=== PATIENT | female | born 1955 | race Caucasian/White ===

== ENCOUNTER 2018-07-01 11:46 | Emergency (ER) | payer OTHER, MEDICARE ==
[~2018-07-01] VITALS: Ht 157.5 cm; Wt 87.1 kg
[~2018-07-01 11:46] MED LIST: ASA81 MG PO; ASPIRIN BUFFER325 MG PO; ASPIRIN325 MG PO; ATORVASTATIN CA40 MG PO; COREG3.125 MG PO; DICLOFENAC SODI75 MG PO; FISH OIL300 MG PO; FUROSEMIDE20 MG PO; LISINOPRIL10 MG PO; LISINOPRIL2.5 MG PO; LISINOPRIL20 MG PO; OMEPRAZOLE20 MG PO; PAROXETINE HCL20 MG PO
--- OUTSIDE RECORDS SUMMARY | 2018-07-01 11:50 | XMS REPORT | Summary of Care ---
Author Author [facility] Organization [facility] Address Unknown Phone Unavailable Encounter HQ Rubi_erasto(BONILLA) [id number] Date(s): 09/06/15 - 09/09/15 [facility] [address] [place] [address]- [phone] Discharge Disposition: Home Attending Physician: Pilar Harp MD Admitting Physician: Pilar Harp MD Vital Signs 1 2 3 Most recent to oldest [Reference Range]: 165.1 cm (09/09/15 9:00 AM) 154.94 cm (09/08/15 9:00 AM) 165.1 cm (09/06/15 6:00 PM) Height 82.273 kg (09/09/15 9:00 AM) 81.449 kg (09/09/15 6:01 AM) 81.506 kg (09/08/15 9:00 AM) Current Weight 99.4 DegF *HI* (09/09/15 4:17 PM) 99.0 DegF (09/09/15 11:48 AM) 98.6 DegF (09/09/15 7:40 AM) Temperature Oral [96.4-99.1 DegF] 122/62 mmHg (09/09/15 4:17 PM) 113/77 mmHg (09/09/15 11:48 AM) 115/75 mmHg (09/09/15 7:40 AM) Blood Pressure [90-140/60-90 mmHg] 18 BRMIN (09/09/15 4:17 PM) 18 BRMIN (09/09/15 11:48 AM) 16 BRMIN (09/09/15 7:40 AM) Respiratory Rate [14-20 BRMIN] 66 bpm (09/09/15 4:17 PM) 75 bpm (09/09/15 11:48 AM) 70 bpm (09/09/15 7:40 AM) Peripheral Pulse Rate [60-100 bpm] 80.455 kg (09/07/15 8:32 AM) 128.295 kg (09/06/15 6:00 PM) 82.727 kg (09/06/15 12:57 PM) Weight 47.07 m2 (09/06/15 6:00 PM) 34.46 m2 (09/06/15 12:57 PM) Body Mass Index Problem List Condition Effective Dates Status Health Status Informant CHF - Congestive Resolved heart failure(Confirmed) HTN Resolved (hypertension)(Confi rmed) Hyperlipemia(Confirm Resolved ed) Pre-diabetes(Confirm Resolved ed) Allergies, Adverse Reactions, Alerts Substance Reaction Severity Status penicillins Active Medications AMIODarone 200 mg, 1 tab, Route: PO, Drug form: TAB, BID, Dosing Weight 82.727, kg, Start d ate: 09/06/15 17:00:00, Duration: 30 day, Stop date: 10/06/15 9:00:00 Notes: (Same as: Cordarone) Start Date: 09/06/15 Stop Date: 09/09/15 Status: Discontinued AMIODarone 200 mg oral tablet 200 mg=1 tab, PO, BID, # 180 tab, 0 Refill(s) Start Date: 09/06/15 Status: Ordered aspirin 81 mg, PO, Daily, 0 Refill(s) Start Date: 09/06/15 Status: Ordered aspirin 81 mg, 1 tab, Route: PO, Drug form: ECTAB, Daily, Dosing Weight 82.727, kg, Star t date: 09/07/15 9:00:00, Duration: 30 day, Stop date: 10/06/15 9:00:00 Notes: Do not crush or chew.(Same As: Ecotrin) Start Date: 09/07/15 Stop Date: 09/09/15 Status: Discontinued aspirin 324 mg, 4 tab, Route: CHEW, Drug form: CHEWTAB, ONCE, Dosing Weight 82.727, kg, Priority: STAT, Start date: 09/06/15 15:08:00, Stop date: 09/06/15 15:08:00 Notes: Take with food. Start Date: 09/06/15 Stop Date: 09/06/15 Status: Completed carvedilol 3.125 mg, 1 tab, Route: PO, Drug form: TAB, BID, Dosing Weight 82.727, kg, Start date: 09/07/15 17:00:00, Duration: 30 day, Stop date: 10/07/15 9:00:00 Notes: Give with food. (Same As: Coreg) Start Date: 09/07/15 Stop Date: 09/09/15 Status: Discontinued carvedilol 12.5 mg, 1 tab, Route: PO, Drug form: TAB, BID, Dosing Weight 82.727, kg, Start date: 09/06/15 17:00:00, Duration: 30 day, Stop date: 10/06/15 9:00:00 Notes: Give with food. (Same As: Coreg) Start Date: 09/06/15 Stop Date: 09/07/15 Status: Discontinued carvedilol 12.5 mg oral tablet 12.5 mg=1 tab, PO, BID, # 180 tab, 0 Refill(s) Start Date: 09/06/15 Stop Date: 09/09/15 Status: Discontinued carvedilol 12.5 mg oral tablet 12.5 mg=1 tab, PO, BID, # 60 tab, 0 Refill(s) Start Date: 09/09/15 Status: Ordered Dulcolax Laxative 5 mg, 1 tab, Route: PO, Drug form: ECTAB, Q6H, Dosing Weight 82.727, kg, PRN Con stipation, Start date: 09/06/15 16:37:00, Duration: 30 day, Stop date: 10/06/15 16:36:00 Notes: (Same As: Dulcolax, Correctol) (Do Not Crush) "Do Not Crush" Start Date: 09/06/15 Stop Date: 09/09/15 Status: Discontinued Dulcolax Laxative 10 mg, 1 supp, Route: MN, Drug form: SUPP, Daily, Dosing Weight 82.727, kg, PRN Constipation, Start date: 09/06/15 16:37:00, Duration: 30 day, Stop date: 16:36:00 Notes: (Same As: Dulcolax, Bisco-Lax) Start Date: 09/06/15 Stop Date: 09/09/15 Status: Discontinued DuoNeb inhalation solution 3 ml, Route: INHALATION, Drug Form: SOLN, Dosing Weight 82.727, kg, Q4H, PRN Whe ezing, Start date: 09/06/15 16:39:00, Duration: 30 day, Stop date: 10/06/15 16:3 8:00, sob Notes: (Same as: Duoneb) Start Date: 09/06/15 Stop Date: 09/09/15 Status: Discontinued famotidine 40 mg, PO, Daily, 0 Refill(s) Start Date: 09/06/15 Status: Ordered famotidine 40 mg, 1 tab, Route: PO, Drug form: TAB, Daily, Dosing Weight 82.727, kg, Start date: 09/07/15 9:00:00, Duration: 30 day, Stop date: 10/06/15 9:00:00 Notes: (Same as: Pepcid) Start Date: 09/07/15 Stop Date: 09/09/15 Status: Discontinued furosemide 20 mg, Route: IVP, Daily, Dosing Weight 128.295, kg, Start date: 09/07/15 9:00:0 0, Duration: 30 day, Stop date: 10/06/15 9:00:00 Start Date: 09/07/15 Stop Date: 09/06/15 Status: Deleted furosemide 20 mg oral tablet 20 mg=1 tab, PO, Daily, # 30 tab, 1 Refill(s) Start Date: 09/06/15 Status: Ordered Lasix 20 mg, 2 mL, Route: IVP, Drug form: INJ, BID, Dosing Weight 82.727, kg, Priority : Routine, Start date: 09/07/15 17:00:00, Duration: 30 day, Stop date: 10/07/15 9:00:00 Notes: (Same as: Lasix) Start Date: 09/07/15 Stop Date: 09/07/15 Status: Canceled Lasix 20 mg, Route: IVP, Drug form: INJ, BID, Dosing Weight 82.727, kg, Priority: Rout ine, Start date: 09/07/15 17:00:00, Duration: 30 day, Stop date: 10/07/15 9:00:0 0 Start Date: 09/07/15 Stop Date: 09/07/15 Status: Canceled Lasix 40 mg, 4 mL, Route: IVP, Drug form: INJ, ONCE, Dosing Weight 82.727, kg, Priorit y: STAT, Start date: 09/06/15 15:06:00, Stop date: 09/06/15 15:06:00 Notes: (Same as: Lasix) MEDICATION WASTE Product Size: 40 mgProduct Was jagdish: ___ mg Start Date: 09/06/15 Stop Date: 09/06/15 Status: Completed Lasix 40 mg, 4 mL, Route: IVP, Drug form: INJ, BID, Dosing Weight 82.727, kg, Priority : Routine, Start date: 09/06/15 17:00:00, Duration: 30 day, Stop date: 10/06/15 9:00:00 Notes: (Same as: Lasix) MEDICATION WASTE Product Size: 40 mgProduct Was jagdish: ___ mg Start Date: 09/06/15 Stop Date: 09/07/15 Status: Discontinued Lasix 20 mg, 2 mL, Route: IVP, Drug form: INJ, Daily, Dosing Weight 82.727, kg, Priori ty: Routine, Start date: 09/08/15 9:00:00, Duration: 30 day, Stop date: 10/07/15 9:00:00 Notes: (Same as: Lasix) Start Date: 09/08/15 Stop Date: 09/09/15 Status: Discontinued lisinopril 10 mg, 1 tab, Route: PO, Drug form: TAB, Daily, Dosing Weight 82.727, kg, Start date: 09/07/15 9:00:00, Duration: 30 day, Stop date: 10/06/15 9:00:00 Notes: (Same as: Prinivil, Zestril) Start Date: 09/07/15 Stop Date: 09/09/15 Status: Discontinued lisinopril 10 mg oral tablet 10 mg=1 tab, PO, Daily, # 30 tab, 0 Refill(s) Start Date: 09/06/15 Status: Ordered nitroglycerin 0.4 mg/hr transdermal film 1 patch, Route: TOP, Drug Form: ERFILM, Dosing Weight 82.727, kg, Daily, NOW, St art date: 09/06/15 16:36:00, Duration: 30 day, Stop date: 10/06/15 9:00:00 Notes: Apply only once for up to 12 hours in a 24 hour period (12 hours on and 1 2 hours off.)(Same as:Nitro-Dur,Deponit,Transderm Nitro) For topical use only." Remove old patch before application of new patch" Start Date: 09/06/15 Stop Date: 09/09/15 Status: Discontinued ondansetron 4 mg, 2 mL, Route: IVP, Drug form: INJ, Q8H, Dosing Weight 128.295, kg, PRN Naus ea & Vomiting, Start date: 09/06/15 19:20:00, Duration: 30 day, Stop date: 10/06/15 19:19:00 Notes: (Same as: Devin) MEDICATION WASTE Product Size: 4 mgProduct Was jagdish: ___ mg Start Date: 09/06/15 Stop Date: 09/09/15 Status: Discontinued PARoxetine 40 mg, 2 tab, Route: PO, Drug form: TAB, Daily, Dosing Weight 82.727, kg, Start date: 09/07/15 9:00:00, Duration: 30 day, Stop date: 10/06/15 9:00:00 Notes: (Same as: Paxil) Start Date: 09/07/15 Stop Date: 09/09/15 Status: Discontinued PARoxetine 40 mg oral tablet 40 mg=1 tab, PO, Daily, # 30 tab, 0 Refill(s) Start Date: 09/06/15 Status: Ordered potassium chloride 40 mEq, 2 tab, Route: PO, Drug form: ERTAB, ONCE, Dosing Weight 82.727, kg, Prio rity: NOW, Start date: 09/06/15 16:36:00, Stop date: 09/06/15 16:36:00 Notes: (Same as: K-Dur 20)"Do Not Crush" With food and full glass of water Start Date: 09/06/15 Stop Date: 09/06/15 Status: Completed pravastatin 40 mg, 2 tab, Route: PO, Drug form: TAB, Bedtime, Dosing Weight 82.727, kg, Star t date: 09/06/15 21:00:00, Duration: 30 day, Stop date: 10/05/15 21:00:00 Notes: (Same as: Pravachol) Start Date: 09/06/15 Stop Date: 09/09/15 Status: Discontinued pravastatin 40 mg oral tablet 40 mg=1 tab, PO, Bedtime, # 30 tab, 0 Refill(s) Start Date: 09/06/15 Status: Ordered remove patch Route: TOP, Drug form: ERFILM, Daily, Start date: 09/06/15 23:00:00, Duration: 3 0 day, Stop date: 10/05/15 23:00:00 Notes: Remove from 11 pm to 9 am daily for 10 hour nitrate free period. (Verify Patient has not taken Viagra, Cialis or Levitra in last 24 hours; if taken, hold NTG and notify MD.) Start Date: 09/06/15 Stop Date: 09/09/15 Status: Discontinued Saline Flush 0.9% 10 ml, Route: IVP, Drug Form: INJ, Dosing Weight 128.295, kg, PRN, PRN Line Flus h, Start date: 09/06/15 19:20:00, Duration: 30 day, Stop date: 10/06/15 19:19:00 Start Date: 09/06/15 Stop Date: 09/06/15 Status: Deleted Saline Flush 0.9% 10 ml, Route: IVP, Drug Form: INJ, Dosing Weight 128.295, kg, Q12H, Start date: 09/06/15 21:00:00, Duration: 30 day, Stop date: 10/06/15 9:00:00 Notes: Same as: BD Posiflush Sterile Start Date: 09/06/15 Stop Date: 09/09/15 Status: Discontinued Saline Flush 0.9% 10 mL, Route: IVP, Drug Form: INJ, Dosing Weight 82.727, kg, PRN, PRN Line Flush , Start date: 09/06/15 13:04:00, Duration: 30 day, Stop date: 10/06/15 13:03:00 Notes: Same as: BD Posiflush Sterile Start Date: 09/06/15 Stop Date: 09/09/15 Status: Discontinued spironolactone 25 mg, 1 tab, Route: PO, Drug form: TAB, Daily, Dosing Weight 80.455, kg, Priori ty: NOW, Start date: 09/07/15 10:52:00, Duration: 30 day, Stop date: 10/07/15 9: 00:00 Notes: (Same As: Aldactone) Start Date: 09/07/15 Stop Date: 09/09/15 Status: Discontinued spironolactone 25 mg oral tablet 25 mg=1 tab, PO, Daily, # 100 tab, 2 Refill(s) Start Date: 09/09/15 Status: Ordered tramadol 50 mg oral tablet 50 mg=1 tab, PO, Q6H, PRN Pain Score 1-3, # 100 tab, 2 Refill(s) Start Date: 09/09/15 Stop Date: 09/09/15 Status: Completed tramadol 50 mg oral tablet 50 mg, 1 tab, Route: PO, Drug form: TAB, Q6H, Dosing Weight 80.455, kg, PRN Pain Score 1-3, Start date: 09/09/15 12:56:00, Duration: 30 day, Stop date: 10/09/15 12:55:00 Notes: Not to exceed 400mg/day. (Same As: Ultram) Start Date: 09/09/15 Stop Date: 09/09/15 Status: Discontinued Tylenol 650 mg, Route: PO, Drug form: TAB, Q6H, Dosing Weight 82.727, kg, PRN Pain Score 1-3, Start date: 09/06/15 16:36:00, Duration: 30 day, Stop date: 10/06/15 16:35 :00 Start Date: 09/06/15 Stop Date: 09/06/15 Status: Deleted Tylenol 650 mg, 2 tab, Route: PO, Drug form: TAB, Q6H, Dosing Weight 82.727, kg, PRN Zuleika n 1-3/Temp > 100.4 F, Start date: 09/06/15 16:36:00, Duration: 30 day, Stop date: 10/06/15 16:35:00 Notes: Do not exceed 4 gm/day. (Same as: Tylenol) Start Date: 09/06/15 Stop Date: 09/09/15 Status: Discontinued Results ELECTROLYTES 1 2 3 Most recent to oldest [Reference Range]: 142 mEq/L (09/09/15 4:18 AM) 141 mEq/L (09/08/15 3:53 AM) 137 mEq/L (09/07/15 5:01 AM) Sodium Lvl [135-145 mEq/L] 4.9 mEq/L (09/09/15 4:18 AM) 4.2 mEq/L (09/08/15 3:53 AM) 3.7 mEq/L (09/07/15 5:01 AM) Potassium Lvl [3.5-5.1 mEq/L] 103 mEq/L (09/09/15 4:18 AM) 103 mEq/L (09/08/15 3:53 AM) 100 mEq/L (09/07/15 5:01 AM) Chloride Lvl [95-109 mEq/L] 30 mEq/L (09/09/15 4:18 AM) 29 mEq/L (09/08/15 3:53 AM) 29 mEq/L (09/07/15 5:01 AM) CO2 [24-32 mEq/L] 13.9 mEq/L (09/09/15 4:18 AM) 13.2 mEq/L (09/08/15 3:53 AM) 11.7 mEq/L (09/07/15 5:01 AM) AGAP [10.0-20.0 mEq/L] CHEM PANEL 1 2 3 Most recent to oldest [Reference Range]: 0.91 mg/dL (09/09/15 4:18 AM) 1.09 mg/dL (09/08/15 3:53 AM) 1.14 mg/dL (09/07/15 5:01 AM) Creatinine Lvl [0.50-1.40 mg/dL] 68 mL/min/1.73m2 1 *NA* (09/09/15 4:18 AM) 55 mL/min/1.73m2 2 *NA* (09/08/15 3:53 AM) 52 mL/min/1.73m2 3 *NA* (09/07/15 5:01 AM) eGFR 20 mg/dL (09/09/15 4:18 AM) 20 mg/dL (09/08/15 3:53 AM) 13 mg/dL (09/07/15 5:01 AM) BUN [7-22 mg/dL] 14 (09/06/15 2:06 PM) B/C Ratio [6-25] 111 mg/dL *HI* (09/09/15 4:18 AM) 112 mg/dL *HI* (09/08/15 3:53 AM) 100 mg/dL *HI* (09/07/15 5:01 AM) Glucose Lvl [70-99 mg/dL] 7.1 g/dL (09/06/15 2:06 PM) Total Protein [6.4-8.4 g/dL] 3.8 g/dL (09/06/15 2:06 PM) Albumin Lvl [3.5-5.0 g/dL] 3.3 g/dL (09/06/15 2:06 PM) Globulin [2.0-4.0 g/dL] 1.2 (09/06/15 2:06 PM) A/G Ratio [0.7-1.6] 9.2 mg/dL (09/09/15 4:18 AM) 8.9 mg/dL (09/08/15 3:53 AM) 8.3 mg/dL *LOW* (09/07/15 5:01 AM) Calcium Lvl [8.5-10.5 mg/dL] 2.0 mg/dL (09/06/15 5:00 PM) Magnesium Lvl [1.8-2.4 mg/dL] 28 unit/L (09/06/15 2:06 PM) ALT [0-65 unit/L] 14 unit/L (09/06/15 2:06 PM) AST [0-37 unit/L] 71 unit/L (09/06/15 2:06 PM) Alk Phos [39-136 unit/L] 1.0 mg/dL (09/06/15 2:06 PM) Bili Total [0.2-1.3 mg/dL] 1Result Comment: The eGFR is calculated using the CKD-EPI formula. In most young, healthy individuals the eGFR will be >90 mL/min/1.73m2. The eGFR declines with age. An eGFR of 60-89 may be normal in some populations, particularly the elderly, for whom the CKD-EPI formula has not been extensively validated. Use of the eGFR is not recommended in the following populations: Individuals with unstable creatinine concentrations, including patients and those with serious co-morbid conditions. Patients with extremes in muscle mass or diet. The data above are obtained from the National Kidney Disease Education Program ( NKDEP) which additionally recommends that when the eGFR is used in patients with extremes of body mass index for purposes of drug dosing, the eGFR should be mul tiplied by the estimated BMI. 2Result Comment: The eGFR is calculated using the CKD-EPI formula. In most young, healthy individuals the eGFR will be >90 mL/min/1.73m2. The eGFR declines with age. An eGFR of 60-89 may be normal in some populations, particularly the elderly, for whom the CKD-EPI formula has not been extensively validated. Use of the eGFR is not recommended in the following populations: Individuals with unstable creatinine concentrations, including patients and those with serious co-morbid conditions. Patients with extremes in muscle mass or diet. The data above are obtained from the National Kidney Disease Education Program ( NKDEP) which additionally recommends that when the eGFR is used in patients with extremes of body mass index for purposes of drug dosing, the eGFR should be mul tiplied by the estimated BMI. 3Result Comment: The eGFR is calculated using the CKD-EPI formula. In most young, healthy individuals the eGFR will be >90 mL/min/1.73m2. The eGFR declines with age. An eGFR of 60-89 may be normal in some populations, particularly the elderly, for whom the CKD-EPI formula has not been extensively validated. Use of the eGFR is not recommended in the following populations: Individuals with unstable creatinine concentrations, including patients and those with serious co-morbid conditions. Patients with extremes in muscle mass or diet. The data above are obtained from the National Kidney Disease Education Program ( NKDEP) which additionally recommends that when the eGFR is used in patients with extremes of body mass index for purposes of drug dosing, the eGFR should be mul tiplied by the estimated BMI. CARDIAC ENZYMES 1 2 3 Most recent to oldest [Reference Range]: 47 unit/L (09/07/15 5:01 AM) 50 unit/L (09/06/15 10:20 PM) 56 unit/L (09/06/15 7:29 PM) Total CK [12-191 unit/L] 0.8 ng/mL (09/07/15 5:01 AM) 0.7 ng/mL (09/06/15 7:29 PM) 0.8 ng/mL (09/06/15 2:06 PM) CK MB [0.5-3.6 ng/mL] 1.7 (09/06/15 2:06 PM) CK MB Index [0.0-2.5] 0.03 ng/mL (09/07/15 5:01 AM) 0.04 ng/mL (09/06/15 10:20 PM) 0.03 ng/mL (09/06/15 7:29 PM) Troponin-I [0.00-0.40 ng/mL] 121 pg/mL *HI* (09/09/15 4:18 AM) 914 pg/mL *HI* (09/06/15 2:06 PM) BNP [<=100 pg/mL] URINE AND STOOL 1 2 3 Most recent to oldest [Reference Range]: Clear (09/06/15 5:00 PM) UA Turbidity [Clear] Colorless *NA* (09/06/15 5:00 PM) UA Color 6.0 (09/06/15 5:00 PM) UA pH [5.0-8.0] 1.004 (09/06/15 5:00 PM) UA Spec Grav [<=1.030] Negative mg/dL *NA* (09/06/15 5:00 PM) UA Glucose [Negative mg/dL] Negative (09/06/15 5:00 PM) UA Blood [Negative] Negative mg/dL *NA* (09/06/15 5:00 PM) UA Ketones [Negative mg/dL] Negative mg/dL (09/06/15 5:00 PM) UA Protein [Negative mg/dL] <=1.0 mg/dL *NA* (09/06/15 5:00 PM) UA Urobilinogen [0.1-1.0 mg/dL] Negative *NA* (09/06/15 5:00 PM) UA Bili [Negative] Negative (09/06/15 5:00 PM) UA Leuk Est [Negative] Negative (09/06/15 5:00 PM) UA Nitrite [Negative] <1 /HPF (09/06/15 5:00 PM) UA RBC [0-2 /HPF] None Seen *NA* (09/06/15 5:00 PM) UA Sq Epi HEMATOLOGY 1 2 3 Most recent to oldest [Reference Range]: 10.0 K/CMM (09/06/15 2:06 PM) WBC [3.7-10.4 K/CMM] 3.90 M/CMM *LOW* (09/06/15 2:06 PM) RBC [4.20-5.40 M/CMM] 12.7 g/dL (09/06/15 2:06 PM) Hgb [12.0-16.0 g/dL] 39.0 % (09/06/15 2:06 PM) Hct [36.0-48.0 %] 100.0 fL *HI* (09/06/15 2:06 PM) MCV [80.0-98.0 fL] 32.5 pg *HI* (09/06/15 2:06 PM) MCH [27.0-31.0 pg] 32.5 g/dL (09/06/15 2:06 PM) MCHC [32.0-36.0 g/dL] 13.5 % (09/06/15 2:06 PM) RDW [11.5-14.5 %] 218 K/CMM (09/06/15 2:06 PM) Platelet [133-450 K/CMM] 9.3 fL (09/06/15 2:06 PM) MPV [7.4-10.4 fL] 82.0 % *HI* (09/06/15 2:06 PM) Segs [45.0-75.0 %] 9.5 % *LOW* (09/06/15 2:06 PM) Lymphocytes [20.0-40.0 %] 6.6 % (09/06/15 2:06 PM) Monocytes [2.0-12.0 %] 1.5 % (09/06/15 2:06 PM) Eosinophils [0.0-4.0 %] 0.4 % (09/06/15 2:06 PM) Basophils [0.0-1.0 %] 8.2 K/CMM *HI* (09/06/15 2:06 PM) Segs-Bands # [1.5-8.1 K/CMM] 1.0 K/CMM (09/06/15 2:06 PM) Lymphocytes # [1.0-5.5 K/CMM] 0.7 K/CMM (09/06/15 2:06 PM) Monocytes # [0.0-0.8 K/CMM] 0.1 K/CMM (09/06/15 2:06 PM) Eosinophils # [0.0-0.5 K/CMM] 1+ *ABN* (09/06/15 2:06 PM) Macrocyte [None Seen] 13.8 seconds (09/06/15 5:00 PM) PT [12.0-14.7 seconds] 1.03 (09/06/15 5:00 PM) INR [0.85-1.17] 34.6 seconds (09/06/15 5:00 PM) PTT [22.9-35.8 seconds] Immunizations No data available for this section Procedures Procedure Date Related Diagnosis Body Site section Hysterectomy Insertion of permanent pacemaker with transvenous electrodes, atrio-ventricular sequential Social History Social History Type Response Smoking Status Former smoker; Exposure to Tobacco Smoke None; Cigarette Smoking Last 365 Days No; Reg Smoking Cessation Counseling Yes1 1stopped smoking for 18 years ago Assessment and Plan Extracted from: Title: Clinical Document Author: Ramy Fuller MD Date: 09/09/15 She is being discharged today. I will follow her in office as already scheduled. Extracted from: Title: Clinical Document Author: Pilar Harp MD Date: 09/09/15 Pt is a 60y/o F admitted on 09/06/2015 DISCHARGE SUMMARY DIAGNOSIS / HOSPITAL COURSE: chf htn cad Please see the H&P. Patient was discharged home in stable condition after approval by all consultants. Patient to return immediately if has any problem. Condition and plan of care were discussed with patient/family. OBJECTIVE: Vital Signs (last 24 hrs) Last Charted Temp Oral99.0 DegF (SEP 09 11:48) Heart Rate [id number] bpm (SEP 09 11:48) Resp Rate 18 BRMIN (SEP 09 11:48) [id number] mmHg (SEP 09 11:48) DBP77 mmHg (SEP 09 11:48) General: Not in acute distress Neuro: Awake and alert CV: RRR , no rub , no gallop , no murmur Pulm: Clear to ascultation Abd: BS + , soft , not distented , not tender to palpation Ext: No edema Skin: Not mottle Labs (Last four charted values) WBC 10.0(SEP 06) Hgb 12.7(SEP 06) Hct 39.0(SEP 06) Plt 218(SEP 06) Na 142(SEP 09)141(SEP 08)137(SEP 07)139(SEP 06) K 4.9(SEP 09)4.2(SEP 08)3.7(SEP 07)4.1(SEP 06) CO2 30(SEP 09)29(SEP 08)29(SEP 07)26(SEP 06) Cl 103(SEP 09)103(SEP 08)100(SEP 07)105(SEP 06) Cr 0.91(SEP 09)1.09(SEP 08)1.14(SEP 07)0.76(SEP 06) BUN 20(SEP 09)20(SEP 08)13(SEP 07)11(SEP 06) Glucose Random H 111(SEP 09)H 112(SEP 08)H 100(SEP 07)H 117(SEP 06) Mg 2.0(SEP 06) Ca 9.2(SEP 09)8.9(SEP 08)L 8.3(SEP 07)8.8(SEP 06) PT 13.8(SEP 06) INR 1.03(SEP 06) PTT 34.6(SEP 06) Troponin 0.03(SEP 07)0.04(SEP 06)0.03(SEP 06)0.02(SEP 06) CK MB 0.8(SEP 07)0.7(SEP 06)0.8(SEP 06) Total CK 47(SEP 07)50(SEP 06)56(SEP 06)47(SEP 06) Diet: See E order Activity: See E order Follow Up: See E order Medication: See Medication Reconciliation Extracted from: Title: Clinical Document Author: Pilar Harp MD Date: 09/09/15 Internal Medicine Progress Note SUBJECTIVE: Patient has no significant new complaint doing better OBJECTIVE: Diagnostics discussed with patient General: Not in acute distress Neuro: Awake and alert CV: RRR , no rub , no gallop , no murmur Pulm: Clear to ascultation Abd: BS + , soft , not distented , not tender to palpation Ext: No edema Skin: Not mottle Vital Signs (last 24 hrs) Last Charted Temp Oral99.0 DegF (SEP 09 11:48) Heart Rate [id number] bpm (SEP 09 11:48) Resp Rate 18 BRMIN (SEP 09 11:48) [id number] mmHg (SEP 09 11:48) DBP77 mmHg (SEP 09 11:48) Input/Output RecordInOutBal 4hr Tot 252 0 252 2824hr Tot [phone] Labs (Last four charted values) WBC 10.0(SEP 06) Hgb 12.7(SEP 06) Hct 39.0(SEP 06) Plt 218(SEP 06) Na 142(SEP 09)141(SEP 08)137(SEP 07)139(SEP 06) K 4.9(SEP 09)4.2(SEP 08)3.7(SEP 07)4.1(SEP 06) CO2 30(SEP 09)29(SEP 08)29(SEP 07)26(SEP 06) Cl 103(SEP 09)103(SEP 08)100(SEP 07)105(SEP 06) Cr 0.91(SEP 09)1.09(SEP 08)1.14(SEP 07)0.76(SEP 06) BUN 20(SEP 09)20(SEP 08)13(SEP 07)11(SEP 06) Glucose Random H 111(SEP 09)H 112(SEP 08)H 100(SEP 07)H 117(SEP 06) Mg 2.0(SEP 06) Ca 9.2(SEP 09)8.9(SEP 08)L 8.3(SEP 07)8.8(SEP 06) PT 13.8(SEP 06) INR 1.03(SEP 06) PTT 34.6(SEP 06) Troponin 0.03(SEP 07)0.04(SEP 06)0.03(SEP 06)0.02(SEP 06) CK MB 0.8(SEP 07)0.7(SEP 06)0.8(SEP 06) Total CK 47(SEP 07)50(SEP 06)56(SEP 06)47(SEP 06) ASSESSMENT and PLAN See E order Medications (18) Active Scheduled: (12) AMIODarone 200 mg TAB 200 mg 1 tab, PO, BID aspirin 81 mg ECT 81 mg 1 tab, PO, Daily carvedilol 3.125 mg TAB 3.125 mg 1 tab, PO, BID famotidine 40 mg TAB 40 mg 1 tab, PO, Daily furosemide 10mg/ml INJ 2ml VL 20 mg 2 mL, IVP, Daily lisinopril 10 mg TAB 10 mg 1 tab, PO, Daily nitroglycerin 0.4 mg/hr PATCH 1 patch, TOP, Daily nitroglycerin patch removal 1 remove patch, TOP, Daily PARoxetine 20 mg TAB 40 mg 2 tab, PO, Daily pravastatin 20 mg TAB 40 mg 2 tab, PO, Bedtime sodium chloride 0.9% 10ml sterile flush syr BD 10 ml, IVP, Q12H spironolactone 25 mg TAB 25 mg 1 tab, PO, Daily Continuous: (0) PRN: (6) acetaminophen 325 mg TABLET 650 mg 2 tab, PO, Q6H albuterol-ipratropium 2.5 mg-0.5 mg/3 ml CHIO 3 ml, INHALATION, Q4H bisacodyl 10 mg rect SUPP 10 mg 1 supp, MN, Daily bisacodyl 5 mg ECT 5 mg 1 tab, PO, Q6H ondansetron 4mg/2mL INJ SYRINGE 4 mg 2 mL, IVP, Q8H sodium chloride 0.9% 10ml sterile flush syr BD 10 mL, IVP, PRN meds d./c f/u next week. Extracted from: Title: Clinical Document Author: Mikle Harp MD Date: 09/06/15 HISTORY & PHYSICAL HPI: Patient complains of worsening of sob over few days and now with orthopnea and PND. NO cp, fever, chill , cough Past Medical History: HTN CAD C/s Hyst AICD placement 2013 Medication: See list/MAR Allergies (1) ActiveReaction penicillinsNone Documented Social History: Does not smoke , Drink socially , Denies illicit drug usage Social & Psychosocial Habits Tobacco 09/06/2015 Use: Former smoker Exposure to Tobacco Smoke None Cigarette Smoking Last 365 Days No Reg Smoking Cessation Counseling Yes Family History: Noncontributory ROS: 14 points ROS negative except as noted in the HPI Physical Examination: Vital Signs (last 24 hrs) Last Charted Temp Oral98.6 DegF (SEP 06 12:57) Heart Rate Slrhog73 bpm (SEP 06 15:21) Resp Rate H 25BRMIN (SEP 06 15:) SBPH 147mmHg (SEP 06 15:21) DBP89 mmHg (SEP 06 15:) Gzmacz02.727 kg (SEP 06 12:57) Labs (Last four charted values) WBC 10.0(SEP 06) Hgb 12.7(SEP 06) Hct 39.0(SEP 06) Plt 218(SEP 06) Na 139(SEP 06) K 4.1(SEP 06) CO2 26(SEP 06) Cl 105(SEP 06) Cr 0.76(SEP 06) BUN 11(SEP 06) Glucose Random H 117(SEP 06) Ca 8.8(SEP 06) Troponin 0.02(SEP 06) CK MB 0.8(SEP 06) Total CK 47(SEP 06) General: Mild sob HEENT: Sclera not icteric CV: RRR , no rub , gallop , no murmur Lung: few ronchi to asc. Abdomen: BS + , soft , not distended , not tender to palpation Ext: trace edema Skin: Not mottle Neuro: Awake, move all ext. EKG: noted, snr, nonspecific change Assessment and Plan: chf. lasxi. card eval cad . Resume home medications. HTN continue same management See E order Further recommendations pending evaluations Discussed condition and plan of treatment with patient/family
--- OUTSIDE RECORDS SUMMARY | 2018-07-01 11:50 | XMS REPORT ---
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 Name Role Phone Ramy Fuller CP Unavailable Encounters Encounter Location Date Follow-Up Ram[place] February 26, 2016 echo/carotid/arterial dopplers Ramy [place], [place] March 02, 2016 Problems Problem Type Condition ICD-9 Code Onset Dates Condition Status Problem Automatic implantable cardiac defibrillator in situ V45.02 Active Problem Benign hypertensive heart disease with heart failure 402.11 Active Problem Chronic systolic heart failure 428.22 Active Problem Hypertensive heart disease with heart failure I11.0 Active Problem Personal history of sudden cardiac arrest Z86.74 Active Problem CHF, chronic systolic I50.22 Active Problem Abnormal electrocardiogram [ECG] [EKG] R94.31 Active Problem Other obesity due to excess calories E66.09 Active Problem Presence of automatic (implantable) cardiac defibrillator Z95.810 Active Problem Mixed hyperlipidemia E78.2 Active Problem Personal history of sudden cardiac arrest V12.53 Active Problem Obesity, unspecified 278.00 Active Problem Mixed hyperlipidemia 272.2 Active Problem Abnormal ECG 794.31 Active Problem Benign hypertensive heart disease without heart failure 402.10 Active Social History Social History Element Qualifiers Date Reported Tobacco Use: . Are you a: former smoker quit in 1999February 26, 2016 Marital Status: . February 26, 2016 Do you drink alcohol? . Status: No February 26, 2016 Summary Purpose [employer] Submission
--- OUTSIDE RECORDS SUMMARY | 2018-07-01 11:50 | XMS REPORT | Continuity of Care Document ---
Author Author [facility] Interface Address Unknown Phone Unavailable Problems Problem Status Onset Date Classification Date Reported Comments Source ACUTE ON CHRONIC CHF Active 09/06/2015 [facility] CHEAT PAIN, SOB Active 09/06/2015 [facility] Automatic implantable cardiac defibrillator in situ Active Problem 03/03/2016 Ramy Fuller MD, [place] Benign hypertensive heart disease with heart failure Active Problem 03/03/2016 Ramy Fuller MD, PA Chronic systolic heart failure Active Problem 03/03/2016 Ramy Fuller MD, [place] Hypertensive heart disease with heart failure Active Problem 03/03/2016 Ramy Fuller MD, PA Personal history of sudden cardiac arrest Active Problem 03/03/2016 Ramy Fuller MD, PA CHF, chronic systolic Active Problem 03/03/2016 Ramy Fuller MD, PA Abnormal electrocardiogram [ECG] [EKG] Active Problem 03/03/2016 Ramy Fuller MD, PA Other obesity due to excess calories Active Problem 03/03/2016 Ramy Fuller MD, PA Presence of automatic cardiac defibrillator Active Problem 03/03/2016 Ramy Fuller MD, PA Mixed hyperlipidemia Active Problem 03/03/2016 aRmy Fuller MD, PA Personal history of sudden cardiac arrest Active Problem 03/03/2016 Ramy Fuller MD, NINFA Obesity, unspecified Active Problem 03/03/2016 Ramy Fuller MD, PA Mixed hyperlipidemia Active Problem 03/03/2016 Ramy Fuller MD, [place] Abnormal ECG Active Problem 03/03/2016 Ramy Fuller MD, [place] Benign hypertensive heart disease without heart failure Active Problem 03/03/2016 Ramy Fuller MD, PA CHF - Congestive heart failure Resolved Problem 09/12/2015 [facility] HTN (<span [id number]</span>) Resolved Problem 09/12/2015 [facility] Hyperlipemia Resolved Problem 09/12/2015 [facility] Pre-diabetes Resolved Problem 09/12/2015 [facility] HEART FAILURE, UNSPECIFIED Active [facility] Medications Medication Details Route Status Patient Instructions Ordering Provider Order Date Source tramadol hydrochloride 50 MG Oral Tablet 50 mg=1 tab, PO, Q6H, PRN Pain Score 1-3, # 100 tab, 2 Refill(s) Inactive 09/09/2015 [facility] spironolactone 25 mg oral tablet 25 mg=1 tab, PO, Daily, # 100 tab, 2 Refill(s) Active 09/09/2015 [facility] carvedilol 12.5 mg oral tablet 12.5 mg=1 tab, PO, BID, # 60 tab, 0 Refill(s) Active 09/09/2015 [facility] Lasix 20 mg, 2 mL, Route: IVP, Drug form: INJ, Daily, Dosing Weight 82.727, kg, Priority: Routine, Start date: 09/08/15 9:00:00, Duration: 30 day, Stop date: 10/07/15 9:00:00Notes: (Same as: Lasix) No Longer Active 09/08/2015 [facility] Lasix 20 mg, 2 mL, Route: IVP, Drug form: INJ, BID, Dosing Weight 82.727, kg, Priority: Routine, Start date: 09/07/15 17:00:00, Duration: 30 day, Stop date: 10/07/15 9:00:00Notes: (Same as: Lasix) Inactive 09/07/2015 [facility] carvedilol 3.125 mg, 1 tab, Route: PO, Drug form: TAB, BID, Dosing Weight 82.727, kg, Start date: 09/07/15 17:00:00, Duration: 30 day, Stop date: 10/07/15 9:00:00Notes: Give with food. (Same As: Coreg) No Longer Active 09/07/2015 [facility] Spironolactone 25 mg, 1 tab, Route: PO, Drug form: TAB, Daily, Dosing Weight 80.455, kg, Priority: NOW, Start date: 09/07/15 10:52:00, Duration: 30 day, Stop date: 10/07/15 9:00:00Notes: (Same As: Aldactone) No Longer Active 09/07/2015 [facility] Furosemide 20 mg, Route: IVP, Daily, Dosing Weight 128.295, kg, Start date: 09/07/15 9:00:00, Duration: 30 day, Stop date: 10/06/15 9:00:00 No Longer Active 09/07/2015 [facility] Paroxetine 40 mg, 2 tab, Route: PO, Drug form: TAB, Daily, Dosing Weight 82.727, kg, Start date: 09/07/15 9:00:00, Duration: 30 day, Stop date: 10/06/15 9:00:00Notes: (Same as: Paxil) No Longer Active 09/07/2015 [facility] Lisinopril 10 mg, 1 tab, Route: PO, Drug form: TAB, Daily, Dosing Weight 82.727, kg, Start date: 09/07/15 9:00:00, Duration: 30 day, Stop date: 10/06/15 9:00:00Notes: (Same as: Prinivil, Zestril) No Longer Active 09/07/2015 [facility] Famotidine 40 mg, 1 tab, Route: PO, Drug form: TAB, Daily, Dosing Weight 82.727, kg, Start date: 09/07/15 9:00:00, Duration: 30 day, Stop date: 10/06/15 9:00:00Notes: (Same as: Pepcid) No Longer Active 09/07/2015 [facility] Aspirin 81 mg, 1 tab, Route: PO, Drug form: ECTAB, Daily, Dosing Weight 82.727, kg, Start date: 09/07/15 9:00:00, Duration: 30 day, Stop date: 10/06/15 9:00:00Notes: Do not crush or chew. (Same As: Ecotrin) No Longer Active 09/07/2015 [facility] remove patch Route: TOP, Drug form: ERFILM, Daily, Start date: 09/06/15 23:00:00, Duration: 30 day, Stop date: 10/05/15 23:00:00Notes: Remove from 11 pm to 9 am daily for 10 hour nitrate free period. (Verify Patien t has not taken Viagra, Cialis or Levitra in last 24 hours; if taken, hold NTG and notify MDKayla) No Longer Active 09/07/2015 [facility] Saline Flush 0.9% 10 ml, Route: IVP, Drug Form: INJ, Dosing Weight 128.295, kg, Q12H, Start date: 09/06/15 21:00:00, Duration: 30 day, Stop date: 10/06/15 9:00:00Notes: Same as: BD Posiflush Sterile No Longer Active 09/07/2015 [facility] Pravastatin 40 mg, 2 tab, Route: PO, Drug form: TAB, Bedtime, Dosing Weight 82.727, kg, Start date: 09/06/15 21:00:00, Duration: 30 day, Stop date: 10/05/15 21:00:00Notes: (Same as: Pravachol) No Longer Active 09/07/2015 [facility] Saline Flush 0.9% 10 ml, Route: IVP, Drug Form: INJ, Dosing Weight 128.295, kg, PRN, PRN Line Flush, Start date: 09/06/15 19:20:00, Duration: 30 day, Stop date: 10/06/15 19:19:00 Inactive 09/07/2015 [facility] Ondansetron 4 mg, 2 mL, Route: IVP, Drug form: INJ, Q8H, Dosing Weight 128.295, kg, PRN Nausea & Vomiting, Start date: 09/06/15 19:20:00, Duration: 30 day, Stop date: 10/06/15 19:19:00Notes: (Same as: Zofran) MEDICATION WASTE Product Size: 4 mg Product Wasted: ___ mg No Longer Active 09/07/2015 [facility] Lasix 40 mg, 4 mL, Route: IVP, Drug form: INJ, BID, Dosing Weight 82.727, kg, Priority: Routine, Start date: 09/06/15 17:00:00, Duration: 30 day, Stop date: 10/06/15 9:00:00Notes: (Same as: Lasix) MEDICATION WASTE Product Size: 40 mg Product Wasted: ___ mg No Longer Active 09/06/2015 [facility] carvedilol 12.5 mg, 1 tab, Route: PO, Drug form: TAB, BID, Dosing Weight 82.727, kg, Start date: 09/06/15 17:00:00, Duration: 30 day, Stop date: 10/06/15 9:00:00Notes: Give with food. (Same As: Coreg) No Longer Active 09/06/2015 [facility] Amiodarone 200 mg, 1 tab, Route: PO, Drug form: TAB, BID, Dosing Weight 82.727, kg, Start date: 09/06/15 17:00:00, Duration: 30 day, Stop date: 10/06/15 9:00:00Notes: (Same as: Cordarone) No Longer Active 09/06/2015 [facility] Albuterol 0.833 MG/ML / Ipratropium [place] 0.167 MG/ML Inhalant Solution [DuoNeb] 3 ml, Route: INHALATION, Drug Form: SOLN, Dosing Weight 82.727, kg, Q4H, PRN Wheezing, Start date: 09/06/15 16:39:00, Duration: 30 day, Stop date: 10/06/15 16:38:00, sobNotes: (Same as: Duoneb) No Longer Active 09/06/2015 [facility] Dulcolax Laxative 5 mg, 1 tab, Route: PO, Drug form: ECTAB, Q6H, Dosing Weight 82.727, kg, PRN Constipation, Start date: 09/06/15 16:37:00, Duration: 30 day, Stop date: 10/06/15 16:36:00Notes: (Same As: Dulcolax, Ellen ectol) (Do Not Crush) "Do Not Crush" No Longer Active 09/06/2015 [facility] 24 HR Nitroglycerin 0.4 MG/HR Transdermal Patch 1 patch, Route: TOP, Drug Form: ERFILM, Dosing Weight 82.727, kg, Daily, NOW, Start date: 09/06/15 16:36:00, Duration: 30 day, Stop date: 10/06/15 9:00:00Notes: Apply only once for up to 12 hours in a 24 hour period (12 hours on and 12 hours off.) (Same as:Nitro-Dur,Deponit,Transderm Nitro) For topical use only. "Remove old patch before application of new patch" No Longer Active 09/06/2015 [facility] Tylenol 650 mg, Route: PO, Drug form: TAB, Q6H, Dosing Weight 82.727, kg, PRN Pain Score 1-3, Start date: 09/06/15 16:36:00, Duration: 30 day, Stop date: 10/06/15 16:35:00 Inactive 09/06/2015 [facility] potassium chloride 40 mEq, 2 tab, Route: PO, Drug form: ERTAB, ONCE, Dosing Weight 82.727, kg, Priority: NOW, Start date: 09/06/15 16:36:00, Stop date: 09/06/15 16:36:00Notes: (Same as: K-Dur 20) "Do Not Crush" With food and full glass of water Inactive 09/06/2015 [facility] Aspirin 324 mg, 4 tab, Route: CHEW, Drug form: CHEWTAB, ONCE, Dosing Weight 82.727, kg, Priority: STAT, Start date: 09/06/15 15:08:00, Stop date: 09/06/15 15:08:00Notes: Take with food. Inactive 09/06/2015 [facility] Lasix 40 mg, 4 mL, Route: IVP, Drug form: INJ, ONCE, Dosing Weight 82.727, kg, Priority: STAT, Start date: 09/06/15 15:06:00, Stop date: 09/06/15 15:06:00Notes: (Same as: Lasix) MEDICATION WASTE Product Size: 40 mg Product Wasted: ___ mg Inactive 09/06/2015 [facility] PARoxetine 40 mg oral tablet 40 mg=1 tab, PO, Daily, # 30 tab, 0 Refill(s) Active 09/06/2015 [facility] AMIODarone 200 mg oral tablet 200 mg=1 tab, PO, BID, # 180 tab, 0 Refill(s) Active 09/06/2015 [facility] Aspirin 81 mg, PO, Daily, 0 Refill(s) Active 09/06/2015 [facility] Furosemide 20 MG Oral Tablet 20 mg=1 tab, PO, Daily, # 30 tab, 1 Refill(s) Active 09/06/2015 [facility] pravastatin 40 mg oral tablet 40 mg=1 tab, PO, Bedtime, # 30 tab, 0 Refill(s) Active 09/06/2015 [facility] carvedilol 12.5 mg oral tablet 12.5 mg=1 tab, PO, BID, # 180 tab, 0 Refill(s) No Longer Active 09/06/2015 [facility] lisinopril 10 mg oral tablet 10 mg=1 tab, PO, Daily, # 30 tab, 0 Refill(s) Active 09/06/2015 [facility] Famotidine 40 mg, PO, Daily, 0 Refill(s) Active 09/06/2015 [facility] Saline Flush 0.9% 10 mL, Route: IVP, Drug Form: INJ, Dosing Weight 82.727, kg, PRN, PRN Line Flush, Start date: 09/06/15 13:04:00, Duration: 30 day, Stop date: 10/06/15 13:03:00Notes: Same as: BD Posiflush Sterile No Longer Active 09/06/2015 [facility] Amiodarone HCl 1 tablet Orally Active 200 MG Orally twice a day (bid) [facility] 02/13/2015 Ramy Fuller MD, NINFA Levothyroxine Sodium 1 tablet Orally Active 0.5 mg Orally Once a day Alina Fuller MD, NINFA Tramadol HCl 1 tablet as needed Orally Active 50 MG Orally every 6 hrs Alina Fuller MD, PA Famotidine 1 tablet Orally Active 40 MG Orally Once a day Alina Fuller MD, PA Spironolactone 1 tablet Orally Active 25 MG Orally daily Alina Fuller MD, [place] Pravastatin Sodium 1 tablet Orally Active 40 MG Orally Once a day Alina Fuller MD, [place] Carvedilol 1 tablet Orally Active 12.5 MG Orally Twice a day Alina Fuller MD, NINFA Lisinopril 1 tablet Orally Active 10 mg Orally Once a day Alina Fuller MD, PA Aspirin 1 tablet Orally Active 81 MG Orally Once a day Alina Fuller MD, NINFA Furosemide 1 tablet Orally Active 20 MG Orally Once a day Alina Fuller MD, PA Paroxetine HCl 1 tablet in the morning Orally Active 40 MG Orally Once a day Alina Fuller MD, NINFA Allergies, Adverse Reactions, Alerts Substance Category Reaction Severity Reaction type Status Date Reported Comments Source penicillin Adverse Reaction Info Not Available Adverse Reaction Active 02/26/2016 Ramy Fuller MD, [place] penicillins Assertion Drug allergy Active [facility] Immunizations Immunization Date Given Site Status Last Updated Comments Source Results Order Name Results Value Reference Range Date Interpretation Comments Source CARDIAC ENZYMES BNP 121 pg/mL <=100 pg/mL 09/09/2015 [facility] eGFR 68 mL/min/1.73m2 09/09/2015 Result Comment: The eGFR is calculated using the [...] from the National Kidney Disease Education Program (NKDEP) which additionally recommends that when the eGFR is used in patients with extremes of body mass index for purposes of drug dosing, the eGFR should be multiplied by the estimated BMI. [facility] Creatinine Lvl 0.91 mg/dL 0.50 - 1.40 09/09/2015 [facility] CO2 30 meq/L 24 - 32 09/09/2015 [facility] Chloride Lvl 103 meq/L 95 - 109 09/09/2015 [facility] Potassium Lvl 4.9 meq/L 3.5 - 5.1 09/09/2015 [facility] Sodium Lvl 142 meq/L 135 - 145 09/09/2015 [facility] BUN 20 mg/dL 7 - 22 09/09/2015 [facility] Calcium Lvl 9.2 mg/dL 8.5 - 10.5 09/09/2015 [facility] Glucose Lvl 111 mg/dL 70 - 99 09/09/2015 [facility] CHEM PANEL AGAP 13.9 meq/L 10.0 - 20.0 09/09/2015 [facility] CHEM PANEL eGFR 55 mL/min/1.73m2 09/08/2015 Result Comment: The eGFR is calculated using the [...] from the National Kidney Disease Education Program (NKDEP) which additionally recommends that when the eGFR is used in patients with extremes of body mass index for purposes of drug dosing, the eGFR should be multiplied by the estimated BMI. [facility] CHEM PANEL Creatinine Lvl 1.09 mg/dL 0.50 - 1.40 09/08/2015 [facility] CHEM PANEL AGAP 13.2 meq/L 10.0 - 20.0 09/08/2015 [facility] CHEM PANEL BUN 20 mg/dL 7 - 22 09/08/2015 [facility] CHEM PANEL Glucose Lvl 112 mg/dL 70 - 99 09/08/2015 [facility] CHEM PANEL Potassium Lvl 4.2 meq/L 3.5 - 5.1 09/08/2015 [facility] CHEM PANEL Sodium Lvl 141 meq/L 135 - 145 09/08/2015 [facility] CHEM PANEL Calcium Lvl 8.9 mg/dL 8.5 - 10.5 09/08/2015 [facility] CHEM PANEL Chloride Lvl 103 meq/L 95 - 109 09/08/2015 [facility] CHEM PANEL CO2 29 meq/L 24 - 32 09/08/2015 [facility] CARDIAC ENZYMES Total CK 47 unit/L 12 - 191 09/07/2015 [facility] CARDIAC ENZYMES Troponin-I 0.03 ng/mL 0.00 - 0.40 09/07/2015 [facility] CARDIAC ENZYMES CK MB 0.8 ng/mL 0.5 - 3.6 09/07/2015 [facility] PANEL Creatinine Lvl 1.14 mg/dL 0.50 - 1.40 09/07/2015 [facility] CHEM PANEL eGFR 52 mL/min/1.73m2 09/07/2015 Result Comment: The eGFR is calculated using the [...] from the National Kidney Disease Education Program (NKDEP) which additionally recommends that when the eGFR is used in patients with extremes of body mass index for purposes of drug dosing, the eGFR should be multiplied by the estimated BMI. [facility] CHEM PANEL Sodium Lvl 137 meq/L 135 - 145 09/07/2015 [facility] CHEM PANEL Potassium Lvl 3.7 meq/L 3.5 - 5.1 09/07/2015 [facility] CHEM PANEL Chloride Lvl 100 meq/L 95 - 109 09/07/2015 [facility] CHEM PANEL CO2 29 meq/L 24 - 32 09/07/2015 [facility] CHEM PANEL AGAP 11.7 meq/L 10.0 - 20.0 09/07/2015 [facility] CHEM PANEL Calcium Lvl 8.3 mg/dL 8.5 - 10.5 09/07/2015 [facility] CHEM PANEL Glucose Lvl 100 mg/dL 70 - 99 09/07/2015 [facility] CHEM PANEL BUN 13 mg/dL 7 - 22 09/07/2015 [facility] CARDIAC ENZYMES Troponin-I 0.04 ng/mL 0.00 - 0.40 09/07/2015 [facility] CARDIAC ENZYMES Total CK 50 unit/L 12 - 09/07/2015 [facility] CARDIAC ENZYMES Troponin-I 0.03 ng/mL 0.00 - 0.40 09/07/2015 [facility] CARDIAC ENZYMES CK MB 0.7 ng/mL 0.5 - 3.6 09/07/2015 [facility] CARDIAC ENZYMES Total CK 56 unit/L - 09/07/2015 [facility] CHEM PANEL Magnesium Lvl 2.0 mg/dL 1.8 - 2.4 09/06/2015 [facility] HEMATOLOGY PTT 34.6 s 22.9 - 35.8 09/06/2015 [facility] HEMATOLOGY PT 13.8 s 12.0 - 14.7 09/06/2015 [facility] HEMATOLOGY INR 1.03 0.85 - 1.17 09/06/2015 [facility] URINE AND STOOL UA Color Colorless 09/06/2015 [facility] URINE AND STOOL UA Sq Epi None Seen 09/06/2015 [facility] URINE AND STOOL UA Urobilinogen <=1.0 mg/dL 0.1 - 1.0 09/06/2015 [facility] URINE AND STOOL UA RBC null 0 - 2 09/06/2015 [facility] URINE AND STOOL UA Leuk Est Negative (09/06/15 5:00 PM) Negative 09/06/2015 [facility] URINE AND STOOL UA Bili Negative *NA* (09/06/15 5:00 PM) Negative 09/06/2015 [facility] URINE AND STOOL UA Blood Negative (09/06/15 5:00 PM) Negative 09/06/2015 [facility] URINE AND STOOL UA Nitrite Negative (09/06/15 5:00 PM) Negative 09/06/2015 [facility] URINE AND STOOL UA Glucose Negative mg/dL Negative mg/dL 09/06/2015 [facility] URINE AND STOOL UA Ketones Negative mg/dL Negative mg/dL 09/06/2015 [facility] URINE AND STOOL UA Spec Grav 1.004 <=1.030 09/06/2015 [facility] URINE AND STOOL UA pH 6.0 5.0 - 8.0 09/06/2015 [facility] URINE AND STOOL UA Protein Negative mg/dL Negative mg/dL 09/06/2015 [facility] URINE AND STOOL UA Turbidity Clear (09/06/15 5:00 PM) Clear 09/06/2015 [facility] CARDIAC ENZYMES BNP 914 pg/mL <=100 pg/mL 09/06/2015 [facility] CARDIAC ENZYMES CK MB Index 1.7 0.0 - 2.5 09/06/2015 [facility] CARDIAC ENZYMES CK MB 0.8 ng/mL 0.5 - 3.6 09/06/2015 [facility] CHEM PANEL A/G Ratio 1.2 0.7 - 1.6 09/06/2015 [facility] CHEM PANEL Globulin 3.3 g/dL 2.0 - 4.0 09/06/2015 [facility] CHEM PANEL Alk Phos 71 unit/L 39 - 136 09/06/2015 [facility] CHEM PANEL AST 14 unit/L 0 - 37 09/06/2015 [facility] CHEM PANEL Bili Total 1.0 mg/dL 0.2 - 1.3 09/06/2015 [facility] CHEM PANEL B/C Ratio 14 6 - 25 09/06/2015 [facility] CHEM PANEL Total Protein 7.1 g/dL 6.4 - 8.4 09/06/2015 [facility] CHEM PANEL ALT 28 unit/L 0 - 65 09/06/2015 [facility] CHEM PANEL Albumin Lvl 3.8 g/dL 3.5 - 5.0 09/06/2015 [facility] HEMATOLOGY Macrocyte 1+ *ABN* (09/06/15 2:06 PM) None Seen 09/06/2015 [facility] HEMATOLOGY Eosinophils # 0.1 K/CMM 0.0 - 0.5 09/06/2015 [facility] HEMATOLOGY Lymphocytes # 1.0 K/CMM 1.0 - 5.5 09/06/2015 [facility] HEMATOLOGY Segs-Bands # 8.2 K/CMM 1.5 - 8.1 09/06/2015 [facility] Eosinophils 1.5 % 0.0 - 4.0 09/06/2015 [facility] Monocytes # 0.7 K/CMM 0.0 - 0.8 09/06/2015 [facility] HEMATOLOGY Segs 82.0 % 45.0 - 75.0 09/06/2015 [facility] Basophils 0.4 % 0.0 - 1.0 09/06/2015 [facility] Monocytes 6.6 % 2.0 - 12.0 09/06/2015 [facility] Lymphocytes 9.5 % 20.0 - 40.0 09/06/2015 [facility] MPV 9.3 fL 7.4 - 10.4 09/06/2015 [facility] Platelet 218 K/CMM 133 - 450 09/06/2015 [facility] RDW 13.5 % 11.5 - 14.5 09/06/2015 [facility] MCHC 32.5 g/dL 32.0 - 36.0 09/06/2015 [facility] MCH 32.5 pg 27.0 - 31.0 09/06/2015 [facility] MCV 100.0 fL 80.0 - 98.0 09/06/2015 [facility] Hct 39.0 % 36.0 - 48.0 09/06/2015 [facility] WBC 10.0 K/CMM 3.7 - 10.4 09/06/2015 [facility] RBC 3.90 M/CMM 4.20 - 5.40 09/06/2015 [facility] Hgb 12.7 g/dL 12.0 - 16.0 09/06/2015 [facility] Chest 1view DX Chest 1view DX CLINICAL HISTORY: Chest pain. One view chest. No prior. Cardiomegaly. Pulmonary vasculature is congested. No regional infiltrate. No pleural effusion. Implanted AICD device present. IMPRESSION: CHF SL: 12 09/06/2015 - - Read by: New Moreno MD Dictated Date/time: 09/06/15 13:33 Electronically Signed by: New Moreno MD 09/06/15 13:33 FINAL REPORT [facility] Vital Signs Vital Sign Value Date Comments Source Weight 175 02/26/2016 Ramy Fuller MD, [place] Height 61 02/26/2016 Ramy Fuller MD, [place] Heart Rate 70 02/26/2016 Ramy Fuller MD, [place] Diastolic (mm Hg) 78 02/26/2016 Ramy Fuller MD, [place] Systolic (mm Hg) 126 02/26/2016 Ramy Fuller MD, [place] Systolic (mm Hg) 122 09/09/2015 [facility] Diastolic (mm Hg) 62 09/09/2015 [facility] Respitory Rate 18 09/09/2015 [facility] Heart Rate 66 09/09/2015 [facility] Temperature Oral (F) 99.4 F 09/09/2015 [facility] Temperature Oral (F) 99.0 F 09/09/2015 [facility] Systolic (mm Hg) 113 09/09/2015 [facility] Diastolic (mm Hg) 77 09/09/2015 [facility] Heart Rate 75 09/09/2015 [facility] Respitory Rate 18 09/09/2015 [facility] Height 165.1 cm 09/09/2015 [facility] Temperature Oral (F) 98.6 F 09/09/2015 [facility] Heart Rate 70 09/09/2015 [facility] Respitory Rate 16 09/09/2015 [facility] Systolic (mm Hg) 115 09/09/2015 [facility] Diastolic (mm Hg) 75 09/09/2015 [facility] Height 154.94 cm 09/08/2015 [facility] Weight 80.455 09/07/2015 [facility] Weight 128.295 09/07/2015 [facility] BMI Calculated 47.07 09/07/2015 [facility] Height 165.1 cm 09/07/2015 [facility] Weight 82.727 09/06/2015 [facility] BMI Calculated 34.46 09/06/2015 [facility] Encounters Location Location Details Encounter Type Encounter Number Reason For Visit Attending Provider ADM Date DC Date Status Source [facility] Inpatient [id number] Pilar Harp 09/06/2015 09/10/2015 [facility] Ramy Fuller MD, PA Follow-Up [id number] 02/26/2016 02/26/2016 Ramy Fuller MD, PA Ramy Fuller MD, PA Follow-Up [id number] 02/26/2016 02/26/2016 Ramy Fuller MD, PA Ramy Fuller MD, PA echo/carotid/arterial dopplers [id number] 03/02/2016 03/02/2016 Ramy Fuller MD, PA Procedures Procedure Code Date Perfomer Comments Source section [id number] [facility] [id number] [facility] [facility] Insertion of permanent pacemaker with transvenous electrodes, atrio-ventricular sequential [id number] [facility]
--- OUTSIDE RECORDS SUMMARY | 2018-07-01 11:50 | XMS REPORT ---
Author Author Ramy Fuller [facility] eClinicalWorks Address Unknown Phone Unavailable Care Team Providers Care Compliance Review Officer Name Role Phone Ramy Fuller Unavailable Allergies, Adverse Reactions, Alerts Substance Reaction Event Type penicillin Info Not Available Drug Allergy Encounters Encounter Location Date Follow-Up Ramy Fuller [place], [place] February 26, 2016 Problems Problem Type Condition ICD-9 Code Onset Dates Condition Status Problem Automatic implantable cardiac defibrillator in situ V45.02 Active Problem Benign hypertensive heart disease with heart failure 402.11 Active Problem Chronic systolic heart failure 428.22 Active Problem Hypertensive heart disease with heart failure I11.0 Active Assessment Other obesity due to excess calories E66.09 Active Problem Personal history of sudden cardiac arrest Z86.74 Active Problem CHF, chronic systolic I50.22 Active Problem Abnormal electrocardiogram [ECG] [EKG] R94.31 Active Problem Other obesity due to excess calories E66.09 Active Problem Presence of automatic (implantable) cardiac defibrillator Z95.810 Active Problem Mixed hyperlipidemia E78.2 Active Assessment Presence of automatic (implantable) cardiac defibrillator Z95.810 Active Assessment Personal history of sudden cardiac arrest Z86.74 Active Assessment Abnormal electrocardiogram [ECG] [EKG] R94.31 Active Assessment Mixed hyperlipidemia E78.2 Active Problem Personal history of sudden cardiac arrest V12.53 Active Problem Obesity, unspecified 278.00 Active Assessment CHF, chronic systolic I50.22 Active Problem Mixed hyperlipidemia 272.2 Active Problem Abnormal ECG 794.31 Active Problem Benign hypertensive heart disease without heart failure 402.10 Active Medications Medication Code System Code Instructions Start Date End Date Status Dosage Levothyroxine Sodium [facility] [address]-83 0.5 mg Orally Once a day Active 1 tablet Tramadol HCl [facility] [address]-39 50 MG Orally every 6 hrs Active 1 tablet as needed Amiodarone HCl [facility] [address]-50 200 MG Orally twice a day (bid) February 13, 2015 Active 1 tablet Famotidine [facility] [address]-14 40 MG Orally Once a day Active 1 tablet Spironolactone [facility] [address]-93 25 MG Orally daily Active 1 tablet Pravastatin Sodium [facility] [address]-03 40 MG Orally Once a day Active 1 tablet Carvedilol [facility] [address]-06 12.5 MG Orally Twice a day Active 1 tablet Lisinopril [facility] [address]-29 10 mg Orally Once a day Active 1 tablet Aspirin [facility] [address]-35 81 MG Orally Once a day Active 1 tablet Furosemide [facility] [address]-09 20 MG Orally Once a day Active 1 tablet Paroxetine HCl [facility] [address]-86 40 MG Orally Once a day Active 1 tablet in the morning Social History Social History Element Qualifiers Date Reported Tobacco Use: . Are you a: former smoker quit in 1999February 26, 2016 Marital Status: . February 26, 2016 Do you drink alcohol? . Status: No February 26, 2016 Vital Signs Date/Time: February 26, 2016 Weight 175 lbs Height 61 in Cardiac Monitoring Heart Rate 70 /min Blood Pressure Diastolic 78 mm Hg Blood Pressure Systolic 126 mm Hg Summary Purpose eClinicalWorks Submission
[2018-07-01] MEDS ORDERED: BACTRIM DS TAB1 EACH PO (11:59)
== END 2018-07-01 12:28 | disposition home or self-care (01) ==
LOC: ER 11:46
DX: L02.01 Cutaneous abscess of face (principal)
CPT/HCPCS: 99283

== ENCOUNTER 2018-07-18 17:03 | Emergency (ER) | payer OTHER, MEDICARE ==
[~2018-07-18] VITALS: Ht 157.5 cm; Wt 85.3 kg
[~2018-07-18 17:03] MED LIST changes: +BACTRIM DS TAB1 EACH PO
[2018-07-18] MEDS ORDERED: HYDROCODONE/APAP 10MG-325MG TAB PO ONE (17:30)
--- NOTE | 2018-07-18 18:24 | Diagnostic Imaging Report ---
LEFT SHOULDER - 2 VIEWS HISTORY: Pain, fell COMPARISON: None available. FINDINGS: Bones: Diffusely decreased mineralization of the osseous structures limits bone detail. Mildly comminuted predominantly transverse fracture centered at the surgical neck of the humerus. Joints: Mild acromioclavicular degenerative changes. Soft tissues: The soft tissues appear unremarkable. IMPRESSION: Acute left humeral surgical neck fracture. Signed by: Dr. Ky Jackson D.O., M.M.M. on 07/18/2018 6:21 PM
--- NOTE | 2018-07-18 18:26 | Diagnostic Imaging Report ---
LEFT HUMERUS - 3 VIEWS HISTORY: Pain, rule out fracture COMPARISON: Left shoulder radiographs from the same date FINDINGS: Bones: Diffusely decreased mineralization of the osseous structures limits bone detail. Mildly comminuted predominantly transverse fracture centered at the surgical neck of the humerus. Joints: Mild acromioclavicular degenerative changes. Soft tissues: The soft tissues appear unremarkable. IMPRESSION: Acute left humeral surgical neck fracture. Signed by: Dr. Ky Jackson D.O., M.M.M. on 07/18/2018 6:23 PM
[2018-07-18] MEDS ORDERED: KETOROLAC TROMETHAMINE 60 MG/2 ML VIAL IM ONE (18:30)
--- NOTE | 2018-07-18 19:24 | Diagnostic Imaging Report ---
Examination: CT head without contrast Clinical Indication: Fall; head injury; headache. Technique: Transaxial noncontrast images from the skull base through the vertex were obtained. Sagittal and coronal reformatted images were done. Dose modulation, iterative reconstruction, and/or weight based adjustment of the mA/kV was utilized to reduce the radiation dose to as low as reasonably achievable. Comparison: None. Findings: Scalp: No abnormalities. Bones: Intact. No fractures. No blastic or lytic lesions. Brain sulci: Appropriate for patient's age. Ventricles: Normal in size and configuration. No hydrocephalus. . Extra-axial space: No abnormalities. Parenchyma: There are patchy areas of low-attenuation within subcortical and periventricular white matter, nonspecific, but could represent microvascular ischemic disease. No masses, hemorrhage, or acute or chronic cortical based vascular insults. Suprasellar region: No abnormalities. Craniocervical junction: The foramen magnum is patent. No Chiari one malformation. Incidental findings: Atherosclerotic calcification of the cavernous and supraclinoid internal carotid and V4 segments of the bilateral vertebral arteries. Impression: 1. No acute intracranial finding. 2. Mild chronic microvascular ischemic change. Signed by: Dr. Jaycee Adkins M.D. on 07/18/2018 7:20 PM
--- NOTE | 2018-07-18 19:29 | Diagnostic Imaging Report ---
Examination: CT CERVICAL SPINE WITHOUT CONTRAST HISTORY:Neck injury after fall. COMPARISON:None. TECHNIQUE: Multidetector helical axial images were obtained without contrast from the foramen magnum to T1. Coronal and sagittal reformatted images were done. Bone and soft tissue windows were evaluated. Dose modulation, iterative reconstruction, and/or weight based adjustment of the mA/kV was utilized to reduce the radiation dose to as low as reasonably achievable. FINDINGS: Alignment:Normal alignment and lordosis. Vertebrae: Normal height and density. No acute fracture, infection or neoplasm. Spina bifida of the anterior arch of C1. Disc space heights: Mildly narrowed in height at C6-C7. Caliber of spinal canal: Developmentally normal. Posterior fossa and craniocervical junction: Foramen magnum patent. No Chiari 1 malformation. Soft tissues: No abnormality. Degenerative changes: Diffuse disc osteophyte complex from C4-C5 through C6-C7 without canal stenosis. The remaining cervical levels demonstrate no disc bulge/ herniation or canal stenosis. IMPRESSION: No acute abnormalities. Signed by: Dr. Jaycee Adkins M.D. on 07/18/2018 7:26 PM
== END 2018-07-18 20:12 | disposition home or self-care (01) ==
LOC: ER 17:03
DX: S42.225A 2-part nondisplaced fracture of surgical neck of left humerus, initial encounter for closed fracture (principal); W18.39XA Other fall on same level, initial encounter; Y92.008 Other place in unspecified non-institutional (private) residence as the place of occurrence of the external cause
CPT/HCPCS: 70450; 72125; 73030; 73060; 99283; J1885

== ENCOUNTER 2018-08-31 13:27 | Outpatient (RCR) | payer OTHER, MEDICARE ==
[2018-09-02] MEDS ORDERED: ALENDRONATE SOD70 MG PO (11:33)
[2018-09-02] MEDS ORDERED: VENLAFAXINE HCL75 MG PO (11:33)
[2018-09-02] MEDS ORDERED: MULTI-VITAMIN1 EACH PO (11:33)
[2018-09-02] MEDS ORDERED: TYLENOL WITH C1 EACH PO (11:33)
[2018-09-02] MEDS ORDERED: SPIRONOLACTONE25 MG PO (11:33)
[2018-09-02] MEDS ORDERED: LEVOTHYROXINE50 MCG PO (11:33)
[2018-09-02] MEDS ORDERED: CARVEDILOL12.5 MG PO (11:33)
[2018-09-02] MEDS ORDERED: PRIMIDONE50 MG PO (11:33)
[2018-09-02] MEDS ORDERED: DIAZEPAM5 MG PO (11:33)
[2018-09-02] MEDS ORDERED: OSTERA TABLET1 EACH PO (11:33)
[2018-09-02] MEDS ORDERED: ULTRAM50 MG PO (11:33)
[2018-09-02] MEDS ORDERED: AMIODARONE HCL200 MG PO (11:33)
[2018-09-06] MEDS ORDERED: METOPROLOL SUCC25 MG PO (11:01)
[2018-09-06] MEDS ORDERED: ELIQUIS PO (11:02)
[2018-09-06] MEDS ORDERED: LISINOPRIL2.5 MG PO (11:04)
[2018-09-06] MEDS ORDERED: LASIX40 MG PO (11:05)
== END 2018-09-11 ==
LOC: OT 13:27
PROVIDERS: ATTEND Specialist
DX: S42.232D 3-part fracture of surgical neck of left humerus, subsequent encounter for fracture with routine healing (principal)
CPT/HCPCS: 97010 ×5; 97110 ×6; 97165; G8987; G8988

== ENCOUNTER 2018-09-01 14:34 | Inpatient (IN) | payer OTHER, MEDICARE ==
[~2018-09-01] VITALS: Ht 157.5 cm; Wt 89.4 kg
--- OUTSIDE RECORDS SUMMARY | 2018-09-01 14:38 | XMS REPORT ---
Author Author [facility] Address Unknown Phone Unavailable Care Team Providers Care Carbon Sequestration Plant Engineer Name Role Phone Mulu KELLY Unavailable Unavailable Problems This patient has no known problems. Allergies, Adverse Reactions, Alerts This patient has no known allergies or adverse reactions. Medications This patient has no known medications. Results Test Description Test Time Test Comments Text Results Atomic Results Result Comments CT CERVICAL SPINE WO 2018-07-18 19:21:00 [place] [address] Patient Name: PARAMJIT TENA I MR #: [id number] : 1955 Age/Sex: 63/F Req #: [id number] Adm Physician: Ordered by: BRET AVILA GROUNDMAN/LINEMAN Report #: [id number] Location: ER Room/Bed: Procedure: [id number] CT/CT CERVICAL SPINE WO Exam Date: 07/18/18 Exam Time: 1800 REPORT STATUS: Signed Examination: CT CERVICAL SPINE WITHOUT CONTRAST HISTORY:Neck injury after fall. COMPARISON:None. TECHNIQUE: Multidetector helical axial images were obtained without contrast from the foramen magnum to T1. Coronal and sagittal reformatted images were done. Bone and soft tissue windows were evaluated. Dose modulation, iterative reconstruction, and/or weight based adjustment of the mA/kV was utilized to reduce the radiation dose to as low as reasonably achievable. FINDINGS: Alignment:Normal alignment and lordosis. Vertebrae: Normal height and density. No acute fracture, infection or neoplasm. Spina bifida of the anterior arch of C1. Disc space heights: Mildly narrowed in height at C6-C7. Caliber of spinal canal: Developmentally normal. Posterior fossa and craniocervical junction: Foramen magnum patent. No Chiari 1 malformation. Soft tissues: No abnormality. Degenerative changes: Diffuse disc osteophyte complex from C4-C5 through C6-C7 without canal stenosis. The remaining cervical levels demonstrate no disc bulge/ herniation or canal stenosis. IMPRESSION: No acute abnormalities. Signed by: Dr. Jaycee Adkins M.D. on 07/18/2018 7:26 PM Dictated By: JAYCEE BRICENO MD 25 Transcribed By: BILL on 07/18/181925 COPY TO: BRET AVILA GROUNDMAN/LINEMAN CT BRAIN WO 2018-07-18 19:18:00 [place] [address] Patient Name: PARAMJIT TENA I MR #: [id number] : 1955 Age/Sex: 63/F Req #: [id number] Adm Physician: Ordered by: BRET AVILA GROUNDMAN/LINEMAN Report #: [id number] Location: ER Room/Bed: Procedure: [id number] CT/CT BRAIN WO Exam Date: 07/18/18 Exam Time: 1800 REPORT STATUS: Signed Examination: CT head without contrast Clinical Indication: Fall; head injury; headache. Technique: Transaxial noncontrast images from the skull base through the vertex were obtained. Sagittal and coronal reformatted images were done. Dose modulation, iterative reconstruction, and/or weight based adjustment of the mA/kV was utilized to reduce the radiation dose to as low as reasonably achievable. Comparison: None. Findings: Scalp: No abnormalities. Bones: Intact. No fractures. No blastic or lytic lesions. Brain sulci: Appropriate for patient's age. Ventricles: Normal in size and configuration. No hydrocephalus. . Extra-axial space: No abnormalities. Parenchyma: There are patchy areas of low-attenuation within subcortical and periventricular white matter, nonspecific, but could represent microvascular ischemic disease. No masses, hemorrhage, or acute or chronic cortical based vascular insults. Suprasellar region: No abnormalities. Craniocervical junction: The foramen magnum is patent. No Ch iari one malformation. Incidental findings: Atherosclerotic calcification of the cavernous and supraclinoid internal carotid and V4 segments of the bilateral vertebral arteries. Impression: 1. No acute intracranial finding. 2. Mild chronic microvascular ischemic change. Signed by: Dr. Jaycee Adkins M.D. on 07/18/2018 7:20 PM Dictated By: JAYCEE BRICENO MD 19 Transcribed By: BILL on 07/18/181919 COPY TO: BRET AVILA GROUNDMAN/LINEMAN HUMERUS LEFT 2+VIEWS 2018-07-18 18:22:00 [place] [address] Patient Name: PARAMJIT TENA I MR #: [id number] : 1955 Age/Sex: 63/F Req #: [id number] Adm Physician: Ordered by: BRET AVILA GROUNDMAN/LINEMAN Report #: [id number] Location: Room/Bed: Procedure: [id number] DX/HUMERUS LEFT 2+VIEWS Exam Date: 07/18/18 Exam Time: 1744 REPORT STATUS: Signed LEFT HUMERUS - 3 VIEWS HISTORY: Pain, rule out fracture COMPARISON: Left shoulder radiographs from the same date FINDINGS: Bones: Diffusely decreased mineralization of the osseous structures limits bone detail. Mildly comminuted predominantly transverse fracture centered at the surgical neck of the humerus. Joints: Mild acromioclavicular degenerative changes. Soft tissues: The soft tissues appear unremarkable. IMPRESSION: Acute left humeral surgical neck fracture. Signed by: Dr. Betsy Jackson D.O., M.M.M. on 07/18/2018 6:23 PM Dictated By: BETSY JACKSON DO 22 Transcribed By: BILL on 07/18/181822 COPY TO: BRET AVILA NP SHOULDER LEFT COMPLETE 2018-07-18 18:19:00 [place] [address] Patient Name: PARAMJIT TENA I MR #: [id number] : 1955 Age/Sex: 63/F Req #: [id number] Adm Physician: Ordered by: BRET AVILA GROUNDMAN/LINEMAN Report #: [id number] Location: ER Room/Bed: Procedure: [id number] DX/SHOULDER LEFT COMPLETE Exam Date: 07/18/18 Exam Time: 1744 REPORT STATUS: Signed LEFT SHOULDER - 2 VIEWS HISTORY: Pain, fell COMPARISON: None available. FINDINGS: Bones: Diffusely decreased mineralization of the osseous structures limits bone detail. Mildly comminuted predominantly transverse fracture centered at the surgical neck of the humerus. Joints: Mild acromioclavicular degenerative changes. Soft tissues: The soft tissues appear unremarkable. IMPRESSION: Acute left humeral surgical neck fracture. Signed by: Dr. Betsy Jackson D.O., M.M.M. on 07/18/2018 6:21 PM Dictated By: BETSY JACKSON DO 20 Transcribed By: BILL on 07/18/181820 COPY TO: BRET AVILA NP
[2018-09-01] MEDS ORDERED: SODIUM CHLORIDE 0.9% 1000ML 1,000 ML ONE (14:52)
[2018-09-01] MEDS ORDERED: NITROGLYCERIN/D5W 200 MCG/ML 250 ML ONE (14:52)
[2018-09-01] MEDS ORDERED: NITROGLYCERIN/D5W 200 MCG/ML 250 ML IV STA (14:58)
[2018-09-01 15:16] LABS: ABG HCO3 28 mmol/L (23-28); ABG PCO2 44 mmHg (41-51); ABG PH 7.42 (7.31-7.41); ABG PO2 383 mmHg (80-105)
--- NOTE | 2018-09-01 15:22 | NUR ---
Liliana noted to have a run of ventricular tachycardia. aware. Defibrillator pads applied. Addendum: 09/01/18 at 1917 by BRETT Patient noted to have demand pacemaker.
[2018-09-01 15:43] LABS: BASOPHILS % 0.3 % (0.0-1.0); EOSINOPHILS # (AUTO) 0.1 (0.0-0.4); HEMATOCRIT 40.8 % (34.2-44.1); HEMOGLOBIN 13.4 g/dL (12.0-16.0); LYMPHOCYTES # (AUTO) 1.2 (1.0-3.2); LYMPHOCYTES % 12.8 % (18.0-39.1); MEAN CORPUSCULAR HEMOGLOBIN 32.5 pg (28-32); MEAN CORPUSCULAR HGB CONC 32.8 g/dL (31-35); MONOCYTES # (AUTO) 0.5 (0.2-0.8); MONOCYTES % 5.1 % (4.4-11.3); NEUTROPHILS # (AUTO) 7.5 (2.1-6.9); NEUTROPHILS % 80.5 % (38.7-80.0); PLATELET COUNT 377 x10e3/uL (140-360); RED BLOOD COUNT 4.12 x10e6/uL (3.6-5.1); RED CELL DISTRIBUTION WIDTH 14.4 % (11.7-14.4)
[2018-09-01 16:03] LABS: INR 0.88; PROTHROMBIN TIME 12.8 seconds (11.9-14.5)
[2018-09-01 16:04] LABS: PARTIAL THROMBOPLASTIN TIME 25.9 seconds (23.8-35.5)
[2018-09-01 16:06] LABS: BILIRUBIN,URINE NEGATIVE (NEGATIVE); KETONES,URINE NEGATIVE (NEGATIVE); LEUKOCYTE ESTERASE ,URINE NEGATIVE (NEGATIVE); NITRITE,URINE NEGATIVE (NEGATIVE); PROTEIN,URINE DIPSTICK NEGATIVE (NEGATIVE); URINE UROBILINOGEN 0.2 mg/dL (0.2 - 1)
[2018-09-01 16:14] LABS: ALANINE AMINOTRANSFERASE 33 IU/L (0-55); ALBUMIN 4.1 g/dL (3.5-5.0); ALBUMIN/GLOBULIN RATIO 1.2 (0.8-2.0); ALKALINE PHOSPHATASE 99 IU/L (40-150); ANION GAP 19.7 mmol/L (8-16); BLOOD UREA NITROGEN 11 mg/dL (7-26); BUN/CREATININE RATIO 14 (6-25); CALCIUM 9.5 mg/dL (8.4-10.2); CARBON DIOXIDE 22 mmol/L (22-29); CHLORIDE 98 mmol/L (98-107); CREATINE KINASE 52 IU/L (29-168); EST GLOMERULAR FILTRATION RATE > 60 ML/MIN (60-); GLUCOSE 132 mg/dL (74-118); MAGNESIUM 2.1 MG/DL (1.3-2.1); POTASSIUM 3.7 mmol/L (3.5-5.1); SODIUM 136 mmol/L (136-145)
--- NOTE | 2018-09-01 16:16 | Diagnostic Imaging Report ---
EXAMINATION: CHEST SINGLE (PORTABLE) INDICATION: ^SOB ^[id number] ^1548 COMPARISON: 10/18/2015 FINDINGS: AP view TUBES and LINES: Stable lead left chest wall cardiac device in place. LUNGS: Limited by low lung volumes and body habitus. Pulmonary vascular congestion and mild to moderate interstitial edema. PLEURA: No pneumothorax. Small bilateral pleural effusions. HEART AND MEDIASTINUM: The cardiac silhouette is enlarged. BONES AND SOFT TISSUES: No acute osseous lesion. Soft tissues are unremarkable. UPPER ABDOMEN: No free air under the diaphragm. IMPRESSION: Enlarged cardiac silhouette, pulmonary vascular congestion, moderate interstitial edema, and small bilateral pleural effusions. Signed by: Dr. Cristhian Hdz MD on 09/01/2018 4:13 PM
[2018-09-01 16:21] LABS: B-TYPE NATRIURETIC PEPTIDE2 1482.8 pg/mL (0-100)
[2018-09-01 16:33] LABS: CLARITY,URINE CLEAR (CLEAR); COLOR,URINE COLORLESS (YELLOW)
[2018-09-01 16:34] LABS: RBC,URINE 0-5 /HPF (0-5)
[2018-09-01] MEDS ORDERED: ENALAPRILAT IV INJ 1.25 MG/ML VIAL IV STA (17:06)
[2018-09-01] MEDS ORDERED: NITROGLYCERIN 2% OINT 1 GM PKT TOP ONE (17:15)
--- NOTE | 2018-09-01 17:20 | NUR ---
IV nitro stopped at this time as ordered by Dr. Andrade. Patient also taken off of Bipap and placed on 3L NC.
[2018-09-01] MEDS ORDERED: MORPHINE SULFATE 2 MG/ML SYR IV PRN (17:45)
[2018-09-01] MEDS: FUROSEMIDE INJ 10 MG/ML 4 ML VIAL IV SCH (18:18)
--- NOTE | 2018-09-01 19:17 | NUR ---
Walking rounds with EVERETT Nova. Patient in no distress at this time.
[2018-09-01] MEDS: ONDANSETRON HCL INJ 2 MG/ML VIAL IV PRN (20:15)
[2018-09-01] MEDS: FAMOTIDINE 20 MG/2 ML VIAL IV SCH (20:15)
--- NOTE | 2018-09-01 20:32 | Consultation ---
DATE OF CONSULTATION: CARDIOLOGY CONSULTATION REASON FOR CONSULTATION: Heart failure. HISTORY OF PRESENT ILLNESS: This is a 63-year-old woman with a history of nonischemic cardiomyopathy, chronic systolic congestive heart failure status post implantable cardioverter defibrillator, questionable prior cardiac arrest who presented to the emergency department with progressive worsening shortness of breath. The patient states that she has been in her usual state of health; however, did report a cough that had been progressive over the last 2 days. Denies any chest pain. She reports compliance with her medications and diet consisting of low sodium and reduce the oral intake. Symptoms were moderate in intensity, progressive worsening, which prompt her to seek medical attention. Upon arrival here to the emergency department, patient was mildly hypertensive with pulmonary edema, was served on nitroglycerin infusion and BiPAP. REVIEW OF SYSTEMS: A 12-point review of systems was conducted and is negative other than as stated above in the HPI. PAST MEDICAL HISTORY: Congestive heart failure, nonischemic cardiomyopathy, hypertension, depression, hyperlipidemia. PAST SURGICAL HISTORY: Implantable cardioverter defibrillator, hysterectomy, section. PAST FAMILY HISTORY: No premature coronary artery disease or sudden cardiac . SOCIAL HISTORY: No illicit drug use, alcohol use, or tobacco use. ALLERGIES: PENICILLIN AND STATINS. MEDICATIONS: See medication reconciliation form. PHYSICAL EXAMINATION VITALS: Temperature is 97.8, heart rate is 80, respirations are 18, blood pressure is 132/87, oxygen saturation 97% on BiPAP. GENERAL: She is well-appearing, obese, woman, in mild respiratory distress. HEENT: Head is normocephalic and atraumatic. Eyes; the extraocular movements are intact. Conjunctivae clear. NECK: Jugular venous distention is present. No bruits. CARDIOVASCULAR: She has regular rate and rhythm with ectopy. LUNGS: Mild rales and diminished breath sounds at bases. ABDOMEN: Soft, nontender. EXTREMITIES: There is 1+ edema. VASCULAR: Diminished pulses. SKIN: Warm, dry, intact. NEUROLOGIC: No focal deficits noted. Cranial nerves are grossly intact. PSYCHIATRIC: Normal mood and affect. LABORATORY DATA: Reviewed. Creatinine is 0.8. Troponin less than 0.088. BMP is 1482. Telemetry monitoring revealed atrial paced rhythm with occasional ventricular paced episodes. IMPRESSION 1. Jflbw-pn-tefsoyb systolic congestive heart failure. 2. Presence of implantable cardioverter defibrillator. 3. Hypertension. 4. Nonischemic cardiomyopathy. 5. Hyperlipidemia. 6. Obesity. RECOMMENDATIONS: Patient presented with symptoms consistent with acute heart failure. We will start intravenous Lasix for adequate diuresis. We will resume home antihypertensive regimens and optimal medical therapy for heart failure. We have her device interrogated. Thank you for consultation. Will follow along with you. Job#: [id number] ABBY
--- NOTE | 2018-09-01 22:28 | NUR ---
REPORT GIVEN TO MADDI DANGELO THIS TIME. TELE BOX [id number] PLACED ON PT. BIPAP WAS DISCONTINUED AT ABOUT [address] MACKEY'S ORDER.
--- NOTE | 2018-09-01 23:55 | NUR ---
RECEIVED PT TO UNIT ROOM 108 VIA STRETCHER.PT AAO X 3.PT ON 3LPM VIA NC.NO S/S OF DISTRESS NOTED.RESPIRATIONS EVEN/NON LABORED.ARAIZA CATH INTACT AND PATENT DRAINING CLEAR YELLOW URINE OUTPUT.ORIENTED PT TO ROOM ENVIRONMENT.INSTRUCTED PT TO CALL FOR ASSISTANCE NEEDED BY USING CALL LIGHT.PT VERBALIZED UNDERSTANDING.BED IN LOWEST/LOCKED POSITION.BED ALARM ACTIVATED.CALL LIGHT WITHIN EASY REACH.
[2018-09-02] VITALS (8 sets, daily range): BP systolic 94–169; BP diastolic 51–74
[2018-09-02] LABS: CREATINE KINASE MB 1.6 ng/mL (0-5.0)
[2018-09-02] MEDS: NITROGLYCERIN 2% OINT 1 GM PKT TOP SCH ×2 (00:12→06:58)
--- NOTE | 2018-09-02 00:59 | NUR ---
PT RESTING IN BED WITH NO S/S OF DISTRESS.ADMISSION HX,FAMILY HX AND ASSESSMENTS DONE.PT DOES NOT HAVE A LIST OF HOME MEDICATIONS WITH HER AT THIS TIME,ASKED PT IF SOMEONE COULD BRING THE HOME MED LIST TO THE HOSPITAL,PT STATED THAT SHE WILL CALL HER AND ASK HIM TO BRING THE LIST IN THE MORNING.
[2018-09-02 06:34] LABS: BASOPHILS % 0.4 % (0.0-1.0); EOSINOPHILS # (AUTO) 0.1 (0.0-0.4); HEMOGLOBIN 12.7 g/dL (12.0-16.0); LYMPHOCYTES # (AUTO) 1.7 (1.0-3.2); LYMPHOCYTES % 17.1 % (18.0-39.1); MEAN CORPUSCULAR HEMOGLOBIN 32.2 pg (28-32); MEAN CORPUSCULAR HGB CONC 32.6 g/dL (31-35); MEAN CORPUSCULAR VOLUME 98.7 fL (81-99); MONOCYTES # (AUTO) 0.9 (0.2-0.8); MONOCYTES % 8.5 % (4.4-11.3); NEUTROPHILS # (AUTO) 7.3 (2.1-6.9); NEUTROPHILS % 72.7 % (38.7-80.0); PLATELET COUNT 381 x10e3/uL (140-360); RED BLOOD COUNT 3.95 x10e6/uL (3.6-5.1); RED CELL DISTRIBUTION WIDTH 14.6 % (11.7-14.4)
[2018-09-02] MEDS: FUROSEMIDE INJ 10 MG/ML 4 ML VIAL IV SCH ×3 (07:00→22:15)
[2018-09-02 07:03] LABS: ALANINE AMINOTRANSFERASE 28 IU/L (0-55); ALBUMIN 3.6 g/dL (3.5-5.0); ALBUMIN/GLOBULIN RATIO 1.2 (0.8-2.0); ALKALINE PHOSPHATASE 83 IU/L (40-150); ANION GAP 16.4 mmol/L (8-16); BLOOD UREA NITROGEN 12 mg/dL (7-26); BUN/CREATININE RATIO 14 (6-25); CARBON DIOXIDE 27 mmol/L (22-29); CHLORIDE 99 mmol/L (98-107); CHOL/HDL RATIO 7.3 (3.0-3.6); CHOLESTEROL 196 MD/DL (0-199); CREATININE, SERUM 0.84 mg/dL (0.57-1.11); EST GLOMERULAR FILTRATION RATE > 60 ML/MIN (60-); GLUCOSE 113 mg/dL (74-118); HDL CHOLESTEROL 27 MG/DL (40-60); LDL CHOLESTEROL 146 MG/DL (60-130); POTASSIUM 3.4 mmol/L (3.5-5.1); SODIUM 139 mmol/L (136-145); TRIGLYCERIDES 116 MG/DL (0-149)
--- NOTE | 2018-09-02 07:27 | NUR ---
REPORT GIVEN TO ONCOMING NURSE.WALKING ROUNDS MADE.PT RESTING IN BED WITH NO S/S OF DISTRESS.
[2018-09-02] MEDS: FAMOTIDINE 20 MG/2 ML VIAL IV SCH ×2 (08:38→20:30)
[2018-09-02] MEDS ORDERED: OSTERA TABLET1 EACH PO (11:33)
[2018-09-02] MEDS ORDERED: AMIODARONE HCL200 MG PO (11:33)
[2018-09-02] MEDS ORDERED: ULTRAM50 MG PO (11:33)
[2018-09-02] MEDS ORDERED: MULTI-VITAMIN1 EACH PO (11:33)
[2018-09-02] MEDS ORDERED: SPIRONOLACTONE25 MG PO (11:33)
[2018-09-02] MEDS ORDERED: LEVOTHYROXINE50 MCG PO (11:33)
[2018-09-02] MEDS ORDERED: TYLENOL WITH C1 EACH PO (11:33)
[2018-09-02] MEDS ORDERED: PRIMIDONE50 MG PO (11:33)
[2018-09-02] MEDS ORDERED: DIAZEPAM5 MG PO (11:33)
[2018-09-02] MEDS ORDERED: VENLAFAXINE HCL75 MG PO (11:33)
[2018-09-02] MEDS ORDERED: ALENDRONATE SOD70 MG PO (11:33)
[2018-09-02] MEDS ORDERED: CARVEDILOL12.5 MG PO (11:33)
--- NOTE | 2018-09-02 12:10 | NUR ---
Nutrition Screen Note RD Recommendation for Physician: Continue diet as ordered Plan of Care: RD following, monitoring for adequacy and tolerance Nutrition reason for involvement: Nutrition Risk Trigger MST score Primary Diagnose(s): heart failure, hypertensive emergency Ht:62 in Wt:187.38lbs BMI:34.3 kg/m2 IBW:110lbs RD Assessment:(09/02/2018) Initial encounter with patient. Pt denies any difficulty chewing or swallowing. Pt denies nausea, vomiting or diarrhea. Pt denies any wt changes. Current Diet: Cardiac Malnutrition Evaluation (09/02/2018) The patient does not meet criteria for a specified degree of malnutrition at this time. Will re-evaluate at follow-up as appropriate. Diet Education Needs Assessment: Diet education not indicated. Diet Adequacy: Meeting calorie needs, Meeting protein needs, Meeting fluid needs Tolerance: Tolerating PO Nutrition Care Level:Luis Kiser RD, LD, [facility]
[2018-09-02] MEDS ORDERED: DIAZEPAM 5 MG TAB PO PRN (12:15)
--- NOTE | 2018-09-02 12:42 | NUR ---
Patient alert and responsive, rounds by Dr. Estrada for Dr. Russo and orders to d/c Blanco cath, KCL supplement given and will give one time dose of Lisinopril for elevated BP per cardio, Call light within reach, will monitor
[2018-09-02] MEDS ORDERED: POTASSIUM CHLORIDE 10MEQ EA PO ONE (13:00)
--- NOTE | 2018-09-02 13:09 | NUR ---
Bella pisano d/c'd at this time and Output 550cc, OOB assisted to bathroom and had a BM, some SOB and no resp distress, will monitor
--- NOTE | 2018-09-02 13:22 | Progress Note ---
DATE: September 02, 2018 CARDIOLOGY PROGRESS NOTE SUBJECTIVE: Patient denies chest pain. She reports her shortness of breath has improved. OBJECTIVE VITAL SIGNS: Temperature 98.2 degrees, pulse 85, respiratory rate 22, blood pressure 169/74, oxygen saturation 99% on 3 liters nasal cannula. GENERAL: Obese woman, in no acute distress. Awake and alert. LUNGS: Clear to auscultation bilaterally. No wheezes or crackles. CARDIOVASCULAR: Normal rate, regular rhythm. No murmur. Normal S1 and S2. ABDOMEN: Soft, nontender. EXTREMITIES: 1+ pitting edema. CARDIAC MEDICATIONS 1. Furosemide 40 mg IV q.8 hours. 2. Spironolactone 25 mg p.o. daily. 3. Levothyroxine 50 mcg p.o. daily. 4. Carvedilol 25 mg p.o. b.i.d. 5. Amiodarone 200 mg p.o. b.i.d. 6. Lisinopril 5 mg p.o. daily. LABS: WBC 10.08, hemoglobin 12.7, hematocrit 39, platelets 381. Sodium 139, potassium 3.4, chloride 99, CO2 of 27, BUN 12, creatinine 0.84. Troponin 0.088. Cholesterol 196, LDL 146, HDL 27. TELEMETRY: A-paced. IMPRESSION 1. Hqugs-qt-iushkbd systolic heart failure. 2. Status post automatic implantable cardioverter defibrillator. 3. Nonischemic cardiomyopathy. 4. Hypertension. 5. Hyperlipidemia. 6. Obesity. RECOMMENDATIONS: Continue current cardiac medications. Patient has had adequate response with current diuretic regimen, we will continue. Blood pressure is for the most part controlled, although there are some episodes of hypertension, monitor closely. If persistently elevated, we will increase lisinopril. Device interrogation is pending. Thank you for this consult. We will continue to follow. Job#: [id number] ALMAS GEE
[2018-09-02] MEDS ORDERED: LISINOPRIL 2.5 MG TAB PO ONE (13:30)
--- NOTE | 2018-09-02 14:30 | NUR ---
CASE MANAGEMENT INITIAL ASSESSMENT Fulfillment Coordinator to bedside to discuss plan of care with patient/family. CM/SW role and care transitions discussed. Anticipated discharge plan discussed along with duration of care. CM/SW discussed patients right to make decisions in care. CM/SW work hours given. Patient lives: IN OWN HOUSE WITH Admit/Transfer: VIA ED FROM HOME POA/Emergency contact: CALVIN [phone] Current/Previous Home Health: NONE PCP/Follow-up Care: [facility]RA Current/Previous DME: NONE Other Services: NONE Employment Status: RETIRED Areas of Concerns: NONE Referral Needs: NONE Education Needs: NONE IMM/GARCIA given and signed (if applicable):NA Goal for discharge: RETURN HOME INDEPENDENTLY CM/SW left business card at the bedside with contact information. Name and number was also written on the patients whiteboard. Patient verbalized understanding of discussion. CM will follow-up with ongoing discharge and transition of care needs.
--- NOTE | 2018-09-02 14:46 | History and Physical ---
CHIEF COMPLAINT: Shortness of breath. HISTORY OF PRESENT ILLNESS: This is a 63-year-old white woman who presents to [facility] recently with 1 day history of worsening shortness of breath and dyspnea on exertion. Patient also noted orthopnea for at least 24 hours prior to admission. Patient has known history of heart failure. In the emergency room, patient underwent an echocardiogram and preliminary reading revealed left ventricular ejection fraction of 20% to 25%. The patient also had chest x-ray done in the emergency room, which revealed enlarged cardiac silhouette, pulmonary vascular congestion, moderate interstitial edema, and small bilateral pleural effusions. Patient was found to have white blood cell count of 9200 with 80% segmenters. Patient's BUN and creatinine were 11 and 0.8 respectively. Patient's B-type natriuretic peptide was elevated at 1482. Patient's LDL cholesterol was elevated at 146 mg/dL, but she has history of severe statin intolerance. The patient also was found to have elevated blood pressure in the emergency room on arrival. Patient's blood pressure did get as high as 175/110. Patient is currently chest pain-free. Patient denies any flu-like symptoms lately. She also denies any purulent sputum production. Moreover, she denies any fever or chills. Patient will be admitted for further evaluation and treatment. REVIEW OF SYSTEMS GENERAL: Patient has gained 10 pounds over the last months. No fever or chills. HEENT: No headaches. No visual changes. CARDIOVASCULAR/RESPIRATORY: Worsening shortness of breath, particularly dyspnea on exertion and orthopnea over the last day or 2 prior to admission. She has slight cough, but is not productive. GI: No nausea, vomiting, diarrhea, or constipation. : No UTI symptoms. NEUROMUSCULAR: No limb weakness or numbness. ALLERGIES 1. PENICILLIN. 2. STATINS FAMILY HISTORY: Strong family history of coronary artery disease. Patient has a brother with Alzheimer's disease. SOCIAL HISTORY: This woman is , lives with her . Patient quit tobacco smoking in 1989. No history of alcohol use. Patient is retried. SURGICAL HISTORY 1. Pacemaker/AICD placement. 2. Partial hysterectomy. 3. Total hysterectomy. 4. Left heart cauterization. 5. section twice. 6. Abdominal hernia repair. 7. Right total hip arthroplasty. PAST MEDICAL HISTORY 1. Chronic systolic with diastolic congestive heart failure. 2. Osteoporosis. 3. Hypertensive heart disease. 4. Major depressive disorder. 5. Hyperlipidemia. 6. Severe statin intolerance. 7. Hypothyroidism. HOME MEDICATIONS 1. Tylenol with Codeine No. 3 one twice daily as needed for pain. 2. Alendronate 70 mg once a week. 3. Amiodarone 200 mg b.i.d. 4. Carvedilol 25 mg daily. 5. Diazepam 5 mg as needed for anxiety. 6. Levothyroxine 50 mcg daily. 7. Multivitamin once daily. 8. Primidone 25 mg at bedtime. 9. Spironolactone 25 mg daily. 10. Tramadol 100 mg q.6 hours p.r.n. pain. 11. Venlafaxine 75 mg b.i.d. 12. Ostera vitamins once daily. PHYSICAL EXAMINATION GENERAL: She is awake, alert, fully oriented to her at bedside. VITALS: Blood pressure 159/74, pulse 86, respiratory rate is 22, oxygen saturation 99% on 3 liters of oxygen via nasal cannula, temperature 98.2. Height 5 feet 2 inches, weight 187 pounds, BMI 34. INTEGUMENT: Skin is warm and dry. No pallor or diaphoresis. HEENT: Anicteric sclerae. Moist mucous membranes. NECK: Supple. No evidence of jugular venous distention. CARDIOVASCULAR: Distant heart sounds. Regular rate and rhythm. LUNGS: Diminished breath sounds at the bases. ABDOMEN: Obese. EXTREMITIES: Trace edema in lower extremities. NEUROLOGIC: Intact. DIAGNOSES 1. Tjzty-rn-mkwsifj systolic and diastolic congestive heart failure. 2. Hypertensive heart disease. 3. Nonischemic cardiomyopathy. 4. Mild obesity, body mass index 34. 5. Hyperlipidemia. 6. Statin intolerance. PLAN 1. Blood pressure control. 2. Rule out myocardial infarction. 3. Consult cardiology. 4. Intravenous furosemide. 5. Continue congestive heart failure medical management. I spent an hour in the care of the patient. Job#: [id number] ABBY GEE
[2018-09-02] MEDS: TRAMADOL HCL 50 MG TAB PO PRN (16:34)
[2018-09-02] MEDS: AMIODARONE HCL 200 MG TAB PO SCH (16:34)
[2018-09-02] MEDS: VENLAFAXINE HCL 75 MG TAB PO SCH (17:28)
[2018-09-02] MEDS ORDERED: ACETAMINOPHEN/CODEINE 300MG - 30MG TAB PO PRN (18:00)
--- NOTE | 2018-09-02 18:23 | NUR ---
Patient's VSS, medicated for pain and has been OOB to bathroom and voided x3, had a BM as well, continues on diuresis with lasix, all home meds were entered in the system and renewed by attending, patient appears comfortable at this moment time, in bed and call light within reach.
[2018-09-02] MEDS: PRIMIDONE 50 MG TAB PO SCH (20:30)
[2018-09-02] MEDS: ONDANSETRON HCL INJ 2 MG/ML VIAL IV PRN (20:30)
--- NOTE | 2018-09-02 21:15 | NUR ---
Pt resting comfortably in bed, semi-bradshaw's, watching tv. Medicated pt earlier for nausea. Pt verbalizes effectiveness of medication. Pt eating some crackers now. Slight +1 edema to bilateral lower extremities. States "it has gone down whole lot". Reminded pt to call for assistance when getting in and out of bed. Pt verbalizes understanding. Will continue to monitor.
[2018-09-03] VITALS (7 sets, daily range): BP systolic 80–182; BP diastolic 45–74
[2018-09-03] MEDS: FUROSEMIDE INJ 10 MG/ML 4 ML VIAL IV SCH ×3 (05:58→22:00)
[2018-09-03] MEDS: LEVOTHYROXINE SODIUM 50 MCG TAB PO SCH (05:58)
--- NOTE | 2018-09-03 06:16 | Diagnostic Imaging Report ---
CHEST SINGLE (PORTABLE), 09/03/2018 5:00 AM Technique: CHEST SINGLE (PORTABLE) Comparison: 09/01/2018 Clinical history: Congestive heart failure Findings: See Impression Impression: 1. Lines/Tubes: Stable left chest wall ICD 2. Stable enlarged cardiac silhouette. 3. Persistent though mildly improved edema with small effusions Signed by: Dr Thais Oliver MD on 09/03/2018 6:13 AM
[2018-09-03 06:19] LABS: BASOPHILS % 0.5 % (0.0-1.0); EOSINOPHILS # (AUTO) 0.3 (0.0-0.4); EOSINOPHILS % 3.6 % (0.0-6.0); HEMATOCRIT 42.5 % (34.2-44.1); HEMOGLOBIN 13.3 g/dL (12.0-16.0); LYMPHOCYTES # (AUTO) 2.2 (1.0-3.2); LYMPHOCYTES % 27.1 % (18.0-39.1); MEAN CORPUSCULAR HEMOGLOBIN 32.4 pg (28-32); MEAN CORPUSCULAR HGB CONC 31.3 g/dL (31-35); MONOCYTES # (AUTO) 0.9 (0.2-0.8); NEUTROPHILS # (AUTO) 4.7 (2.1-6.9); NEUTROPHILS % 57.4 % (38.7-80.0); PLATELET COUNT 294 x10e3/uL (140-360); RED BLOOD COUNT 4.11 x10e6/uL (3.6-5.1); RED CELL DISTRIBUTION WIDTH 14.6 % (11.7-14.4)
[2018-09-03 06:21] LABS: MEAN CORPUSCULAR VOLUME 103.4 fL (81-99)
[2018-09-03 06:45] LABS: ALBUMIN 3.4 g/dL (3.5-5.0); ALBUMIN/GLOBULIN RATIO 1.1 (0.8-2.0); ANION GAP 15.7 mmol/L (8-16); CALCIUM 8.6 mg/dL (8.4-10.2); CREATININE, SERUM 1.04 mg/dL (0.57-1.11); POTASSIUM 3.7 mmol/L (3.5-5.1)
[2018-09-03] MEDS: CARVEDILOL 12.5 MG TAB PO SCH (09:00)
[2018-09-03] MEDS: LISINOPRIL 2.5 MG TAB PO SCH (09:00)
[2018-09-03] MEDS: TRAMADOL HCL 50 MG TAB PO PRN (09:46)
[2018-09-03] MEDS: FAMOTIDINE 20 MG/2 ML VIAL IV SCH ×2 (09:50→20:40)
[2018-09-03] MEDS: MULTIVITAMINS/MINERALS TAB PO SCH (09:50)
[2018-09-03] MEDS: SPIRONOLACTONE 25 MG TAB PO SCH (09:50)
[2018-09-03] MEDS: VENLAFAXINE HCL 75 MG TAB PO SCH ×2 (09:50→17:19)
[2018-09-03] MEDS: AMIODARONE HCL 200 MG TAB PO SCH ×2 (09:51→17:20)
--- NOTE | 2018-09-03 09:52 | NUR ---
Patient alert and responsive, c/o some dizziness due to low BP rechecked and at 90/60, held BP meds this morning, no resp distress, cardiology notified of status, patient educated to call for assistance when getting OOB and verbalized understanding, will continue to monitor
[2018-09-03] MEDS: MORPHINE SULFATE INJ 4 MG/ML INJ IV PRN (13:46)
--- NOTE | 2018-09-03 13:52 | NUR ---
Rounds by attending and orders in place for CT chest due to complaints to right torso/chest area.
--- NOTE | 2018-09-03 15:47 | Diagnostic Imaging Report ---
EXAM: CT Chest WITH contrast (PE Protocol) INDICATION: ^assess for right sided pulmonary emboli ^[id number] ^1400 ^Y COMPARISON: Same day chest x-ray. TECHNIQUE: Chest was scanned utilizing a multidetector helical scanner from the lung apex through the level of the diaphragm after administration of IV contrast. Thin section reconstructions were obtained with special concentration on the pulmonary arteries. Coronal and sagittal reformations were obtained. Dose modulation, iterative reconstruction, and/or weight based adjustment of the mA/kV was utilized to reduce the radiation dose to as low as reasonably achievable. Pulmonary embolism protocol was performed. IV CONTRAST: 100 mL of Isovue-370 COMPLICATIONS: None RADIATION DOSE: Total DLP: 459.26 mGy*cm Estimated effective dose: (DLP x 0.014 x size factor) mSv CTDIvol has been reviewed. It is below the limits set by the Radiation Protocol Committee (RPC). FINDINGS: LINES/ TUBES: Dual-lead left chest wall cardiac device in place with distal leads terminating in right atrium and right ventricle. LUNGS AND AIRWAYS: Filling defects within subsegmental right upper lobe pulmonary arteries as well as segmental right lower lobe arteries, extending to the subsegmental arteries.. There is bibasilar atelectasis.. Airways are normal. PLEURA: The pleural spaces are clear. HEART AND MEDIASTINUM: The thyroid gland is normal. No mediastinal, hilar or axillary lymphadenopathy. Cardiomegaly. There is no pericardial effusion. . Main pulmonary artery measures 3.3 cm, suggestive of pulmonary hypertension. UPPER ABDOMEN: Unremarkable BONES: No acute osseous abnormality. SOFT TISSUES: Unremarkable. IMPRESSION: Right-sided pulmonary emboli as described above. Cardiomegaly, pulmonary vascular congestion, and mild interstitial edema. Findings discussed with patient's nurse Zaid at 3:40 PM, on 09/03/2018. Signed by: Dr. Cristhian Hdz MD on 09/03/2018 3:44 PM
--- NOTE | 2018-09-03 15:51 | NUR ---
CT results with positive PE, reported to Dr. Hightower and he spoke with crime specialist and will place patient on Eliquis 10mg BID at this point, no respiratory distress, will monitor
[2018-09-03] MEDS: APIXABAN 5 MG TABLET PO SCH (17:19)
--- NOTE | 2018-09-03 17:50 | Progress Note ---
DATE: September 03, 2018 CARDIOLOGY PROGRESS NOTE SUBJECTIVE: Patient denies chest pain. She indicates her shortness of breath is better; however, she does note new right-sided pain. OBJECTIVE VITAL SIGNS: Temperature 97 degrees, pulse 83, respiratory rate 20, blood pressure 80/45, oxygen saturation 96% on 1 liters nasal cannula. GENERAL: Obese woman, in no acute distress. Awake and alert. LUNGS: Clear to auscultation bilaterally. No wheezes or crackles. CARDIOVASCULAR: Normal rate, regular rhythm. No murmur. Normal S1 and S2. ABDOMEN: Soft, nontender. EXTREMITIES: 1+ pitting edema. CARDIAC MEDICATIONS 1. Furosemide 40 mg IV q.8 hours. 2. Amiodarone 200 mg p.o. b.i.d. 3. Spironolactone 25 mg p.o. daily. 4. Levothyroxine 50 mcg p.o. daily. 5. Carvedilol 25 mg p.o. b.i.d. 6. Lisinopril 10 mg p.o. b.i.d. LABS: WBC 8. 89, hemoglobin 13.3, hematocrit 42.5, and platelets 294. Sodium 138, potassium 3.7, chloride 100, CO2 of 26, BUN 20, creatinine 1.04. CT chest; right-sided pulmonary emboli as described above, cardiomegaly, pulmonary vascular congestion, and mild interstitial edema. TELEMETRY: V-paced. IMPRESSION 1. Iklhi-dd-oslbwno systolic heart failure. 2. Acute right-sided pulmonary embolism. 3. Status post automatic implantable cardioverter-defibrillator. 4. Nonischemic cardiomyopathy. 5. Hypertension. 6. Hyperlipidemia. 7. Obesity. RECOMMENDATIONS: Start patient on Eliquis. Continue diuretics. Follow creatinine closely. Continue current cardiac medications. Patient's blood pressure is well. We may need to temporarily hold Lasix and give IV fluids given her acute PE. Watch vital signs closely. Thank you for this consult. We will continue to follow. Job#: [id number] ABBY
[2018-09-03] MEDS ORDERED: SODIUM CHLORIDE 0.9% 50ML 50 ML ONE (18:11)
[2018-09-03] MEDS ORDERED: IOPAMIDOL 370 MG/ML 200 ML INFUS..BTL INJ ONE (18:12)
--- NOTE | 2018-09-03 19:16 | NUR ---
Report given to on coming nurse and notified to hold lasix for tonight and call pattern assembler if patient still hypotensive tonight. Appears stable at this time, no resp distress, X1Retp-52% on 3L NC.
[2018-09-03] MEDS: PRIMIDONE 50 MG TAB PO SCH (20:40)
[2018-09-04] VITALS (7 sets, daily range): BP systolic 92–120; BP diastolic 51–68
[2018-09-04 05:52] LABS: BASOPHILS # (AUTO) 0.1 (0.0-0.1); BASOPHILS % 0.6 % (0.0-1.0); EOSINOPHILS # (AUTO) 0.5 (0.0-0.4); EOSINOPHILS % 5.9 % (0.0-6.0); HEMATOCRIT 40.3 % (34.2-44.1); LYMPHOCYTES # (AUTO) 1.9 (1.0-3.2); LYMPHOCYTES % 23.3 % (18.0-39.1); MEAN CORPUSCULAR HEMOGLOBIN 32.8 pg (28-32); MEAN CORPUSCULAR HGB CONC 32.3 g/dL (31-35); MEAN CORPUSCULAR VOLUME 101.8 fL (81-99); MONOCYTES # (AUTO) 0.7 (0.2-0.8); MONOCYTES % 9.2 % (4.4-11.3); NEUTROPHILS # (AUTO) 4.9 (2.1-6.9); NEUTROPHILS % 60.6 % (38.7-80.0); PLATELET COUNT 302 x10e3/uL (140-360); RED BLOOD COUNT 3.96 x10e6/uL (3.6-5.1); RED CELL DISTRIBUTION WIDTH 14.6 % (11.7-14.4)
[2018-09-04] MEDS: FUROSEMIDE INJ 10 MG/ML 4 ML VIAL IV SCH ×3 (06:00→22:00)
[2018-09-04] MEDS ORDERED: ALENDRONATE SODIUM 70 MG TAB PO SCH (06:00)
[2018-09-04 06:19] LABS: ALBUMIN 3.4 g/dL (3.5-5.0); ALBUMIN/GLOBULIN RATIO 1.1 (0.8-2.0); ANION GAP 14.8 mmol/L (8-16); CALCIUM 8.5 mg/dL (8.4-10.2); CREATININE, SERUM 0.95 mg/dL (0.57-1.11); POTASSIUM 3.8 mmol/L (3.5-5.1)
[2018-09-04] MEDS: LEVOTHYROXINE SODIUM 50 MCG TAB PO SCH (06:43)
[2018-09-04] MEDS: TRAMADOL HCL 50 MG TAB PO PRN (07:05)
[2018-09-04] MEDS: AMIODARONE HCL 200 MG TAB PO SCH ×2 (08:56→16:56)
[2018-09-04] MEDS: SPIRONOLACTONE 25 MG TAB PO SCH (08:56)
[2018-09-04] MEDS: FAMOTIDINE 20 MG/2 ML VIAL IV SCH ×2 (08:56→21:00)
[2018-09-04] MEDS: APIXABAN 5 MG TABLET PO SCH ×2 (08:57→16:57)
[2018-09-04] MEDS: VENLAFAXINE HCL 75 MG TAB PO SCH ×2 (08:57→16:56)
[2018-09-04] MEDS: MULTIVITAMINS/MINERALS TAB PO SCH (08:57)
[2018-09-04] MEDS: LISINOPRIL 2.5 MG TAB PO SCH (08:57)
[2018-09-04] MEDS: CARVEDILOL 12.5 MG TAB PO SCH (08:58)
--- NOTE | 2018-09-04 10:32 | NUR ---
PRESTONND CARE CONSULT: THIS 63 YO FEMALE PATIENT WAS ADMITTED FOR CHF & HTN EMERGENCY. PATIENT STATES HER DOG SCRATCHED HER LEG AT HOME, SMALL AREA TO LEFT RIVERO 0.4X0.3X0.1 WITH RODRICK ERRYTHEMA NOTED. SACRAL AREA POSSIBLE AREA OF CONCERN 8X7.8 , SKIN IS INTACT AND BLANCHABLE REDNESS AT THIS TIME. LEFT ABDOMINAL FOLD WITH MOISTURE AREA SLIGHTLY OPENED 0.3X1X0.1. LABS; WBC 8.08 ALB 3.4 URNINE/BLOOD CULTURES PENDING RECOMMENDATIONS: -CONTINUE ALTERNATING PRESSURE RELIEF MATTRESS -CONTINUE HEEL PROTECTORS WITH PILLOW SUSPENSION -ENCOURAGE PATIENT TO TURN EVERY TWO HOURS WHILE IN BED -LEFT RIVERO - BACTROBAN, GAUZE & TAPE TO SECURE DAILY -LEFT ABD FOLD- VENELEX OINTMENT DAILY -SACRUM VENELEX & ALLEVYN FOAM DAILY THANK YOU FOR THIS CONSULT. Addendum: 09/04/18 at 1039 by Desire Goins RN Amended: Links added.
--- NOTE | 2018-09-04 15:34 | Progress Note ---
DATE: September 04, 2018 CARDIOLOGY PROGRESS NOTE SUBJECTIVE: Patient denies chest pain or shortness of breath. OBJECTIVE VITAL SIGNS: Temperature 97.6 degrees, pulse 80, respiratory rate 20, blood pressure 120/68, oxygen saturation 98% on 2 liters nasal cannula. GENERAL: Obese woman in no acute distress. Awake and alert. LUNGS: Clear to auscultation bilaterally. No wheezes or crackles. CARDIOVASCULAR: Normal rate, regular rhythm. No murmur. Normal S1 and S2. ABDOMEN: Soft, nontender. EXTREMITIES: Trace edema. CARDIAC MEDICATIONS 1. Apixaban 10 mg p.o. b.i.d. 2. Spironolactone 25 mg p.o. daily. 3. Amiodarone 200 mg p.o. b.i.d. 4. Levothyroxine 50 mcg p.o. daily. 5. Furosemide 40 mg IV q.8 h. 6. Carvedilol 25 mg p.o. b.i.d. 7. Lisinopril 5 mg p.o. daily. LABS: WBC 8.08, hemoglobin 13, hematocrit 43, and platelets 302. Sodium 136, potassium 3.8, chloride 98, CO2 of 27, BUN 25, creatinine 0.95. BNP 127. TELEMETRY: A-paced. IMPRESSION 1. Xbfig-pk-zzsldin systolic heart failure. 2. Acute right-sided pulmonary embolism. 3. Status post automatic implantable cardioverter-defibrillator. 4. Nonischemic cardiomyopathy. 5. Hypertension. 6. Hyperlipidemia. 7. Obesity. RECOMMENDATIONS: The patient's volume status is improved. Continue diuretics. Monitor creatinine closely. Continue current cardiac medications. She is on optimal therapy for her systolic heart failure. The patient is on Eliquis for her acute pulmonary embolism. We will obtain bilateral lower extremity venous Doppler to evaluate for DVT. Continue current cardiac medications otherwise. The patient's blood pressure has improved. Likely resume diuretics in the next day. Thank you for this consult. We will continue to follow. Job#: [id number]
--- NOTE | 2018-09-04 15:49 | NUR ---
Patient alert and responsive, Venous doppler completed to lower extremities and negative at this time. Remains stable, no resp distress.
[2018-09-04] MEDS ORDERED: DIPHENHYDRAMINE HCL 25 MG CAP PO ONE (16:45)
[2018-09-04] MEDS ORDERED: POLYETHYLENE GLYCOL 3350 17 GM PACK PO ONE (17:15)
--- NOTE | 2018-09-04 20:10 | NUR ---
ASSESSMENT DONE.AMBULATES.NO RESP.DISTRESS.BED LOCKED AND IN LOWEST POSITION.NO BOWEL MOVEMENT.NO PAIN VOICED.PHONE AND CALL LIGHT WITHIN REACH.INSTRUCTED TO CALL FOR ASSISTANCE NEEDED.
[2018-09-04] MEDS: PRIMIDONE 50 MG TAB PO SCH (21:10)
[2018-09-05] VITALS (9 sets, daily range): BP systolic 78–134; BP diastolic 46–68
[2018-09-05] MEDS: LEVOTHYROXINE SODIUM 50 MCG TAB PO SCH (05:25)
[2018-09-05] MEDS: FUROSEMIDE INJ 10 MG/ML 4 ML VIAL IV SCH ×2 (05:44→13:50)
--- NOTE | 2018-09-05 05:44 | NUR ---
SLEPT WELL DURING NIGHT.BP NOTED 90/53.INJ.LASIX DID NOT ADMINISTERED.KEEP MONITORING THE PT.
[2018-09-05 05:55] LABS: BASOPHILS # (AUTO) 0.1 (0.0-0.1); BASOPHILS % 0.7 % (0.0-1.0); EOSINOPHILS # (AUTO) 0.4 (0.0-0.4); HEMATOCRIT 42.5 % (34.2-44.1); HEMOGLOBIN 13.6 g/dL (12.0-16.0); LYMPHOCYTES % 27.8 % (18.0-39.1); MEAN CORPUSCULAR HEMOGLOBIN 32.8 pg (28-32); MEAN CORPUSCULAR VOLUME 102.4 fL (81-99); MONOCYTES # (AUTO) 0.6 (0.2-0.8); MONOCYTES % 8.2 % (4.4-11.3); NEUTROPHILS # (AUTO) 4.2 (2.1-6.9); NEUTROPHILS % 56.9 % (38.7-80.0); PLATELET COUNT 298 x10e3/uL (140-360); RED BLOOD COUNT 4.15 x10e6/uL (3.6-5.1); RED CELL DISTRIBUTION WIDTH 14.4 % (11.7-14.4)
--- NOTE | 2018-09-05 06:00 | NUR ---
PT OFF THE UNIT FOR CHEST X RAY IN A WHEEL CHAIR.
[2018-09-05 06:24] LABS: ANION GAP 14.4 mmol/L (8-16); CALCIUM 9.1 mg/dL (8.4-10.2); POTASSIUM 4.4 mmol/L (3.5-5.1)
[2018-09-05] MEDS ORDERED: ALENDRONATE SODIUM 70 MG TAB PO SCH (06:30)
--- NOTE | 2018-09-05 06:59 | Diagnostic Imaging Report ---
EXAM: CHEST 2 VIEWS, PA and lateral INDICATION: Shortness of breath, hypertension COMPARISON: AP view of the chest September 03, 2018 FINDINGS: LINES/TUBES: Stable position left approach dual lead cardiac device. LUNGS: No consolidations or edema. PLEURA: No effusions or pneumothorax. Eventration of the right hemidiaphragm. HEART AND MEDIASTINUM: Normal size and contour. BONES AND SOFT TISSUES: No acute findings. IMPRESSION: No evidence of pneumonia. Signed by: Dr. Jeri Pritchett M.D. on 09/05/2018 6:55 AM
--- NOTE | 2018-09-05 07:00 | NUR ---
REPORT GIVEN TO THE ON COMING RN.WALKING ROUNDS DONE.STABLE CONDITION.
--- NOTE | 2018-09-05 07:03 | NUR ---
Received patient sitting upright in bed, side rails upx2, call light within reach. AAOX3 to time, person, place. Respirations even and unlabored. O2 3L NC. Instructed patient to use call light for assistance. Voiced understanding.
[2018-09-05] MEDS: SPIRONOLACTONE 25 MG TAB PO SCH (10:00)
[2018-09-05] MEDS: AMIODARONE HCL 200 MG TAB PO SCH ×2 (10:00→16:31)
[2018-09-05] MEDS: FAMOTIDINE 20 MG/2 ML VIAL IV SCH ×2 (10:00→21:30)
[2018-09-05] MEDS: MULTIVITAMINS/MINERALS TAB PO SCH (10:01)
[2018-09-05] MEDS: VENLAFAXINE HCL 75 MG TAB PO SCH ×2 (10:01→16:31)
[2018-09-05] MEDS: LISINOPRIL 2.5 MG TAB PO SCH (10:01)
[2018-09-05] MEDS: MUPIROCIN 2% OINT 22 GM TUBE TOP SCH (10:01)
[2018-09-05] MEDS: CARVEDILOL 12.5 MG TAB PO SCH (10:01)
[2018-09-05] MEDS: APIXABAN 5 MG TABLET PO SCH ×2 (10:01→16:31)
--- NOTE | 2018-09-05 10:05 | NUR ---
SPO2 96 on Room air. SPO2 92% after walking from room to nurses station and from nurses station to room
[2018-09-05] MEDS: MORPHINE SULFATE INJ 4 MG/ML INJ IV PRN (13:51)
[2018-09-05] MEDS: TRAMADOL HCL 50 MG TAB PO PRN (13:51)
--- NOTE | 2018-09-05 15:13 | NUR ---
BP 78/46 manually. . 0 lasix to be held per . Addendum: 09/05/18 at 1515 by ALISA LERMA RN Patient asymptomatic. denies feeling dizzy. AAOX4 to time, person,place, situation
--- NOTE | 2018-09-05 16:31 | NUR ---
BP 88/46 manually. AAOX4 to time, person, place, situation.Denies feeling dizzy
[2018-09-05] MEDS: FUROSEMIDE 40 MG TAB PO SCH (17:54)
--- NOTE | 2018-09-05 17:54 | NUR ---
blaise held as ordered
--- NOTE | 2018-09-05 18:31 | Progress Note ---
DATE: September 05, 2018 CARDIOLOGY PROGRESS NOTE SUBJECTIVE: Patient denies chest pain or shortness of breath. OBJECTIVE VITAL SIGNS: Temperature 97.5 degrees, pulse 80, respiratory rate 18, blood pressure 105/58, oxygen saturation 97% on 2 liters nasal cannula. GENERAL: Obese woman, in no acute distress. Awake and alert. LUNGS: Clear to auscultation bilaterally. No wheezes or crackles. CARDIOVASCULAR: Normal rate, regular rhythm. No murmur. Normal S1 and S2. ABDOMEN: Soft, nontender. EXTREMITIES: Trace edema. CARDIAC MEDICATIONS 1. Apixaban 10 mg p.o. b.i.d. 2. Furosemide 40 mg IV q.8 hours. 3. Carvedilol 25 mg p.o. daily. 4. Lisinopril 5 mg p.o. daily. 5. Spironolactone 25 mg p.o. daily. 6. Levothyroxine 50 mcg p.o. daily. LABS: WBC 7.3, hemoglobin 13.6, hematocrit 44.5, and platelets 298. Sodium 137, potassium 404, chloride 97, CO2 of 30, BUN 22, and creatinine 1. TELEMETRY: A-paced. IMPRESSION 1. Jpkew-an-resruxr systolic heart failure. 2. Acute right-sided pulmonary embolism. 3. Status post automatic implantable cardioverter-defibrillator. 4. Nonischemic cardiomyopathy. 5. Hypertension. 6. Hyperlipidemia. 7. Obesity. RECOMMENDATIONS: The patient's volume status has improved. She is developing episodes of hypotension. We will transition her to p.o. Lasix. Continue current cardiac medications otherwise and decrease carvedilol given patient's hypotension. She is on optimal medical therapy for her systolic heart failure. Continue Eliquis for her acute pulmonary embolism. Lower extremity venous Doppler was without evidence of DVT. Watch blood pressure closely. Thank you for this consult. We will continue to follow. Job#: [id number] ABBY GEE
--- NOTE | 2018-09-05 18:31 | NUR ---
Resting in bed, side rails upx3, call light within reach. No s/s of acute distress noted. Report to be given to oncoming nurse.
--- NOTE | 2018-09-05 19:45 | NUR ---
ASSESSMENT DONE.NO RESP.DISTRESS.NO PAIN VOICED.AAOX4.AMBULATES.BED LOCKED AND IN LOWEST POSITION.INSTRUCTED TO CALL FOR ASSISTANCE NEEDED.
[2018-09-05] MEDS: PRIMIDONE 50 MG TAB PO SCH (21:30)
[2018-09-06] VITALS: BP 99/46
[2018-09-06 04:00] VITALS: BP 103/56
[2018-09-06] MEDS: LEVOTHYROXINE SODIUM 50 MCG TAB PO SCH (05:34)
[2018-09-06] MEDS: FUROSEMIDE 40 MG TAB PO SCH (06:00)
[2018-09-06 06:05] LABS: BASOPHILS # (AUTO) 0.1 (0.0-0.1); BASOPHILS % 0.8 % (0.0-1.0); EOSINOPHILS # (AUTO) 0.4 (0.0-0.4); EOSINOPHILS % 5.1 % (0.0-6.0); HEMATOCRIT 42.4 % (34.2-44.1); HEMOGLOBIN 13.5 g/dL (12.0-16.0); LYMPHOCYTES # (AUTO) 2.2 (1.0-3.2); LYMPHOCYTES % 28.6 % (18.0-39.1); MEAN CORPUSCULAR HEMOGLOBIN 32.8 pg (28-32); MEAN CORPUSCULAR HGB CONC 31.8 g/dL (31-35); MEAN CORPUSCULAR VOLUME 103.2 fL (81-99); MONOCYTES # (AUTO) 0.7 (0.2-0.8); MONOCYTES % 9.1 % (4.4-11.3); NEUTROPHILS # (AUTO) 4.3 (2.1-6.9); PLATELET COUNT 310 x10e3/uL (140-360); RED BLOOD COUNT 4.11 x10e6/uL (3.6-5.1); RED CELL DISTRIBUTION WIDTH 14.4 % (11.7-14.4)
[2018-09-06 06:35] LABS: ANION GAP 14.5 mmol/L (8-16); BLOOD UREA NITROGEN 25 mg/dL (7-26); BUN/CREATININE RATIO 29 (6-25); CALCIUM 9.7 mg/dL (8.4-10.2); CARBON DIOXIDE 30 mmol/L (22-29); CHLORIDE 98 mmol/L (98-107); CREATININE, SERUM 0.86 mg/dL (0.57-1.11); EST GLOMERULAR FILTRATION RATE > 60 ML/MIN (60-); GLUCOSE 89 mg/dL (74-118); POTASSIUM 4.5 mmol/L (3.5-5.1); SODIUM 138 mmol/L (136-145)
--- NOTE | 2018-09-06 06:50 | NUR ---
REPORT GIVEN TO THE ONCOMING RN.WALKING ROUNDS DONE.STABLE CONDITION.
--- NOTE | 2018-09-06 07:00 | NUR ---
Received patient semi fowlers position, side rails upx2, call light within reach.Resting with eyes closed. Arousable to verbal stimuli. Respirations even and unlabored. Will continue to monitor.
[2018-09-06 08:00] VITALS: BP 120/61
[2018-09-06 08:10] VITALS: BP 120/61
[2018-09-06] MEDS ORDERED: CARVEDILOL 12.5 MG TAB PO SCH (09:00)
[2018-09-06] MEDS: MUPIROCIN 2% OINT 22 GM TUBE TOP SCH (10:00)
[2018-09-06] MEDS: FAMOTIDINE 20 MG/2 ML VIAL IV SCH (10:00)
[2018-09-06] MEDS: SPIRONOLACTONE 25 MG TAB PO SCH (10:00)
[2018-09-06] MEDS: MULTIVITAMINS/MINERALS TAB PO SCH (10:00)
[2018-09-06] MEDS: VENLAFAXINE HCL 75 MG TAB PO SCH (10:00)
[2018-09-06] MEDS: AMIODARONE HCL 200 MG TAB PO SCH (10:00)
[2018-09-06] MEDS: LISINOPRIL 2.5 MG TAB PO SCH (10:00)
[2018-09-06] MEDS: APIXABAN 5 MG TABLET PO SCH (10:00)
--- NOTE | 2018-09-06 10:30 | Discharge Summary ---
ADMIT DIAGNOSES 1. Epdzu-xd-yrldnrq systolic/diastolic congestive heart failure. 2. Hypertensive heart disease. 3. Nonischemic cardiomyopathy. 4. Mild obesity. Body mass index 34. 5. Hyperlipidemia. 6. Statin intolerance. DISCHARGE DIAGNOSES 1. Vwefo-nh-eucjzyv systolic/diastolic congestive heart failure, resolving. 2. Acute right-sided pulmonary embolism. 3. Nonischemic cardiomyopathy. 4. Hypertensive heart disease. 5. Hyperlipidemia. 6. Severe statin intolerance. 7. Mild obesity. Body mass index 34. HOSPITAL COURSE: This is a 63-year-old white woman who was initially admitted to [facility] with the diagnosis of qmpuk-px-nvrehgk systolic congestive heart failure. During this hospitalization, the patient underwent a 2-D echocardiogram that revealed a left ventricular ejection fraction of less than 20%, as well as a restricted LV filling pattern consistent with elevated LA pressure. The patient was also found to have left atrial enlargement. Thus, the patient was also diagnosed with diastolic heart failure. During this hospitalization, the patient had intense right-sided pleuritic chest pain. Thus, she underwent a CT of the chest with intravenous contrast that revealed filling defects within the subsegmental right upper lobe, pulmonary arteries, as well as segmental right lower lobe arteries consistent with right-sided pulmonary emboli. The patient never developed respiratory failure secondary to her acute pulmonary emboli. The patient was started on oral apixaban 10 mg twice a day, which she tolerated quite well. During this hospitalization, the patient was seen by her cone treater, namely Dr. Nisreen Hood. Also, during this hospitalization the patient was started on intravenous furosemide for acute congestive heart failure. Her hospitalization was unremarkable. Condition on discharge was stable. During the hospitalization, the patient was found to have a TSH of 2.647. Also, the patient's LDL cholesterol was 146 mg/dL with an HDL cholesterol of 27 mg/dL. The patient's triglycerides were 116 mg/dL. DISCHARGE MEDICATIONS 1. Eliquis 10 mg twice a day for 3 more days and then 5 mg twice a day thereafter. 2. Metoprolol succinate 25 mg a day. 3. Lisinopril 5 mg daily. 4. Lasix 40 mg b.i.d. 5. Amiodarone 200 mg daily. 6. Alendronate 70 mg once a week. 7. Levothyroxine 50 mcg daily. 8. Primidone 50 mg at bedtime. 9. Spironolactone 25 mg a day. 10. Tramadol 50 mg b.i.d. p.r.n. pain. 11. Venlafaxine 75 mg b.i.d. FOLLOWUP INSTRUCTIONS: The patient was instructed to follow up with her primary care doctor, namely myself, Dr. Jimi Smyth within 1 week. She was also instructed to follow up with her cone treater, namely Dr. Nisreen Hood, within 2 weeks. JIMI SMYTH MD Job#: [id number] RI cc: NISREEN HOOD MD
[2018-09-06] MEDS ORDERED: METOPROLOL SUCC25 MG PO (11:01)
[2018-09-06] MEDS ORDERED: ELIQUIS PO (11:02)
[2018-09-06] MEDS ORDERED: LISINOPRIL2.5 MG PO (11:04)
[2018-09-06] MEDS ORDERED: LASIX40 MG PO (11:05)
--- NOTE | 2018-09-06 12:10 | NUR ---
Left wrist and right FA IV discontinued. No signs of infiltration noted. 2x2 gauze and tape placed. Taken via wheelchair to personal car. Accompanied by . AAOX4 to time, person, place, situation. Respirations even and unlabored. RX, discharge instructions and all personal belongings taken with patient.
== END 2018-09-06 12:10 | disposition home or self-care (01) | DRG 291 ==
LOC: ER 14:34 → ERHOLD 17:41 → MED/SURG 23:53
PROVIDERS: ADMIT Internal Medicine; ATTEND Internal Medicine
DX: I11.0 Hypertensive heart disease with heart failure (principal); I26.99 Other pulmonary embolism without acute cor pulmonale; I50.43 Acute on chronic combined systolic (congestive) and diastolic (congestive) heart failure; I42.8 Other cardiomyopathies; E66.9 Obesity, unspecified; Z68.34 Body mass index [BMI] 34.0-34.9, adult; E78.5 Hyperlipidemia, unspecified; Z95.810 Presence of automatic (implantable) cardiac defibrillator; R60.0 Localized edema
CPT/HCPCS: 36415; 36600; 51700; 71045; 71046; 71260; 80048; 80053; 80061; 81001; 82550; 82553; 82805; 83605; 83735; 83880; 84443; 84484; 85025; 85610; 85730; 87040; 87086; 93005; 93306; 93970; 94660; 99284; J1940; J2270; J2405; J7030; Q9967

== ENCOUNTER 2019-04-11 14:43 | Inpatient (IN) | payer MEDICARE, OTHER ==
[~2019-04-11] VITALS: Ht 157.5 cm; Wt 87.3 kg
[~2019-04-11 14:43] MED LIST changes: +ALENDRONATE SOD70 MG PO; +AMIODARONE HCL200 MG PO; +CARVEDILOL12.5 MG PO; +DIAZEPAM5 MG PO; +ELIQUIS PO; +LASIX40 MG PO; +LEVOTHYROXINE50 MCG PO; +METOPROLOL SUCC25 MG PO; +MULTI-VITAMIN1 EACH PO; +OSTERA TABLET1 EACH PO; +PRIMIDONE50 MG PO; +SPIRONOLACTONE25 MG PO; +TYLENOL WITH C1 EACH PO; +ULTRAM50 MG PO; +VENLAFAXINE HCL75 MG PO
--- OUTSIDE RECORDS SUMMARY | 2019-04-11 14:47 | XMS REPORT | Continuity of Care Document ---
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 Name Role Phone Ubidyne Unavailable Unavailable Problems Problem Status Onset Date Classification Date Reported Comments Source Fracture of femoral neck, right Active 10/15/2015 Problem 09/12/2018 [facility] Acute dyspnea Active 06/29/2014 Problem 09/12/2018 [facility] CHF Active 06/29/2014 Problem 09/12/2018 [facility] Dyspnea due to congestive heart failure Active 06/29/2014 Problem 09/12/2018 [facility] Hypoxia Active 06/29/2014 Problem 09/12/2018 [facility] Automatic implantable cardiac defibrillator in situ Active [...] Active Problem 03/03/2016 Ramy Fuller MD, NINFA CHF, chronic systolic Active Problem 03/03/2016 Ramy [...] Active Problem 03/03/2016 Ramy Fuller MD, PA Obesity, unspecified Active Problem 03/03/2016 Ramy Fuller MD, PA Mixed hyperlipidemia Active Problem 03/03/2016 Ramy Fuller MD, PA Abnormal ECG Active Problem 03/03/2016 Ramy Fuller MD, PA Benign hypertensive heart disease without heart failure Active Problem 03/03/2016 Ramy Fuller MD, PA Hypertensive emergency Active Problem 09/12/2018 [facility] Medications Medication Details Route Status Patient Instructions Ordering Provider Order Date Source Acetaminophen With Codeine (Tylenol With Codeine #3 Tablet) 1 Each Tablet, 300 Mg Oral As Needed Active 09/06/2018 [facility] Carvedilol 12.5 Mg Tablet, 25 Mg Oral Daily Active 09/06/2018 [facility] Diazepam 5 Mg Tablet, 5 Mg Oral As Needed as needed for Anxiety Active 09/06/2018 [facility] Multivitamin (Multi-Vitamin Daily) 1 Each Tablet, 1 Tab Oral Daily Active 09/06/2018 [facility] Vit D3 & K/Berberine Hcl/Hops (Ostera Tablet) 1 Each Tablet, 50 Mcg Oral Daily Active 09/06/2018 [facility] Atorvastatin Calcium 40 Mg Tablet, 40 Mg Oral Daily Active 09/02/2018 [facility] Furosemide 20 Mg Tablet, 20 Mg Oral Daily Active 09/02/2018 [facility] Portis-3 Fatty Acids (Fish Oil) 300 Mg Capsule, 1200 Mg Oral Daily Active 09/02/2018 [facility] Omeprazole 20 Mg Capsule.dr, 20 Mg Oral Daily Active 09/02/2018 [facility] Paroxetine Hcl 20 Mg Tablet, 20 Mg Oral Daily Active 09/02/2018 [facility] Sulfamethoxazole/Trimethoprim (Bactrim Ds Tablet) 1 Each Tablet, 1 Tab Oral Twice A Day Active [place] 07/01/2018 [facility] Aspirin 325 Mg Tablet, 325 Mg Oral Daily Active 10/20/2015 [facility] Aspirin/Calcium Carbonate/Mag (Aspirin Buffered 325 Mg Tab) 325 Mg Tablet, 325 Mg Oral Twice A Day Active [place] 10/20/2015 [facility] Carvedilol (Coreg) 3.125 Mg Tab, 3.25 Mg Oral Twice A Day Active [facility] 10/20/2015 [facility] Diclofenac Sodium 75 Mg Tablet.dr, 75 Mg Oral Twice A Day Active 10/20/2015 [facility] Lisinopril 2.5 Mg Tablet, 5 Mg Oral Daily Active [facility] 10/20/2015 [facility] Lisinopril (Prinavil / Zestril) 20 Mg Tablet, 20 Mg Oral Daily Active 10/20/2015 [facility] Amiodarone HCl 1 tablet Orally Active 200 MG Orally twice a day (bid) [facility] 02/13/2015 Ramy Fuller MD, PA Aspirin (Asa) 81 Mg Tab, 81 Mg Oral Daily Active 06/29/2014 [facility] Lisinopril 10 Mg Tablet, 10 Mg Oral Daily Active 06/29/2014 [facility] Levothyroxine Sodium 1 tablet Orally Active 0.5 mg Orally Once a day Alina Fuller MD, PA Tramadol HCl 1 tablet as needed Orally [...] Orally Twice a day Alina Fuller MD, PA Lisinopril 1 tablet Orally Active 10 mg Orally Once a day Alina Fuller MD, PA Aspirin 1 tablet Orally Active 81 MG Orally Once a day Alina Fuller MD, PA Furosemide 1 tablet Orally Active 20 MG Orally Once a day Alina Fuller MD, PA Paroxetine HCl 1 tablet in the morning Orally Active 40 MG Orally Once a day Alina Fuller MD, PA Alendronate Sodium 70 Mg Tablet Daily At 1700 for Takes Every Tuesday Morning Active [facility] Amiodarone Hcl 200 Mg Tablet Twice A Day Active [facility] Eliquis Twice A Day Active [facility] Furosemide (Lasix) 40 Mg Tablet Daily Active [facility] Levothyroxine Sodium 50 Mcg Tablet Daily Active [facility] Lisinopril 2.5 Mg Tablet Daily Active [facility] Metoprolol Succinate 25 Mg Tab.er.24h Daily Active [facility] Primidone 50 Mg Tablet Bedtime Active [facility] Spironolactone 25 Mg Tablet Daily Active [facility] Tramadol Hcl (Ultram) 50 Mg Tablet Every 6 Hours as needed for Pain Active [facility] Venlafaxine Hcl 75 Mg Tab Twice A Day Active [facility] Allergies, Adverse Reactions, Alerts Substance Category Reaction Severity Reaction type Status Date Reported Comments Source penicillin Adverse Reaction Info Not Available Adverse Reaction Active 02/26/2016 Ramy Fuller MD, PA Penicillin Unknown Allergy to Substance Active 09/01/2018 [facility] Mzvhcur-Aer-Bzl Reductase Inhibitor Unknown Allergy to Substance Active 09/01/2018 [facility] Immunizations No Data Provided for This Section Results Order Name Results Value Reference Range Date Interpretation Comments Source Blood leukocytes automated count (number/volume) 7.69 4.8 - 10.8 09/06/2018 [facility] Blood erythrocytes automated count (number/volume) 4.11 3.6 - 5.1 09/06/2018 [facility] Blood hemoglobin measurement (moles/volume) 13.5 12.0 - 16.0 09/06/2018 [facility] Automated blood hematocrit (volume fraction) 42.4 34.2 - 44.1 09/06/2018 [facility] Automated erythrocyte mean corpuscular volume 103.2 81 - 99 09/06/2018 [facility] Automated erythrocyte mean corpuscular hemoglobin (mass per erythrocyte) 32.8 28 - 32 09/06/2018 [facility] Automated erythrocyte mean corpuscular hemoglobin concentration measurement (mass/volume) 31.8 31 - 35 09/06/2018 [facility] RDW BldCo-Rto 14.4 11.7 - 14.4 09/06/2018 [facility] Automated blood platelet count (count/volume) 310 140 - 360 09/06/2018 [facility] Automated blood segmented neutrophil count as percentage of total leukocytes 56.0 38.7 - 80.0 09/06/2018 [facility] Automated blood lymphocyte count as percentage ot total leukocytes 28.6 18.0 - 39.1 09/06/2018 [facility] Automated blood monocyte count as percentage of total leukocytes 9.1 4.4 - 11.3 09/06/2018 [facility] Automated blood eosinophil count as percentage of total leukocytes 5.1 0.0 - 6.0 09/06/2018 [facility] Automated blood basophil count as percentage of total leukocytes 0.8 0.0 - 1.0 09/06/2018 [facility] IM GRANULOCYTES % 0.4 0.0 - 1.0 09/06/2018 [facility] Automated blood neutrophil count 4.3 2.1 - 6.9 09/06/2018 [facility] Blood lymphocytes count (number/volume) 2.2 1.0 - 3.2 09/06/2018 [facility] Blood monocytes automated count (number/volume) 0.7 0.2 - 0.8 09/06/2018 [facility] Automated blood eosinophil count 0.4 0.0 - 0.4 09/06/2018 [facility] Automated blood basophil count (count/volume) 0.1 0.0 - 0.1 09/06/2018 [facility] Absolute Immature Granulocyte (auto 0.03 0 - 0.1 09/06/2018 [facility] Serum or plasma sodium measurement (moles/volume) 138 136 - 145 09/06/2018 [facility] Serum or plasma potassium measurement (moles/volume) 4.5 3.5 - 5.1 09/06/2018 [facility] Serum or plasma chloride measurement (moles/volume) 98 98 - 107 09/06/2018 [facility] Serum or plasma carbon dioxide, total measurement (moles/volume) 30 22 - 29 09/06/2018 [facility] Serum or plasma anion gap 14.5 8 - 16 09/06/2018 [facility] Serum or plasma urea nitrogen measurement (mass/volume) 25 7 - 26 09/06/2018 [facility] Serum or plasma creatinine measurement (mass/volume) 0.86 0.57 - 1.11 09/06/2018 [facility] Serum or plasma urea nitrogen/creatinine mass ratio 29 6 - 25 09/06/2018 [facility] Estimated glomerular filtration rate (GFR) determination > 60 60 09/06/2018 [facility] Glucose measurement 89 74 - 118 09/06/2018 [facility] Serum or plasma calcium measurement (mass/volume) 9.7 8.4 - 10.2 09/06/2018 [facility] Serum or plasma total bilirubin measurement (mass/volume) 1.4 0.2 - 1.2 09/04/2018 [facility] Aspartate Amino Transf (AST/SGOT) 16 5 - 34 09/04/2018 [facility] Serum or plasma alanine aminotransferase measurement (enzymatic activity/volume) 23 0 - 55 09/04/2018 [facility] Serum or plasma protein measurement (mass/volume) 6.6 6.5 - 8.1 09/04/2018 [facility] Serum or plasma albumin measurement (mass/volume) 3.4 3.5 - 5.0 09/04/2018 [facility] Plasma globulin measurement (mass/volume) 3.2 2.3 - 3.5 09/04/2018 [facility] Serum or plasma albumin/globulin mass ratio 1.1 0.8 - 2.0 09/04/2018 [facility] Serum or plasma alkaline phosphatase measurement (enzymatic activity/volume) 81 40 - 150 09/04/2018 [facility] BNP Bld-mCnc 127.3 0 - 100 09/04/2018 [facility] Serum or plasma magnesium measurement (mass/volume) 2.0 1.3 - 2.1 09/02/2018 [facility] Serum or plasma triglyceride measurement (mass/volume) 116 0 - 149 09/02/2018 [facility] Serum or plasma cholesterol measurement (mass/volume) 196 0 - 199 09/02/2018 [facility] Serum or plasma cholesterol in LDL measurement (mass/volume) 146 60 - 130 09/02/2018 [facility] Serum or plasma cholesterol in HDL measurement (mass/volume) 27 40 - 60 09/02/2018 [facility] Serum or plasma total cholesterol/cholesterol in HDL mass ratio 7.3 3.0 - 3.6 09/02/2018 [facility] Serum or plasma creatine kinase measurement (enzymatic activity/volume) 59 29 - 168 09/02/2018 [facility] Serum or plasma creatine kinase MB measurement (mass/volume) 2.00 0 - 5.0 09/02/2018 [facility] Troponin I measurement by highly sensitive enzyme immunoassay 0.088 0 - 0.300 09/02/2018 [facility] Serum or plasma thyrotropin measurement by detection limit <=0.005 miu/l (units/volume) 2.647 0.350 - 4.940 09/02/2018 [facility] Blood culture NO GROWTH AFTER 5 DAYS, FINAL REPORT 09/01/2018 [facility] Urine color determination COLORLESS YELLOW 09/01/2018 [facility] Urine clarity CLEAR CLEAR 09/01/2018 [facility] Specific gravity of Urine by Test strip 1.010 1.010 - 1.025 09/01/2018 [facility] Urine pH measurement by automated test strip 7 5 - 7 09/01/2018 [facility] Urine leukocyte esterase detection by dipstick NEGATIVE NEGATIVE 09/01/2018 [facility] Urine nitrite detection NEGATIVE NEGATIVE 09/01/2018 [facility] Urine protein measurement by test strip (mass/volume) NEGATIVE NEGATIVE 09/01/2018 [facility] Urine glucose detection NEGATIVE NEGATIVE 09/01/2018 [facility] Urine ketones detection by automated test strip NEGATIVE NEGATIVE 09/01/2018 [facility] Urine urobilinogen measurement by test strip (mass/volume) 0.2 0.2 - 1 09/01/2018 [facility] Urine total bilirubin measurement (mass/volume) NEGATIVE NEGATIVE 09/01/2018 [facility] Urine erythrocytes detection TRACE NEGATIVE 09/01/2018 [facility] Automated urine sediment leukocyte count by microscopy (number/high power field) NONE 0 - 5 09/01/2018 [facility] Erythrocytes detection in urine sediment by light microscopy 0-5 0 - 5 09/01/2018 [facility] Bacteria detection in urine sediment by light microscopy NONE NONE 09/01/2018 [facility] Epithelial cells detection in urine sediment by light microscopy NONE NONE 09/01/2018 [facility] Arterial blood pH measurement 7.42 7.31 - 7.41 09/01/2018 [facility] pCO2 BldA 44 41 - 51 09/01/2018 [facility] pCO2 BldA 383 80 - 105 09/01/2018 [facility] Arterial blood bicarbonate measurement (moles/volume) 28 23 - 28 09/01/2018 [facility] Arterial blood base excess by calculation 4.0 -2 - 3 - 2 09/01/2018 [facility] Arterial blood oxygen saturation measurement 100.0 95 - 98 09/01/2018 [facility] FiO2 100 09/01/2018 [facility] Prothrombin time (PT) in platelet poor plasma by coagulation assay 12.8 11.9 - 14.5 09/01/2018 [facility] INR in Platelet poor plasma by Coagulation assay 0.88 09/01/2018 [facility] Activated partial thromboplastin time (aPTT) in platelet poor plasma bycoagulation assay 25.9 23.8 - 35.5 09/01/2018 [facility] Lactic Acid Level 15.5 4.5 - 19.8 09/01/2018 [facility] Pathology Reports No Data Provided for This Section Diagnostic Reports No Data Provided for This Section Consultation Notes No Data Provided for This Section Discharge Summaries No Data Provided for This Section History and Physicals No Data Provided for This Section Vital Signs Vital Sign Value Date Comments Source Weight 175 02/26/2016 Ramy Fuller MD, PA Height 61 02/26/2016 Ramy Fuller MD, PA Heart Rate 70 02/26/2016 Ramy Fuller MD, PA Diastolic (mm Hg) 78 02/26/2016 Ramy Fuller MD, PA Systolic (mm Hg) 126 02/26/2016 Ramy Fuller MD, PA Encounters Location Location Details Encounter Type Encounter Number Reason For Visit Attending Provider ADM Date DC Date Status Source Ramy Fuller MD, PA Follow-Up [id number] 02/26/2016 02/26/2016 Ramy Fuller MD, PA Ramy Fuller MD, PA Follow-Up [id number] 02/26/2016 02/26/2016 Ramy Fuller MD, PA Ramy Fuller MD, PA echo/carotid/arterial dopplers [id number] 03/02/2016 03/02/2016 Ramy Fuller MD, PA Departed Emergency Room [id number] ALHAJI MERCEDES MD 07/01/2018 07/01/2018 [facility] Departed Emergency Room [id number] CHRISTINA KELLY MD 07/18/2018 07/18/2018 [facility] Discharged Recurring [id number] EBONIE LUNA MD 08/31/2018 09/11/2018 [facility] Discharged Inpatient [id number] FABIANA SMYTH MD 09/01/2018 09/06/2018 [facility] Procedures Procedure Code Date Perfomer Comments Source X-ray of chest, two views [id number] 09/05/2018 [facility] Computed tomography of chest with contrast [id number] 09/03/2018 [facility] Computed tomography of brain without radiopaque contrast [id number] 07/18/2018 [facility] Computed tomography of cervical spine without contrast [id number] 07/18/2018 [facility] Assessment and Plan No Data Provided for This Section Plan of Care Plan of Care Date Source Discharge Date 09/06/18 12:10pm Disposition HOME, SELF-CARE Instructions/Education Provided Congestive Heart Failure Heart Healthy Diet Hypertension Prescriptions See Medication Section Referrals FABIANA SMYTH MD (Internal Medicine) Order Date: 1 Week Entered Date: 09/06/2018 10:52am Address: [facility] [place] [address] NISREEN PEREZ MD (Cardiology) Order Date: 1-2 Weeks Entered Date: 09/06/2018 10:53am Address: [address] [place] [address] Additional Instructions/Education CARDIAC DIET ACTIVITY TOLERATED TAKE MEDICATIONS PRESCRIBED FOLLOW UP WITH PCP 1 WEEK FOLLOW UP WITH 1-2 WEEKS TAKE ELIQUIS 10MG TWICE A DAY ON 09/07, 09/08,09/09 THEN TAKE ELIQUIS 5MG TWICE A DAY 09/12/2018 [facility] Social History Social History Date Source Social History Problem Response Recorded Date/Time Onset Date Status Hx Psychiatric Problems No 10/16/2015 7:22pm Not Applicable Not Applicable Hx Eating Disorder No 10/16/2015 7:22pm Not Applicable Not Applicable Hx Substance Use Disorder No 06/29/2014 5:46pm Not Applicable Not Applicable Hx Depression No 10/16/2015 7:22pm Not Applicable Not Applicable Hx Alcohol Use No 06/29/2014 5:46pm Not Applicable Not Applicable Hx Substance Use Treatment No 10/16/2015 7:22pm Not Applicable Not Applicable Hx Physical Abuse No 10/16/2015 7:22pm Not Applicable Not Applicable Smoking Status Start Date Stop Date Former smoker 09/12/2018 [facility] Social History ElementQualifiersDate Reported Tobacco Use: . Are you a: former smoker quit in 1999February 26, 2016 Marital Status: . February 26, 2016 Do you drink alcohol? . Status: No February 26, 2016 02/26/2016 Raym Fuller MD, PA Family History No Data Provided for This Section Advance Directives Order Name Results Value Date Source Advance Directives Advance Directives Directive Response Recorded Date/Time Does the patient have an advance directive? No 09/02/18 12:25am If yes, is advance directive on file with [facility]? No 09/02/18 12:25am If not on file with [facility] will patient provide a copy? No 09/02/18 12:25am Do you have a Directive to Physician? No 09/01/18 3:50pm Do you have a Medical Power of Repairer? No 09/01/18 3:50pm Do you have an out of hospital Do Not Resuscitate Order? No 09/01/18 3:50pm Do you have any special needs we should be aware of? Yes 09/01/18 3:51pm Do you have a support person here with you today? Yes 09/01/18 3:50pm Did patient receive Notice of Privacy Practices? Yes 09/01/18 3:50pm Did patient receive patient rights and responsibilities? Yes 09/01/18 3:50pm 09/12/2018 [facility] Functional Status No Data Provided for This Section
--- NOTE | 2019-04-11 16:06 | Diagnostic Imaging Report ---
EXAMINATION: CHEST SINGLE (PORTABLE) INDICATION: Shortness of breath COMPARISON: Chest radiograph of 09/05/2018 FINDINGS: LINES/TUBES:EKG leads overlie the chest. Left chest AICD unchanged. LUNGS:The lung volumes are very low. Mild interstitial edema. Patchy opacity at the left lung base. PLEURA:No pleural effusion or pneumothorax. MEDIASTINUM:Cardiomediastinal silhouette is stably enlarged. BONES/SOFT TISSUES:No acute osseous injury. ABDOMEN:No free air under the diaphragm. IMPRESSION: Low lung volumes with mild pulmonary interstitial edema. Left lung base patchy opacities likely represent subsegmental atelectasis. Signed by: Angeli Mittal MD on 04/11/2019 4:03 PM
[2019-04-11 16:22] LABS: BASOPHILS % 0.6 % (0.0-1.0); EOSINOPHILS # (AUTO) 0.3 (0.0-0.4); HEMATOCRIT 38.9 % (34.2-44.1); HEMOGLOBIN 12.4 g/dL (12.0-16.0); LYMPHOCYTES # (AUTO) 1.5 (1.0-3.2); LYMPHOCYTES % 22.7 % (18.0-39.1); MEAN CORPUSCULAR HEMOGLOBIN 32.8 pg (28-32); MEAN CORPUSCULAR HGB CONC 31.9 g/dL (31-35); MEAN CORPUSCULAR VOLUME 102.9 fL (81-99); MONOCYTES # (AUTO) 0.5 (0.2-0.8); MONOCYTES % 7.8 % (4.4-11.3); NEUTROPHILS # (AUTO) 4.2 (2.1-6.9); NEUTROPHILS % 64.6 % (38.7-80.0); PLATELET COUNT 257 x10e3/uL (140-360); RED BLOOD COUNT 3.78 x10e6/uL (3.6-5.1); RED CELL DISTRIBUTION WIDTH 14.5 % (11.7-14.4)
--- NOTE | 2019-04-11 16:24 | NUR ---
REPORT TO TO [facility]
[2019-04-11 16:27] LABS: BILIRUBIN,URINE NEGATIVE (NEGATIVE); CLARITY,URINE SL CLOUDY (CLEAR); COLOR,URINE YELLOW (YELLOW); KETONES,URINE NEGATIVE (NEGATIVE); LEUKOCYTE ESTERASE ,URINE NEGATIVE (NEGATIVE); NITRITE,URINE NEGATIVE (NEGATIVE); PROTEIN,URINE DIPSTICK NEGATIVE (NEGATIVE); URINE UROBILINOGEN 0.2 mg/dL (0.2 - 1)
[2019-04-11] MEDS ORDERED: SODIUM CHLORIDE 0.9% 1000ML 1,000 ML IV SCH (16:36)
[2019-04-11 16:38] LABS: INR 0.95; PARTIAL THROMBOPLASTIN TIME 29.1 seconds (23.8-35.5); PROTHROMBIN TIME 13.2 seconds (11.9-14.5)
[2019-04-11 16:40] LABS: WBC,URINE (MAN) 0-5 /HPF (0-5)
[2019-04-11 16:41] LABS: BACTERIA,URINE MANY /HPF; EPITHELIAL CELLS,URINE MODERATE /LPF
[2019-04-11 16:44] LABS: ALANINE AMINOTRANSFERASE 67 IU/L (0-55); ALBUMIN 3.7 g/dL (3.5-5.0); ALBUMIN/GLOBULIN RATIO 1.3 (0.8-2.0); ALKALINE PHOSPHATASE 89 IU/L (40-150); ANION GAP 16.8 mmol/L (8-16); BLOOD UREA NITROGEN 16 mg/dL (7-26); BUN/CREATININE RATIO 20 (6-25); CALCIUM 9.1 mg/dL (8.4-10.2); CARBON DIOXIDE 24 mmol/L (22-29); CHLORIDE 105 mmol/L (98-107); CREATINE KINASE 52 IU/L (29-168); CREATININE, SERUM 0.82 mg/dL (0.57-1.11); EST GLOMERULAR FILTRATION RATE > 60 ML/MIN (60-); GLUCOSE 110 mg/dL (74-118); POTASSIUM 4.8 mmol/L (3.5-5.1); SODIUM 141 mmol/L (136-145)
--- OUTSIDE RECORDS SUMMARY | 2019-04-11 16:48 | XMS REPORT | Continuity of Care Document ---
Author Author [employer] Address Unknown Phone Unavailable Care Team Providers Care Top Steep Tender Name Role Phone [employer] Unavailable Unavailable Problems Problem Status Onset Date Classification Date Reported Comments Source Fracture of femoral neck, right Active 10/15/2015 Problem 09/12/2018 [facility] Acute dyspnea Active 06/29/2014 Problem 09/12/2018 [facility] CHF Active 06/29/2014 Problem 09/12/2018 [facility] Dyspnea due to congestive heart failure Active 06/29/2014 Problem 09/12/2018 [facility] Hypoxia Active 06/29/2014 Problem 09/12/2018 [facility] Automatic implantable cardiac defibrillator in situ [...] MD, PA Hypertensive emergency Active Problem 09/12/2018 [facility] Medications Medication Details Route Status Patient Instructions Ordering Provider Order Date Source Acetaminophen With Codeine (Tylenol With Codeine #3 Tablet) 1 Each Tablet, 300 Mg Oral As Needed Active 09/06/2018 [facility] Carvedilol 12.5 Mg Tablet, 25 Mg Oral Daily Active 09/06/2018 [facility] Diazepam 5 Mg Tablet, 5 Mg Oral As Needed as needed for Anxiety Active 09/06/2018 [facility] Multivitamin (Multi-Vitamin Daily) 1 Each Tablet, 1 Tab Oral Daily Active 09/06/2018 [facility] Vit D3 & K/Berberine Hcl/Hops (Ostera Tablet) 1 Each Tablet, 50 Mcg Oral Daily Active 09/06/2018 [facility] Atorvastatin Calcium 40 Mg Tablet, 40 Mg Oral Daily Active 09/02/2018 [facility] Furosemide 20 Mg Tablet, 20 Mg Oral Daily Active 09/02/2018 [facility] [place]-3 Fatty Acids (Fish Oil) 300 Mg Capsule, 1200 Mg Oral Daily Active 09/02/2018 [facility] Omeprazole 20 Mg Capsule.dr, 20 Mg Oral Daily Active 09/02/2018 [facility] Paroxetine Hcl 20 Mg Tablet, 20 Mg Oral Daily Active 09/02/2018 [facility] Sulfamethoxazole/Trimethoprim (Bactrim Ds Tablet) 1 Each Tablet, 1 Tab Oral Twice A Day Active Liban 07/01/2018 [facility] Aspirin 325 Mg Tablet, 325 Mg Oral Daily Active 10/20/2015 [facility] Aspirin/Calcium Carbonate/Mag (Aspirin Buffered 325 Mg Tab) 325 Mg Tablet, 325 Mg Oral Twice A Day Active [place] 10/20/2015 [facility] Carvedilol (Coreg) 3.125 Mg Tab, 3.25 Mg Oral Twice A Day Active [facility] 10/20/2015 [facility] Diclofenac Sodium 75 Mg Tablet.dr, 75 Mg Oral Twice A Day Active 10/20/2015 [facility] Lisinopril 2.5 Mg Tablet, 5 Mg Oral Daily Active [facility] 10/20/2015 [facility] Lisinopril (Prinavil / Zestril) 20 Mg Tablet, 20 Mg Oral Daily Active 10/20/2015 [facility] Amiodarone HCl 1 tablet Orally Active 200 MG Orally twice a day (bid) [facility] 02/13/2015 Ramy Fuller MD, PA Aspirin (Asa) 81 Mg Tab, 81 Mg Oral Daily Active 06/29/2014 [facility] Lisinopril 10 Mg Tablet, 10 Mg Oral Daily Active 06/29/2014 [facility] Levothyroxine Sodium 1 tablet Orally Active 0.5 [...] 1700 for Takes Every Tuesday Morning Active [facility] Amiodarone Hcl 200 Mg Tablet Twice A Day Active [facility] Eliquis Twice A Day Active [facility] Furosemide (Lasix) 40 Mg Tablet Daily Active [facility] Levothyroxine Sodium 50 Mcg Tablet Daily Active [facility] Lisinopril 2.5 Mg Tablet Daily Active [facility] Metoprolol Succinate 25 Mg Tab.er.24h Daily Active [facility] Primidone 50 Mg Tablet Bedtime Active [facility] Spironolactone 25 Mg Tablet Daily Active [facility] Tramadol Hcl (Ultram) 50 Mg Tablet Every 6 Hours as needed for Pain Active [facility] Venlafaxine Hcl 75 Mg Tab Twice A Day Active [facility] Allergies, Adverse Reactions, Alerts Substance Category Reaction Severity Reaction type Status Date Reported Comments Source penicillin Adverse Reaction Info Not Available Adverse Reaction Active 02/26/2016 Ramy Fuller MD, PA Penicillin Unknown Allergy to Substance Active 09/01/2018 [facility] Grjyjzf-Pwj-Ajk Reductase Inhibitor Unknown Allergy to Substance Active 09/01/2018 [facility] Immunizations No Data Provided for This Section Results Order Name Results Value Reference Range Date Interpretation Comments Source Blood leukocytes automated count (number/volume) 7.69 4.8 - 10.8 09/06/2018 [facility] Blood erythrocytes automated count (number/volume) 4.11 3.6 - 5.1 09/06/2018 [facility] Blood hemoglobin measurement (moles/volume) 13.5 12.0 - 16.0 09/06/2018 [facility] Automated blood hematocrit (volume fraction) 42.4 34.2 - 44.1 09/06/2018 [facility] Automated erythrocyte mean corpuscular volume 103.2 81 - 99 09/06/2018 [facility] Automated erythrocyte mean corpuscular hemoglobin (mass per erythrocyte) 32.8 28 - 32 09/06/2018 [facility] Automated erythrocyte mean corpuscular hemoglobin concentration measurement (mass/volume) 31.8 31 - 35 09/06/2018 [facility] RDW BldCo-Rto 14.4 11.7 - 14.4 09/06/2018 [facility] Automated blood platelet count (count/volume) 310 140 - 360 09/06/2018 [facility] Automated blood segmented neutrophil count as percentage of total leukocytes 56.0 38.7 - 80.0 09/06/2018 [facility] Automated blood lymphocyte count as percentage ot total leukocytes 28.6 18.0 - 39.1 09/06/2018 [facility] Automated blood monocyte count as percentage of total leukocytes 9.1 4.4 - 11.3 09/06/2018 [facility] Automated blood eosinophil count as percentage of total leukocytes 5.1 0.0 - 6.0 09/06/2018 [facility] Automated blood basophil count as percentage of total leukocytes 0.8 0.0 - 1.0 09/06/2018 [facility] IM GRANULOCYTES % 0.4 0.0 - 1.0 09/06/2018 [facility] Automated blood neutrophil count 4.3 2.1 - 6.9 09/06/2018 [facility] Blood lymphocytes count (number/volume) 2.2 1.0 - 3.2 09/06/2018 [facility] Blood monocytes automated count (number/volume) 0.7 0.2 - 0.8 09/06/2018 [facility] Automated blood eosinophil count 0.4 0.0 - 0.4 09/06/2018 [facility] Automated blood basophil count (count/volume) 0.1 0.0 - 0.1 09/06/2018 [facility] Absolute Immature Granulocyte (auto 0.03 0 - 0.1 09/06/2018 [facility] Serum or plasma sodium measurement (moles/volume) 138 136 - 145 09/06/2018 [facility] Serum or plasma potassium measurement (moles/volume) 4.5 3.5 - 5.1 09/06/2018 [facility] Serum or plasma chloride measurement (moles/volume) 98 98 - 107 09/06/2018 [facility] Serum or plasma carbon dioxide, total measurement (moles/volume) 30 22 - 29 09/06/2018 [facility] Serum or plasma anion gap 14.5 8 - 16 09/06/2018 [facility] Serum or plasma urea nitrogen measurement (mass/volume) 25 7 - 26 09/06/2018 [facility] Serum or plasma creatinine measurement (mass/volume) 0.86 0.57 - 1.11 09/06/2018 [facility] Serum or plasma urea nitrogen/creatinine mass ratio 29 6 - 25 09/06/2018 [facility] Estimated glomerular filtration rate (GFR) determination > 60 60 09/06/2018 [facility] Glucose measurement 89 74 - 118 09/06/2018 [facility] Serum or plasma calcium measurement (mass/volume) 9.7 8.4 - 10.2 09/06/2018 [facility] Serum or plasma total bilirubin measurement (mass/volume) 1.4 0.2 - 1.2 09/04/2018 [facility] Aspartate Amino Transf (AST/SGOT) 16 5 - 34 09/04/2018 [facility] Serum or plasma alanine aminotransferase measurement (enzymatic activity/volume) 23 0 - 55 09/04/2018 [facility] Serum or plasma protein measurement (mass/volume) 6.6 6.5 - 8.1 09/04/2018 [facility] Serum or plasma albumin measurement (mass/volume) 3.4 3.5 - 5.0 09/04/2018 [facility] Plasma globulin measurement (mass/volume) 3.2 2.3 - 3.5 09/04/2018 [facility] Serum or plasma albumin/globulin mass ratio 1.1 0.8 - 2.0 09/04/2018 [facility] Serum or plasma alkaline phosphatase measurement (enzymatic activity/volume) 81 40 - 150 09/04/2018 [facility] BNP Bld-mCnc 127.3 0 - 100 09/04/2018 [facility] Serum or plasma magnesium measurement (mass/volume) 2.0 1.3 - 2.1 09/02/2018 [facility] Serum or plasma triglyceride measurement (mass/volume) 116 0 - 149 09/02/2018 [facility] Serum or plasma cholesterol measurement (mass/volume) 196 0 - 199 09/02/2018 [facility] Serum or plasma cholesterol in LDL measurement (mass/volume) 146 60 - 130 09/02/2018 [facility] Serum or plasma cholesterol in HDL measurement (mass/volume) 27 40 - 60 09/02/2018 [facility] Serum or plasma total cholesterol/cholesterol in HDL mass ratio 7.3 3.0 - 3.6 09/02/2018 [facility] Serum or plasma creatine kinase measurement (enzymatic activity/volume) 59 29 - 168 09/02/2018 [facility] Serum or plasma creatine kinase MB measurement (mass/volume) 2.00 0 - 5.0 09/02/2018 [facility] Troponin I measurement by highly sensitive enzyme immunoassay 0.088 0 - 0.300 09/02/2018 [facility] Serum or plasma thyrotropin measurement by detection limit <=0.005 miu/l (units/volume) 2.647 0.350 - 4.940 09/02/2018 [facility] Blood culture NO GROWTH AFTER 5 DAYS, FINAL REPORT 09/01/2018 [facility] Urine color determination COLORLESS YELLOW 09/01/2018 [facility] Urine clarity CLEAR CLEAR 09/01/2018 [facility] Specific gravity of Urine by Test strip 1.010 1.010 - 1.025 09/01/2018 [facility] Urine pH measurement by automated test strip 7 5 - 7 09/01/2018 [facility] Urine leukocyte esterase detection by dipstick NEGATIVE NEGATIVE 09/01/2018 [facility] Urine nitrite detection NEGATIVE NEGATIVE 09/01/2018 [facility] Urine protein measurement by test strip (mass/volume) NEGATIVE NEGATIVE 09/01/2018 [facility] Urine glucose detection NEGATIVE NEGATIVE 09/01/2018 [facility] Urine ketones detection by automated test strip NEGATIVE NEGATIVE 09/01/2018 [facility] Urine urobilinogen measurement by test strip (mass/volume) 0.2 0.2 - 1 09/01/2018 [facility] Urine total bilirubin measurement (mass/volume) NEGATIVE NEGATIVE 09/01/2018 [facility] Urine erythrocytes detection TRACE NEGATIVE 09/01/2018 [facility] Automated urine sediment leukocyte count by microscopy (number/high power field) NONE 0 - 5 09/01/2018 [facility] Erythrocytes detection in urine sediment by light microscopy 0-5 0 - 5 09/01/2018 [facility] Bacteria detection in urine sediment by light microscopy NONE NONE 09/01/2018 [facility] Epithelial cells detection in urine sediment by light microscopy NONE NONE 09/01/2018 [facility] Arterial blood pH measurement 7.42 7.31 - 7.41 09/01/2018 [facility] pCO2 BldA 44 41 - 51 09/01/2018 [facility] pCO2 BldA 383 80 - 105 09/01/2018 [facility] Arterial blood bicarbonate measurement (moles/volume) 28 23 - 28 09/01/2018 [facility] Arterial blood base excess by calculation 4.0 -2 - 3 - 2 09/01/2018 [facility] Arterial blood oxygen saturation measurement 100.0 95 - 98 09/01/2018 [facility] FiO2 100 09/01/2018 [facility] Prothrombin time (PT) in platelet poor plasma by coagulation assay 12.8 11.9 - 14.5 09/01/2018 [facility] INR in Platelet poor plasma by Coagulation assay 0.88 09/01/2018 [facility] Activated partial thromboplastin time (aPTT) in platelet poor plasma bycoagulation assay 25.9 23.8 - 35.5 09/01/2018 [facility] Lactic Acid Level 15.5 4.5 - 19.8 09/01/2018 [facility] Pathology Reports No Data Provided for This [...] Status Source Ramy Fuller MD, PA Follow-Up [id number] 02/26/2016 02/26/2016 Ramy Fuller MD, PA Ramy Fuller MD, PA Follow-Up [id number] 02/26/2016 02/26/2016 Ramy Fuller MD, PA Ramy Fuller MD, PA echo/carotid/arterial dopplers [id number] 03/02/2016 03/02/2016 Ramy Fuller MD, PA Departed Emergency Room [id number] ALHAJI MERCEDES MD 07/01/2018 07/01/2018 [facility] Departed Emergency Room [id number] CHRISTINA KELLY MD 07/18/2018 07/18/2018 [facility] Discharged Recurring [id number] EBONIE LUNA MD 08/31/2018 09/11/2018 [facility] Discharged Inpatient [id number] FABIANA SMYTH MD 09/01/2018 09/06/2018 [facility] Procedures Procedure Code Date Perfomer Comments Source X-ray of chest, two views [id number] 09/05/2018 [facility] Computed tomography of chest with contrast [id number] 09/03/2018 [facility] Computed tomography of brain without radiopaque contrast [id number] 07/18/2018 [facility] Computed tomography of cervical spine without contrast [id number] 07/18/2018 [facility] Assessment and Plan No Data Provided for This Section Plan of Care Plan of Care Date Source Discharge Date 09/06/18 12:10pm Disposition HOME, SELF-CARE Instructions/Education Provided Congestive Heart Failure Heart Healthy Diet Hypertension Prescriptions See Medication Section Referrals FABIANA SMYTH MD (Internal Medicine) Order Date: 1 Week Entered Date: 09/06/2018 10:52am Address: [facility] [place] [address] NISREEN PEREZ MD (Cardiology) Order Date: 1-2 Weeks Entered Date: 09/06/2018 10:53am Address: [address] [place] [address] Additional Instructions/Education CARDIAC DIET ACTIVITY TOLERATED TAKE MEDICATIONS PRESCRIBED FOLLOW UP WITH PCP 1 WEEK FOLLOW UP WITH 1-2 WEEKS TAKE ELIQUIS 10MG TWICE A DAY ON 09/07, 09/08,09/09 THEN TAKE ELIQUIS 5MG TWICE A DAY 09/12/2018 [facility] Social History Social History Date Source Social [...] Start Date Stop Date Former smoker 09/12/2018 [facility] Social History ElementQualifiersDate Reported Tobacco Use: . Are you a: former smoker quit in 1999February 26, 2016 Marital Status: . February 26, 2016 Do you drink alcohol? . Status: No February 26, 2016 02/26/2016 Ramy Fuller MD, PA Family History No Data Provided for This Section Advance Directives Order Name Results Value Date Source Advance Directives Advance Directives Directive Response Recorded Date/Time Does the patient have an advance directive? No 09/02/18 12:25am If yes, is advance directive on file with [facility]? No 09/02/18 12:25am If not on file with [facility] will patient provide a copy? No 09/02/18 12:25am Do you have a Directive to Physician? No 09/01/18 3:50pm Do you have a Medical Power of Bag Cutter? No 09/01/18 3:50pm Do you have an [...] rights and responsibilities? Yes 09/01/18 3:50pm 09/12/2018 [facility] Functional Status No Data Provided for This Section
[2019-04-11] MEDS ORDERED: FUROSEMIDE INJ 10 MG/ML 4 ML VIAL IV ONE (17:00)
--- NOTE | 2019-04-11 19:06 | NUR ---
report to taj
[2019-04-11 19:10] VITALS: BP 121/56
[2019-04-11 21:05] VITALS: BP 121/56
[2019-04-11] MEDS ORDERED: FUROSEMIDE INJ 10 MG/ML 4 ML VIAL IV SCH (22:00)
[2019-04-11] MEDS ORDERED: FUROSEMIDE INJ 10 MG/ML 2 ML VIAL IV SCH (22:00)
[2019-04-12] VITALS (8 sets, daily range): BP systolic 99–124; BP diastolic 46–62
[2019-04-12] MEDS: FUROSEMIDE INJ 10 MG/ML 4 ML VIAL IV SCH ×4 (04:19→21:02)
--- NOTE | 2019-04-12 06:45 | NUR ---
ROUNDED WITH PLANNING SUPERVISOR NURSE, PATIENT ALERT AND ORIENTED AND IN NO DISTRESS, CALL JOHNSON WITHIN REACH AND BED IN LOWEST POSITION.
--- NOTE | 2019-04-12 06:45 | NUR ---
rounded with nightclub manager nurse, patient aware of change and in no distress with family at bedside. call carter within reach and bed in lowest position.
[2019-04-12 07:13] LABS: BASOPHILS # (AUTO) 0.1 (0.0-0.1); BASOPHILS % 0.6 % (0.0-1.0); EOSINOPHILS # (AUTO) 0.4 (0.0-0.4); EOSINOPHILS % 4.7 % (0.0-6.0); HEMATOCRIT 42.2 % (34.2-44.1); HEMOGLOBIN 13.8 g/dL (12.0-16.0); LYMPHOCYTES % 24.3 % (18.0-39.1); MEAN CORPUSCULAR HEMOGLOBIN 33.1 pg (28-32); MEAN CORPUSCULAR HGB CONC 32.7 g/dL (31-35); MEAN CORPUSCULAR VOLUME 101.2 fL (81-99); MONOCYTES # (AUTO) 0.7 (0.2-0.8); MONOCYTES % 8.2 % (4.4-11.3); NEUTROPHILS # (AUTO) 5.1 (2.1-6.9); NEUTROPHILS % 61.8 % (38.7-80.0); PLATELET COUNT 285 x10e3/uL (140-360); RED BLOOD COUNT 4.17 x10e6/uL (3.6-5.1); RED CELL DISTRIBUTION WIDTH 14.3 % (11.7-14.4)
[2019-04-12] MEDS ORDERED: FUROSEMIDE INJ 10 MG/ML 2 ML VIAL IV SCH (09:00)
[2019-04-12] MEDS ORDERED: TRAMADOL HCL 50 MG TAB PO PRN (09:45)
--- NOTE | 2019-04-12 10:17 | History and Physical ---
CHIEF COMPLAINT: "Hard time breathing" HISTORY OF PRESENT ILLNESS: This is a 64-year-old white woman, who presents to [facility] with a 1-week history of worsening shortness of breath, cough, chest congestion. The patient states she has had a dry cough with no purulent sputum production or hemoptysis. The patient states over the last week or two. She has become more short of breath with exertion and she has become more orthopneic. The patient denies any chest pain or tightness. She also denies any palpitations. The patient was diagnosed with pulmonary embolism in August 2018 and completed 6- month course of oral apixaban. She is currently not taking any anticoagulation, not even aspirin. In the emergency room, the patient had a chest film done, which revealed cardiomegaly as well as bibasilar patchy opacities consistent with pulmonary interstitial edema. The patient was found to have a white blood cell count of 6500 with 64% segmented neutrophils. The patient's hemoglobin is 12.4 g. On admission, the patient's BUN and creatinine 16 and 0.82 respectively. The patient's potassium is 4.8. The patient's B-type natriuretic peptide level was elevated on admission with a value of 1370. A 12-lead EKG done in the emergency room did not reveal any acute ischemic changes. The patient underwent a 2D echocardiogram in August of 2018, which revealed left ventricular ejection fraction of less than 20% as well as left atrial enlargement and findings consistent with diastolic dysfunction. Moreover, on this admission, the patient's initial cardiac enzymes namely troponin I was negative at 0.037. The patient was admitted for further evaluation. REVIEW OF SYSTEMS: GENERAL: The patient has gained 15 pounds over the last couple of months. No fever or chills. HEENT: No headaches. No vision changes. CARDIOVASCULAR/RESPIRATORY: Worsening shortness of breath with cough and chest congestion (nonproductive) over the last couple of weeks. She has also become orthopneic over the last week. GI: No nausea, vomiting, or constipation. : No dysuria, hematuria. No incontinence. NEUROMUSCULAR: No limb weakness or numbness, but she notes no more swelling of the legs over the last couple of weeks. ALLERGIES: 1. PENICILLIN. 2. STATINS. FAMILY HISTORY: Strong family history of coronary artery disease. The patient also has brother with alzheimer disease. SOCIAL HISTORY: This woman is , lives with . The patient quit tobacco smoking in 1989. No history of alcohol use. The patient is currently retired. PAST SURGICAL HISTORY: 1. Pacemaker/AICD placement. 2. Partial hysterectomy. 3. Total hysterectomy. 4. Left heart catheterization. 5. section twice. 6. Abdominal hernia repair. 7. Right total hip arthroplasty. PAST MEDICAL HISTORY: 1. Pulmonary embolism in August 2018 (the patient completed a full 6-month course of oral apixaban). 2. Chronic systolic/diastolic congestive heart failure. 3. Osteoporosis. 4. Hypertensive heart disease. 5. Major depressive disorder. 6. Hyperlipidemia. 7. Severe statin intolerance. 8. Hypothyroidism. ALLERGIES: LISINOPRIL. MEDICATIONS: 1. Metoprolol succinate 25 mg daily. 2. Furosemide 20 mg daily. 3. Primidone 25 mg at night. 4. Levothyroxine 50 mcg daily. 5. Vitamin D3 2000 units daily. 6. Venlafaxine 25 mg daily. 7. Tramadol 50 mg q.6 hours p.r.n. pain. PHYSICAL EXAMINATION: GENERAL: She is awake, alert, fluent, in no distress, very pleasant. VITAL SIGNS: Height 5 feet 2 inches, weight is 200 pounds, BMI 36. Blood pressure is 120/60, pulse 68, respiratory rate is18, oxygen saturation is 96% on room air, temperature 96.7. INTEGUMENT: Skin is warm and dry. Slight pallor. No jaundice or diaphoresis. HEENT: Anicteric sclerae. Moist mucous membranes. NECK: Supple. No evidence of jugular venous distention. CARDIOVASCULAR: Distant heart sounds. Regular rate and rhythm with an S3, gallop. LUNGS: No rales, no rhonchi, or wheezes, but she has diminished breath sounds at bases bilaterally. ABDOMEN: Obese, benign. EXTREMITIES: She has 1+ edema bilateral lower legs. NEUROLOGIC: Intact. No gross focal deficits appreciated. DIAGNOSES: 1. Acute on chronic systolic/diastolic congestive heart failure. 2. Nonischemic cardiomyopathy (left ventricular ejection fraction of less than 20%). 3. Obesity, BMI 36. 4. History of pulmonary embolism in August 2018 (patient completed a full 6- month course of oral apixaban). PLAN: 1. Intravenous furosemide. 2. Restart beta-susan. 3. Restart angiotensin receptor susan. 4. Congestive heart failure. 5. Consult Cardiology. 6. Consider repeating echocardiogram. 7. Rule out myocardial infarction. I spent an hour in the care of this patient. MD MARY Deleon/JACOB /[id number]
[2019-04-12] MEDS: METOPROLOL SUCCINATE 25 MG TAB XL PO SCH (10:20)
[2019-04-12] MEDS ORDERED: ONDANSETRON HCL 4 MG ORAL DISINTEGRATING TAB PO PRN (12:30)
--- NOTE | 2019-04-12 15:37 | NUR ---
Nutrition Screen Note RD Recommendation for Physician: -Continue diet as ordered Plan of Care: RD following, monitoring for tolerance and adequacy Nutrition reason for involvement: Diagnosis Primary Diagnose(s): Acute on chronic systolic/diastolic congestive heart failure. PMH: 1. Pulmonary embolism in August 2018 (the patient completed a full 6-month course of oral apixaban). 2. Chronic systolic/diastolic congestive heart failure. 3. Osteoporosis. 4. Hypertensive heart disease. 5. Major depressive disorder. 6. Hyperlipidemia. 7. Severe statin intolerance. 8. Hypothyroidism. Ht: 62in Wt: 199.13lb BMI: 36.4kg/m2 IBW: 110lb +/- 10% RD Assessment: (04/12) Chart reviewed. Labs and meds reviewed. 64-year-old F, who was admitted for a 1-week history of worsening shortness of breath, cough, and chest congestion. Visited pt in the room. Pt reported good appetite. No GI complains reported. LBM 04/12. Pt denied any chewing or swallowing difficulty. Pt reported gaining ~15lbs of fluids over the last few months. Pt has received prior education on low sodium diet. No other question at this time. Current Diet: cardiac diet Malnutrition Evaluation (04/12/2019) The patient does not meet criteria for a specified degree of malnutrition at this time. Will re-evaluate at follow-up as appropriate. Diet Education Needs Assessment: Diet education indicated, pt is not interested. Pt stated that she has received prior diet education. Nutrition Care Level: low Signed: Capri Deleon, MS, RD, LD
[2019-04-12] MEDS: VENLAFAXINE HCL 75 MG TAB PO SCH (17:00)
--- NOTE | 2019-04-12 18:46 | Consultation ---
DATE OF CONSULTATION: 04/12/2019 Cardiology Consultation REQUESTING PHYSICIAN: Jimi Hightower MD. REASON FOR CONSULTATION: Congestive heart failure. HISTORY OF PRESENT ILLNESS: This is a 64-year-old woman with history of chronic systolic heart failure status post ICD, pulmonary emboli, hypertension, hyperlipidemia, history of myocardial infarction, who presents with complaints of shortness of breath. The patient reports she began having shortness of breath one week prior. This was just edema and symptoms suggestive of orthopnea and paroxysmal nocturnal dyspnea. She denies any chest pain, palpitations, or lightheadedness, but notes she has gained 15 pounds in the last week. REVIEW OF SYSTEMS: Negative as per HPI. PAST MEDICAL HISTORY: 1. Chronic systolic heart failure, status post ICD. 2. Hypertension. 3. Hyperlipidemia. 4. History of myocardial infarction. 5. History of pulmonary emboli. ALLERGIES: PLEASE SEE EMR. MEDICATIONS: Please see medication list. SOCIAL HISTORY: Remote tobacco use. No alcohol or illicit drugs. FAMILY HISTORY: Pertinent for heart disease in the family. PAST SURGICAL HISTORY: 1. Hysterectomy. 2. section x2. 3. Hip replacement. PHYSICAL EXAMINATION: VITAL SIGNS: Temperature 96.7 degrees, pulse 68, respiratory rate 20, blood pressure 121/58, oxygen saturation 96% on room air. GENERAL: Awake, alert, well-developed and well-nourished woman. HEENT: Normocephalic, atraumatic. Pupils equal. No scleral icterus. NECK: Supple. No thyromegaly or cervical lymphadenopathy. No carotid bruits. LUNGS: Clear to auscultation bilaterally. No wheezes or crackles. CARDIOVASCULAR: Normal rate. Regular rhythm. No murmur. Normal S1, S2. ABDOMEN: Soft, nontender. EXTREMITIES: 1+ pitting edema. NEUROLOGIC: Nonfocal exam. LABORATORY DATA: WBC 8.3, hemoglobin 13.8, hematocrit 42.2, platelets 285. Sodium 141, potassium 4.8, chloride 105, CO2 24, BUN 16, and creatinine 0.82. Troponin 0.036. BNP 1429. Chest x-ray, low lung volumes with mild pulmonary distal edema, left lung base patchy opacities likely represent subsegmental atelectasis. EKG normal sinus rhythm, possible left atrial enlargement, left axis deviation, nonspecific T-wave abnormalities. IMPRESSION: 1. Gvemr-ln-tljnebi systolic heart failure. 2. Nonischemic cardiomyopathy. 3. Status post implantable cardioverter-defibrillator. 4. Hypertension. 5. Hyperlipidemia. 6. History of pulmonary embolism. 7. History of myocardial infarction. RECOMMENDATIONS: Agree with IV Lasix. Continue home cardiac medications. Monitor patient closely on telemetry. Will have ICD checked while here, last check was January of 2019. Last echo was performed during the office visit as well. We will have records sent from the office. Thank you for this consult. We will continue to follow. Jody Hood MD ABS/MODL /[id number] MTDD
[2019-04-13 00:05] VITALS: BP 110/57
[2019-04-13 04:50] VITALS: BP 103/51
[2019-04-13] MEDS: FUROSEMIDE INJ 10 MG/ML 4 ML VIAL IV SCH (05:05)
[2019-04-13] MEDS ORDERED: LEVOTHYROXINE SODIUM 50 MCG TAB PO SCH (06:00)
--- NOTE | 2019-04-13 06:45 | NUR ---
rounded with restaurant shift leader nurse, patient aware of change and in no distress. Patient sitting on side of bed, call carter within reach and bed in lowest position.
[2019-04-13 06:52] LABS: BASOPHILS % 0.5 % (0.0-1.0); EOSINOPHILS # (AUTO) 0.4 (0.0-0.4); EOSINOPHILS % 4.9 % (0.0-6.0); HEMATOCRIT 44.5 % (34.2-44.1); HEMOGLOBIN 14.6 g/dL (12.0-16.0); LYMPHOCYTES # (AUTO) 1.8 (1.0-3.2); LYMPHOCYTES % 21.8 % (18.0-39.1); MEAN CORPUSCULAR HEMOGLOBIN 32.8 pg (28-32); MEAN CORPUSCULAR HGB CONC 32.8 g/dL (31-35); MONOCYTES % 11.7 % (4.4-11.3); NEUTROPHILS # (AUTO) 4.9 (2.1-6.9); NEUTROPHILS % 60.7 % (38.7-80.0); PLATELET COUNT 298 x10e3/uL (140-360); RED BLOOD COUNT 4.45 x10e6/uL (3.6-5.1)
[2019-04-13 07:11] LABS: ALBUMIN 3.7 g/dL (3.5-5.0); ALBUMIN/GLOBULIN RATIO 1.2 (0.8-2.0); ANION GAP 17.8 mmol/L (8-16); CALCIUM 9.6 mg/dL (8.4-10.2); CREATININE, SERUM 0.99 mg/dL (0.57-1.11); POTASSIUM 3.8 mmol/L (3.5-5.1)
[2019-04-13 07:48] VITALS: BP 113/56
[2019-04-13] MEDS: VENLAFAXINE HCL 75 MG TAB PO SCH (08:52)
[2019-04-13] MEDS: METOPROLOL SUCCINATE 25 MG TAB XL PO SCH (08:52)
[2019-04-13 08:53] VITALS: BP 113/56
[2019-04-13] MEDS ORDERED: OLMESARTAN 20 MG TAB PO SCH (09:00)
[2019-04-13] MEDS ORDERED: METOPROLOL SUCCINATE 25 MG TAB XL PO SCH (09:00)
--- NOTE | 2019-04-13 09:57 | NUR ---
Dictated DC summary: [id number]
--- NOTE | 2019-04-13 10:50 | Discharge Summary ---
ADMIT DIAGNOSES: 1. Wrhig-xk-adommof systolic/diastolic congestive heart failure. 2. Nonischemic cardiomyopathy (left ventricular ejection fraction of less than 20%). 3. Obesity, BMI 36. 4. History of pulmonary embolism in August 2018 (the patient completed a full 6-month oral apixaban). DISCHARGE DIAGNOSES: 1. Vugup-by-eknnvdb systolic/diastolic congestive heart failure, resolving. 2. Nonischemic cardiomyopathy (left ventricular ejection fraction of less than 20%). 3. Obesity, BMI 36. 4. History of pulmonary embolism in August 2018 (the patient completed a full 6-month course of oral apixaban). HOSPITAL COURSE: This is a 64-year-old white woman, who is admitted to [facility], diagnosed with lutta-eq-rivdilp systolic/diastolic congestive heart failure. The patient improved dramatically with intravenous furosemide and with oral beta-blockers in the form of Toprol succinate and oral angiotensin receptor blockers, namely olmesartan. The patient was seen by Cardiology during this hospitalization, namely Dr. Jody Hood. The patient underwent echocardiogram during this hospitalization, which confirmed the left ventricular ejection fraction around 20%. Echocardiogram also revealed left atrial enlargement as well as other findings consistent with diastolic dysfunction. The patient on admission weighed 200 pounds, on discharge was 192 pounds, thus she lost approximately 8 pounds during this hospitalization with diuresis. On admission, her BUN and creatinine was 16 and 0.82, respectively. On the day of discharge, the patient's BUN and creatinine was 21 and 0.99, respectively. During this hospitalization, the patient underwent serial cardiac enzymes as well as electrocardiograms, which did not reveal any evidence of acute myocardial ischemia or infarction. Also, during this hospitalization, the patient was found to have TSH level of 2.8. CONDITION ON DISCHARGE: Stable. DISCHARGE MEDICATIONS: 1. Furosemide 80 mg p.o. b.i.d. (at 08:00 a.m. and 02:00 p.m.). 2. Metoprolol succinate 25 mg daily. 3. Olmesartan 20 mg daily. 4. Synthroid 50 mcg daily. 5. Tramadol 50 mg one pill every 6 hours p.r.n. pain. 6. Venlafaxine 75 mg b.i.d. 7. Vitamin D3 2000 units daily. FOLLOWUP INSTRUCTIONS: The patient was instructed to follow up with her primary care physician, name myself, Dr. Jimi Hightower within 7 days. MD MARY Deleon/JACOB /[id number]
[2019-04-13 11:48] VITALS: BP 96/52
--- NOTE | 2019-04-13 12:09 | Diagnostic Imaging Report ---
EXAMINATION: CHEST 2 VIEWS INDICATION: Shortness of breath COMPARISON: Multiple prior chest radiographs most recently of 04/11/2019 FINDINGS: LINES/TUBES:Left chest AICD with leads in unchanged position. EKG leads overlie the chest. LUNGS:The lungs are well-inflated. No focal consolidation or pulmonary edema. Mild biapical pleural parenchymal thickening/scarring. PLEURA:No pleural effusion or pneumothorax. MEDIASTINUM:Cardiomediastinal silhouette is stably enlarged. Atherosclerotic calcifications of the thoracic aorta. BONES/SOFT TISSUES:No acute osseous injury. Old fracture deformity at the left proximal humerus. ABDOMEN:No free air under the diaphragm. IMPRESSION: No focal pneumonia or pulmonary edema. Signed by: Angeli Mittal MD on 04/13/2019 12:05 PM
--- NOTE | 2019-04-13 13:01 | Progress Note ---
DATE: 04/13/2019 Cardiology Progress Note SUBJECTIVE: The patient denies chest pain or shortness of breath. OBJECTIVE: VITAL SIGNS: Temperature 98.5 degrees, pulse 67, respiratory rate 18, blood pressure 96/52, oxygen saturation 97% on room air. GENERAL: Awake, alert, in no acute distress. LUNGS: Clear to auscultation bilaterally. No wheezes or crackles. CARDIOVASCULAR: Normal rate, regular rhythm. No murmur. Normal S1, S2. ABDOMEN: Soft, nontender. EXTREMITIES: No edema. CARDIAC MEDICATIONS: Metoprolol succinate 25 mg p.o. daily, levothyroxine 50 mcg p.o. daily, furosemide 40 mg IV q.8 hours. LABORATORY DATA: WBC 8.09, hemoglobin 14.6, hematocrit 44.5, platelets 298. Sodium 140, potassium 3.8, chloride 96, CO2 of 30, BUN 21, and creatinine 0.99. BNP 883. TELEMETRY: Normal sinus rhythm. IMPRESSION: 1. Jgvrv-oh-dxssgnf systolic heart failure. 2. Nonischemic cardiomyopathy. 3. History of ventricular arrhythmia. 4. Status post implantable cardioverter-defibrillator. 5. Hypertension. 6. Hyperlipidemia. 7. History of pulmonary embolism. 8. History of myocardial infarction. RECOMMENDATIONS: 1. The patient's volume status is clinically improved with IV diuresis. Recommend discharge on Lasix 40 p.o. b.i.d. 2. Repeat echo done during this admission demonstrates left ventricular ejection fraction, remains severely reduced. Continue current cardiac medications. The patient was instructed to follow up with Dr. Beard in two weeks. Thank you for this consult. We will continue to follow. Jody Hood MD ABS/MODL /[id number]
[2019-04-13] MEDS ORDERED: BENICAR20 MG PO (13:39)
--- NOTE | 2019-04-13 14:40 | NUR ---
patient alert and oriented, discharge instructions given at this time and patient verbalized understanding. IV discontinued, catheter in tact and small dressing applied. patient to be wheeled out to personal auto for to drive home.
== END 2019-04-13 14:49 | disposition home or self-care (01) | DRG 293 ==
LOC: ER 14:43 → ERHOLD 16:36 → MED/SURG3 19:47
PROVIDERS: ADMIT Internal Medicine; ATTEND Internal Medicine
DX: I11.0 Hypertensive heart disease with heart failure (principal); I50.43 Acute on chronic combined systolic (congestive) and diastolic (congestive) heart failure; I42.8 Other cardiomyopathies; E66.9 Obesity, unspecified; Z68.36 Body mass index [BMI] 36.0-36.9, adult; F32.9 Major depressive disorder, single episode, unspecified; G40.909 Epilepsy, unspecified, not intractable, without status epilepticus; F41.9 Anxiety disorder, unspecified; M81.0 Age-related osteoporosis without current pathological fracture; E78.5 Hyperlipidemia, unspecified; E03.9 Hypothyroidism, unspecified; I25.2 Old myocardial infarction; Z95.810 Presence of automatic (implantable) cardiac defibrillator; Z86.711 Personal history of pulmonary embolism; Z88.0 Allergy status to penicillin; Z88.8 Allergy status to other drugs, medicaments and biological substances
CPT/HCPCS: 36415; 71045; 71046; 80053; 81001; 82550; 82553; 82948; 83880; 84443; 84484; 85025; 85610; 85730; 87086; 93005; 93306; 93971; 99284; J1940; Q0162

== ENCOUNTER → 2019-05-25 | Outpatient (CLI) | payer MEDICARE, OTHER ==
[~2019-05-25] MED LIST changes: +BENICAR20 MG PO
--- NOTE | 2019-05-25 17:22 | Diagnostic Imaging Report ---
Exam: Lumbar spine series Clinical history: Right leg and hip pain Findings: There is no evidence of acute fracture. Severe degenerative disc disease is noted at L4-5 level with 9 mm anterolisthesis of L4 on L5 and bilateral L4 spondylolysis. There is also loss in disc height and endplate sclerosis. Atherosclerotic calcification of the aorta is noted. The patient is status post right total hip arthroplasty. Impression: 1. Degenerative disc disease and anterolisthesis at L4-5 level as described. Signed by: Dr. Keyshawn Vail MD on 05/25/2019 5:19 PM
--- NOTE | 2019-05-25 17:34 | Diagnostic Imaging Report ---
Exam: Sacrum 2 views Clinical history: Right hip pain Findings: 9 mm anterolisthesis of L4 on L5 with L4 spondylolysis and severe loss in disc height at L4-5 level are noted. There is no evidence of acute fracture of the sacrum. The patient is status post right total hip arthroplasty. Impression: 1. L4-L5 anterolisthesis and degenerative disc disease as described. Signed by: Dr. Keyshawn Vail MD on 05/25/2019 5:30 PM
== END ==
LOC: RAD 14:08
PROVIDERS: ATTEND Internal Medicine Interventional Cardiology
DX: M25.551 Pain in right hip (principal); M79.661 Pain in right lower leg
CPT/HCPCS: 72110; 72220

== ENCOUNTER 2020-05-27 06:28 | Inpatient (IN) | payer MEDICARE, OTHER ==
[~2020-05-27] VITALS: Ht 157.5 cm; Wt 87.1 kg
[2020-05-27] MEDS ORDERED: ONDANSETRON HCL INJ 2MG/ML 2ML 2 MG/ML VIAL IV STA (06:54)
[2020-05-27] MEDS ORDERED: MORPHINE SULFATE 2 MG/ML SYR 1ML IV STA (06:54)
[2020-05-27 07:08] LABS: BASOPHILS # (AUTO) 0.1 (0.0-0.1); BASOPHILS % 0.6 % (0.0-1.0); EOSINOPHILS # (AUTO) 0.2 (0.0-0.4); HEMOGLOBIN 12.1 g/dL (12.0-16.0); LYMPHOCYTES # (AUTO) 1.6 (1.0-3.2); LYMPHOCYTES % 17.6 % (18.0-39.1); MEAN CORPUSCULAR HEMOGLOBIN 33.2 pg (28-32); MEAN CORPUSCULAR HGB CONC 32.7 g/dL (31-35); MEAN CORPUSCULAR VOLUME 101.4 fL (81-99); MONOCYTES # (AUTO) 0.6 (0.2-0.8); MONOCYTES % 6.8 % (4.4-11.3); NEUTROPHILS # (AUTO) 6.4 (2.1-6.9); NEUTROPHILS % 72.7 % (38.7-80.0); PLATELET COUNT 260 x10e3/uL (140-360); RED BLOOD COUNT 3.65 x10e6/uL (3.6-5.1); RED CELL DISTRIBUTION WIDTH 14.6 % (11.7-14.4)
--- OUTSIDE RECORDS SUMMARY | 2020-05-27 07:27 | XMS REPORT | Continuity of Care Document ---
Author Author [facility] Organization [facility] Address [address] [place] [address] [address] [place] [address] Phone Unavailable Care Team Providers Care Medical Logistics Specialist Name Role Phone FABIANA HIGHTOWER MD PCP AFSHIN IGNACIO Attphys Unavailable FABIANA HIGHTOWER Attphys Unavailable Mulu KELLY Attphys Unavailable FABIANA HIGHTOWER Admphys Unavailable Payers Payer Name Policy Type Policy Number Effective Date Expiration Date Yenifer mccormick [facility] Medicare Complete [id number] [facility] Medicare A & B [id number] 2016 00:00:00 [facility] [id number] 2015 00:00:00 [facility] Problems Condition Name Condition Details Condition Category Status Onset Date Resolution Date Last Treatment Date Treating Clinician Comments Source Fracture of neck of right femur Fracture of femoral neck, right Pro blem Active 2015-10-15 00:00:00 [facility] Dyspnea due to congestive heart failure Dyspnea due to conge stive heart failure Problem Active 2014-06-29 00:00:00 [facility] Congestive heart failure CHF (congestive heart failure) Problem Active 2014-06-29 00:00:00 [facility] Hypoxia Hypoxia Problem Active 2014-06-29 00:00:00 [facility] Hypertensive emergency Hypertensive emergency Problem Active [facility] Pre-syncope Near syncope Problem Active [facility] Automatic implantable cardiac defibrillator in situ Automatic implantable cardiac defibrillator in situ Active Problem 03/03/2016 Ramy Fuller MD, PA Problem Active 2016-03-03 04:12:33 [facility] Benign hypertensive heart disease with heart failure Benign hypertensive heart disease with heart failure Active Problem 03/03/2016 Ramy Fuller MD, PA Problem Active 2016-03-03 04:12:33 [facility] Chronic systolic heart failure Chronic systolic heart failure Active Problem 03/03/2016 Ramy Fuller MD, PA Problem Active 2016-03-03 04:12:33 [facility] Hypertensive heart disease with heart failure Hypertensive heart disease with heart failure Active Problem 03/03/2016 Ramy Fuller MD, PA Problem Active 2016-03-03 04:12:33 [facility] 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 Active Problem 03/03/2016 Ramy Fuller MD, PA Problem Active 2016-03-03 04:12:33 [facility] CHF, chronic systolic CHF, chronic systolic Active Problem 03/03/2016 Ramy Fuller MD, PA Problem Active 2016-03-03 04 :12:33 [facility] Abnormal electrocardiogram [ECG] [EKG] Abnormal electrocardiogram [ECG] [EKG] Active Problem 03/03/2016 Ramy Fuller MD, PA Problem Active 2016-03-03 04:12:33 [facility] Other obesity due to excess calories Other obesity due to excess calories Active Problem 03/03/2016 Ramy Fuller MD, PA Problem Active 2016-03-03 04:12:33 [facility] Presence of automatic (implantable) cardiac defibrilla tor Presence of automatic (implantable) cardiac defibrillator Active Problem 03/03/2016 Ramy Fuller MD, PA Problem Active 2016-03-03 04:12:33 [facility] Mixed hyperlipidemia Mixe d hyperlipidemia Active Problem 03/03/2016 Ramy Fuller MD, PA Problem Active 2016-03-03 04 :12:33 [facility] 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 Active Problem 03/03/2016 Ramy Fuller MD, PA Problem Active 2016-03-03 04:12:33 [facility] Obesity, unspecified Obes ity, unspecified Active Problem 03/03/2016 Ramy Fuller MD, PA Problem Active 2016-03-03 04 :12:33 [facility] Mixed hyperlipidemia Mixe d hyperlipidemia Active Problem 03/03/2016 Ramy Fuller MD, PA Problem Active 2016-03-03 04 :12:33 [facility] Abnormal ECG Abno rmal ECG Active Problem 03/03/2016 Ramy Fuller MD, PA Problem Active 2016-03-03 04:12:33 [facility] Benign hypertensive heart disease without heart failur e Benign hypertensive heart disease without heart failure Active Problem 03/03/2016 Ramy Fuller MD, PA Problem Active 2016-03-03 04:12:33 [facility] Allergies, Adverse Reactions, Alerts Allergy Name Allergy Type Status Severity Reaction(s) Onset Date Inacti ve Date Treating Clinician Comments Source Penicillin Allergy to Substance Active 2019-04-11 00:00:00 [facility] Zekzvnf-Soq-Ymf Reductase Inhibitor Allergy to Substance Active 2019-04-11 00:00:00 [facility] penicillin penicillin Active Info Not Available 2016-02-26 00:00:0 0 [facility] Social History Social Habit Start Date Stop Date Quantity Comments Source TobaccoUse: 2016-02-26 00:00:00 2016-02-26 00:00:00 [facility] Medications Ordered Medication Name Filled Medication Name Start Date Stop Da te Current Medication? Ordering Clinician Indication Dosage Frequency Signature (SIG) Comments Components Source Sulfamethoxazole/Trimethoprim (Bactrim Ds Tablet) 1 Ea ch Tablet, 1 Tab Oral Sulfamethoxazole/Trimethoprim (Bactrim Ds Tablet) 1 Each Tablet, 1 Tab Oral 2018-07-01 00:00:00 2018-09-02 00:00:00 No David Louie Md 1 Twice A Day [facility] Levothyroxine Sodium 2016-02-27 04:14:19 Yes Ramy Fuller 1 tablet [facility] Tramadol HCl 2016-02-27 04:14:19 Yes Ramy Fuller 1 tablet as needed [facility] Famotidine 2016-02-27 04:14:19 Yes Ramy Fuller 1 tablet [facility] Spironolactone 2016-02-27 04:14:19 Yes Ramy Fuller 1 tablet [facility] Pravastatin Sodium 2016-02-27 04:14:19 Yes Ramy Fuller 1 tablet [facility] Carvedilol 2016-02-27 04:14:19 Yes Ramy Fuller 1 tablet [facility] Lisinopril 2016-02-27 04:14:19 Yes Ramy Sabaana 1 tablet [facility] Aspirin 2016-02-27 04:14:19 Yes Ramy Rosemary Sabaana 1 tablet [facility] Furosemide 2016-02-27 04:14:19 Yes Ramy Sabaana 1 tablet [facility] Paroxetine HCl 2016-02-27 04:14:19 Yes Ramy Culver an 1 tablet in the morning [facility] Aspirin/Calcium Carbonate/Mag (Aspirin B uffered 325 Mg Tab) 325 Mg Tablet, 325 Mg Oral Aspirin/Calcium Carbonate/Mag (Aspirin B uffered 325 Mg Tab) 325 Mg Tablet, 325 Mg Oral 2015-10-20 00:00:00 2018-09-02 00:00:00 No Fabiana thomas Md 325 Twice A Day [facility] Carvedilol (Coreg) 3.125 Mg Tab, 3.25 Mg Oral Carvedil ol (Coreg) 3.125 Mg Tab, 3.25 Mg Oral 2015-10-20 00:00:00 2018-09-02 00:00:00 Luna Hightower Md 3.25 Twice A Day [facility] Lisinopril 2.5 Mg Tablet, 5 Mg Oral Lisinopril 2.5 Mg Tablet , 5 Mg Oral 2015-10-20 00:00:00 2018-09-02 00:00:00 Luna Hightower Md 5 Daily [facility] Amiodarone HCl 2015-02-13 00:00:00 Yes Ramy Fuller 1 tablet [facility] Alendronate Sodium 70 Mg Tablet Alendronate Sodium 70 Mg Tablet Yes 1 Daily At 1700 for Takes Every Tuesday Morning [facility] Amiodarone Hcl 200 Mg Tablet Amiodarone Hcl 200 Mg Tablet Y es [address] [facility] Eliquis Eliquis Yes 5 Twice A Day I [facility] Furosemide (Lasix) 40 Mg Tablet Furosemide (Lasix) 40 Mg Tablet Yes 40 Daily [facility] Levothyroxine Sodium 50 Mcg Tablet Levothyroxine Sodium 50 Mcg Tablet Yes 50 Daily [facility] Lisinopril 2.5 Mg Tablet Lisinopril 2.5 Mg Tablet Yes 5 Daily [facility] Metoprolol Succinate 25 Mg Tab.er.24h Metoprolol Succinate 25 Mg Ta b.er.24h Yes 25 Daily [facility] Olmesartan Medoxomil (Benicar) 20 Mg Tablet Olmesartan Medoxomil (Benicar) 20 Mg Tablet Yes 20 Daily [facility] Primidone 50 Mg Tablet Primidone 50 Mg Tablet Yes 25 Bedtime [facility] Spironolactone 25 Mg Tablet Spironolactone 25 Mg Tablet Yes 25 Daily [facility] Tramadol Hcl (Ultram) 50 Mg Tablet Tramadol Hcl (Ultram) 50 Mg Tablet Yes 50 Every 6 Hours as needed for Pain [facility] Venlafaxine Hcl 75 Mg Tab Venlafaxine Hcl 75 Mg Tab Yes [address] [facility] Acetaminophen With Codeine (Tylenol With Codeine #3 Tablet) 1 Each Tablet, 300 Mg Oral Acetaminophen With Codeine (Tylenol With Codeine #3 Tablet) 1 Each Tablet, 300 Mg Oral 2018-09-06 00:00:00 No 300 As N eeded [facility] Carvedilol 12.5 Mg Tablet, 25 Mg Oral Carvedilol 12.5 Mg Tablet, 25 Mg Oral 2018-09-06 00:00:00 No 25 Daily [facility] Diazepam 5 Mg Tablet, 5 Mg Oral Diazepam 5 Mg Tablet, 5 Mg Oral 2018-09-06 00:00:00 No 5 As Needed as needed for Anxiety [facility] Multivitamin (Multi-Vitamin Daily) 1 Each Tablet, 1 Ta b Oral Multivitamin (Multi-Vitamin Daily) 1 Each Tablet, 1 Tab Oral 2018-09-06 00:00:00 No 1 Daily [facility] Vit D3 & K/Berberine Hcl/Hops (Ostera Tablet) 1 Each T ablet, 50 Mcg Oral Vit D3 & K/Berberine Hcl/Hops (Ostera Tablet) 1 Each Tablet, 50 Mcg Oral 2018-09-06 00:00:00 No 50 Daily [facility] Atorvastatin Calcium 40 Mg Tablet, 40 Mg Oral Atorvast atin Calcium 40 Mg Tablet, 40 Mg Oral 2018-09-02 00:00:00 No 40 Daily [facility] Furosemide 20 Mg Tablet, 20 Mg Oral Furosemide 20 Mg Tablet, 20 Mg Oral 2018-09-02 00:00:00 No 20 Daily [facility] [place]-3 Fatty Acids (Fish Oil) 300 Mg Capsule, 1200 Mg Oral [place]-3 Fatty Acids (Fish Oil) 300 Mg Capsule, 1200 Mg Oral 2018-09-02 00:00:[address] [facility] Omeprazole 20 Mg Capsule., 20 Mg Oral Omeprazole 20 Mg Cap deanna., 20 Mg Oral 2018-09-02 00:00:00 No 20 Daily [facility] Paroxetine Hcl 20 Mg Tablet, 20 Mg Oral Paroxetine Hcl 20 Mg Tablet, 20 Mg Oral 2018-09-02 00:00:00 No 20 Daily [facility] Aspirin 325 Mg Tablet, 325 Mg Oral Aspirin 325 Mg Tablet, 325 Mg Oral 2015-10-20 00:00:00 No 325 Daily [facility] Diclofenac Sodium 75 Mg Tablet., 75 Mg Oral Diclofen ac Sodium 75 Mg Tablet., 75 Mg Oral 2015-10-20 00:00:00 No 75 Twice A Day [facility] Lisinopril (Prinavil / Zestril) 20 Mg Tablet, 20 Mg Or al Lisinopril (Prinavil / Zestril) 20 Mg Tablet, 20 Mg Oral 2015-10-20 00:00:00 No 20 Daily [facility] Aspirin (Asa) 81 Mg Tab, 81 Mg Oral Aspirin (Asa) 81 Mg Tab, 81 Mg Oral 2014-06-29 00:00:00 No 81 Daily [facility] Lisinopril 10 Mg Tablet, 10 Mg Oral Lisinopril 10 Mg Tablet, 10 Mg Oral 2014-06-29 00:00:00 No 10 Daily [facility] Vital Signs Vital Name Observation Time Observation Value Comments Source Weight 2016-02-26 18:30:00 [facility] Height 2016-02-26 18:30:00 [facility] Heart Rate 2016-02-26 18:30:00 [facility] Diastolic (mm Hg) 2016-02-26 18:30:00 [facility] Systolic (mm Hg) 2016-02-26 18:30:00 Pineda mehnaz [facility] Procedures Procedure Date / Time Performed Performing Clinician [facility] e X-ray of chest, two views 2019-04-13 00:00:00 [facility] X-ray of chest, two views 2018-09-05 00:00:00 [facility] Computed tomography of chest with contrast 2018-09-03 00:00:00 Reina THOMAS [facility] Computed tomography of brain without radiopaque contrast 201 04-22-06 00:00:00 BRET AVILA [facility] Computed tomography of cervical spine without contrast 07-18 00:00:00 BRET AVILA [facility] Encounters Start Date/Time End Date/Time Encounter Type Admission Type [facility] Care Department Encounter ID Source 2019-04-11 16:36:00 2019-04-13 14:49:00 [id number] 2018-08-17 11:31:00 2018-09-11 23:59:00 Discharged Recurring [facility] [id number] [facility] 2018-09-01 17:41:00 2018-09-06 12:10:00 Discharged Inpatient 1 [facility] [id number] [facility] 2018-07-18 17:03:00 2018-07-18 20:12:00 Departed Emergency Room 1 CHRISTINA KELLY [facility] [id number] [facility] 2018-07-01 11:46:00 2018-07-01 12:28:00 Departed Emergency Room [facility] [id number] [facility] 2016-03-02 13:00:00 2016-03-02 13:00:00 Outpatient Ramy Fuller [place], [place] [address] [employer] 2016-02-26 13:30:00 2016-02-26 13:30:00 Outpatient Ramy Fuller [place], [place] [address] [employer] Results Test Description Test Time Test Comments Results Result Comments Source SACRUM X-RAY 2019-05-25 17:27:00 [place] [address] Patient Name: PARAMJIT TENA I MR #: [id number] : 1955 Age/Sex: 64/F Req #: [id number] Adm Physician: Ordered by: AFSHIN IGNACIO MD Report #: [id number] Location: [facility] Room/Bed: Procedure: [id number] DX/SACRUM X-RAY Exam Date: 05/25/19 Exam Time: 1505 REPORT STATUS: Signed Exam: Sacrum 2 views Clinical history: Right hip pain Findings: 9 mm anterolisthesis of L4 on L5 with L4 spondylolysis and severe loss in disc height at L4-5 level are noted. There is no evidence of acute fracture of the sacrum. The patient is status post right total hip arthroplasty. Impression: 1. L4-L5 anterolisthesis and degenerative disc disease as described. Signed by: Dr. Keyshawn Vail MD on 05/25/2019 5:30 PM Dictated By: DEANGELO VAIL MD 29 Transcribed By: BILL on 05/25/191729 COPY TO: AFSHIN IGNACIO MD SP LUMBAR, COMPLETE MIN 4VW 2019-05-25 17:17:00 [place] [id number] [place] [address] Patient Name: PARAMJIT TENA I MR #: [id number] : 1955 Age/Sex: 64/F Req #: [id number] Adm Physician: Ordered by: AFSHIN IGNACIO MD Report #: [id number] Location: [facility] Room/Bed: Procedure: [id number] DX/ZANE LUMBAR, COMPLETE MIN 4VW Exam Date: 05/25/19 Exam Time: 1505 REPORT STATUS: Signed Exam: Lumbar spine series Clinical history: Right leg and hip pain Findings: There is no evidence of acute fracture. Severe degenerative disc disease is noted at L4-5 level with 9 mm anterolisthesis of L4 on L5 and bilateral L4 spondylolysis. There is also loss in disc height and endplate sclerosis. Atherosclerotic calcification of the aorta is noted. The patient is status post right total hip arthroplasty. Impression: 1. Degenerative disc disease and anterolisthesis at L4-5 level as described. Signed by: Dr. Keyshawn Vail MD on 05/25/2019 5:19 PM Dictated By: DEANGELO VAIL MD 18 Transcribed By: BILL on 05/25/191718 COPY TO: AFSHIN IGNACIO MD CHEST 2 VIEWS 2019-04-13 12:03:00 [place] [address] Patient Name: PARAMJIT TENA I MR #: [id number] : 1955 Age/Sex: 64/F Req #: [id number] Adm Physician: FABIANA HIGHTOWER MD Ordered by: FABIANA HIGHTOWER MD Report #: [id number] Location: MED/SURG3 Room/Bed: [facility] Procedure: [id number] DX/CHEST 2 VIEWS Exam Date: 04/13/19 Exam Time: 1125 REPORT STATUS: Signed EXAMINATION: CHEST 2 VIEWS INDICATION: Shortness of breath COMPARISON: Multiple prior chest radiographs most recently of 04/11/2019 FINDINGS: LINES/TUBES:Left chest AICD with leads in unchanged position. EKG leads overlie the chest. LUNGS:The lungs are well-inflated. No focal consolidation or pulmonary edema. Mild biapical pleural parenchymal thickening/scarring. PLEURA:No pleural effusion or pneumothorax. MEDIASTINUM:Cardiomediastinal silhouette is stably enlarged. Atherosclerotic calcifications of the thoracic aorta. BONES/SOFT TISSUES:No acute osseous injury. Old fracture deformity at the left proximal humerus. ABDOMEN:No free air under the diaphragm. IMPRESSION: No focal pneumonia or pulmonary edema. Signed by: Paloma Dodge MD on 04/13/2019 12:05 PM Dictated By: PALOMA DODGE MD 1205 Transcribed By: BILL on 04/13/19 1205 COPY TO: FABIANA HIGHTOWER MD Troponin I 2019-04-13 07:20:00 Test Item Troponin I (test code = CXV1936) 0.057 0-0.300 [facility] Natriuretic Pusrlhv8325-84-62 07:17:00* Test Item Value Reference Range Interpretation Comments B-Type Natriuretic Peptide (test code = 68139-4) 883.4 0-100 [facility] Bnrgs2990-86-01 07:11:00* Test Item Value Reference Range Interpretation Comments Sodium Level (test code = 2951-2) 140 136-145 [facility]Potassium Rcyvm1921-40-75 07:11:00* Test Item Value Reference Range Interpretation Comments Potassium Level (test code = 2823-3) 3.8 3.5-5.1 [facility] CampusChloride Ubpar5151-69-26 07:11:00* Test Item Value Reference Range Interpretation Comments Chloride Level (test code = 2075-0) 96 98-107 L [facility] CampusCarbon Dioxide Xheui0267-47-19 07:11:00* Test Item Value Reference Range Interpretation Comments Carbon Dioxide Level (test code = 2028-9) 30 22-29 H [facility] CampusAnion [id number] 07:11:00* Test Item Value Reference Range Interpretation Comments Anion Gap (test code = 42969-9) 17.8 8-16 H [facility] CampusBlood Urea Gliftnxw2420-72-38 07:11:00* Test Item Value Reference Range Interpretation Comments Blood Urea Nitrogen (test code = 3094-0) 21 7-26 [facility] CampusCreatinine2019-08-02 07:11:00* Test Item Value Reference Range Interpretation Comments Creatinine (test code = 2160-0) 0.99 0.57-1.11 [facility] CampusBUN/Creatinine Ywdhj8121-24-55 07:11:00* Test Item Value Reference Range Interpretation Comments BUN/Creatinine Ratio (test code = 3097-3) 21 6-25 [facility] CampusEstimat Glomerular Filtration Rate 2019-04-13 07:11:00* Test Item Value Reference Range Interpretation Comments Estimat Glomerular Filtration Rate (test code = 604141909) 56 >60 L Ranges were taken from the National Kidney Disease Education Program and the [facility] Kid[facility] Foundation literature.Reference ranges:60 or greater: Wkzarv90-01 ( for 3 consecutive months): Chronic kidney disease 15 or less: Kidney failureCHI [facility] HospitalGlucose Lvcmb3740-25-83 07:11:00* Test Item Value Reference Range Interpretation Comments Glucose Level (test code = WNN1337) 115 74-118 [facility] CampusCalcium Uqtjj4480-22-01 07:11:00* Test Item Value Reference Range Interpretation Comments Calcium Level (test code = 15670-1) 9.6 8.4-10.2 [facility] CampusTotal Pljhduidz5905-25-18 07:11:00* Test Item Value Reference Range Interpretation Comments Total Bilirubin (test code = 1975-2) 1.5 0.2-1.2 H [facility] CampusAspartate Amino Transf (AST/SGOT) 2019-04-13 07:11:00* Test Item Value Reference Range Interpretation Comments Aspartate Amino Transf (AST/SGOT) (test code = Aspartate Amino Transf (AST/SGOT)) 23 5-34 [facility] CampusAlanine Aminotransferase (ALT/SGPT) 2019-04-13 07:11:00* Test Item Value Reference Range Interpretation Comments Alanine Aminotransferase (ALT/SGPT) (test code = 1742-6) 50 0-55 [facility] CampusTotal Fgcview2852-69-70 07:11:00* Test Item Value Reference Range Interpretation Comments Total Protein (test code = 2885-2) 6.8 6.5-8.1 [facility] CampusAlbumin2019-08-02 07:11:00* Test Item Value Reference Range Interpretation Comments Albumin (test code = 1751-7) 3.7 3.5-5.0 [facility] CampusGlobulin2019-08-02 07:11:00* Test Item Value Reference Range Interpretation Comments Globulin (test code = 49322-7) 3.1 2.3-3.5 [facility] CampusAlbumin/Globulin Ibeac3557-07-45 07:11:00 * Test Item Value Reference Range Interpretation Comments Albumin/Globulin Ratio (test code = 1759-0) 1.2 0.8-2.0 [facility] CampusAlkaline Japlhpfswdv1413-91-87 07:11:00* Test Item Value Reference Range Interpretation Comments Alkaline Phosphatase (test code = 6768-6) 91 40-150 [facility] CampusWhite Blood Vwqgb6597-71-81 06:56:00* Test Item Value Reference Range Interpretation Comments White Blood Count (test code = 6690-2) 8.09 4.8-10.8 [facility] CampusRed Blood Uaiyb2015-67-55 06:56:00* Test Item Value Reference Range Interpretation Comments Red Blood Count (test code = 789-8) 4.45 3.6-5.1 [facility] CampusHemoglobin2019-08-02 06:56:00* Test Item Value Reference Range Interpretation Comments Hemoglobin (test code = 96113-1) 14.6 12.0-16.0 [facility] CampusHematocrit2019-08-02 06:56:00* Test Item Value Reference Range Interpretation Comments Hematocrit (test code = 4544-3) 44.5 34.2-44.1 H [facility] CampusMean Corpuscular Ttvsku6379-23-04 06:56:00* Test Item Value Reference Range Interpretation Comments Mean Corpuscular Volume (test code = 787-2) 100.0 81-99 H [facility] CampusMean Corpuscular Vonobxlpwe5205-22-00 06:56:00* Test Item Value Reference Range Interpretation Comments Mean Corpuscular Hemoglobin (test code = 785-6) 32.8 28-32 H [facility] CampusMean Corpuscular Hemoglobin Concent 2019-04-13 06:56:00* Test Item Value Reference Range Interpretation Comments Mean Corpuscular Hemoglobin Concent (test code = 786-4) 32.8 31-35 [facility] CampusRed Cell Distribution Yhciq2324-66-90 06:56:00* Test Item Value Reference Range Interpretation Comments Red Cell Distribution Width (test code = 50050-6) 14.0 11.7 -14.4 [facility] CampusPlatelet Jjxfn7041-54-42 06:56:00* Test Item Value Reference Range Interpretation Comments Platelet Count (test code = 777-3) 298 140-360 [facility] CampusNeutrophils (%) (Auto)2019-04-13 06:56:00 * Test Item Value Reference Range Interpretation Comments Neutrophils (%) (Auto) (test code = 86907-0) 60.7 38.7-80.0 [facility] CampusLymphocytes (%) (Auto)2019-04-13 06:56:00 * Test Item Value Reference Range Interpretation Comments Lymphocytes (%) (Auto) (test code = 736-9) 21.8 18.0-39.1 [facility] CampusMonocytes (%) (Auto)2019-04-13 06:56:00* Test Item Value Reference Range Interpretation Comments Monocytes (%) (Auto) (test code = 5905-5) 11.7 4.4-11.3 H [facility] CampusEosinophils (%) (Auto)2019-04-13 06:56:00 * Test Item Value Reference Range Interpretation Comments Eosinophils (%) (Auto) (test code = 713-8) 4.9 0.0-6.0 [facility]Basophils (%) (Auto)2019-04-13 06:56:00* Test Item Value Reference Range Interpretation Comments Basophils (%) (Auto) (test code = 706-2) 0.5 0.0-1.0 [facility] CampusIM GRANULOCYTES %2019-04-13 06:56:00* Test Item Value Reference Range Interpretation Comments IM GRANULOCYTES % (test code = IM GRANULOCYTES %) 0.4 0.0- 1.0 [facility] CampusNeutrophils # (Auto)2019-04-13 06:56:00* Test Item Value Reference Range Interpretation Comments Neutrophils # (Auto) (test code = 751-8) 4.9 2.1-6.9 [facility] CampusLymphocytes # (Auto)2019-04-13 06:56:00* Test Item Value Reference Range Interpretation Comments Lymphocytes # (Auto) (test code = 84810-3) 1.8 1.0-3.2 [facility] CampusMonocytes # (Auto)2019-04-13 06:56:00* Test Item Value Reference Range Interpretation Comments Monocytes # (Auto) (test code = 742-7) 1.0 0.2-0.8 H [facility] CampusEosinophils # (Auto)2019-04-13 06:56:00* Test Item Value Reference Range Interpretation Comments Eosinophils # (Auto) (test code = 711-2) 0.4 0.0-0.4 [facility]Basophils # (Auto)2019-04-13 06:56:00* Test Item Value Reference Range Interpretation Comments Basophils # (Auto) (test code = 704-7) 0.0 0.0-0.1 [facility] CampusAbsolute Immature Granulocyte (auto 2019-04-13 06:56:00* Test Item Value Reference Range Interpretation Comments Absolute Immature Granulocyte (auto (rosie t code = Absolute Immature Granulocyte (auto) 0.03 0-0.1 [facility] CampusBedside Vxxhfzt4442-92-97 20:28:00* Test Item Value Reference Range Interpretation Comments Bedside Glucose (test code = 10434-3) 128 70-120 H Meter ID: [id number] [facility] HospitalThyroid Stimulating Hormone (TSH)2019-04-12 10:36:00* Test Item Value Reference Range Interpretation Comments Thyroid Stimulating Hormone (TSH) (test code = 62435-9) 2.802 0.350-4.940 [facility] CampusCreatine Kinase JP9743-78-45 16:58:00* Test Item Value Reference Range Interpretation Comments Creatine Kinase MB (test code = 79170-7) 1.80 0-5.0 [facility] CampusCreatine Bffqvl8802-60-18 16:44:00* Test Item Value Reference Range Interpretation Comments Creatine Kinase (test code = 2157-6) 52 29-168 [facility] CampusUrine UTL5584-82-33 16:41:00* Test Item Value Reference Range Interpretation Comments Urine WBC (test code = 5821-4) 0-5 0-5 [facility] CampusUrine YYG6666-06-02 16:41:00* Test Item Value Reference Range Interpretation Comments Urine RBC (test code = 86174-5) NONE 0-5 [facility] CampusUrine Lkfvcbhc8077-86-96 16:41:00* Test Item Value Reference Range Interpretation Comments Urine Bacteria (test code = 52138-7) MANY NONE H [facility] CampusUrine Epithelial Qwgfe0365-37-23 16:41:00 * Test Item Value Reference Range Interpretation Comments Urine Epithelial Cells (test code = 42745-8) MODERATE NONE [facility] CampusProthrombin Tvcc5197-23-17 16:39:00* Test Item Value Reference Range Interpretation Comments Prothrombin Time (test code = 5902-2) 13.2 11.9-14.5 [facility] CampusProthromb Time International Ratio 2019-04-11 16:39:00* Test Item Value Reference Range Interpretation Comments Prothromb Time International Ratio (test code = 6301-6) 0.95 Oral Anticoagulant Therapy INR Values:1. Low Intensity Therapy 1.5 - 2.02 . Moderate Intensity Therapy 2.0 - 3.03. High Intensity Therapy(1) 2.5 - 3. 54. High Intensity Therapy(2) 3.0 - 4.05. Panic Value INR > 5.0 [facility] CampusActivated Partial Thromboplast Time 2019-04-11 16:39:00* Test Item Value Reference Range Interpretation Comments Activated Partial Thromboplast Time (test code = 41598-6) 29.1 23.8-35.5 [facility] CampusUrine Tvsjb8430-71-19 16:27:00* Test Item Value Reference Range Interpretation Comments Urine Color (test code = 5778-6) YELLOW YELLOW [facility] CampusUrine Ohnimit5598-34-50 16:27:00* Test Item Value Reference Range Interpretation Comments Urine Clarity (test code = 00825-8) SL CLOUDY CLEAR [facility] CampusUrine Specific Xeteqro5151-14-69 16:27:00 * Test Item Value Reference Range Interpretation Comments Urine Specific Emery (test code = 5811-5) 1.025 1.010-1.02 5 [facility] CampusUrine eK1815-23-18 16:27:00* Test Item Value Reference Range Interpretation Comments Urine pH (test code = 23703-1) 6 5-7 [facility] CampusUrine Leukocyte Gwolxzxl2850-88-04 16:27:00* Test Item Value Reference Range Interpretation Comments Urine Leukocyte Esterase (test code = 31275-1) NEGATIVE NEGATIV E [facility] CampusUrine Ibfokcb5385-81-53 16:27:00* Test Item Value Reference Range Interpretation Comments Urine Nitrite (test code = 28970-5) NEGATIVE NEGATIVE [facility] CampusUrine Ugbxbld7463-98-58 16:27:00* Test Item Value Reference Range Interpretation Comments Urine Protein (test code = 10130-7) NEGATIVE NEGATIVE [facility] CampusUrine Glucose (UA)2019-04-11 16:27:00* Test Item Value Reference Range Interpretation Comments Urine Glucose (UA) (test code = 63224-3) NEGATIVE NEGATIVE [facility] CampusUrine Uwwrajm7487-86-47 16:27:00* Test Item Value Reference Range Interpretation Comments Urine Ketones (test code = 79609-8) NEGATIVE NEGATIVE [facility] CampusUrine Bfvjdeqshscb7095-52-04 16:27:00* Test Item Value Reference Range Interpretation Comments Urine Urobilinogen (test code = 82917-5) 0.2 0.2-1 [facility] CampusUrine Khucegcqg5948-11-46 16:27:00* Test Item Value Reference Range Interpretation Comments Urine Bilirubin (test code = 1977-8) NEGATIVE NEGATIVE [facility] Buahr9353-64-27 16:27:00* Test Item Value Reference Range Interpretation Comments Urine Blood (test code = 41485-3) NEGATIVE NEGATIVE [facility] CampusCHEST SINGLE (PORTABLE)2019-04-11 16:01:00 [place] [address] Patient Name: PARAMJIT TENA I MR #: [id number] : 1955 Age/Sex: 64/F Req #: [id number] Adm Physician: Ordered by: BRET AVILA SOLE BLACKER Report #: [id number] Location: ER Room/Bed: Procedure: [id number] DX/CHEST SINGLE (PORTABLE) Exam Date: 04/11/19 Exam Time: 1456 REPORT STATUS: Signed EXAMINATION: CHEST SINGLE (PORTABLE) INDICATION: Shortness of breath COMPARISON: Chest radiograph of 09/05/2018 FINDINGS: LINES/T UBES:EKG leads overlie the chest. Left chest AICD unchanged. LUNGS:The lung volumes are very low. Mild interstitial edema. Patchy opacity at the left pinky g base. PLEURA:No pleural effusion or pneumothorax. MEDIASTINUM:Cardio mediastinal silhouette is stably enlarged. BONES/SOFT TISSUES:No acute osse ous injury. ABDOMEN:No free air under the diaphragm. IMPRESSION: Low lung volumes with mild pulmonary interstitial edema. Left lung base pa tchy opacities likely represent subsegmental atelectasis. Signed by: Darrell Dodge MD on 04/11/2019 4:03 PM Dictated By: PALOMA DODGE MD 1603 Transcribed By: BILL on 04/11/19 1 603 COPY TO: BRET AVILA SOLE BLACKER Blood Ccclufs8717-15-38 15:56:00 * Test Item Value Reference Range Interpretation Comments Blood Culture (test code = 88166838) NO GROWTH AFTER 5 DAYS, FINAL REPORT [facility] CampusBlood Vqynrqg8785-72-77 15:56:00* Test Item Value Reference Range Interpretation Comments Blood Culture (test code = 69246521) NO GROWTH AFTER 5 DAYS, FINAL REPORT [facility] Bstbi0386-75-28 06:38:00* Test Item Value Reference Range Interpretation Comments Sodium Level (test code = 2951-2) 138 136-145 [facility] CampusPotassium Pltgi1811-59-95 06:38:00* Test Item Value Reference Range Interpretation Comments Potassium Level (test code = 2823-3) 4.5 3.5-5.1 [facility] CampusChloride Mxsvl7098-78-00 06:38:00* Test Item Value Reference Range Interpretation Comments Chloride Level (test code = 2075-0) 98 98-107 [facility] CampusCarbon Dioxide Dogpq2430-60-37 06:38:00* Test Item Value Reference Range Interpretation Comments Carbon Dioxide Level (test code = 2028-9) 30 22-29 H [facility] CampusAnion Alc8908-33-50 06:38:00* Test Item Value Reference Range Interpretation Comments Anion Gap (test code = 08181-2) 14.5 8-16 [facility] CampusBlood Urea Isexgewh3780-77-31 06:38:00* Test Item Value Reference Range Interpretation Comments Blood Urea Nitrogen (test code = 3094-0) 25 7-26 [facility] CampusCreatinine2018-12-26 06:38:00* Test Item Value Reference Range Interpretation Comments Creatinine (test code = 2160-0) 0.86 0.57-1.11 [facility] CampusBUN/Creatinine Tzpty0115-53-72 06:38:00* Test Item Value Reference Range Interpretation Comments BUN/Creatinine Ratio (test code = 3097-3) 29 6-25 H [facility] CampusEstimat Glomerular Filtration Rate 2018-09-06 06:38:00* Test Item Value Reference Range Interpretation Comments Estimat Glomerular Filtration Rate (test code = 583698900) > 60 >60 Ranges were taken from the National Kidney Disease Education Program and the [facility] Kid[facility] Foundation literature.Reference ranges:60 or greater: Orvote38-33 ( for 3 consecutive months): Chronic kidney disease 15 or less: Kidney failureThe Hospitals of [facility] CampusGlucose Tetik5755-77-56 06:38:00* Test Item Value Reference Range Interpretation Comments Glucose Level (test code = JCE4631) 89 74-118 [facility] CampusCalcium Iyucw9501-25-91 06:38:00* Test Item Value Reference Range Interpretation Comments Calcium Level (test code = 35695-0) 9.7 8.4-10.2 [facility] Flqwn0342-08-72 06:38:00* Test Item Value Reference Range Interpretation Comments Sodium Level (test code = 2951-2) 138 136-145 [facility] CampusPotassium Mhhnp8358-28-29 06:38:00* Test Item Value Reference Range Interpretation Comments Potassium Level (test code = 2823-3) 4.5 3.5-5.1 [facility] CampusChloride Emszo4323-54-68 06:38:00* Test Item Value Reference Range Interpretation Comments Chloride Level (test code = 2075-0) 98 98-107 [facility] CampusCarbon Dioxide Lbpgs6868-78-98 06:38:00* Test Item Value Reference Range Interpretation Comments Carbon Dioxide Level (test code = 2028-9) 30 22-29 H [facility] CampusAnion Jvl6817-74-66 06:38:00* Test Item Value Reference Range Interpretation Comments Anion Gap (test code = 29362-6) 14.5 8-16 [facility] CampusBlood Urea Ocrhtzgw5073-68-61 06:38:00* Test Item Value Reference Range Interpretation Comments Blood Urea Nitrogen (test code = 3094-0) 25 7-26 [facility] CampusCreatinine2018-12-26 06:38:00* Test Item Value Reference Range Interpretation Comments Creatinine (test code = 2160-0) 0.86 0.57-1.11 [facility] CampusBUN/Creatinine Ifpan8516-42-67 06:38:00* Test Item Value Reference Range Interpretation Comments BUN/Creatinine Ratio (test code = 3097-3) 29 6-25 H [facility] CampusEstimat Glomerular Filtration Rate 2018-09-06 06:38:00* Test Item Value Reference Range Interpretation Comments Estimat Glomerular Filtration Rate (test code = 711231735) > 60 >60 Ranges were taken from the National Kidney Disease Education Program and the [facility] Kid[facility] Foundation literature.Reference ranges:60 or greater: Xciesy42-11 ( for 3 consecutive months): Chronic kidney disease 15 or less: Kidney failureThe Hospitals of Providence [facility] CampusGlucose Knqiy5440-08-34 06:38:00* Test Item Value Reference Range Interpretation Comments Glucose Level (test code = JKM2397) 89 74-118 [facility] CampusCalcium Nflhr7730-69-05 06:38:00* Test Item Value Reference Range Interpretation Comments Calcium Level (test code = 59285-2) 9.7 8.4-10.2 [facility] CampusWhite Blood Bwmea7663-86-74 06:21:00* Test Item Value Reference Range Interpretation Comments White Blood Count (test code = 6690-2) 7.69 4.8-10.8 [facility] CampusRed Blood Jsilt6362-62-74 06:21:00* Test Item Value Reference Range Interpretation Comments Red Blood Count (test code = 789-8) 4.11 3.6-5.1 [facility] CampusHemoglobin2018-12-26 06:21:00* Test Item Value Reference Range Interpretation Comments Hemoglobin (test code = 05010-4) 13.5 12.0-16.0 [facility] CampusHematocrit2018-12-26 06:21:00* Test Item Value Reference Range Interpretation Comments Hematocrit (test code = 4544-3) 42.4 34.2-44.1 [facility] CampusMean Corpuscular Pjjnjh8015-36-89 06:21:00* Test Item Value Reference Range Interpretation Comments Mean Corpuscular Volume (test code = 787-2) 103.2 81-99 H [facility] CampusMean Corpuscular Cvxzvqlukl5113-88-47 06:21:00* Test Item Value Reference Range Interpretation Comments Mean Corpuscular Hemoglobin (test code = 785-6) 32.8 28-32 H [facility] CampusMean Corpuscular Hemoglobin Concent 2018-09-06 06:21:00* Test Item Value Reference Range Interpretation Comments Mean Corpuscular Hemoglobin Concent (test code = 786-4) 31.8 31-35 [facility] CampusRed Cell Distribution Bxeoj2385-99-24 06:21:00* Test Item Value Reference Range Interpretation Comments Red Cell Distribution Width (test code = 91278-9) 14.4 11.7 -14.4 [facility] CampusPlatelet Xasnz2363-67-34 06:21:00* Test Item Value Reference Range Interpretation Comments Platelet Count (test code = 777-3) 310 140-360 [facility] CampusNeutrophils (%) (Auto)2018-09-06 06:21:00 * Test Item Value Reference Range Interpretation Comments Neutrophils (%) (Auto) (test code = 10726-9) 56.0 38.7-80.0 [facility] CampusLymphocytes (%) (Auto)2018-09-06 06:21:00 * Test Item Value Reference Range Interpretation Comments Lymphocytes (%) (Auto) (test code = 736-9) 28.6 18.0-39.1 [facility] CampusMonocytes (%) (Auto)2018-09-06 06:21:00* Test Item Value Reference Range Interpretation Comments Monocytes (%) (Auto) (test code = 5905-5) 9.1 4.4-11.3 [facility] CampusEosinophils (%) (Auto)2018-09-06 06:21:00 * Test Item Value Reference Range Interpretation Comments Eosinophils (%) (Auto) (test code = 713-8) 5.1 0.0-6.0 [facility] CampusBasophils (%) (Auto)2018-09-06 06:21:00* Test Item Value Reference Range Interpretation Comments Basophils (%) (Auto) (test code = 706-2) 0.8 0.0-1.0 [facility] CampusIM GRANULOCYTES %2018-09-06 06:21:00* Test Item Value Reference Range Interpretation Comments IM GRANULOCYTES % (test code = IM GRANULOCYTES %) 0.4 0.0- 1.0 [facility] CampusNeutrophils # (Auto)2018-09-06 06:21:00* Test Item Value Reference Range Interpretation Comments Neutrophils # (Auto) (test code = 751-8) 4.3 2.1-6.9 [facility] CampusLymphocytes # (Auto)2018-09-06 06:21:00* Test Item Value Reference Range Interpretation Comments Lymphocytes # (Auto) (test code = 40465-0) 2.2 1.0-3.2 [facility] CampusMonocytes # (Auto)2018-09-06 06:21:00* Test Item Value Reference Range Interpretation Comments Monocytes # (Auto) (test code = 742-7) 0.7 0.2-0.8 [facility] CampusEosinophils # (Auto)2018-09-06 06:21:00* Test Item Value Reference Range Interpretation Comments Eosinophils # (Auto) (test code = 711-2) 0.4 0.0-0.4 [facility] CampusBasophils # (Auto)2018-09-06 06:21:00* Test Item Value Reference Range Interpretation Comments Basophils # (Auto) (test code = 704-7) 0.1 0.0-0.1 [facility] CampusAbsolute Immature Granulocyte (auto 2018-09-06 06:21:00* Test Item Value Reference Range Interpretation Comments Absolute Immature Granulocyte (auto (rosie t code = Absolute Immature Granulocyte (auto) 0.03 0-0.1 [facility] CampusWhite Blood Uctom2717-57-37 06:21:00* Test Item Value Reference Range Interpretation Comments White Blood Count (test code = 6690-2) 7.69 4.8-10.8 [facility] CampusRed Blood Zvnqm6418-99-63 06:21:00* Test Item Value Reference Range Interpretation Comments Red Blood Count (test code = 789-8) 4.11 3.6-5.1 [facility] CampusHemoglobin2018-12-26 06:21:00* Test Item Value Reference Range Interpretation Comments Hemoglobin (test code = 41218-4) 13.5 12.0-16.0 [facility] CampusHematocrit2018-12-26 06:21:00* Test Item Value Reference Range Interpretation Comments Hematocrit (test code = 4544-3) 42.4 34.2-44.1 [facility] CampusMean Corpuscular Jnmjuo6111-13-47 06:21:00* Test Item Value Reference Range Interpretation Comments Mean Corpuscular Volume (test code = 787-2) 103.2 81-99 H [facility] CampusMean Corpuscular Hfdwbstzpp2117-19-77 06:21:00* Test Item Value Reference Range Interpretation Comments Mean Corpuscular Hemoglobin (test code = 785-6) 32.8 28-32 H [facility] CampusMean Corpuscular Hemoglobin Concent 2018-09-06 06:21:00* Test Item Value Reference Range Interpretation Comments Mean Corpuscular Hemoglobin Concent (test code = 786-4) 31.8 31-35 [facility] CampusRed Cell Distribution Kraxw2130-74-85 06:21:00* Test Item Value Reference Range Interpretation Comments Red Cell Distribution Width (test code = 33645-0) 14.4 11.7 -14.4 [facility] CampusPlatelet Fsihm7941-99-88 06:21:00* Test Item Value Reference Range Interpretation Comments Platelet Count (test code = 777-3) 310 140-360 [facility] CampusNeutrophils (%) (Auto)2018-09-06 06:21:00 * Test Item Value Reference Range Interpretation Comments Neutrophils (%) (Auto) (test code = 14524-6) 56.0 38.7-80.0 [facility] CampusLymphocytes (%) (Auto)2018-09-06 06:21:00 * Test Item Value Reference Range Interpretation Comments Lymphocytes (%) (Auto) (test code = 736-9) 28.6 18.0-39.1 [facility] CampusMonocytes (%) (Auto)2018-09-06 06:21:00* Test Item Value Reference Range Interpretation Comments Monocytes (%) (Auto) (test code = 5905-5) 9.1 4.4-11.3 [facility] CampusEosinophils (%) (Auto)2018-09-06 06:21:00 * Test Item Value Reference Range Interpretation Comments Eosinophils (%) (Auto) (test code = 713-8) 5.1 0.0-6.0 [facility] CampusBasophils (%) (Auto)2018-09-06 06:21:00* Test Item Value Reference Range Interpretation Comments Basophils (%) (Auto) (test code = 706-2) 0.8 0.0-1.0 [facility] CampusIM GRANULOCYTES %2018-09-06 06:21:00* Test Item Value Reference Range Interpretation Comments IM GRANULOCYTES % (test code = IM GRANULOCYTES %) 0.4 0.0- 1.0 [facility] CampusNeutrophils # (Auto)2018-09-06 06:21:00* Test Item Value Reference Range Interpretation Comments Neutrophils # (Auto) (test code = 751-8) 4.3 2.1-6.9 [facility] CampusLymphocytes # (Auto)2018-09-06 06:21:00* Test Item Value Reference Range Interpretation Comments Lymphocytes # (Auto) (test code = 10642-7) 2.2 1.0-3.2 [facility] CampusMonocytes # (Auto)2018-09-06 06:21:00* Test Item Value Reference Range Interpretation Comments Monocytes # (Auto) (test code = 742-7) 0.7 0.2-0.8 [facility] CampusEosinophils # (Auto)2018-09-06 06:21:00* Test Item Value Reference Range Interpretation Comments Eosinophils # (Auto) (test code = 711-2) 0.4 0.0-0.4 [facility] CampusBasophils # (Auto)2018-09-06 06:21:00* Test Item Value Reference Range Interpretation Comments Basophils # (Auto) (test code = 704-7) 0.1 0.0-0.1 [facility] CampusAbsolute Immature Granulocyte (auto 2018-09-06 06:21:00* Test Item Value Reference Range Interpretation Comments Absolute Immature Granulocyte (auto (orsie t code = Absolute Immature Granulocyte (auto) 0.03 0-0.1 [facility] CampusCHEST 2 OTHUC0594-83-77 06:54:00 [place] [address] Patient Name: PARAMJIT TENA I MR #: [id number] : 1955 Age/Sex: 63/F Req #: [id number] Adm Physician: FABIANA HIGHTOWER MD Ordered by: FABIANA HIGHTOWER MD Report #: [id number] Location: MED/SURG Room/Bed: [facility] Procedure: [id number] D X/CHEST 2 VIEWS Exam Date: Exam Time: REPORT STATUS: Signed EXAM: CHEST 2 VIEWS, P A and lateral INDICATION: Shortness of breath, hypertension COMPARISON: AP v iew of the chest September 03, 2018 FINDINGS: LINES/TUBES: Stable position left approach dual lead cardiac device. LUNGS: No consolidations or edema. PLEURA: No effusions or pneumothorax. Eventration of the right hemidiaphr agm. HEART AND MEDIASTINUM: Normal size and contour. BONES AND SOFT TI SSUES: No acute findings. IMPRESSION: No evidence of pneumonia. Signed by: Dr. Jammie Pritchett M.D. on 09/05/2018 6:55 AM Dictated By: JAMMIE PRITCHETT MD 5 Transcribed By: BILL on 09/05/18654 COPY TO: FABAINA HIGHTOWER MD Blood Gewppxr6609-18-22 15:56:00* Test Item Value Reference Range Interpretation Comments Blood Culture (test code = 76754241) NO GROWTH AFTER 72 HOURS [facility] Natriuretic Ppgnmab9056-63-19 06:28:00* Test Item Value Reference Range Interpretation Comments B-Type Natriuretic Peptide (test code = 27699-8) 127.3 0-100 H [facility] CampusB-Type Natriuretic Nowgkth2791-12-79 06:28:00* Test Item Value Reference Range Interpretation Comments B-Type Natriuretic Peptide (test code = 53576-5) 127.3 0-100 H [facility] CampusTotal Yvvjblxjn3810-75-95 06:20:00* Test Item Value Reference Range Interpretation Comments Total Bilirubin (test code = 1975-2) 1.4 0.2-1.2 H [facility] CampusAspartate Amino Transf (AST/SGOT) 2018-09-04 06:20:00* Test Item Value Reference Range Interpretation Comments Aspartate Amino Transf (AST/SGOT) (test code = Aspartate Amino Transf (AST/SGOT)) 16 5-34 [facility] CampusAlanine Aminotransferase (ALT/SGPT) 2018-09-04 06:20:00* Test Item Value Reference Range Interpretation Comments Alanine Aminotransferase (ALT/SGPT) (test code = 1742-6) 23 0-55 [facility] CampusTotal Unjicsf2751-08-77 06:20:00* Test Item Value Reference Range Interpretation Comments Total Protein (test code = 2885-2) 6.6 6.5-8.1 [facility] CampusAlbumin2018-12-24 06:20:00* Test Item Value Reference Range Interpretation Comments Albumin (test code = 1751-7) 3.4 3.5-5.0 L [facility] CampusGlobulin2018-12-24 06:20:00* Test Item Value Reference Range Interpretation Comments Globulin (test code = 59233-6) 3.2 2.3-3.5 [facility] CampusAlbumin/Globulin Afwlb4105-04-12 06:20:00 * Test Item Value Reference Range Interpretation Comments Albumin/Globulin Ratio (test code = 1759-0) 1.1 0.8-2.0 [facility] CampusAlkaline Jjdzcvlhcqs6048-78-37 06:20:00* Test Item Value Reference Range Interpretation Comments Alkaline Phosphatase (test code = 6768-6) 81 40-150 [facility] [facility] Zaqvotayj9505-62-15 06:20:00* Test Item Value Reference Range Interpretation Comments Total Bilirubin (test code = 1975-2) 1.4 0.2-1.2 H [facility] CampusAspartate Amino Transf (AST/SGOT) 2018-09-04 06:20:00* Test Item Value Reference Range Interpretation Comments Aspartate Amino Transf (AST/SGOT) (test code = Aspartate Amino Transf (AST/SGOT)) 16 5-34 [facility] CampusAlanine Aminotransferase (ALT/SGPT) 2018-09-04 06:20:00* Test Item Value Reference Range Interpretation Comments Alanine Aminotransferase (ALT/SGPT) (test code = 1742-6) 23 0-55 [facility] CampusTotal Bxvxnsl6362-43-34 06:20:00* Test Item Value Reference Range Interpretation Comments Total Protein (test code = 2885-2) 6.6 6.5-8.1 [facility] CampusAlbumin2018-12-24 06:20:00* Test Item Value Reference Range Interpretation Comments Albumin (test code = 1751-7) 3.4 3.5-5.0 L [facility] CampusGlobulin2018-12-24 06:20:00* Test Item Value Reference Range Interpretation Comments Globulin (test code = 75544-3) 3.2 2.3-3.5 [facility] CampusAlbumin/Globulin Tuxld0356-51-16 06:20:00 * Test Item Value Reference Range Interpretation Comments Albumin/Globulin Ratio (test code = 1759-0) 1.1 0.8-2.0 [facility] CampusAlkaline Gjvfcnhhyif7065-45-74 06:20:00* Test Item Value Reference Range Interpretation Comments Alkaline Phosphatase (test code = 6768-6) 81 40-150 [facility] CampusCT CHEST O4100-31-09 15:09:00 [facility] [address] [place] [address] Patient Name: PARAMJIT TENA I MR #: [id number] : 1955 Age/[facility] 63[id number] Req #: [id number] Adm Physician: FABIANA HIGHTOWER MD Ordered by: FABIANA HIGHTOWER MD Report #: [id number] Location: MED/SURG Room/Bed: [facility] Procedure: [id number] C T/CT CHEST W Exam Date: 09/03/18 Exam Time: 1400 REPORT STATUS: Signed EXAM: CT Ches t WITH contrast (PE Protocol) INDICATION: assess for right sided pulm onary emboli [id number] COMPARISON: Same day chest x-ray. TECHNIQUE: Chest was scanned utilizing a multidetector helical scanner from t he lung apex through the level of the diaphragm after administration of IV con trast. Thin section reconstructions were obtained with special concentration o n the pulmonary arteries. Coronal and sagittal reformations were obtained. Dos e modulation, iterative reconstruction, and/or weight based adjustment of the mA/kV was utilized to reduce the radiation dose to as low as reasonably achi evable. Pulmonary embolism protocol was performed. IV CONTRAST: 100 mL of Isovue-370 COMPLICATIONS: None RADIATION DOSE: Total DLP: 459 .26 mGy*cm Estimated effective dose: (DLP x 0.014 x size factor) mSv CTDIvol has been reviewed. It is below the limits set by the Radiation Prot ocol Committee (RPC). FINDINGS: LINES/ TUBES: Dual-lead left chest wal l cardiac device in place with distal leads terminating in right atrium and ri ght ventricle. LUNGS AND AIRWAYS: Filling defects within subsegmental right upper lobe pulmonary arteries as well as segmental right lower lobe arteries, extending to the subsegmental arteries.. There is bibasilar atelectasis.. A irways are normal. PLEURA: The pleural spaces are clear. HEART AND M EDIASTINUM: The thyroid gland is normal. No mediastinal, hilar or axillary ly mphadenopathy. Cardiomegaly. There is no pericardial effusion. . Main pu lmonary artery measures 3.3 cm, suggestive of pulmonary hypertension. UP PER ABDOMEN: Unremarkable BONES: No acute osseous abnormality. SOFT TI SSUES: Unremarkable. IMPRESSION: Right-sided pulmonary emboli as describ ed above. Cardiomegaly, pulmonary vascular congestion, and mild interstitial e aidan. Findings discussed with patient's nurse Zaid at 3:40 PM, on 018. Signed by: Dr. Cristhian Gordon MD on 09/03/2018 3:44 PM Dictated By: CRISTHIAN GORDON MD 15 44 Transcribed By: BILL on 09/03/18 7445 COPY TO: FABIANA HIGHTOWER MD CHEST SINGLE (PORTABLE)2018-09-03 06:10:00 [place] [address] Patient Name: PARAMJIT TENA I MR #: [id number] : 1955 Age/Sex: 63/F Req #: [id number] Adm Physician: FABIANA HIGHTOWER MD Ordered by: FABIANA HIGHTOWER MD Report #: [id number] Location: MED/SURG Room/Bed: [facility] Procedure: [id number] D X/CHEST SINGLE (PORTABLE) Exam Date: 09/03/18 Exam T preston: 0535 REPORT STATUS: Signed CHEST SINGLE (PORTABLE), 09/03/2018 5:00 AM Technique: CHEST SINGLE (PORTAB LE) Comparison: 09/01/2018 Clinical history: Congestive heart failure F indings: See Impression Impression: 1. Lines/Tubes: Stable left chest w all ICD 2. Stable enlarged cardiac silhouette. 3. Persistent though mildly i mproved edema with small effusions Signed by: Dr Laura Elliott MD on 09/03 6:13 AM Dictated By: LAURA ELLIOTT MD 2 Transcribed By: BILL on 09/03/18612 COPY TO: FABIANA HIGHTOWER MD Thyroid Stimulating Hormone (TSH) 2018-09-02 12:50:00* Test Item Value Reference Range Interpretation Comments Thyroid Stimulating Hormone (TSH) (test code = 48584-2) 2.647 0.350-4.940 [facility] CampusThyroid Stimulating Hormone (TSH) 2018-09-02 12:50:00* Test Item Value Reference Range Interpretation Comments Thyroid Stimulating Hormone (TSH) (test code = 58562-0) 2.647 0.350-4.940 [facility] CampusCreatine Kinase ZN7228-00-73 07:09:00* Test Item Value Reference Range Interpretation Comments Creatine Kinase MB (test code = 03675-7) 2.00 0-5.0 [facility] CampusTroponin X7816-91-70 07:09:00* Test Item Value Reference Range Interpretation Comments Troponin I (test code = QIS3432) 0.088 0-0.300 [facility] CampusCreatine Kinase CC9798-66-38 07:09:00* Test Item Value Reference Range Interpretation Comments Creatine Kinase MB (test code = 65504-4) 2.00 0-5.0 [facility] CampusTroponin O0505-72-34 07:09:00* Test Item Value Reference Range Interpretation Comments Troponin I (test code = BLS4283) 0.088 0-0.300 [facility] CampusMagnesium Jlhvr9453-45-49 07:03:00* Test Item Value Reference Range Interpretation Comments Magnesium Level (test code = 66515-3) 2.0 1.3-2.1 [facility] CampusTriglycerides Wjckd4944-12-34 07:03:00* Test Item Value Reference Range Interpretation Comments Triglycerides Level (test code = 2571-8) 116 0-149 [facility] CampusCholesterol Lxtrq2837-42-19 07:03:00* Test Item Value Reference Range Interpretation Comments Cholesterol Level (test code = 2093-3) 196 0-199 Less than 200 mg/dL Low Fxdq639 - 239 mg/dL Borderline Ogkd695 m g/dl and greater High Risk [facility] CampusLDL Jwtuwhgxqhs4773-49-75 07:03:00* Test Item Value Reference Range Interpretation Comments LDL Cholesterol (test code = 2089-1) 146 60-130 H [facility] CampusHDL Yabsesiqpoe2701-14-65 07:03:00* Test Item Value Reference Range Interpretation Comments HDL Cholesterol (test code = 2085-9) 27 40-60 L [facility] CampusCholesterol/HDL Isljg6129-13-80 07:03:00 * Test Item Value Reference Range Interpretation Comments Cholesterol/HDL Ratio (test code = 9830-1) 7.3 3.0-3.6 H [facility] CampusCreatine Hchmhl9699-87-89 07:03:00* Test Item Value Reference Range Interpretation Comments Creatine Kinase (test code = 2157-6) 59 29-168 [facility] CampusMagnesium Nrdnz1619-59-31 07:03:00* Test Item Value Reference Range Interpretation Comments Magnesium Level (test code = 11806-4) 2.0 1.3-2.1 [facility] CampusTriglycerides Tiiut3357-77-54 07:03:00* Test Item Value Reference Range Interpretation Comments Triglycerides Level (test code = 2571-8) 116 0-149 [facility] CampusCholesterol Ahjbs8131-89-90 07:03:00* Test Item Value Reference Range Interpretation Comments Cholesterol Level (test code = 2093-3) 196 0-199 Less than 200 mg/dL Low Xnpv111 - 239 mg/dL Borderline Xomv984 m g/dl and greater High Risk [facility] CampusLDL Mooqtbwbkqz5139-83-71 07:03:00* Test Item Value Reference Range Interpretation Comments LDL Cholesterol (test code = 2089-1) 146 60-130 H [facility] CampusHDL Dtsvcisjhia5573-32-34 07:03:00* Test Item Value Reference Range Interpretation Comments HDL Cholesterol (test code = 2085-9) 27 40-60 L [facility] CampusCholesterol/HDL Nfdzf4210-73-75 07:03:00 * Test Item Value Reference Range Interpretation Comments Cholesterol/HDL Ratio (test code = 9830-1) 7.3 3.0-3.6 H [facility] CampusCreatine Ghnvjx2780-25-77 07:03:00* Test Item Value Reference Range Interpretation Comments Creatine Kinase (test code = 2157-6) 59 29-168 [facility] CampusMagnesium Leobf1021-94-39 07:03:00* Test Item Value Reference Range Interpretation Comments Magnesium Level (test code = 12288-9) 2.0 1.3-2.1 [facility] CampusTriglycerides Zisat2676-62-77 07:03:00* Test Item Value Reference Range Interpretation Comments Triglycerides Level (test code = 2571-8) 116 0-149 [facility] CampusCholesterol Nhodb3288-32-79 07:03:00* Test Item Value Reference Range Interpretation Comments Cholesterol Level (test code = 2093-3) 196 0-199 Less than 200 mg/dL Low Rtvv395 - 239 mg/dL Borderline Mgjq317 m g/dl and greater High Risk [facility] CampusLDL Lcjgnhmoulc9872-08-05 07:03:00* Test Item Value Reference Range Interpretation Comments LDL Cholesterol (test code = 2089-1) 146 60-130 H [facility] CampusHDL Moihevvrzcj9616-69-48 07:03:00* Test Item Value Reference Range Interpretation Comments HDL Cholesterol (test code = 2085-9) 27 40-60 L [facility] CampusCholesterol/HDL Ilyuf1050-66-29 07:03:00 * Test Item Value Reference Range Interpretation Comments Cholesterol/HDL Ratio (test code = 9830-1) 7.3 3.0-3.6 H [facility] CampusUrine Qpxus9155-24-62 16:34:00* Test Item Value Reference Range Interpretation Comments Urine Color (test code = 5778-6) COLORLESS YELLOW [facility] CampusUrine Lrfggcs6887-30-34 16:34:00* Test Item Value Reference Range Interpretation Comments Urine Clarity (test code = 38035-1) CLEAR CLEAR [facility] CampusUrine LLX5273-45-26 16:34:00* Test Item Value Reference Range Interpretation Comments Urine WBC (test code = 5821-4) NONE 0-5 [facility] CampusUrine ATJ4667-48-79 16:34:00* Test Item Value Reference Range Interpretation Comments Urine RBC (test code = 65354-1) 0-5 0-5 [facility] Lqihdsgt4478-79-27 16:34:00* Test Item Value Reference Range Interpretation Comments Urine Bacteria (test code = 90751-0) NONE NONE [facility] CampusUrine Epithelial Nbnyn0956-50-36 16:34:00 * Test Item Value Reference Range Interpretation Comments Urine Epithelial Cells (test code = 79229-1) NONE NONE [facility] CampusUrine Sakwl4863-36-53 16:34:00* Test Item Value Reference Range Interpretation Comments Urine Color (test code = 5778-6) COLORLESS YELLOW [facility] CampusUrine Pdxpjxj0033-27-09 16:34:00* Test Item Value Reference Range Interpretation Comments Urine Clarity (test code = 93257-5) CLEAR CLEAR [facility] CampusUrine BTC7529-29-93 16:34:00* Test Item Value Reference Range Interpretation Comments Urine WBC (test code = 5821-4) NONE 0-5 [facility] CampusUrine MXZ0403-09-42 16:34:00* Test Item Value Reference Range Interpretation Comments Urine RBC (test code = 35565-3) 0-5 0-5 [facility] CampusUrine Klhqpasz6164-11-98 16:34:00* Test Item Value Reference Range Interpretation Comments Urine Bacteria (test code = 72645-4) NONE NONE [facility] CampusUrine Epithelial Hadni8438-57-76 16:34:00 * Test Item Value Reference Range Interpretation Comments Urine Epithelial Cells (test code = 37260-0) NONE NONE [facility] CampusLactic Acid Xzyit3525-68-24 16:12:00* Test Item Value Reference Range Interpretation Comments Lactic Acid Level (test code = Lactic Acid Level) 15.5 4.5- 19.8 [facility] CampusLactic Acid Vcsbs9250-91-10 16:12:00* Test Item Value Reference Range Interpretation Comments Lactic Acid Level (test code = Lactic Acid Level) 15.5 4.5- 19.8 [facility] CampusLactic Acid Pzgmv1391-38-39 16:12:00* Test Item Value Reference Range Interpretation Comments Lactic Acid Level (test code = Lactic Acid Level) 15.5 4.5- 19.8 [facility] CampusUrine Specific Cposqga0689-02-03 16:07:00 * Test Item Value Reference Range Interpretation Comments Urine Specific Emery (test code = 5811-5) 1.010 1.010-1.02 5 [facility] CampusUrine fU4202-22-41 16:07:00* Test Item Value Reference Range Interpretation Comments Urine pH (test code = 17725-9) 7 5-7 [facility] CampusUrine Leukocyte Pbqjvigd1847-59-49 16:07:00* Test Item Value Reference Range Interpretation Comments Urine Leukocyte Esterase (test code = 5799-2) NEGATIVE NEGATIVE [facility] CampusUrine Ajwdojk7426-85-14 16:07:00* Test Item Value Reference Range Interpretation Comments Urine Nitrite (test code = 27657-8) NEGATIVE NEGATIVE [facility] CampusUrine Nddjxkq7462-96-76 16:07:00* Test Item Value Reference Range Interpretation Comments Urine Protein (test code = 5804-0) NEGATIVE NEGATIVE [facility] CampusUrine Glucose (UA)2018-09-01 16:07:00* Test Item Value Reference Range Interpretation Comments Urine Glucose (UA) (test code = 2349-9) NEGATIVE NEGATIVE [facility] CampusUrine Paumqhb5781-57-09 16:07:00* Test Item Value Reference Range Interpretation Comments Urine Ketones (test code = 59597-9) NEGATIVE NEGATIVE [facility] Twspgxbqpvqj4123-74-41 16:07:00* Test Item Value Reference Range Interpretation Comments Urine Urobilinogen (test code = 68002-9) 0.2 0.2-1 [facility] CampusUrine Imzrqmkyv4754-30-10 16:07:00* Test Item Value Reference Range Interpretation Comments Urine Bilirubin (test code = 1978-6) NEGATIVE NEGATIVE [facility] CampusUrine Qvldw2108-66-56 16:07:00* Test Item Value Reference Range Interpretation Comments Urine Blood (test code = 88615-2) TRACE NEGATIVE H [facility] CampusUrine Specific Uuvpodd5564-59-90 16:07:00 * Test Item Value Reference Range Interpretation Comments Urine Specific Emery (test code = 5811-5) 1.010 1.010-1.02 5 [facility] CampusUrine eM3793-89-08 16:07:00* Test Item Value Reference Range Interpretation Comments Urine pH (test code = 73135-6) 7 5-7 [facility] CampusUrine Leukocyte Iawtdywn0923-15-25 16:07:00* Test Item Value Reference Range Interpretation Comments Urine Leukocyte Esterase (test code = 5799-2) NEGATIVE NEGATIVE [facility] CampusUrine Eefcfmw3928-14-19 16:07:00* Test Item Value Reference Range Interpretation Comments Urine Nitrite (test code = 61010-1) NEGATIVE NEGATIVE [facility] CampusUrine Olnylfa1905-36-07 16:07:00* Test Item Value Reference Range Interpretation Comments Urine Protein (test code = 5804-0) NEGATIVE NEGATIVE [facility] CampusUrine Glucose (UA)2018-09-01 16:07:00* Test Item Value Reference Range Interpretation Comments Urine Glucose (UA) (test code = 2349-9) NEGATIVE NEGATIVE [facility] CampusUrine Jbrpmtt2134-69-66 16:07:00* Test Item Value Reference Range Interpretation Comments Urine Ketones (test code = 39893-1) NEGATIVE NEGATIVE [facility] Twmnydzdnkvl1720-17-04 16:07:00* Test Item Value Reference Range Interpretation Comments Urine Urobilinogen (test code = 91143-2) 0.2 0.2-1 [facility] CampusUrine Bnuvlqwvf3516-36-10 16:07:00* Test Item Value Reference Range Interpretation Comments Urine Bilirubin (test code = 1978-6) NEGATIVE NEGATIVE [facility] CampusUrine Cvvfm3659-04-68 16:07:00* Test Item Value Reference Range Interpretation Comments Urine Blood (test code = 06765-8) TRACE NEGATIVE H [facility] CampusProthrombin Xooq1746-56-02 16:05:00* Test Item Value Reference Range Interpretation Comments Prothrombin Time (test code = 5902-2) 12.8 11.9-14.5 [facility] CampusProthromb Time International Ratio 2018-09-01 16:05:00* Test Item Value Reference Range Interpretation Comments Prothromb Time International Ratio (test code = 6301-6) 0.88 Oral Anticoagulant Therapy INR Values:1. Low Intensity Therapy 1.5 - 2.02 . Moderate Intensity Therapy 2.0 - 3.03. High Intensity Therapy(1) 2.5 - 3. 54. High Intensity Therapy(2) 3.0 - 4.05. Panic Value INR > 5.0 [facility] CampusActivated Partial Thromboplast Time 2018-09-01 16:05:00* Test Item Value Reference Range Interpretation Comments Activated Partial Thromboplast Time (test code = 33584-7) 25.9 23.8-35.5 [facility] CampusProthrombin Yvug5712-55-34 16:05:00* Test Item Value Reference Range Interpretation Comments Prothrombin Time (test code = 5902-2) 12.8 11.9-14.5 [facility] CampusProthromb Time International Ratio 2018-09-01 16:05:00* Test Item Value Reference Range Interpretation Comments Prothromb Time International Ratio (test code = 6301-6) 0.88 Oral Anticoagulant Therapy INR Values:1. Low Intensity Therapy 1.5 - 2.02 . Moderate Intensity Therapy 2.0 - 3.03. High Intensity Therapy(1) 2.5 - 3. 54. High Intensity Therapy(2) 3.0 - 4.05. Panic Value INR > 5.0 [facility] CampusActivated Partial Thromboplast Time 2018-09-01 16:05:00* Test Item Value Reference Range Interpretation Comments Activated Partial Thromboplast Time (test code = 99606-2) 25.9 23.8-35.5 [facility] CampusCHEST SINGLE (PORTABLE)2018-09-01 16:03:00 [facility] [address] [place] [address] Patient Name: PARAMJIT TENA I MR #: [id number] : 1955 Age/Sex: 63/F Req #: [id number] Adm Physician: Ordered by: LANE MACKEY MD Report #: [id number] Location: ER Room/Bed: Procedure: [id number] DX /CHEST SINGLE (PORTABLE) Exam Date: 09/01/18 Exam Ti me: 1548 REPORT STATUS: Signed E XAMINATION: CHEST SINGLE (PORTABLE) INDICATION: SOB [id number] COMPARISON: 10/18/2015 FINDINGS: AP view TUBES and LINES: Stable lead left chest wall cardiac device in place. LUNGS: L imited by low lung volumes and body habitus. Pulmonary vascular congestion an d mild to moderate interstitial edema. PLEURA: No pneumothorax. Smal l bilateral pleural effusions. HEART AND MEDIASTINUM: The cardiac silhouet te is enlarged. BONES AND SOFT TISSUES: No acute osseous lesion. Soft tissues are unremarkable. UPPER ABDOMEN: No free air under the diaphragm . IMPRESSION: Enlarged cardiac silhouette, pulmonary vascular conges tion, moderate interstitial edema, and small bilateral pleural effusions. Signed by: Dr. Cristhian Gordon MD on 09/01/2018 4:13 PM Dictated By: Alana GORDON MD 1613 Tr anscribed By: BILL on 09/01/18 1613 COPY TO: LANE MACKEY MD Arterial Blood cH3632-84-97 15:17:00* Test Item Value Reference Range Interpretation Comments Arterial Blood pH (test code = 2744-1) 7.42 7.31-7.41 H [facility] CampusArterial Blood Partial Pressure CO2 2018-09-01 15:17:00* Test Item Value Reference Range Interpretation Comments Arterial Blood Partial Pressure CO2 (test code = 2018-) 44 41-51 [facility] CampusArterial Blood Partial Pressure O2 2018-09-01 15:17:00* Test Item Value Reference Range Interpretation Comments Arterial Blood Partial Pressure O2 (test code = 2018-) 383 80-105 H [facility] CampusArterial Blood QFV25407-60-28 15:17:00* Test Item Value Reference Range Interpretation Comments Arterial Blood HCO3 (test code = 1960-4) 28 23-28 [facility] CampusArterial Blood Base Bszkih7687-62-92 15:17:00* Test Item Value Reference Range Interpretation Comments Arterial Blood Base Excess (test code = 1925-7) 4.0 -2-3 H [facility] CampusArterial Blood Oxygen Saturation 2018-09-01 15:17:00* Test Item Value Reference Range Interpretation Comments Arterial Blood Oxygen Saturation (test code = 2708-6) 100.0 95-98 H [facility] CampusFiO22018-12-21 15:17:00* Test Item Value Reference Range Interpretation Comments FiO2 (test code = FiO2) 100 BIPAP 12/6 RR 12 RONALD FROM RIGHT RADIALThe Hospitals of [facility] Campus Arterial Blood pZ2029-34-93 15:17:00* Test Item Value Reference Range Interpretation Comments Arterial Blood pH (test code = 2744-1) 7.42 7.31-7.41 H [facility] CampusArterial Blood Partial Pressure CO2 2018-09-01 15:17:00* Test Item Value Reference Range Interpretation Comments Arterial Blood Partial Pressure CO2 (test code = 2018-8) 44 41-51 [facility] CampusArterial Blood Partial Pressure O2 2018-09-01 15:17:00* Test Item Value Reference Range Interpretation Comments Arterial Blood Partial Pressure O2 (test code = 2019-8) 383 80-105 H [facility] CampusArterial Blood HMC26625-75-15 15:17:00* Test Item Value Reference Range Interpretation Comments Arterial Blood HCO3 (test code = 1960-4) [facility] CampusArterial Blood Base Oemsfw5927-76-20 15:17:00* Test Item Value Reference Range Interpretation Comments Arterial Blood Base Excess (test code = 1925-7) 4.0 -2-3 H [facility] CampusArterial Blood Oxygen Saturation 2018-09-01 15:17:00* Test Item Value Reference Range Interpretation Comments Arterial Blood Oxygen Saturation (test code = 2708-6) 100.0 95-98 H [facility] CampusFiO22018-12-21 15:17:00* Test Item Value Reference Range Interpretation Comments FiO2 (test code = FiO2) 100 BIPAP 12/6 RR 12 RONALD FROM RIGHT RADIALThe Hospitals of [facility] Arterial Blood yF9865-80-40 15:17:00* Test Item Value Reference Range Interpretation Comments Arterial Blood pH (test code = 2744-1) 7.42 7.31-7.41 H [facility] CampusArterial Blood Partial Pressure CO2 2018-09-01 15:17:00* Test Item Value Reference Range Interpretation Comments Arterial Blood Partial Pressure CO2 (test code = 2019-8) 44 41-51 [facility] CampusArterial Blood Partial Pressure O2 2018-09-01 15:17:00* Test Item Value Reference Range Interpretation Comments Arterial Blood Partial Pressure O2 (test code = 2019-8) 383 80-105 H [facility] CampusArterial Blood HYC30849-66-03 15:17:00* Test Item Value Reference Range Interpretation Comments Arterial Blood HCO3 (test code = 1960-4) [facility] CampusArterial Blood Base Hmapin7549-71-83 15:17:00* Test Item Value Reference Range Interpretation Comments Arterial Blood Base Excess (test code = 1925-7) 4.0 -2-3 H [facility] CampusArterial Blood Oxygen Saturation 2018-09-01 15:17:00* Test Item Value Reference Range Interpretation Comments Arterial Blood Oxygen Saturation (test code = 2708-6) 100.0 95-98 H [facility] CampusFiO22018-12-21 15:17:00* Test Item Value Reference Range Interpretation Comments FiO2 (test code = FiO2) 100 BIPAP 12/6 RR 12 RONALD FROM RIGHT RADIALCHI [facility] [id number] 19:21:00 [facility] [address] [address] Patient Name: PARAMJIT TENA I MR #: [id number] : 1955 Age/Sex: 63/F Req #: [id number] Adm Physician: Ordered by: BRET AVILA SOLE BLACKER Report #: [id number] Location: ER Room/Bed: Procedure: [id number] CT/CT CERVICAL SPINE WO Exam Date: 07/18/18 Exam Star e: 1800 REPORT STATUS: Signed Ex amination: CT CERVICAL SPINE WITHOUT CONTRAST HISTORY:Neck injury after fal l. COMPARISON:None. TECHNIQUE: Multidetector helical axial images were obtai miranda without contrast from the foramen magnum to T1. Coronal and sagittal refo rmatted images were done. Bone and soft tissue windows were evaluated. Dose modulation, iterative reconstruction, and/or weight based adjustment of the m A/kV was utilized to reduce the radiation dose to as low as reasonably achieva ble. FINDINGS: Alignment:Normal alignment and lordosis. Vertebrae: Normal height and density. No acute fracture, infection or neoplasm. Spina bif jona of the anterior arch of C1. Disc space heights: Mildly narrowed in height at C6-C7. Caliber of spinal canal: Developmentally normal. Posterior pamela a and craniocervical junction: Foramen magnum patent. No Chiari 1 malformation . Soft tissues: No abnormality. Degenerative changes: Diffuse disc o steophyte complex from C4-C5 through C6-C7 without canal stenosis. The toña ining cervical levels demonstrate no disc bulge/ herniation or canal stenosis. IMPRESSION: No acute abnormalities. Signed by: Dr. Wan Adkins M.D. on 07/18/2018 7:26 PM Dictated By: WAN BRICENO MD Pamela ctronically Signed By: WAN BRICENO MD on 07/18/181925 Transcribed By: BILL on 07/18/181925 COPY TO: BRET AVILA NP CT BRAIN [id number] 19:18:[address] [address] Patient Name: PARAMJIT TENA I MR #: [id number] : 1955 Age/Sex: 63/F Req #: [id number] Adm Physician: Ordered by: BRET AVILA SOLE BLACKER Report #: [id number] Location: ER Room/Bed: Procedure: [id number] CT/CT BRAIN WO Exam Date: 07/18/18 Exam Time: 1800 REPORT STATUS: Signed Examination : CT head without contrast Clinical Indication: Fall; head injury; headache. Technique: Transaxial noncontrast images from the skull base through the vertex were obtained. Sagittal and coronal reformatted images were done. Dose modu lation, iterative reconstruction, and/or weight based adjustment of the mA/kV was utilized to reduce the radiation dose to as low as reasonably achievable. Comparison: None. Findings: Scalp: No abnormalities. Bones: Intac t. No fractures. No blastic or lytic lesions. Brain sulci: Appropriate fo r patient's age. Ventricles: Normal in size and configuration. No hydrocepha ann. . Extra-axial space: No abnormalities. Parenchyma: There ar e patchy areas of low-attenuation within subcortical and periventricular white matter, nonspecific, but could represent microvascular ischemic disease. No masses, hemorrhage, or acute or chronic cortical based vascular insults. S uprasellar region: No abnormalities. Craniocervical junction: The foramen magn um is patent. No Chiari one malformation. Incidental findings: Athero sclerotic calcification of the cavernous and supraclinoid internal carotid an d V4 segments of the bilateral vertebral arteries. Impression: 1. No acute intracranial finding. 2. Mild chronic microvascular ischemic change. Signed by: Dr. Wan Adkins M.D. on 07/18/2018 7:20 PM Dictated By: WAN BRICENO MD 19 Transcribed By: BILL on 07/18/181919 COPY TO : BRET AVILA NP HUMERUS LEFT 2+[id number] 18:22:00 [address] [address] Patient Name: PARAMJIT TENA I MR #: [id number] : 1955 Age/Sex: 63/F Req #: [id number] Adm Physician: Ordered by: BRET AVILA SOLE BLACKER Report #: [id number] Location: ER Room/Bed: Procedure: [id number] DX/HUMERUS LEFT 2+VIEWS Exam Date: 07/18/18 Exam Star e: 1668 REPORT STATUS: Signed LE FT HUMERUS - 3 VIEWS HISTORY: Pain, rule out fracture COMPARISON : Left shoulder radiographs from the same date FINDINGS: Bones: Di ffusely decreased mineralization of the osseous structures limits bone detail. Mildly comminuted predominantly transverse fracture centered at the surgical neck of the humerus. Joints: Mild acromioclavicular degenerative macdonald es. Soft tissues: The soft tissues appear unremarkable. IMPRESSIO N: Acute left humeral surgical neck fracture. Signed by: Dr. Ky Cruz D.O., M.M.M. on 07/18/2018 6:23 PM Dictated By: KY CRUZ DO Electron ically Signed By: KY CRUZ DO on 07/18/181822 Transcribed By: BILL on 1822 COPY TO: BRET AVILA NP SHOULDER LEFT COMPLETE 2018-07-18 18:19:00 [address] [address] Patient Name: PARAMJIT TENA I MR #: [id number] : 1955 Age/Sex: 63/F Req #: [id number] Adm Physician: Ordered by: BRET AVILA NP Report #: [id number] Location: ER Room/Bed: Procedure: [id number] DX/SHOULDER LEFT COMPLETE Exam Date: 07/18/18 Exam T preston: 1745 REPORT STATUS: Signed LEFT SHOULDER - 2 VIEWS HISTORY: Pain, fell COMPARISON: None pauline ilable. FINDINGS: Bones: Diffusely decreased mineralization of the osseous structures limits bone detail. Mildly comminuted predominantly tra nsverse fracture centered at the surgical neck of the humerus. Joints: Mild acromioclavicular degenerative changes. Soft tissues: The soft tissu es appear unremarkable. IMPRESSION: Acute left humeral surgical neck fracture. Signed by: Dr. Ky Cruz D.O., M.M.M. on 07/18/2018 6:21 PM Dictated By: KY CRUZ DO 20 COPY TO: NICOLE AVILA NP
--- OUTSIDE RECORDS SUMMARY | 2020-05-27 07:27 | XMS REPORT | Continuity of Care Document ---
Author Author [employer] PARAMJIT I Organization [employer] Address Unknown Phone Unavailable Care Team Providers Care Site Promotion Agent Name Role Phone [employer] Unavailable Un available Problems Problem Status Onset Date Classification Date Reported Comments Source Automatic implantable cardiac defibrillator in situ Active Problem 03/03/2016 Ramy Fuller MD, NINFA Benign hypertensive heart disease with heart failure Active Problem 03/03/2016 Ramy Fuller MD, PA Chronic systolic heart failure Active Problem Ramy Fuller MD, PA Hypertensive heart disease with heart failure Active Problem 03/03/2016 Ramy Fuller MD, P A Personal history of sudden cardiac arrest Active Problem 03/03/2016 Ramy Fuller MD P A CHF, chronic systolic Active Problem 03/03/2016 Ramy Fuller MD, PA Abnormal electrocardiogram [ECG] [EKG] Active Problem 03/03/2016 Ramy Fuller MD P A Other obesity due to excess calories Active Problem Ramy Fuller MD, NINFA Presence of automatic (implantable) card iac defibrillator Active Prob greg 03/03/2016 Ramy Fuller MD, PA Mixed hyperlipidemia Active Problem 03/03/2016 Ramy Fuller MD, PA Personal history of sudden cardiac arrest Active Problem 03/03/2016 Ramy Fuller MD P A Obesity, unspecified Active Problem 03/03/2016 Ramy Fuller MD, PA Mixed hyperlipidemia Active Problem 03/03/2016 Ramy Fuller MD, PA Abnormal ECG Active Problem 03/03/2016 Ramy Fuller MD, PA Benign hypertensive heart disease without heart failur e Active Problem 03/03/2016 Ramy Fuller MD, PA Medications Medication Details Route Status Patient Instructions Ordering Provider Order Date Source Amiodarone HCl 1 tablet Orally Active 200 MG Orally twice a d ay (bid) Alina 02/13/2015 Ramy Fuller MD, PA Levothyroxine Sodium 1 tablet Orally Active 0.5 [...] Once a day Alina Fuller MD, PA Allergies, Adverse Reactions, Alerts Substance Category Reaction Severity Reaction type Status Date Reported Comments Source penicillin Adverse Reaction Info Not Available Adverse Reactio n Active 02/26/2016 Ramy Fuller MD, PA Immunizations No Data Provided for This Section Results No Data Provided for This Section Pathology Reports No Data Provided for This Section Diagnostic Reports No Data Provided for This Section Consultation Notes No Data Provided for This Section Discharge Summaries No Data Provided for This Section History and Physicals No Data Provided for This Section Vital Signs Vital Sign Value Date Comments Source Weight 175 02/26/2016 Ramy Fuller MD, PA Height 61 0 02/26/2016 Ramy Fuller MD, PA Heart Rate 70 02/26/2016 Ramy Fuller MD, PA Diastolic (mm Hg) 78 02/26/2016 Ramy Fuller MD, PA Systolic (mm Hg) 126 02/26/2016 Ramy Fuller MD, PA Encounters Location Location Details Encounter Type Encounter Number Reason For Visit Attending Provider ADM Date DC Date Status Source Ramy Fuller MD, PA Follow-Up [id number] 02/26/20 16 02/26/2016 Ramy Fuller MD, PA Nawar Tayyan, MD, PA Follow-Up [id number] 02/26/20 16 02/26/2016 Ramy Fuller MD, PA Ramy Fuller MD, PA echo/carotid/arterial dopplers [id number] 03/02/2016 03/02/2016 Ramy Fuller MD, PA Procedures No Data Provided for This Section Assessment and Plan No Data Provided for This Section Plan of Care No Data Provided for This Section Social History Social History Date Source Social History ElementQualifiersDate Rep orted Tobacco Use: . Are you a: former smoker quit in 1999February 26, 2016 Marital Status: . February 26, 2016 Do you drink alcohol? . Status: No February 26, 2016 02/26/2016 Rmay Fuller MD, P A Family History No Data Provided for This Section Advance Directives No Data Provided for This Section Functional Status No Data Provided for This Section
[2020-05-27 07:32] LABS: CLARITY,URINE CLEAR (CLEAR); COLOR,URINE YELLOW (YELLOW)
[2020-05-27 07:33] LABS: BILIRUBIN,URINE SMALL (NEGATIVE); KETONES,URINE NEGATIVE (NEGATIVE); LEUKOCYTE ESTERASE ,URINE NEGATIVE (NEGATIVE); NITRITE,URINE NEGATIVE (NEGATIVE); PROTEIN,URINE DIPSTICK 1+ (NEGATIVE); URINE UROBILINOGEN 0.2 mg/dL (0.2 - 1)
[2020-05-27 07:34] LABS: INR 0.93; PARTIAL THROMBOPLASTIN TIME 30.8 seconds (23.8-35.5); PROTHROMBIN TIME 12.9 seconds (11.9-14.5)
[2020-05-27 07:35] LABS: ALBUMIN 4.2 g/dL (3.5-5.0); ALBUMIN/GLOBULIN RATIO 1.7 (0.8-2.0); ANION GAP 14.6 mmol/L (8-16); CALCIUM 8.9 mg/dL (8.4-10.2); CREATININE, SERUM 0.93 mg/dL (0.57-1.11); POTASSIUM 4.6 mmol/L (3.5-5.1)
[2020-05-27 07:39] LABS: BACTERIA,URINE MODERATE /HPF; EPITHELIAL CELLS,URINE MANY /LPF; RBC,URINE 0-5 /HPF (0-5); WBC,URINE (MAN) 0-5 /HPF (0-5)
[2020-05-27 07:40] LABS: MUCUS,URINE MODERATE (RARE)
[2020-05-27 07:42] LABS: CREATINE KINASE MB 1.8 ng/mL (0-5.0)
--- NOTE | 2020-05-27 08:03 | Emergency Department Note ---
History of Present Illnes History of Present Illness Chief Complaint: Abdominal Complaints History of Present Illness This is a 65 year old female 65 Y/O F PRESENTS TO ED C/O ABDOMINAL PAIN & SOB, AND MID BACK PAIN AND WHILE IN WAITING ROOM HAD SHARP CHEST PAIN. 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 Any updates have been documented here. Past Medical History Recent Fever: No Clinical Suspicion of Infectio: No New/Unexplained Change in Ment: No Past Medical History: Hypertension, CHF, TIA, Hypothyroidism, Seizure Disorder, Anxiety, Depression, Hyperlipedemia Other Medical History: CARDIAC ARREST LEFT SHOULDER FX Past Surgical History: Appendectomy, Hysterectomy, Pacer/AICD Other Surgery: X 2 RIGHT HIP REPLACEMENT Social History Smoking Cessation: Never Smoker Counseling Performed: No Alcohol Use: None Any Illegal Drug Use: No TB Exposure/Symptoms: No Physically hurt or threatened: No Family History Family history of heart diseas: No Other Last Tetanus: UTD Review of Systems Review of Systems Constitutional: Reports no symptoms EENTM: Reports no symptoms Cardiovascular: Reports no symptoms Respiratory: Reports as per HPI Gastrointestinal: Reports as per HPI Genitourinary: Reports no symptoms Musculoskeletal: Reports no symptoms Integumentary: Reports no symptoms Neurological: Reports no symptoms Psychological: Reports no symptoms Endocrine: Reports no symptoms Hematological/Lymphatic: Reports no symptoms Physical Exam Related Data Allergies: Coded Allergies: Penicillins (Verified Allergy, Unknown, 04/11/19) Xdlgqwt-Nmr-Lnl Reductase Inhibitor (Verified Allergy, Unknown, 04/11/19) Triage Vital Signs Vital Signs Date Time Temp Pulse Resp B/P (MAP) Pulse Ox O2 Delivery O2 Flow Rate FiO2 05/27/20 06:53 99.1 79 24 130/90 97 Room Air Physical Exam CONSTITUTIONAL HENT EYES NECK PULMONARY CARDIOVASCULAR GASTROINTESTINAL GENITOURINARY SKIN MUSCULOSKELETAL NEUROLOGICAL PSYCHOLOGICAL Results Laboratory Result Diagram: 05/27/20 0650 05/27/20 0650 Laboratory Laboratory Tests Test 05/27/20 06:55 05/27/20 06:50 Urine Color Yellow (YELLOW) Urine Clarity Clear (CLEAR) Urine pH 5 (5 - 7) Urine Specific [place] >=1.030 (1.010-1.025) Urine Protein 1+ (NEGATIVE) Urine Glucose (UA) Negative (NEGATIVE) Urine Ketones Negative (NEGATIVE) Urine Blood Negative (NEGATIVE) Urine Nitrite Negative (NEGATIVE) Urine Bilirubin Small (NEGATIVE) Urine Urobilinogen 0.2 mg/dL (0.2 - 1) Urine Leukocyte Esterase Negative (NEGATIVE) Urine RBC 0-5 /HPF (0-5) Urine WBC 0-5 /HPF (0-5) Urine Epithelial Cells Many /LPF (NONE) Urine Bacteria Moderate /HPF (NONE) Urine Mucus Moderate (RARE) White Blood Count 8.83 x10e3/uL (4.8-10.8) Red Blood Count 3.65 x10e6/uL (3.6-5.1) Hemoglobin 12.1 g/dL (12.0-16.0) Hematocrit 37.0 % (34.2-44.1) Mean Corpuscular Volume 101.4 fL (81-99) Mean Corpuscular Hemoglobin 33.2 pg (28-32) Mean Corpuscular Hemoglobin Concent 32.7 g/dL (31-35) Red Cell Distribution Width 14.6 % (11.7-14.4) Platelet Count 260 x10e3/uL (140-360) Neutrophils (%) (Auto) 72.7 % (38.7-80.0) Lymphocytes (%) (Auto) 17.6 % (18.0-39.1) Monocytes (%) (Auto) 6.8 % (4.4-11.3) Eosinophils (%) (Auto) 2.0 % (0.0-6.0) Basophils (%) (Auto) 0.6 % (0.0-1.0) Neutrophils # (Auto) 6.4 (2.1-6.9) Lymphocytes # (Auto) 1.6 (1.0-3.2) Monocytes # (Auto) 0.6 (0.2-0.8) Eosinophils # (Auto) 0.2 (0.0-0.4) Basophils # (Auto) 0.1 (0.0-0.1) Absolute Immature Granulocyte (auto 0.03 x10e3/uL (0-0.1) Prothrombin Time 12.9 seconds (11.9-14.5) Prothromb Time International Ratio 0.93 Activated Partial Thromboplast Time 30.8 seconds (23.8-35.5) Sodium Level 140 mmol/L (136-145) Potassium Level 4.6 mmol/L (3.5-5.1) Chloride Level 108 mmol/L (98-107) Carbon Dioxide Level 22 mmol/L (22-29) Anion Gap 14.6 mmol/L (8-16) Blood Urea Nitrogen 16 mg/dL (7-26) Creatinine 0.93 mg/dL (0.57-1.11) Estimat Glomerular Filtration Rate 60 ML/MIN (60-) BUN/Creatinine Ratio 17 (6-25) Glucose Level 123 mg/dL (74-118) Calcium Level 8.9 mg/dL (8.4-10.2) Total Bilirubin 1.3 mg/dL (0.2-1.2) Aspartate Amino Transf (AST/SGOT) 99 IU/L (5-34) Alanine Aminotransferase (ALT/SGPT) 89 IU/L (0-55) Alkaline Phosphatase 111 IU/L (40-150) Creatine Kinase 43 IU/L (29-168) Creatine Kinase MB 1.80 ng/mL (0-5.0) Troponin I 0.035 ng/mL (0-0.300) B-Type Natriuretic Peptide 2826.4 pg/mL (0-100) Total Protein 6.7 g/dL (6.5-8.1) Albumin 4.2 g/dL (3.5-5.0) Globulin 2.5 g/dL (2.3-3.5) Albumin/Globulin Ratio 1.7 (0.8-2.0) Lipase 9 U/L (8-78) Procedures 12 Lead ECG Interpretation ECG Interpretation : ECG: ECG 1 Career Technical Education Teacher: Interpreted by ED physician Date: May 27, 2020 Time: 06:55 Rhythm: sinus rhythm Rate: normal (81) QRS axis: normal ST segments normal: Yes T wave inversion: I, aVL, V6 T waves flattening: V1, V2, V4, V5 Clinical Impression: abnormal ECG Assessment & Plan Medical Decision Making MDM ABD PAIN AND SOB/REED/ORTHOPNEA AND ATYPICAL CP - CBC, CHEM'S, ECG, CARDIACS, BNP, UA, CT ABD/PELVIS - EVAL FOR CHF EXAC, DIVERTICULITIS, RENAL INSUFF, UTI, STEMI/NSTEMI Reassessment Reassessment ADMIT FOR CHF EXAC, SPOKE WITH DR PERDUE ([facility]), CONSULT TO DR IGNACIO Assessment & Plan Final Impression: (1) Abdominal pain (2) CHF (congestive heart failure) (3) Dyspnea due to congestive heart failure Depart Disposition: ADMITTED Last Vital Signs Date Time Temp Pulse Resp B/P (MAP) Pulse Ox O2 Delivery O2 Flow Rate FiO2 05/27/20 06:53 99.1 79 24 130/90 97 Room Air Home Meds Reported Medications Sacubitril/Valsartan (Entresto 24 mg-26 mg Tablet) 1 Each Tablet, 1 TAB PO BID 05/27/20 Furosemide (LASIX) 40 Mg Tablet, 40 MG PO Q6H, #60 TAB 09/06/18 Metoprolol Succinate (METOPROLOL SUCCINATE) 25 Mg Tab.er.24h, 25 MG PO DAILY, #30 09/06/18 Primidone (PRIMIDONE) 50 Mg Tablet, 25 MG PO HS 09/02/18 Amiodarone Hcl (AMIODARONE HCL) 200 Mg Tablet, 1 TAB PO DAILY 09/02/18 Levothyroxine Sodium (LEVOTHYROXINE SODIUM) 50 Mcg Tablet, 50 MCG PO DAILY, #30 TAB 09/02/18 Tramadol Hcl (ULTRAM) 50 Mg Tablet, 50 MG PO Q6H PRN for PAIN, TAB 09/02/18 Venlafaxine Hcl (VENLAFAXINE HCL) 75 Mg Tab, 75 MG PO BID, #30 TAB 09/02/18 Discontinued Reported Medications Olmesartan Medoxomil (BENICAR) 20 Mg Tablet, 20 MG PO DAILY, #30 TAB 11 Refills 04/13/19 Lisinopril (LISINOPRIL) 2.5 Mg Tablet, 5 MG PO DAILY, #30 TAB 09/06/18 [Eliquis ] No Conflict Check, 5 MG PO BID, #60 09/06/18 Spironolactone (SPIRONOLACTONE) 25 Mg Tablet, 25 MG PO DAILY, #60 TAB 09/02/18 Alendronate Sodium (ALENDRONATE SODIUM) 70 Mg Tablet, 1 TAB PO QD17 for TAKES EVERY TUESDAY MORNING 09/02/18 Medications in the ED Morphine Sulfate 2 mg ONCE STAT IV Last administered on 05/27/20at 07:50; Admin Dose 2 MG; Start 05/27/20 at 06:54; Stop 05/27/20 at 06:58; Status DC Ondansetron HCl 4 mg ONCE STAT IV Last administered on 05/27/20at 07:50; Admin Dose 4 MG; Start 05/27/20 at 06:54; Stop 05/27/20 at 06:58; Status DC LANE MACKEY MD May 27, 2020 08:03
[2020-05-27] MEDS ORDERED: SODIUM CHLORIDE 0.9% 50ML 50 ML ONE (08:20)
[2020-05-27] MEDS ORDERED: IOPAMIDOL 370 MG/ML 200 ML INFUS..BTL INJ ONE (08:21)
--- NOTE | 2020-05-27 08:53 | Diagnostic Imaging Report ---
TECHNIQUE: Frontal view of the chest. INDICATION: ^ABD PAIN, SOB H/O CHF COMPARISON: 04/13/2018 DISCUSSION: Limited evaluation due to portable technique. Lines and hardware: Stable left chest wall dual-lead pacemaker. Overlying EKG leads are noted. Heart and mediastinum: Cardiomedial sinus silhouette is enlarged. There is increased central vascular congestion compared to prior exam. Lungs and pleura: There are diffuse prominent interstitial markings, increased since the prior exam. Negative for focal lobar consolidation, large effusion or pneumothorax. Soft tissues and bones: No acute abnormality. IMPRESSION: Stable cardio megaly with interval worsening of central vascular congestion and prominent interstitial markings are concerning for fluid overload/mild pulmonary edema. Negative for large effusions. Signed by: Jairo Mark MD on 05/27/2020 8:49 AM
--- NOTE | 2020-05-27 09:09 | Diagnostic Imaging Report ---
CT of the abdomen and pelvis with contrast TECHNIQUE: CT of the abdomen and pelvis WITH intravenous contrast and WITHOUT oral contrast. Dose modulation, iterative reconstruction, and/or weight-based adjustment of the mA/kV was utilized to reduce the radiation dose to as low as reasonably achievable. IV CONTRAST: 100 mL of Isovue-370 ORAL CONTRAST: None RADIATION DOSE: Total DLP: 722 mGy*cm COMPLICATIONS: None INDICATION: ^LLQ ABD PAIN ^20200527 ^0830. COMPARISON: None. FINDINGS: LOWER THORAX: Interstitial airspace opacities are noted with interlobular septal thickening. Trace right pleural effusion is noted. Heart is enlarged. HEPATOBILIARY: No focal hepatic lesions. Gallbladder is unremarkable. No biliary ductal dilatation. SPLEEN: No splenomegaly. PANCREAS: No focal masses or ductal dilatation. ADRENALS: No adrenal nodules. KIDNEYS/URETERS: No hydronephrosis, stones, or masses. PELVIC ORGANS/BLADDER: Limited evaluation due to streak artifact from right hip prosthesis. Bladder is mildly distended and unremarkable. Uterus and ovaries are surgically absent. Negative for pelvic free fluid. PERITONEUM/RETROPERITONEUM: No free air or fluid. Small [place] fat-containing umbilical hernia is noted. LYMPH NODES: No lymphadenopathy. VESSELS: Negative for abdominal aortic aneurysm. Minimal scattered atherosclerotic calcifications of the abdominal aorta and its major branches are noted. GI TRACT: Limited due to lack of oral contrast. Stomach and portions of the colon are decompressed limiting evaluation. Negative for bowel obstruction. Numerous diverticula are noted of the sigmoid colon without surrounding inflammatory changes. Normal appendix is noted. BONES AND SOFT TISSUES: Negative for acute osseous abnormality. Chronic pars defects are noted at L4 with grade 2 anterolisthesis of L4 on L5. There is focal advanced degenerative changes L4-5 with vacuum phenomena and endplate sclerosis. Hemangiomas noted within T9. Right hip prosthesis is in proper alignment at the level of the right hip joint. SI joints are patent. No suspicious lytic or blastic lesion is identified. IMPRESSION: 1. Negative for acute abdominopelvic process. 2. Uncomplicated colonic diverticulosis is noted. Negative for obstruction. 3. Interstitial airspace opacities, interlobular septal thickening and trace right pleural effusion are noted at the lung bases consistent with acute on chronic congestive heart failure. 4. Chronic bilateral pars defects at L4 with grade 2 anterolisthesis of L4 on L5 with associated advanced focal degenerative changes at this level. Signed by: Jairo Mark MD on 05/27/2020 9:06 AM
[2020-05-27] MEDS ORDERED: ENTRESTO 24 MG1 EACH PO (09:38)
[2020-05-27] MEDS ORDERED: FUROSEMIDE INJ 10 MG/ML 4 ML VIAL IV ONE (09:45)
[2020-05-27] MEDS ORDERED: ONDANSETRON HCL INJ 2MG/ML 2ML 2 MG/ML VIAL IV PRN (10:00)
[2020-05-27] MEDS ORDERED: MORPHINE SULFATE 2 MG/ML SYR 1ML IV PRN (10:00)
--- OUTSIDE RECORDS SUMMARY | 2020-05-27 10:02 | XMS REPORT | Continuity of Care Document ---
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 Name Role Phone [employer]intu [employer] Information Smart [employer]out Unavailable Un available Problems Problem Status Onset Date Classification Date Reported Comments Source Automatic implantable cardiac defibrillator in situ Active Problem 03/03/2016 Ramy Fuller MD, NINFA Benign hypertensive heart disease with heart failure Active Problem 03/03/2016 Ramy Fuller MD, PA Chronic systolic heart failure Active Problem Ramy Fuller MD, PA Hypertensive heart disease with heart failure Active Problem 03/03/2016 aRmy Fuller MD, P A Personal history of [...] Status Source Ramy Fuller MD, PA Follow-Up [id number] 02/26/20 16 02/26/2016 Ramy Fuller MD, PA Nawar Tayyan, MD, PA Follow-Up [id number] 02/26/20 16 02/26/2016 Ramy Fuller MD, PA Ramy Fuller MD, PA echo/carotid/arterial dopplers [id number] 03/02/2016 03/02/2016 Ramy Fuller MD, PA Procedures [...] February 26, 2016 02/26/2016 Ramy Fuller MD, P A Family History No Data Provided for This Section Advance Directives No Data Provided for This Section Functional Status No Data Provided for This Section
--- OUTSIDE RECORDS SUMMARY | 2020-05-27 10:02 | XMS REPORT | Continuity of Care Document ---
Author Author [facility] t Organization [facility] Address [address] [place] [address] [address] [place] [address] Phone Unavailable Care Team Providers Care Washtub Worker Name Role Phone FABIANA HIGHTOWER MD PCP Sandra MACKEY Attphys Unavailable AFSHIN IGNACIO Attphys Unavailable FABIANA HIGHTOWER Attphys Unavailable LETICIAMulu FAJARDO Attphys Unavailable FABIANA HIGHTOWER Admphys Unavailable Payers Payer Name Policy Type Policy Number Effective Date Expiration Date S jace Aar Medicare Complete [id number] [facility] Medicare A & B [id number] 2016 00:00:00 [facility] [id number] 2015 00:00:[address] [facility] Problems Condition Name Condition Details Condition Category Status Onset Date Resolution Date Last Treatment Date Treating Clinician Comments Source Fracture of neck of right femur Fracture of femoral neck, right Pro blem Active 2015-10-15 00:00:[address] [facility] Dyspnea due to congestive heart failure Dyspnea due to conge stive heart failure Problem Active 2014-06-29 00:00:[address] [facility] Congestive heart failure CHF (congestive heart failure) Problem Active 2014-06-29 00:00:[address] [facility] Hypoxia Hypoxia Problem Active 2014-06-29 00:00:[address] [facility] Hypertensive emergency Hypertensive emergency Problem Active [facility] Pre-syncope Near syncope Problem Active [facility] Automatic implantable cardiac defibrillator in situ Automatic implantable cardiac defibrillator in situ Active Problem 03/03/2016 Ramy Fuller MD, PA Problem Active 2016-03-03 04:12:33 [facility] Benign hypertensive heart disease with heart failure Benign hypertensive heart disease with heart failure Active Problem 03/03/2016 Ramy Fuller MD, PA Problem Active 2016-03-03 04:12:33 [facility] Chronic systolic heart failure Chronic systolic heart failure Active Problem 03/03/2016 Ramy Fuller MD, PA Problem Active 2016-03-03 04:12:33 [facility] Hypertensive heart disease with heart failure Hypertensive heart disease with heart failure Active Problem 03/03/2016 Ramy Fuller MD, PA Problem Active 2016-03-03 04:12:33 [facility] 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 Active Problem 03/03/2016 Ramy Fuller MD, PA Problem Active 2016-03-03 04:12:33 [facility] CHF, chronic systolic CHF, chronic systolic Active Problem 03/03/2016 Ramy Fuller MD, PA Problem Active 2016-03-03 04 :12:33 [facility] Abnormal electrocardiogram [ECG] [EKG] Abnormal electrocardiogram [ECG] [EKG] Active Problem 03/03/2016 Ramy Fuller MD, PA Problem Active 2016-03-03 04:12:33 [facility] Other obesity due to excess calories Other obesity due to excess calories Active Problem 03/03/2016 Ramy Fuller MD, PA Problem Active 2016-03-03 04:12:33 [facility] Presence of automatic (implantable) cardiac defibrilla tor Presence of automatic (implantable) cardiac defibrillator Active Problem 03/03/2016 Ramy Fuller MD, PA Problem Active 2016-03-03 04:12:33 [facility] Mixed hyperlipidemia Mixe d hyperlipidemia Active Problem 03/03/2016 Ramy Fuller MD, PA Problem Active 2016-03-03 04 :12:33 [facility] 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 Active Problem 03/03/2016 Ramy Fuller MD, PA Problem Active 2016-03-03 04:12:33 [facility] Obesity, unspecified Obes ity, unspecified Active Problem 03/03/2016 Ramy Fuller MD, PA Problem Active 2016-03-03 04 :12:33 [facility] Mixed hyperlipidemia Mixe d hyperlipidemia Active Problem 03/03/2016 Ramy Fuller MD, PA Problem Active 2016-03-03 04 :12:33 [facility] Abnormal ECG Abno rmal ECG Active Problem 03/03/2016 Ramy Fuller MD, PA Problem Active 2016-03-03 04:12:33 [facility] Benign hypertensive heart disease without heart failur e Benign hypertensive heart disease without heart failure Active Problem 03/03/2016 Ramy Fuller MD, PA Problem Active 2016-03-03 04:12:33 [facility] Allergies, Adverse Reactions, Alerts Allergy Name Allergy Type Status Severity Reaction(s) Onset Date Inacti ve Date Treating Clinician Comments Source Penicillin Allergy to Substance Active 2019-04-11 00:00:[address] [facility] Ertesqt-Nhh-Cil Reductase Inhibitor Allergy to Substance Active 2019-04-11 00:00:[address] [facility] penicillin penicillin Active Info Not Available 2016-02-26 00:00:0 0 [facility] Social History Social Habit Start Date Stop Date Quantity Comments Source TobaccoUse: 2016-02-26 00:00:00 2016-02-26 00:00:00 [facility] Medications Ordered Medication Name Filled Medication Name Start Date Stop Da te Current Medication? Ordering Clinician Indication Dosage Frequency Signature (SIG) Comments Components Source Sulfamethoxazole/Trimethoprim (Bactrim Ds Tablet) 1 Ea ch Tablet, 1 Tab Oral Sulfamethoxazole/Trimethoprim (Bactrim Ds Tablet) 1 Each Tablet, 1 Tab Oral 2018-07-01 00:00:00 2018-09-02 00:00:00 No David Louie Md 1 Twice A Day [facility] Levothyroxine Sodium 2016-02-27 04:14:19 Yes Ramy Fuller 1 tablet [facility] Tramadol HCl 2016-02-27 04:14:19 Yes Ramy Fuller 1 tablet as needed [facility] Famotidine 2016-02-27 04:14:19 Yes Ramy Fuller 1 tablet [facility] Spironolactone 2016-02-27 04:14:19 Yes Ramy Fuller 1 tablet [facility] Pravastatin Sodium 2016-02-27 04:14:19 Yes Ramy Fuller 1 tablet [facility] Carvedilol 2016-02-27 04:14:19 Yes Ramy Fuller 1 tablet [facility] Lisinopril 2016-02-27 04:14:19 Yes Ramy Sabaana 1 tablet [facility] Aspirin 2016-02-27 04:14:19 Yes Ramy Sabaana 1 tablet [facility] Furosemide 2016-02-27 04:14:19 Yes Ramy Sabaana 1 tablet [facility] Paroxetine HCl 2016-02-27 04:14:19 Yes Ramy Savagecorey Abiola an 1 tablet in the morning [facility] Aspirin/Calcium Carbonate/Mag (Aspirin B uffered 325 Mg Tab) 325 Mg Tablet, 325 Mg Oral Aspirin/Calcium Carbonate/Mag (Aspirin B uffered 325 Mg Tab) 325 Mg Tablet, 325 Mg Oral 2015-10-20 00:00:00 2018-09-02 00:00:00 No Fabiana thomas Md [address] A [address] [facility] Carvedilol (Coreg) 3.125 Mg Tab, 3.25 Mg Oral Carvedil ol (Coreg) 3.125 Mg Tab, 3.25 Mg Oral 2015-10-20 00:00:00 2018-09-02 00:00:00 Luna Hightower Md 3.25 Twice A Day [facility] Lisinopril 2.5 Mg Tablet, 5 Mg Oral Lisinopril 2.5 Mg Tablet , 5 Mg Oral 2015-10-20 00:00:00 2018-09-02 00:00:00 Luna Hightower Md [address] [facility] Amiodarone HCl 2015-02-13 00:00:00 Yes Ramy Fuller 1 tablet [facility] Alendronate Sodium 70 Mg Tablet Alendronate Sodium 70 Mg Tablet Yes 1 Daily At 1700 for Takes Every Tuesday Morning [facility] Amiodarone Hcl 200 Mg Tablet Amiodarone Hcl 200 Mg Tablet Y es [address] [facility] Eliquis Eliquis Yes 5 Twice A Day I [facility] Furosemide (Lasix) 40 Mg Tablet Furosemide (Lasix) 40 Mg Tablet Yes [address] [facility] Levothyroxine Sodium 50 Mcg Tablet Levothyroxine Sodium 50 Mcg Tablet Yes [address] [facility] Lisinopril 2.5 Mg Tablet Lisinopril 2.5 Mg Tablet Yes [address] [facility] Metoprolol Succinate 25 Mg Tab.er.24h Metoprolol Succinate 25 Mg Ta b.er.24h Yes [address] [facility] Olmesartan Medoxomil (Benicar) 20 Mg Tablet Olmesartan Medoxomil (Benicar) 20 Mg Tablet Yes 20 Daily [facility] Primidone 50 Mg Tablet Primidone 50 Mg Tablet Yes [address] [facility] Spironolactone 25 Mg Tablet Spironolactone 25 Mg Tablet Yes 25 Daily [facility] Tramadol Hcl (Ultram) 50 Mg Tablet Tramadol Hcl (Ultram) 50 Mg Tablet Yes 50 Every 6 Hours as needed for Pain [facility] Venlafaxine Hcl 75 Mg Tab Venlafaxine Hcl 75 Mg Tab Yes [address] [facility] Acetaminophen With Codeine (Tylenol With Codeine #3 Tablet) 1 Each Tablet, 300 Mg Oral Acetaminophen With Codeine (Tylenol With Codeine #3 Tablet) 1 Each Tablet, 300 Mg Oral 2018-09-06 00:00:00 No [address] eeded [facility] Carvedilol 12.5 Mg Tablet, 25 Mg Oral Carvedilol 12.5 Mg Tablet, 25 Mg Oral 2018-09-06 00:00:00 No [address] [facility] Diazepam 5 Mg Tablet, 5 Mg Oral Diazepam 5 Mg Tablet, 5 Mg Oral 2018-09-06 00:00:00 No 5 As Needed as needed for Anxiety [facility] Multivitamin (Multi-Vitamin Daily) 1 Each Tablet, 1 Ta b Oral Multivitamin (Multi-Vitamin Daily) 1 Each Tablet, 1 Tab Oral 2018-09-06 00:00:[address] No [address] [facility] Vit D3 & K/Berberine Hcl/Hops (Ostera Tablet) 1 Each T ablet, 50 Mcg Oral Vit D3 & K/Berberine Hcl/Hops (Ostera Tablet) 1 Each Tablet, 50 Mcg Oral 2018-09-06 00:00:00 No [address] [facility] Atorvastatin Calcium 40 Mg Tablet, 40 Mg Oral Atorvast atin Calcium 40 Mg Tablet, 40 Mg Oral 2018-09-02 00:00:00 No [address] [facility] Furosemide 20 Mg Tablet, 20 Mg Oral Furosemide 20 Mg Tablet, 20 Mg Oral 2018-09-02 00:00:00 No [address] [facility] [place]-3 Fatty Acids (Fish Oil) 300 Mg Capsule, 1200 Mg Oral [place]-3 Fatty Acids (Fish Oil) 300 Mg Capsule, 1200 Mg Oral 2018-09-02 00:00:[address] [facility] Omeprazole 20 Mg Capsule., 20 Mg Oral Omeprazole 20 Mg Cap deanna., 20 Mg Oral 2018-09-02 00:00:00 No [address] [facility] Paroxetine Hcl 20 Mg Tablet, 20 Mg Oral Paroxetine Hcl 20 Mg Tablet, 20 Mg Oral 2018-09-02 00:00:00 No [address] [facility] Aspirin 325 Mg Tablet, 325 Mg Oral Aspirin 325 Mg Tablet, 325 Mg Oral 2015-10-20 00:00:00 No [address] [facility] Diclofenac Sodium 75 Mg Tablet., 75 Mg Oral Diclofen ac Sodium 75 Mg Tablet.dr, 75 Mg Oral 2015-10-20 00:00:00 No 75 Tw[address] A Day [facility] Lisinopril (Prinavil / Zestril) 20 Mg Tablet, 20 Mg Or al Lisinopril (Prinavil / Zestril) 20 Mg Tablet, 20 Mg Oral 2015-10-20 00:00:00 No [address] [facility] Aspirin (Asa) 81 Mg Tab, 81 Mg Oral Aspirin (Asa) 81 Mg Tab, 81 Mg Oral 2014-06-29 00:00:00 No [address] [facility] Lisinopril 10 Mg Tablet, 10 Mg Oral Lisinopril 10 Mg Tablet, 10 Mg Oral 2014-06-29 00:00:00 No [address] [facility] Vital Signs Vital Name Observation Time Observation Value Comments Source Weight 2016-02-26 18:30:00 [facility] 2016-02-26 18:30:00 [facility] Heart Rate 2016-02-26 18:30:00 [facility] Diastolic (mm Hg) 2016-02-26 18:30:00 [facility] Systolic (mm Hg) 2016-02-26 18:30:00 Pineda rial Joel Procedures Procedure Date / Time Performed Performing Clinician [facility] e X-ray of chest, two views 2019-04-13 00:00:00 [facility] X-ray of chest, two views 2018-09-05 00:00:00 [facility] Computed tomography of chest with contrast 2018-09-03 00:00:00 Reina THOMAS [facility] Computed tomography of brain without radiopaque contrast 201 04-22-06 00:00:[address] [facility] Computed tomography of cervical spine without contrast 07-18 00:00:[address] [facility] Encounters Start Date/Time End Date/Time En[facility] Source 2019-04-11 16:36:00 2019-04-13 14:49:00 Discharged Inpatient 1 [facility] [id number] [facility] 2018-08-17 11:31:00 2018-09-11 23:59:00 Discharged Recurring [facility] [id number] [facility] 2018-09-01 17:41:00 2018-09-06 12:10:00 Discharged Inpatient 1 [facility] [id number] [facility] 2018-07-18 17:03:00 2018-07-18 20:12:00 Departed Emergency Room 1 CHRISTINA KELLY [facility] [id number] [facility] 2018-07-01 11:46:00 2018-07-01 12:28:00 Departed Emergency Room [facility] [id number] [facility] 2016-03-02 13:00:00 2016-03-02 13:00:00 Outpatient Ramy Fuller [place], [place] [address] [facility] 2016-02-26 13:30:00 2016-02-26 13:30:00 Outpatient Ramy Fuller MD, [place] [address] [facility] Results Test Description Test Time Test Comments Results Result Comments Source CT ABDOMEN/PELVIS W 2020-05-27 08:59:00 [facility] [address] [address] Patient Name: PARAMJIT TENA I MR #: [id number] : 1955 Age/Sex: 65/F Req #: [id number] Adm Physician: Ordered by: LANE MACKEY MD Report #: [id number] Location: ER Room/Bed: Procedure: [id number] CT/CT ABDOMEN/PELVIS W Exam Date: 05/27/20 Exam Time: 829 REPORT STATUS: Signed CT of the abdomen and pelvis with contrast TECHNIQUE: CT of the abdomen and pelvis WITH intravenous contrast and WITHOUT oral contrast. Dose modulation, iterative reconstruction, and/or weight-based adjustment of the mA/kV was utilized to reduce the radiat ion dose to as low as reasonably achievable. IV CONTRAST: 100 mL of Isovue-370 ORAL CONTRAST: None RADIATION DOSE: Total DLP: 722 mGy*cm COMPLICATIONS: None INDICATION: LLQ ABD PAIN 20200527. COMPARISON: None. FINDINGS: LOWER THORAX: Interstitial airspace opacities are noted with interlobular septal thickening. Trace right pleural effusion is noted. Heart is enlarged. HEPATOBILIARY: No focal hepatic lesions. Gallbladder is unremarkable. No biliary ductal dilatation. SPLEEN: No splenomegaly. PANCREAS: No focal masses or ductal dilatation. ADRENALS: No adrenal nodules. KIDNEYS/URETERS: No hydronephrosis, stones, or masses. PELVIC ORGANS/BLADDER: Limited evaluation due to streak artifact from right hip prosthesis. Bladder is mildly distended and unremarkable. Uterus and ovaries are surgically absent. Negative for pelvic free fluid. PERITONEUM/RETROPERITONEUM: No free air or fluid. Small [place] fat-containing umbilical hernia is noted. LYMPH NODES: No lymphadenopathy. VESSELS: Negative for abdominal aortic aneurysm. Minimal scattered atherosclerotic calcifications of the abdominal aorta and its major branches are noted. GI TRACT: Limited due to lack of oral contrast. Stomach and portions of the colon are decompressed limiting evaluation. Negative for bowel obstruction. Numerous diverticula are noted of the sigmoid colon without surrounding inflammatory changes. Normal appendix is noted. BONES AND SOFT TISSUES: Negative for acute osseous abnormality. Chronic pars defects are noted at L4 with grade 2 anterolisthesis of L4 on L5. There is focal advanced degenerative changes L4-5 with vacuum phenomena and endplate sclerosis. Hemangiomas noted within T9. Right hip prosthesis is in proper alignment at the level of the right hip joint. SI joints are patent. No suspicious lytic or blastic lesion is identified. IMPRESSION: 1. Negative for acute abdominopelvic process. 2. Uncomplicated colonic diverticulosis is noted. Negative for obstruction. 3. Interstitial airspace opacities, interlobular septal thickening and trace right pleural effusion are noted at the lung bases consistent with acute on chronic congestive heart failure. 4. Chronic bilateral pars defects at L4 with grade 2 anterolisthesis of L4 on L5 with associated advanced focal degenerative changes at this level. Signed by: Shannan Mark MD on 05/27/2020 9:06 AM Dictated By: SHANNAN MARK MD 5 Transcribed By: BILL on 05/27/20905 COPY TO: LANE MACKEY MD CHEST SINGLE (PORTABLE) 2020-05-27 08:48:00 [place] [address] Patient Name: PARAMJIT TENA I MR #: [id number] : 1955 Age/Sex: 65/F Req #: [id number] Adm Physician: Ordered by: LANE MACKEY MD Report #: [id number] Location: ER Room/Bed: Procedure: [id number] DX/CHEST SINGLE (PORTABLE) Exam Date: 05/27/20 Exam Time: 08 REPORT STATUS: Signed TECHNIQUE: Frontal view of the chest. INDICATION: ABD PAIN, SOB H/O CHF COMPARISON: 04/13/2018 DISCUSSION: Limited evaluation due to portable technique. Lines and hardware: Stable left chest wall dual-lead pacemaker. Overlying EKG leads are noted. Heart and mediastinum: Cardiomedial sinus silhouette is enlarged. There is increased central vascular congestion compared to prior exam. Lungs and pleura: There are diffuse prominent interstitial markings, increased since the prior exam. Negative for focal lobar consolidation, large effusion or pneumothorax. Soft tissues and bones: No acute abnormality. IMPRESSION: Stable cardio megaly with interval worsening of central vascular congestion and prominent interstitial markings are concerning for fluid overload/mild pulmonary edema. Negative for large effusions. Signed by: Shannan Mark MD on 05/27/2020 8:49 AM Dictated By: SHANNAN MRAK MD Transcribed By: BILL on 05/27/20848 COPY TO: LANE MACKEY MD [facility]CR[facility] X-RAY 2019-05-25 17:27:00 [place] [address] Patient Name: PARAMJIT TENA I MR #: [id number] : 1955 Age/Sex: 64/F Req #: [id number] Adm Physician: Ordered by: AFSHIN IGNACIO MD Report #: [id number] Location: RAD Room/Bed: Procedure: [id number] DX/SACRUM X-RAY Exam Date: 05/25/19 Exam Time: [...] SP LUMBAR, COMPLETE MIN 4VW 2019-05-25 17:17:00 [place] [address] Patient Name: PARAMJIT TENA I MR #: [id number] : 1955 Age/Sex: 64/F Req #: [id number] [facility] Physician: Ordered by: AFSHIN IGNACIO MD Report #: [id number] Location: [facility] Room/Bed: Procedure: [id number] DX/SP LUMBAR, COMPLETE MIN 4VW Exam Date: 05/25/19 [...] IGNACIO MD CHEST 2 VIEWS 2019-04-13 12:03:00 [place] [address] Patient Name: PARAMJIT TENA I MR #: [id number] : 1955 Age/Sex: 64/F Req #: [id number] [facility] Physician: FABIANA HIGHTOWER MD Ordered by: FABIANA HIGHTOWER MD Report #: [id number] Location: [facility] Room/Bed: [facility] Procedure: [id number] DX/CHEST 2 VIEWS Exam Date: 04/13/19 Exam [...] Test Item Troponin I (test code = FTH4965) 0.057 0-0.[address] Natriuretic Odmmxst9309-23-12 07:17:00* Test Item Value Reference Range Interpretation Comments B-Type Natriuretic Peptide (test code = 77028-9) 883.4 0-100 [facility] Lxpou7025-05-29 07:11:00* Test Item Value Reference Range Interpretation Comments Sodium Level (test code = 2951-2) 140 136-[address] [facility] [address]Potassium Efzcn7715-67-85 07:11:00* Test Item Value Reference Range Interpretation Comments Potassium Level (test code = 2823-3) 3.8 3.5-5.[address] HospitalChloride Jammr8965-73-73 07:11:00* Test Item Value Reference Range Interpretation Comments Chloride Level (test code = 2075-0) 96 98-[address] HospitalCarbon Dioxide Kdrwt1550-19-12 07:11:00* Test Item Value Reference Range Interpretation Comments Carbon Dioxide Level (test code = 2028-9) 30 22-[address] [facility] HospitalAnion Nsn8935-01-30 07:11:00* Test Item Value Reference Range Interpretation Comments Anion Gap (test code = 02795-2) 17.8 8-[address] [facility] HospitalBlood Urea Yzoqnfwp4927-20-83 07:11:00* Test Item Value Reference Range Interpretation Comments Blood Urea Nitrogen (test code = 3094-0) 21 7- [facility] HospitalCreatinine2019-08-02 07:11:00* Test Item Value Reference Range Interpretation Comments Creatinine (test code = 2160-0) 0.99 0.57-1.[address] [facility] HospitalBUN/Creatinine Xospo5067-34-55 07:11:00* Test Item Value Reference Range Interpretation Comments BUN/Creatinine Ratio (test code = 3097-3) 21 6- [facility] HospitalEstimat Glomerular Filtration Rate 2019-04-13 07:11:00* Test Item Value Reference Range Interpretation Comments Estimat Glomerular Filtration Rate (test code = 146836280) 56 >60 L Ranges were taken from the National Kidney Disease Education Program and the [facility] Kidney Foundation literature.Reference ranges:60 or greater: Gbkfcg42-56 ( for 3 consecutive months): Chronic kidney disease 15 or less: Kidney failureCH[facility] HospitalGlucose Giirm6621-65-28 07:11:00* Test Item Value Reference Range Interpretation Comments Glucose Level (test code = PNM0576) 115 74-[address] HospitalCalcium Ngyuz3936-91-38 07:11:00* Test Item Value Reference Range Interpretation Comments Calcium Level (test code = 45702-7) 9.6 8.4-10.[address] [facility] HospitalTotal Qyhqvqsxy9458-37-10 07:11:00* Test Item Value Reference Range Interpretation Comments Total Bilirubin (test code = 1975-2) 1.5 0.2-1.[address] HospitalAspartate Amino Transf (AST/SGOT) 2019-04-13 07:11:00* Test Item Value Reference Range Interpretation Comments Aspartate Amino Transf (AST/SGOT) (test code = Aspartate Amino Transf (AST/SGOT)) 23 5-[address] [facility] HospitalAlanine Aminotransferase (ALT/SGPT) 2019-04-13 07:11:00* Test Item Value Reference Range Interpretation Comments Alanine Aminotransferase (ALT/SGPT) (test code = 1742-6) 50 0-[address] [facility] [facility] HospitalTotal Dgdxpkp6415-06-62 07:11:00* Test Item Value Reference Range Interpretation Comments Total Protein (test code = 2885-2) 6.8 6.5-8.[address] HospitalAlbumin2019-08-02 07:11:00* Test Item Value Reference Range Interpretation Comments Albumin (test code = 1751-7) 3.7 3.5-5.[address] HospitalGlobulin2019-08-02 07:11:00* Test Item Value Reference Range Interpretation Comments Globulin (test code = 86667-0) 3.1 2.3-3.[address] [facility] HospitalAlbumin/Globulin Hnvyh8730-16-22 07:11:00 * Test Item Value Reference Range Interpretation Comments Albumin/Globulin Ratio (test code = 1759-0) 1.2 0.8-2.[address] HospitalAlkaline Jyogqqlzvvu5532-87-00 07:11:00* Test Item Value Reference Range Interpretation Comments Alkaline Phosphatase (test code = 6768-6) 91 40-[address] [facility] HospitalWhite Blood Fhzhb2273-20-80 06:56:00* Test Item Value Reference Range Interpretation Comments White Blood Count (test code = 6690-2) 8.09 4.8-10.[address] HospitalRed Blood Syylh4298-35-94 06:56:00* Test Item Value Reference Range Interpretation Comments Red Blood Count (test code = 789-8) 4.45 3.6-5.[address] HospitalHemoglobin2019-08-02 06:56:00* Test Item Value Reference Range Interpretation Comments Hemoglobin (test code = 28353-1) 14.6 12.0-16.[address] HospitalHematocrit2019-08-02 06:56:00* Test Item Value Reference Range Interpretation Comments Hematocrit (test code = 4544-3) 44.5 34.2-44.[address] [facility] HospitalMean Corpuscular Ewtnun5010-99-77 06:56:00* Test Item Value Reference Range Interpretation Comments Mean Corpuscular Volume (test code = 787-2) 100.0 81-[address] [facility] [facility] Xlvnxckjah0007-51-90 06:56:00* Test Item Value Reference Range Interpretation Comments Mean Corpuscular Hemoglobin (test code = 785-6) 32.8 28-[address] [facility]Mean Corpuscular Hemoglobin Concent 2019-04-13 06:56:00* Test Item Value Reference Range Interpretation Comments Mean Corpuscular Hemoglobin Concent (test code = 786-4) 32.8 31-[address] [facility] HospitalRed Cell Distribution Mlbfb9080-02-08 06:56:00* Test Item Value Reference Range Interpretation Comments Red Cell Distribution Width (test code = 48174-7) 14.0 11.7 -14.[address] [facility] HospitalPlatelet Epquh5257-66-71 06:56:00* Test Item Value Reference Range Interpretation Comments Platelet Count (test code = 777-3) 298 140-[address] [facility] HospitalNeutrophils (%) (Auto)2019-04-13 06:56:00 * Test Item Value Reference Range Interpretation Comments Neutrophils (%) (Auto) (test code = 13890-1) 60.7 38.7-80.[address] HospitalLymphocytes (%) (Auto)2019-04-13 06:56:00 * Test Item Value Reference Range Interpretation Comments Lymphocytes (%) (Auto) (test code = 736-9) 21.8 18.0-39.[address] [facility] HospitalMonocytes (%) (Auto)2019-04-13 06:56:00* Test Item Value Reference Range Interpretation Comments Monocytes (%) (Auto) (test code = 5905-5) 11.7 4.4-11.[address] [facility] HospitalEosinophils (%) (Auto)2019-04-13 06:56:00 * Test Item Value Reference Range Interpretation Comments Eosinophils (%) (Auto) (test code = 713-8) 4.9 0.0-6.[address] [facility] HospitalBasophils (%) (Auto)2019-04-13 06:56:00* Test Item Value Reference Range Interpretation Comments Basophils (%) (Auto) (test code = 706-2) 0.5 0.0-1.[address] [facility] HospitalIM GRANULOCYTES %2019-04-13 06:56:00* Test Item Value Reference Range Interpretation Comments IM GRANULOCYTES % (test code = IM GRANULOCYTES %) 0.4 0.0- 1.[address] [facility] HospitalNeutrophils # (Auto)2019-04-13 06:56:00* Test Item Value Reference Range Interpretation Comments Neutrophils # (Auto) (test code = 751-8) 4.9 2.1-6.[address] HospitalLymphocytes # (Auto)2019-04-13 06:56:00* Test Item Value Reference Range Interpretation Comments Lymphocytes # (Auto) (test code = 62624-8) 1.8 1.0-3.[address] [facility] HospitalMonocytes # (Auto)2019-04-13 06:56:00* Test Item Value Reference Range Interpretation Comments Monocytes # (Auto) (test code = 742-7) 1.0 0.2-0.[address] [facility] HospitalEosinophils # (Auto)2019-04-13 06:56:00* Test Item Value Reference Range Interpretation Comments Eosinophils # (Auto) (test code = 711-2) 0.4 0.0-0.[address] [facility] HospitalBasophils # (Auto)2019-04-13 06:56:00* Test Item Value Reference Range Interpretation Comments Basophils # (Auto) (test code = 704-7) 0.0 0.0-0.[address] [facility] HospitalAbsolute Immature Granulocyte (auto 2019-04-13 06:56:00* Test Item Value Reference Range Interpretation Comments Absolute Immature Granulocyte (auto (rosie t code = Absolute Immature Granulocyte (auto) 0.03 0-0.[address] [facility] HospitalBedside Ycnpbhn2207-58-60 20:28:00* Test Item Value Reference Range Interpretation Comments Bedside Glucose (test code = 38438-5) 128 70-120 H Meter ID: [id number] Regional Medical Center at GreenvilleThyroid Stimulating Hormone (TSH)2019-04-12 10:36:00* Test Item Value Reference Range Interpretation Comments Thyroid Stimulating Hormone (TSH) (test code = 80947-2) 2.802 0.350-4.[address] [facility] HospitalCreatine Kinase CS3564-60-10 16:58:00* Test Item Value Reference Range Interpretation Comments Creatine Kinase MB (test code = 30951-7) 1.80 0-5.[address] [facility] HospitalCreatine Wwlann0132-65-71 16:44:00* Test Item Value Reference Range Interpretation Comments Creatine Kinase (test code = 2157-6) 52 29-[address] [facility] HospitalUrine EDR4896-27-08 16:41:00* Test Item Value Reference Range Interpretation Comments Urine WBC (test code = 5821-4) 0-5 0-[address] [facility] HospitalUrine ZOU7645-27-47 16:41:00* Test Item Value Reference Range Interpretation Comments Urine RBC (test code = 73462-7) NONE 0-[address] [facility] HospitalUrine Zvycizju8088-09-99 16:41:00* Test Item Value Reference Range Interpretation Comments Urine Bacteria (test code = 71881-2) MANY NONE H [facility] HospitalUrine Epithelial Etesk0655-64-07 16:41:00 * Test Item Value Reference Range Interpretation Comments Urine Epithelial Cells (test code = 31956-7) MODERATE NONE [facility] HospitalProthrombin Zryn0559-33-54 16:39:00* Test Item Value Reference Range Interpretation Comments Prothrombin Time (test code = 5902-2) 13.2 11.9-14.[address] HospitalProthromb Time International Ratio 2019-04-11 16:39:00* Test Item Value Reference Range Interpretation Comments Prothromb Time International Ratio (test code = 6301-6) 0.95 Oral Anticoagulant Therapy INR Values:1. Low Intensity Therapy 1.5 - 2.02 . Moderate Intensity Therapy 2.0 - 3.03. High Intensity Therapy(1) 2.5 - 3. 54. High Intensity Therapy(2) 3.0 - 4.05. Panic Value INR > 5.[address] [facility] HospitalActivated Partial Thromboplast Time 2019-04-11 16:39:00* Test Item Value Reference Range Interpretation Comments Activated Partial Thromboplast Time (test code = 92685-2) 29.1 23.8-35.[address] HospitalUrine Brrfb9464-47-44 16:27:00* Test Item Value Reference Range Interpretation Comments Urine Color (test code = 5778-6) YELLOW YELLOW [facility] HospitalUrine Vfxhgow9168-86-80 16:27:00* Test Item Value Reference Range Interpretation Comments Urine Clarity (test code = 87321-3) SL CLOUDY CLEAR [facility] HospitalUrine Specific Pmthfpb4456-03-44 16:27:00 * Test Item Value Reference Range Interpretation Comments Urine Specific [place] (test code = 5811-5) 1.025 1.010-1.[address] HospitalUrine qG0576-87-20 16:27:00* Test Item Value Reference Range Interpretation Comments Urine pH (test code = 99039-2) 6 5-[address] [facility] HospitalUrine Leukocyte Mwztfpox2971-32-08 16:27:00* Test Item Value Reference Range Interpretation Comments Urine Leukocyte Esterase (test code = 15195-5) NEGATIVE NEGATIV E [facility] HospitalUrine Sezydxv7338-91-49 16:27:00* Test Item Value Reference Range Interpretation Comments Urine Nitrite (test code = 64422-6) NEGATIVE NEGATIVE [facility] HospitalUrine Dbtgqyx1693-19-30 16:27:00* Test Item Value Reference Range Interpretation Comments Urine Protein (test code = 64868-1) NEGATIVE NEGATIVE [facility] HospitalUrine Glucose (UA)2019-04-11 16:27:00* Test Item Value Reference Range Interpretation Comments Urine Glucose (UA) (test code = 76525-7) NEGATIVE NEGATIVE [facility] HospitalUrine Cncmaov8592-86-00 16:27:00* Test Item Value Reference Range Interpretation Comments Urine Ketones (test code = 62234-0) NEGATIVE NEGATIVE [facility] HospitalUrine Rkksjgjcabkq7379-36-96 16:27:00* Test Item Value Reference Range Interpretation Comments Urine Urobilinogen (test code = 26365-6) 0.2 0.2-[address] [facility] HospitalUrine Pitwfgrlx1560-84-77 16:27:00* Test Item Value Reference Range Interpretation Comments Urine Bilirubin (test code = 1977-8) NEGATIVE NEGATIVE [facility] HospitalUrine Slytx0191-50-92 16:27:00* Test Item Value Reference Range Interpretation Comments Urine Blood (test code = 06539-8) NEGATIVE NEGATIVE [facility] HospitalCHEST SINGLE (PORTABLE)2019-04-11 16:01:00 [place] [address] Patient Name: PARAMJIT TENA I MR #: [id number] : 1955 Age/Sex: 64/F Req #: [id number] Adm Physician: Ordered by: BRET AVILA ASSOCIATE CIVIL ENGINEER Report #: [id number] Location: ER Room/Bed: Procedure: [id number] DX/CHEST SINGLE (PORTABLE) Exam Date: 04/11/19 Exam Time: 1457 REPORT STATUS: Signed EXAMINATION: CHEST SINGLE (PORTABLE) [...] 04/11/19 1 603 COPY TO: BRET AVILA NP Blood Pklgczh9491-58-18 15:56:00 * Test Item Value Reference Range Interpretation Comments Blood Culture (test code = 26700702) NO GROWTH AFTER 5 DAYS, FINAL REPORT [facility] HospitalBlood Xejsova3370-29-69 15:56:00* Test Item Value Reference Range Interpretation Comments Blood Culture (test code = 25960066) NO GROWTH AFTER 5 DAYS, FINAL REPORT [facility] Centerodium Axacx1792-36-41 06:38:00* Test Item Value Reference Range Interpretation Comments Sodium Level (test code = 2951-2) 138 136-[address] [facility] HospitalPotassium Etnod5007-88-33 06:38:00* Test Item Value Reference Range Interpretation Comments Potassium Level (test code = 2823-3) 4.5 3.5-5.[address] HospitalChloride Pxdmn5047-77-98 06:38:00* Test Item Value Reference Range Interpretation Comments Chloride Level (test code = 2075-0) 98 98-[address] [facility] HospitalCarbon Dioxide Kyqel9017-32-40 06:38:00* Test Item Value Reference Range Interpretation Comments Carbon Dioxide Level (test code = 2028-9) 30 22-[address] [facility] HospitalAnion Jwb3554-29-65 06:38:00* Test Item Value Reference Range Interpretation Comments Anion Gap (test code = 50167-9) 14.5 8-[address] [facility] HospitalBlood Urea Ywkntwfq7075-65-43 06:38:00* Test Item Value Reference Range Interpretation Comments Blood Urea Nitrogen (test code = 3094-0) 25 7-[address] HospitalCreatinine2018-12-26 06:38:00* Test Item Value Reference Range Interpretation Comments Creatinine (test code = 2160-0) 0.86 0.57-1.[address] HospitalBUN/Creatinine Fdreq8426-92-07 06:38:00* Test Item Value Reference Range Interpretation Comments BUN/Creatinine Ratio (test code = 3097-3) 29 6-[address] [facility] HospitalEstimat Glomerular Filtration Rate 2018-09-06 06:38:00* Test Item Value Reference Range Interpretation Comments Estimat Glomerular Filtration Rate (test code = 275943598) > 60 >60 Ranges were taken from the National Kidney Disease Education Program and the [place] [facility] Foundation literature.Reference ranges:60 or greater: Ylcgdl09-30 ( for 3 consecutive months): Chronic kidney disease 15 or less: Kidney failureCH[facility] HospitalGlucose Olqic8933-22-03 06:38:00* Test Item Value Reference Range Interpretation Comments Glucose Level (test code = ILA1815) 89 74-[address] HospitalCalcium Vwkvs6178-33-59 06:38:00* Test Item Value Reference Range Interpretation Comments Calcium Level (test code = 52929-2) 9.7 8.4-10.2 [facility] Centerodium Fmfqi4386-13-03 06:38:00* Test Item Value Reference Range Interpretation Comments Sodium Level (test code = 2951-2) 138 136-[address] [facility] HospitalPotassium Teipd4308-22-50 06:38:00* Test Item Value Reference Range Interpretation Comments Potassium Level (test code = 2823-3) 4.5 3.5-5.[address] HospitalChloride Wdcei4793-08-15 06:38:00* Test Item Value Reference Range Interpretation Comments Chloride Level (test code = 2075-0) 98 98-[address] HospitalCarbon Dioxide Imlyb1150-59-08 06:38:00* Test Item Value Reference Range Interpretation Comments Carbon Dioxide Level (test code = 2028-9) 30 22-[address] [facility] HospitalAnion Ygk4235-69-51 06:38:00* Test Item Value Reference Range Interpretation Comments Anion Gap (test code = 37132-3) 14.5 8-[address] [facility] HospitalBlood Urea Pnsmnsnk8805-25-64 06:38:00* Test Item Value Reference Range Interpretation Comments Blood Urea Nitrogen (test code = 3094-0) 25 7-[address] [facility] HospitalCreatinine2018-12-26 06:38:00* Test Item Value Reference Range Interpretation Comments Creatinine (test code = 2160-0) 0.86 0.57-1.[address] HospitalBUN/Creatinine Qnwhv9547-17-08 06:38:00* Test Item Value Reference Range Interpretation Comments BUN/Creatinine Ratio (test code = 3097-3) 29 6-[address] HospitalEstimat Glomerular Filtration Rate 2018-09-06 06:38:00* Test Item Value Reference Range Interpretation Comments Estimat Glomerular Filtration Rate (test code = 087856740) > 60 >60 Ranges were taken from the National Kidney Disease Education Program and the [facility] literature.Reference ranges:60 or greater: Xmuneq39-95 ( for 3 consecutive months): Chronic kidney disease 15 or less: Kidney failureCH[facility] HospitalGlucose Blelh8460-62-84 06:38:00* Test Item Value Reference Range Interpretation Comments Glucose Level (test code = EZK9238) 89 74-[address] HospitalCalcium Piwll4597-67-49 06:38:00* Test Item Value Reference Range Interpretation Comments Calcium Level (test code = 74267-5) 9.7 8.4-10.[address] HospitalWhite Blood Sxpvb3477-28-03 06:21:00* Test Item Value Reference Range Interpretation Comments White Blood Count (test code = 6690-2) 7.69 4.8-10.[address] [facility] HospitalRed Blood Zitje6656-90-51 06:21:00* Test Item Value Reference Range Interpretation Comments Red Blood Count (test code = 789-8) 4.11 3.6-5.[address] HospitalHemoglobin2018-12-26 06:21:00* Test Item Value Reference Range Interpretation Comments Hemoglobin (test code = 86623-5) 13.5 12.0-16.[address] HospitalHematocrit2018-12-26 06:21:00* Test Item Value Reference Range Interpretation Comments Hematocrit (test code = 4544-3) 42.4 34.2-44.[address] HospitalMean Corpuscular Ymrktn8633-62-67 06:21:00* Test Item Value Reference Range Interpretation Comments Mean Corpuscular Volume (test code = 787-2) 103.2 81-[address] HospitalMean Corpuscular Xmqyzhfoxy6060-61-29 06:21:00* Test Item Value Reference Range Interpretation Comments Mean Corpuscular Hemoglobin (test code = 785-6) 32.8 28-[address] HospitalMean Corpuscular Hemoglobin Concent 2018-09-06 06:21:00* Test Item Value Reference Range Interpretation Comments Mean Corpuscular Hemoglobin Concent (test code = 786-4) 31.8 31-[address] HospitalRed Cell Distribution Qweuq0954-31-58 06:21:00* Test Item Value Reference Range Interpretation Comments Red Cell Distribution Width (test code = 95921-3) 14.4 11.7 -14.[address] HospitalPlatelet Qijzb4178-16-40 06:21:00* Test Item Value Reference Range Interpretation Comments Platelet Count (test code = 777-3) 310 140-[address] [facility] HospitalNeutrophils (%) (Auto)2018-09-06 06:21:00 * Test Item Value Reference Range Interpretation Comments Neutrophils (%) (Auto) (test code = 45797-1) 56.0 38.7-80.[address] HospitalLymphocytes (%) (Auto)2018-09-06 06:21:00 * Test Item Value Reference Range Interpretation Comments Lymphocytes (%) (Auto) (test code = 736-9) 28.6 18.0-39.[address] [facility] HospitalMonocytes (%) (Auto)2018-09-06 06:21:00* Test Item Value Reference Range Interpretation Comments Monocytes (%) (Auto) (test code = 5905-5) 9.1 4.4-11.[address] [facility] HospitalEosinophils (%) (Auto)2018-09-06 06:21:00 * Test Item Value Reference Range Interpretation Comments Eosinophils (%) (Auto) (test code = 713-8) 5.1 0.0-6.[address] HospitalBasophils (%) (Auto)2018-09-06 06:21:00* Test Item Value Reference Range Interpretation Comments Basophils (%) (Auto) (test code = 706-2) 0.8 0.0-1.[address] HospitalIM GRANULOCYTES %2018-09-06 06:21:00* Test Item Value Reference Range Interpretation Comments IM GRANULOCYTES % (test code = IM GRANULOCYTES %) 0.4 0.0- 1.[address] [facility] HospitalNeutrophils # (Auto)2018-09-06 06:21:00* Test Item Value Reference Range Interpretation Comments Neutrophils # (Auto) (test code = 751-8) 4.3 2.1-6.[address] HospitalLymphocytes # (Auto)2018-09-06 06:21:00* Test Item Value Reference Range Interpretation Comments Lymphocytes # (Auto) (test code = 35421-8) 2.2 1.0-3.[address] [facility] HospitalMonocytes # (Auto)2018-09-06 06:21:00* Test Item Value Reference Range Interpretation Comments Monocytes # (Auto) (test code = 742-7) 0.7 0.2-0.[address] [facility] HospitalEosinophils # (Auto)2018-09-06 06:21:00* Test Item Value Reference Range Interpretation Comments Eosinophils # (Auto) (test code = 711-2) 0.4 0.0-0.[address] HospitalBasophils # (Auto)2018-09-06 06:21:00* Test Item Value Reference Range Interpretation Comments Basophils # (Auto) (test code = 704-7) 0.1 0.0-0.[address] [facility] HospitalAbsolute Immature Granulocyte (auto 2018-09-06 06:21:00* Test Item Value Reference Range Interpretation Comments Absolute Immature Granulocyte (auto (rosie t code = Absolute Immature Granulocyte (auto) 0.03 0-0.[address] HospitalWhite Blood Hpjtt7929-55-01 06:21:00* Test Item Value Reference Range Interpretation Comments White Blood Count (test code = 6690-2) 7.69 4.8-10.[address] HospitalRed Blood Cbwfx7443-03-40 06:21:00* Test Item Value Reference Range Interpretation Comments Red Blood Count (test code = 789-8) 4.11 3.6-5.[address] [facility] HospitalHemoglobin2018-12-26 06:21:00* Test Item Value Reference Range Interpretation Comments Hemoglobin (test code = 06767-2) 13.5 12.0-16.[address] HospitalHematocrit2018-12-26 06:21:00* Test Item Value Reference Range Interpretation Comments Hematocrit (test code = 4544-3) 42.4 34.2-44.[address] HospitalMean Corpuscular Urhrnj3525-58-33 06:21:00* Test Item Value Reference Range Interpretation Comments Mean Corpuscular Volume (test code = 787-2) 103.2 81-[address] HospitalMean Corpuscular Wqsigltfrs6430-55-56 06:21:00* Test Item Value Reference Range Interpretation Comments Mean Corpuscular Hemoglobin (test code = 785-6) 32.8 28-[address] HospitalMean Corpuscular Hemoglobin Concent 2018-09-06 06:21:00* Test Item Value Reference Range Interpretation Comments Mean Corpuscular Hemoglobin Concent (test code = 786-4) 31.8 31-[address] HospitalRed Cell Distribution Ednqc8193-28-33 06:21:00* Test Item Value Reference Range Interpretation Comments Red Cell Distribution Width (test code = 23801-2) 14.4 11.7 -14.[address] HospitalPlatelet Gxlvn8731-10-92 06:21:00* Test Item Value Reference Range Interpretation Comments Platelet Count (test code = 777-3) 310 140-[address] [facility] HospitalNeutrophils (%) (Auto)2018-09-06 06:21:00 * Test Item Value Reference Range Interpretation Comments Neutrophils (%) (Auto) (test code = 93835-7) 56.0 38.7-80.[address] HospitalLymphocytes (%) (Auto)2018-09-06 06:21:00 * Test Item Value Reference Range Interpretation Comments Lymphocytes (%) (Auto) (test code = 736-9) 28.6 18.0-39.[address] [facility] HospitalMonocytes (%) (Auto)2018-09-06 06:21:00* Test Item Value Reference Range Interpretation Comments Monocytes (%) (Auto) (test code = 5905-5) 9.1 4.4-11.[address] [facility] HospitalEosinophils (%) (Auto)2018-09-06 06:21:00 * Test Item Value Reference Range Interpretation Comments Eosinophils (%) (Auto) (test code = 713-8) 5.1 0.0-6.[address] [facility] HospitalBasophils (%) (Auto)2018-09-06 06:21:00* Test Item Value Reference Range Interpretation Comments Basophils (%) (Auto) (test code = 706-2) 0.8 0.0-1.[address] HospitalIM GRANULOCYTES %2018-09-06 06:21:00* Test Item Value Reference Range Interpretation Comments IM GRANULOCYTES % (test code = IM GRANULOCYTES %) 0.4 0.0- 1.[address] [facility] HospitalNeutrophils # (Auto)2018-09-06 06:21:00* Test Item Value Reference Range Interpretation Comments Neutrophils # (Auto) (test code = 751-8) 4.3 2.1-6.[address] HospitalLymphocytes # (Auto)2018-09-06 06:21:00* Test Item Value Reference Range Interpretation Comments Lymphocytes # (Auto) (test code = 03367-0) 2.2 1.0-3.[address] [facility] HospitalMonocytes # (Auto)2018-09-06 06:21:00* Test Item Value Reference Range Interpretation Comments Monocytes # (Auto) (test code = 742-7) 0.7 0.2-0.[address] HospitalEosinophils # (Auto)2018-09-06 06:21:00* Test Item Value Reference Range Interpretation Comments Eosinophils # (Auto) (test code = 711-2) 0.4 0.0-0.[address] HospitalBasophils # (Auto)2018-09-06 06:21:00* Test Item Value Reference Range Interpretation Comments Basophils # (Auto) (test code = 704-7) 0.1 0.0-0.[address] HospitalAbsolute Immature Granulocyte (auto 2018-09-06 06:21:00* Test Item Value Reference Range Interpretation Comments Absolute Immature Granulocyte (auto (rosie t code = Absolute Immature Granulocyte (auto) 0.03 0-0.[address] [facility] HospitalCHES 2 GYBAC4920-06-32 06:54:00 [place] [address] Patient Name: PARAMJIT TENA I MR #: [id number] : 1955 Age/Sex: 63/F Req #: [id number] Adm Physician: FABIANA HIGHTOWER MD Ordered by: FABIANA HIGHTOWER MD Report #: [id number] Location: MED/SURG Room/Bed: [facility] Procedure: [id number] D X/CHEST 2 VIEWS Exam Date: Exam [...] Transcribed By: BILL on 09/05/18654 COPY TO: FABIANA HIGHTOWER MD Blood Wwcsbag9459-36-72 15:56:00* Test Item Value Reference Range Interpretation Comments Blood Culture (test code = 56711070) NO GROWTH AFTER [address] HospitalB-Type Natriuretic Eowxfds4319-39-10 06:28:00* Test Item Value Reference Range Interpretation Comments B-Type Natriuretic Peptide (test code = 39444-1) 127.3 0-[address] HospitalB-Type Natriuretic Cxnakkp4111-40-67 06:28:00* Test Item Value Reference Range Interpretation Comments B-Type Natriuretic Peptide (test code = 09244-9) 127.3 0-[address] [facility] HospitalTotal Slpqxoper1128-23-39 06:20:00* Test Item Value Reference Range Interpretation Comments Total Bilirubin (test code = 1975-2) 1.4 0.2-1.[address] HospitalAspartate Amino Transf (AST/SGOT) 2018-09-04 06:20:00* Test Item Value Reference Range Interpretation Comments Aspartate Amino Transf (AST/SGOT) (test code = Aspartate Amino Transf (AST/SGOT)) 16 5-[address] HospitalAlanine Aminotransferase (ALT/SGPT) 2018-09-04 06:20:00* Test Item Value Reference Range Interpretation Comments Alanine Aminotransferase (ALT/SGPT) (test code = 1742-6) 23 0-[address] [facility] HospitalTotal Vqaxmlw1311-91-10 06:20:00* Test Item Value Reference Range Interpretation Comments Total Protein (test code = 2885-2) 6.6 6.5-8.[address] [facility] HospitalAlbumin2018-12-24 06:20:00* Test Item Value Reference Range Interpretation Comments Albumin (test code = 1751-7) 3.4 3.5-5.[address] HospitalGlobulin2018-12-24 06:20:00* Test Item Value Reference Range Interpretation Comments Globulin (test code = 03106-7) 3.2 2.3-3.[address] [facility] HospitalAlbumin/Globulin Oukij4078-81-52 06:20:00 * Test Item Value Reference Range Interpretation Comments Albumin/Globulin Ratio (test code = 1759-0) 1.1 0.8-2.[address] [facility] HospitalAlkaline Jnrdwusuect9385-76-39 06:20:00* Test Item Value Reference Range Interpretation Comments Alkaline Phosphatase (test code = 6768-6) 81 40-[address] [facility] HospitalTotal Twzsszwlv8274-75-10 06:20:00* Test Item Value Reference Range Interpretation Comments Total Bilirubin (test code = 1975-2) 1.4 0.2-1.[address] [facility] HospitalAspartate Amino Transf (AST/SGOT) 2018-09-04 06:20:00* Test Item Value Reference Range Interpretation Comments Aspartate Amino Transf (AST/SGOT) (test code = Aspartate Amino Transf (AST/SGOT)) 16 5-[address] [address] [facility] HospitalAlanine Aminotransferase (ALT/SGPT) 2018-09-04 06:20:00* Test Item Value Reference Range Interpretation Comments Alanine Aminotransferase (ALT/SGPT) (test code = 1742-6) 23 0-[address] [facility] HospitalT[facility] Lhcesbb2286-01-88 06:20:00* Test Item Value Reference Range Interpretation Comments Total Protein (test code = 2885-2) 6.6 6.5-8.[address] HospitalAlbumin2018-12-24 06:20:00* Test Item Value Reference Range Interpretation Comments Albumin (test code = 1751-7) 3.4 3.5-5.[address] HospitalGlobulin2018-12-24 06:20:00* Test Item Value Reference Range Interpretation Comments Globulin (test code = 52484-9) 3.2 2.3-3.[address] [facility] HospitalAlbumin/Globulin Jajhn0416-25-29 06:20:00 * Test Item Value Reference Range Interpretation Comments Albumin/Globulin Ratio (test code = 1759-0) 1.1 0.8-2.[address] HospitalAlkaline Xrvyndvtocr4250-78-72 06:20:00* Test Item Value Reference Range Interpretation Comments Alkaline Phosphatase (test code = 6768-6) 81 40-[address] [facility] HospitalCT CHEST C1633-55-97 15:09:00 [place] [address] Patient Name: PARAMJIT TENA I MR #: [id number] : 1955 Age/Sex: 63/F Req #: [id number] Adm Physician: FABIANA HIGHTOWER MD Ordered by: FABIANA HIGHTOWER MD Report #: [id number] Location: MED/SURG Room/Bed: [facility] Procedure: [id number] C T/CT CHEST W Exam Date: 09/03/18 Exam Time: 1400 REPORT STATUS: Signed EXAM: CT Ches t WITH contrast (PE Protocol) INDICATION: assess for right sided pulm onary emboli [id number] 1400 Y COMPARISON: Same day chest x-ray. TECHNIQUE: [...] PM Dictated By: CRISTHIAN GORDON MD 15 99 Transcribed By: BILL on 09/03/18 1314 COPY TO: FABIANA HIGHTOWER MD CHEST SINGLE (PORTABLE)2018-09-03 06:10:00 [facility] [address] [place] [address] Patient Name: PARAMJIT TENA I MR #: [id number] : 1955 Age/Sex: 63/F Req #: [id number] Adm Physician: FABIANA HIGHTOWER MD Ordered by: FABIANA HIGHTOWER MD Report #: [id number] Location: MED/SURG Room/Bed: [facility] Procedure: [id number] D X/CHEST SINGLE (PORTABLE) Exam Date: 09/03/18 [...] Thyroid Stimulating Hormone (TSH) (test code = 82985-0) 2.647 0.350-4.[address] [address] HospitalThyroid Stimulating Hormone (TSH) 2018-09-02 12:50:00* Test Item Value Reference Range Interpretation Comments Thyroid Stimulating Hormone (TSH) (test code = 85179-5) 2.647 0.350-4.[address] HospitalCreatine Kinase WG8641-89-27 07:09:00* Test Item Value Reference Range Interpretation Comments Creatine Kinase MB (test code = 74018-1) 2.00 0-5.[address] [facility] HospitalTroponin X2747-65-84 07:09:00* Test Item Value Reference Range Interpretation Comments Troponin I (test code = UGM7713) 0.088 0-0.[address] HospitalCreatine Kinase OC8702-97-24 07:09:00* Test Item Value Reference Range Interpretation Comments Creatine Kinase MB (test code = 23150-0) 2.00 0-5.[address] [facility] HospitalTroponin C1163-09-92 07:09:00* Test Item Value Reference Range Interpretation Comments Troponin I (test code = DIR6759) 0.088 0-0.[address] [address] HospitalMagnesium Yilnl1338-68-15 07:03:00* Test Item Value Reference Range Interpretation Comments Magnesium Level (test code = 11018-6) 2.0 1.3-2.[address] HospitalTriglycerides Wzypd4357-73-51 07:03:00* Test Item Value Reference Range Interpretation Comments Triglycerides Level (test code = 2571-8) 116 0-[address] [facility] HospitalCholesterol Gkkaf2639-55-02 07:03:00* Test Item Value Reference Range Interpretation Comments Cholesterol Level (test code = 2093-3) 196 0-199 Less than 200 mg/dL Low Ycse020 - 239 mg/dL Borderline Ijcw160 m g/dl and greater High Risk [facility] HospitalLDL Ejprktyujay0074-64-46 07:03:00* Test Item Value Reference Range Interpretation Comments LDL Cholesterol (test code = 2089-1) 146 60-[address] [facility] HospitalHDL Gygsbwoepua1470-69-24 07:03:00* Test Item Value Reference Range Interpretation Comments HDL Cholesterol (test code = 2085-9) 27 40-[address] [facility] HospitalCholesterol/HDL Zmayh4582-81-26 07:03:00 * Test Item Value Reference Range Interpretation Comments Cholesterol/HDL Ratio (test code = 9830-1) 7.3 3.0-3.[address] HospitalCreatine Ufpywi5214-20-40 07:03:00* Test Item Value Reference Range Interpretation Comments Creatine Kinase (test code = 2157-6) 59 29-[address] HospitalMagnesium Lhgvi3732-63-84 07:03:00* Test Item Value Reference Range Interpretation Comments Magnesium Level (test code = 23271-8) 2.0 1.3-2.[address] HospitalTriglycerides Ugzuf4877-54-98 07:03:00* Test Item Value Reference Range Interpretation Comments Triglycerides Level (test code = 2571-8) 116 0-[address] HospitalCholesterol Jqhft9658-33-51 07:03:00* Test Item Value Reference Range Interpretation Comments Cholesterol Level (test code = 2093-3) 196 0-199 Less than 200 mg/dL Low Wwpj385 - 239 mg/dL Borderline Fhlr144 m g/dl and greater High Risk [facility] HospitalLDL Nyiekbmdyem9061-17-54 07:03:00* Test Item Value Reference Range Interpretation Comments LDL Cholesterol (test code = 2089-1) 146 60-[address] [facility] HospitalHDL Xukykuvxqsd9926-67-54 07:03:00* Test Item Value Reference Range Interpretation Comments HDL Cholesterol (test code = 2085-9) 27 40-[address] HospitalCholesterol/HDL Oshqp6864-15-08 07:03:00 * Test Item Value Reference Range Interpretation Comments Cholesterol/HDL Ratio (test code = 9830-1) 7.3 3.0-3.[address] [facility] HospitalCreatine Gmopqs2024-21-39 07:03:00* Test Item Value Reference Range Interpretation Comments Creatine Kinase (test code = 2157-6) 59 29-[address] HospitalMagnesium Stfza1532-80-00 07:03:00* Test Item Value Reference Range Interpretation Comments Magnesium Level (test code = 31741-6) 2.0 1.3-2.[address] [facility] HospitalTriglycerides Xffao2539-10-46 07:03:00* Test Item Value Reference Range Interpretation Comments Triglycerides Level (test code = 2571-8) 116 0-[address] [facility] [facility] HospitalCholesterol Eqnwb8659-14-81 07:03:00* Test Item Value Reference Range Interpretation Comments Cholesterol Level (test code = 2093-3) 196 0-199 Less than 200 mg/dL Low Nutu455 - 239 mg/dL Borderline Wfqs464 m g/dl and greater High Risk [facility] HospitalLDL Hvygkwqihfv6770-61-76 07:03:00* Test Item Value Reference Range Interpretation Comments LDL Cholesterol (test code = 2089-1) 146 60-[address] [facility] HospitalHDL Jvlswqrbcee4593-13-56 07:03:00* Test Item Value Reference Range Interpretation Comments HDL Cholesterol (test code = 2085-9) 27 40-[address] [facility] HospitalCholesterol/HDL Eaayb3744-73-89 07:03:00 * Test Item Value Reference Range Interpretation Comments Cholesterol/HDL Ratio (test code = 9830-1) 7.3 3.0-3.[address] [facility] HospitalUrine Naqrd1603-83-84 16:34:00* Test Item Value Reference Range Interpretation Comments Urine Color (test code = 5778-6) COLORLESS YELLOW [facility] HospitalUrine Mzuqopu6532-62-57 16:34:00* Test Item Value Reference Range Interpretation Comments Urine Clarity (test code = 05060-2) CLEAR CLEAR [facility] HospitalUrine YOQ3619-96-64 16:34:00* Test Item Value Reference Range Interpretation Comments Urine WBC (test code = 5821-4) NONE 0-[address] [facility] HospitalUrine UUL1915-05-25 16:34:00* Test Item Value Reference Range Interpretation Comments Urine RBC (test code = 19905-5) 0-5 0-[address] [facility] [facility] HospitalUrine Vjpvdmqo0910-54-97 16:34:00* Test Item Value Reference Range Interpretation Comments Urine Bacteria (test code = 76078-1) NONE NONE [facility] HospitalUrine Epithelial Odkny3554-66-43 16:34:00 * Test Item Value Reference Range Interpretation Comments Urine Epithelial Cells (test code = 35393-8) NONE NONE [facility] HospitalUrine Ndvgm3867-74-14 16:34:00* Test Item Value Reference Range Interpretation Comments Urine Color (test code = 5778-6) COLORLESS YELLOW [facility] HospitalUrine Iznxmhr3094-70-83 16:34:00* Test Item Value Reference Range Interpretation Comments Urine Clarity (test code = 86989-0) CLEAR CLEAR [facility] HospitalUrine KEK1550-02-79 16:34:00* Test Item Value Reference Range Interpretation Comments Urine WBC (test code = 5821-4) NONE 0-[address] [facility] HospitalUrine GVL6806-27-93 16:34:00* Test Item Value Reference Range Interpretation Comments Urine RBC (test code = 21683-2) 0-5 0-[address] [facility] [facility] HospitalUrine Dfmobdmd3044-45-00 16:34:00* Test Item Value Reference Range Interpretation Comments Urine Bacteria (test code = 23568-2) NONE NONE [facility] HospitalUrine Epithelial Ctljt7326-94-05 16:34:00 * Test Item Value Reference Range Interpretation Comments Urine Epithelial Cells (test code = 82682-0) NONE NONE [facility] HospitalLactic Acid Cdpzd3004-49-54 16:12:00* Test Item Value Reference Range Interpretation Comments Lactic Acid Level (test code = Lactic Acid Level) 15.5 4.5- 19.[address] [facility] [facility] HospitalLactic Acid Gyaad0836-29-39 16:12:00* Test Item Value Reference Range Interpretation Comments Lactic Acid Level (test code = Lactic Acid Level) 15.5 4.5- 19.[address] [facility] [facility] HospitalLactic Acid Hxopg5200-45-29 16:12:00* Test Item Value Reference Range Interpretation Comments Lactic Acid Level (test code = Lactic Acid Level) 15.5 4.5- 19.[address] [facility] [facility] HospitalUrine Specific Rddksac9003-59-95 16:07:00 * Test Item Value Reference Range Interpretation Comments Urine Specific [place] (test code = 5811-5) 1.010 1.010-1.[address] [facility] HospitalUrine oD6662-35-52 16:07:00* Test Item Value Reference Range Interpretation Comments Urine pH (test code = 07134-6) 7 5-[address] [facility] HospitalUrine Leukocyte Zzwwezmh2569-83-25 16:07:00* Test Item Value Reference Range Interpretation Comments Urine Leukocyte Esterase (test code = 5799-2) NEGATIVE NEGATIVE [facility] HospitalUrine Kspfxuf3621-04-70 16:07:00* Test Item Value Reference Range Interpretation Comments Urine Nitrite (test code = 81470-6) NEGATIVE NEGATIVE [facility] HospitalUrine Evpceri2751-20-95 16:07:00* Test Item Value Reference Range Interpretation Comments Urine Protein (test code = 5804-0) NEGATIVE NEGATIVE [facility] Glucose (UA)2018-09-01 16:07:00* Test Item Value Reference Range Interpretation Comments Urine Glucose (UA) (test code = 2349-9) NEGATIVE NEGATIVE [facility] HospitalUrine Bckzahb7622-26-28 16:07:00* Test Item Value Reference Range Interpretation Comments Urine Ketones (test code = 43714-7) NEGATIVE NEGATIVE [facility] HospitalUrine Sicbkkyekeas9355-23-96 16:07:00* Test Item Value Reference Range Interpretation Comments Urine Urobilinogen (test code = 37509-5) 0.2 0.2-[address] [facility] HospitalUrine Pglipnsrb4743-35-13 16:07:00* Test Item Value Reference Range Interpretation Comments Urine Bilirubin (test code = 1978-6) NEGATIVE NEGATIVE [facility] HospitalU[facility] Ogmbg9734-67-66 16:07:00* Test Item Value Reference Range Interpretation Comments Urine Blood (test code = 11013-6) TRACE NEGATIVE H [facility] HospitalUrine Specific Ohlzffh2028-34-02 16:07:00 * Test Item Value Reference Range Interpretation Comments Urine Specific [place] (test code = 5811-5) 1.010 1.010-1.[address] [facility] HospitalUrine bG0130-94-97 16:07:00* Test Item Value Reference Range Interpretation Comments Urine pH (test code = 26500-8) 7 5-[address] HospitalUrine Leukocyte Azllwdkj1312-51-11 16:07:00* Test Item Value Reference Range Interpretation Comments Urine Leukocyte Esterase (test code = 5799-2) NEGATIVE NEGATIVE [facility] HospitalUrine Ydkfjox3356-32-83 16:07:00* Test Item Value Reference Range Interpretation Comments Urine Nitrite (test code = 20226-0) NEGATIVE NEGATIVE [facility] HospitalUrine Pcxndmu6216-89-29 16:07:00* Test Item Value Reference Range Interpretation Comments Urine Protein (test code = 5804-0) NEGATIVE NEGATIVE [facility] HospitalU[facility] Glucose (UA)2018-09-01 16:07:00* Test Item Value Reference Range Interpretation Comments Urine Glucose (UA) (test code = 2349-9) NEGATIVE NEGATIVE [facility] HospitalUrine Hzywggj3133-13-73 16:07:00* Test Item Value Reference Range Interpretation Comments Urine Ketones (test code = 43613-9) NEGATIVE NEGATIVE [facility] HospitalUrine Arxaxnpsrfuu8147-22-42 16:07:00* Test Item Value Reference Range Interpretation Comments Urine Urobilinogen (test code = 63227-7) 0.2 0.2-[address] [facility] HospitalUrine Eybjwvlmc8558-08-29 16:07:00* Test Item Value Reference Range Interpretation Comments Urine Bilirubin (test code = 1978-6) NEGATIVE NEGATIVE [facility] HospitalUrine Drmlw6652-29-44 16:07:00* Test Item Value Reference Range Interpretation Comments Urine Blood (test code = 39596-2) TRACE NEGATIVE H [facility] HospitalProthrombin Umie7705-57-95 16:05:00* Test Item Value Reference Range Interpretation Comments Prothrombin Time (test code = 5902-2) 12.8 11.9-14.[address] HospitalProthromb Time International Ratio 2018-09-01 16:05:00* Test Item Value Reference Range Interpretation Comments Prothromb Time International Ratio (test code = 6301-6) 0.88 Oral Anticoagulant Therapy INR Values:1. Low Intensity Therapy 1.5 - 2.02 . Moderate Intensity Therapy 2.0 - 3.03. High Intensity Therapy(1) 2.5 - 3. 54. High Intensity Therapy(2) 3.0 - 4.05. Panic Value INR > 5.[address] [facility] HospitalActivated Partial Thromboplast Time 2018-09-01 16:05:00* Test Item Value Reference Range Interpretation Comments Activated Partial Thromboplast Time (test code = 44536-6) 25.9 23.8-35.[address] [facility] HospitalProthrombin Owuz9873-73-86 16:05:00* Test Item Value Reference Range Interpretation Comments Prothrombin Time (test code = 5902-2) 12.8 11.9-14.[address] HospitalProthromb Time International Ratio 2018-09-01 16:05:00* Test Item Value Reference Range Interpretation Comments Prothromb Time International Ratio (test code = 6301-6) 0.88 Oral Anticoagulant Therapy INR Values:1. Low Intensity Therapy 1.5 - 2.02 . Moderate Intensity Therapy 2.0 - 3.03. High Intensity Therapy(1) 2.5 - 3. 54. High Intensity Therapy(2) 3.0 - 4.05. Panic Value INR > 5.[address] [facility] [facility] HospitalActivated Partial Thromboplast Time 2018-09-01 16:05:00* Test Item Value Reference Range Interpretation Comments Activated Partial Thromboplast Time (test code = 35077-1) 25.9 23.8-35.[address] HospitalCHEST SINGLE (PORTABLE)2018-09-01 16:03:00 [facility] [address] [place] [address] Patient Name: PARAMJIT TENA I MR #: [id number] : 1955 Age/Sex: 63/F Req #: [id number] Adm Physician: Ordered by: LANE MACKEY MD Report #: [id number] Location: ER Room/Bed: Procedure: [id number] DX /CHEST SINGLE (PORTABLE) Exam Date: 09/01/18 Exam Ti me: 1548 REPORT STATUS: Signed E XAMINATION: CHEST SINGLE (PORTABLE) INDICATION: SOB [id number] COMPARISON: 10/18/2015 FINDINGS: AP view TUBES and [...] 4:13 PM Dictated By: Alana GORDON MD 161 [address] anscribed By: BILL on 09/01/18 1613 COPY TO: LANE MACKEY MD Arterial Blood bZ5420-31-73 15:17:00* Test Item Value Reference Range Interpretation Comments Arterial Blood pH (test code = 2744-1) 7.42 7.31-7.[address] HospitalArterial Blood Partial Pressure CO2 2018-09-01 15:17:00* Test Item Value Reference Range Interpretation Comments Arterial Blood Partial Pressure CO2 (test code = 2019-04) 44 41-[address] HospitalArterial Blood Partial Pressure O2 2018-09-01 15:17:00* Test Item Value Reference Range Interpretation Comments Arterial Blood Partial Pressure O2 (test code = 2019-04) 383 80-[address] [facility] HospitalArterial Blood MND12464-77-92 15:17:00* Test Item Value Reference Range Interpretation Comments Arterial Blood HCO3 (test code = 1960-4) 28 - [facility] HospitalArterial Blood Base Edmefq3812-13-87 15:17:00* Test Item Value Reference Range Interpretation Comments Arterial Blood Base Excess (test code = 1925-7) 4.0 -2-[address] [facility] HospitalArterial Blood Oxygen Saturation 2018-09-01 15:17:00* Test Item Value Reference Range Interpretation Comments Arterial Blood Oxygen Saturation (test code = 2708-6) 100.0 95-[address] [facility] HospitalFiO22018-12-21 15:17:00* Test Item Value Reference Range Interpretation Comments FiO2 (test code = FiO2) 100 BIPAP 12/6 RR [address] [facility] Arterial Blood aH2398-78-56 15:17:00* Test Item Value Reference Range Interpretation Comments Arterial Blood pH (test code = 2744-1) 7.42 7.31-7.[address] [facility] HospitalArterial Blood Partial Pressure CO2 2018-09-01 15:17:00* Test Item Value Reference Range Interpretation Comments Arterial Blood Partial Pressure CO2 (test code = 2019-8) 44 41-[address] [facility] HospitalArterial Blood Partial Pressure O2 2018-09-01 15:17:00* Test Item Value Reference Range Interpretation Comments Arterial Blood Partial Pressure O2 (test code = 2019-8) 383 80-[address] [facility] HospitalArterial Blood XYS21160-10-98 15:17:00* Test Item Value Reference Range Interpretation Comments Arterial Blood HCO3 (test code = 1960-4) 28 - [facility] HospitalArterial Blood Base Ludsvi4993-22-08 15:17:00* Test Item Value Reference Range Interpretation Comments Arterial Blood Base Excess (test code = 1925-7) 4.0 -2-[address] [facility] HospitalArterial Blood Oxygen Saturation 2018-09-01 15:17:00* Test Item Value Reference Range Interpretation Comments Arterial Blood Oxygen Saturation (test code = 2708-6) 100.0 95-[address] [facility] HospitalFiO22018-12-21 15:17:00* Test Item Value Reference Range Interpretation Comments FiO2 (test code = FiO2) 100 BIPAP 12/6 RR 12 RONALD FROM RIGHT RADIALCHI [facility] Arterial Blood qJ6456-49-57 15:17:00* Test Item Value Reference Range Interpretation Comments Arterial Blood pH (test code = 2744-1) 7.42 7.31-7.[address] [facility] HospitalArterial Blood Partial Pressure CO2 2018-09-01 15:17:00* Test Item Value Reference Range Interpretation Comments Arterial Blood Partial Pressure CO2 (test code = 2018-8) 44 41-[address] [facility] HospitalArterial Blood Partial Pressure O2 2018-09-01 15:17:00* Test Item Value Reference Range Interpretation Comments Arterial Blood Partial Pressure O2 (test code = 2018-) 383 80-[address] [facility] HospitalArterial Blood DRI30935-26-58 15:17:00* Test Item Value Reference Range Interpretation Comments Arterial Blood HCO3 (test code = 1960-4) 28 23-[address] [facility] HospitalArterial Blood Base Xbuvcq2908-74-06 15:17:00* Test Item Value Reference Range Interpretation Comments Arterial Blood Base Excess (test code = 1925-7) 4.0 -2-[address] [facility] HospitalArterial Blood Oxygen Saturation 2018-09-01 15:17:00* Test Item Value Reference Range Interpretation Comments Arterial Blood Oxygen Saturation (test code = 2708-6) 100.0 95-[address] [facility] HospitalFiO22018-12-21 15:17:00* Test Item Value Reference Range Interpretation Comments FiO2 (test code = FiO2) 100 BIPAP 12/6 RR 12 RONALD FROM RIGHT RADIALCHI [facility]CT CERVICAL SPINE QP0603-62-60 19:21:00 [place] [address] Patient Name: PARAMJIT TENA I MR #: [id number] : 1955 Age/Sex: 63/F Req #: [id number] Adm Physician: Ordered by: BRET AVILA ASSOCIATE CIVIL ENGINEER Report #: [id number] Location: Room/Bed: Procedure: [id number] CT/CT CERVICAL SPINE WO Exam Date: 07/18/18 [...] BILL on 07/18/181925 COPY TO: BRET AVILA ASSOCIATE CIVIL ENGINEER CT BRAIN RM1209-46-16 19:18:00 [place] [address] Patient Name: PARAMJIT TENA I MR #: [id number] : 1955 Age/Sex: 63/F Req #: [id number] [facility] Physician: Ordered by: BRET AVILA NP Report #: [id number] Location: ER Room/Bed: Procedure: [id number] CT/CT BRAIN WO Exam Date: 07/18/18 Exam [...] on 07/18/181919 COPY TO : BRET AVILA ASSOCIATE CIVIL ENGINEER HUMERUS LEFT 2+JWEJO5817-38-01 18:22:00 [place] [address] Patient Name: PARAMJIT TENA I MR #: [id number] : 1955 Age/Sex: 63/F Req #: [id number] Adm Physician: Ordered by: BRET AVILA ASSOCIATE CIVIL ENGINEER Report #: [id number] Location: ER Room/Bed: Procedure: [id number] DX/HUMERUS LEFT 2+VIEWS Exam Date: 07/18/18 Exam Star e: 1745 REPORT STATUS: Signed LE FT HUMERUS - [...] on 07/18/2018 6:23 PM Dictated By: KY Samuel Signed By: KY CRUZ DO on 07/18/181822 Transcribed By: BILL on 1822 COPY TO: BRET AVILA ASSOCIATE CIVIL ENGINEER SHOULDER LEFT COMPLETE 2018-07-18 18:19:00 [place] [address] Patient Name: PARAMJIT TENA I MR #: [id number] : 1955 Age/Sex: 63/F Req #: [id number] [facility] Physician: Ordered by: BRET AVILA NP Report #: [id number] Location: ER Room/Bed: Procedure: [id number] DX/SHOULDER LEFT COMPLETE Exam Date: 07/18/18 Exam [...]
[2020-05-27] MEDS: FAMOTIDINE 20 MG/2 ML VIAL IV SCH ×3 (10:30→23:00)
--- NOTE | 2020-05-27 11:00 | NUR ---
PHONE REPORT RECEIVED FROM GEORGIA DANGELO, ER NURSE.
[2020-05-27 11:21] VITALS: BP 126/75
--- NOTE | 2020-05-27 11:21 | NUR ---
PATIENT RECEIVED TO ROOM 208 AND FOUND AMBULATING AROUND THE ROOM IN NO ACUTE DISTRESS. PATIENT WAS EDUCATED ON FALL RISK PRECAUTIONS AND VERBALIZED UNDERSTANDING. CALL LIGHT AND BELONGINGS PLACED NEARBY. WILL CONTINUE TO MONITOR.
[2020-05-27 11:48] VITALS: BP 126/75
--- NOTE | 2020-05-27 12:00 | NUR ---
I SPOKE WITH THE PATIENT REGARDING HOME CHF PLAN PRIOR TO ADMISSION. PATIENT STATES SHE HAS A SCALE AND PERFORMS DAILY WEIGHTS. PATIENT REPORTS SHE TAKES FUROSEMIDE 80 MG BID AND IS ESTABLISHED WITH DR. AFSHIN IGNACIO, DEPUTY CLERK. PATIENT ADMITS TO MISSING PM DOSE OF LASIX LAST NIGHT.
--- NOTE | 2020-05-27 14:22 | Consultation ---
DATE OF CONSULTATION: 05/27/2020 Cardiology Consultation REQUESTING PHYSICIAN: Dr. Andrade. REASON FOR CONSULTATION: Congestive heart failure. HISTORY OF PRESENT ILLNESS: This is a 65-year-old woman with history of chronic systolic heart failure, status post AICD, coronary artery disease, hypertension, hyperlipidemia, history of pulmonary emboli, who presents with complaints of shortness of breath. The patient reports she has had dyspnea on exertion for the last few days. Last night she had shortness of breath, which prompted her presentation to the ER. She does endorse symptoms suggestive of orthopnea last night as well as brief chest pain which she described as sharp, 9/10 in severity with radiation to the back, lasting a few seconds. She has not noted any lower extremity edema. REVIEW OF SYSTEMS: Negative except as per HPI. PAST MEDICAL HISTORY: 1. Chronic systolic heart failure, status post AICD. 2. Coronary artery disease with history of myocardial infarction. 3. Hypertension. 4. Hyperlipidemia. 5. History of ventricular fibrillation. 6. History of pulmonary emboli. ALLERGIES: PLEASE SEE EMR. MEDICATIONS: Please see medication list. SOCIAL HISTORY: Remote tobacco use. No alcohol or illicit drugs. FAMILY HISTORY: Pertinent for heart disease in the family. PAST SURGICAL HISTORY: Hysterectomy, section x2, hip replacement. PHYSICAL EXAMINATION: VITAL SIGNS: Temperature 97.2 degrees, pulse 82, respiratory rate 19, blood pressure 156/75, oxygen saturation 98% on room air. GENERAL: Well-developed, well-nourished woman, awake and alert. HEENT: Normocephalic, atraumatic. Pupils equal. No scleral icterus. NECK: Supple. No thyromegaly. No cervical lymphadenopathy. No carotid bruits. LUNGS: Clear to auscultation bilaterally. No wheeze or crackles. CARDIOVASCULAR: Normal rate. Regular rhythm. No murmur. Normal S1, S2. ABDOMEN: Soft, nontender. EXTREMITIES: No edema. NEUROLOGIC: Nonfocal exam. LABORATORY DATA: WBC 8.83, hemoglobin 12.1, hematocrit 37, platelets 260. Sodium 140, potassium 4.3, chloride 109, CO2 of 22, BUN 16, and creatinine 0.93. Troponin 0.035. BNP 2826. Chest x-ray; stable cardiomegaly with interval worsening of central vascular congestion and prominent interstitial markings are concerning for fluid overload. Mild pulmonary edema. Negative for large effusions. CT abdomen pelvis negative for acute abdominopelvic process. Uncomplicated colonic diverticulosis. Interstitial opacities, interlobular septal thickening and trace right pleural effusion are noted at the lung bases consistent with acute on chronic congestive heart failure. EKG; normal sinus rhythm. Nonspecific ST and T-wave abnormality, prolonged QT. IMPRESSION: 1. Bwphb-vv-nedggcp systolic heart failure. 2. Nonischemic cardiomyopathy. 3. History of ventricular fibrillation. 4. Status post AICD. 5. Hypertension. 6. Hyperlipidemia. 7. History of pulmonary embolism. 8. History of myocardial infarction. RECOMMENDATIONS: Schedule IV diuretics. Monitor creatinine and replete electrolytes. Monitor the patient closely on telemetry while admitted. Trend troponin to rule out myocardial infarction. The patient had an echocardiogram earlier this year with severely reduced ejection fraction. If she rules out, no further cardiac evaluation is indicated at this time. Continue home cardiac medications otherwise. Thank you for this consult. We will continue to follow. Jody Hood MD ABS/MODL /[id number]
[2020-05-27] MEDS: FUROSEMIDE INJ 10 MG/ML 4 ML VIAL IV SCH ×2 (14:34→23:00)
[2020-05-27 14:53] LABS: CREATINE KINASE MB 2.1 ng/mL (0-5.0)
[2020-05-27 15:42] VITALS: BP 100/82
--- NOTE | 2020-05-27 18:44 | NUR ---
H&P cc: sob HPI: 65yoF, PCP , developed worsening SOB in setting of Systolic CHF. Admitted for diuresis. PMH: Systolic CHF LVEF 20% s/p AICD, CAD, PE in 2018, Hypertensive heart ds, HLD, Depression, Hypothyroisim, osteoporosis, Nicotine dependence in remission, Movement d/o PShX; hysterectomy, , LHC, AICD, abdominal hernia repair, right EVIE ALLERGIES: 1. PENICILLIN. 2. STATINS. 3.lisinopril FH/SH: FH CAD; Nicotine dependence in remission Meds; see MAR ROS; no f/c/s/N/V/D/CABRALES/cp/skin rash/confusion/focal limb weakness/dizziness/vision changes. v/s; revd PE tired appearing anicteric ns1s2 REDUCED BS soft nt nd TRACE LEG EDEMA skin dry flat affect a&ox3; huber Labs/meds revd A/P: AECHF- systolic- has AICD; diuresis Pulmonary edema- diuresis Right pleurla effusion- diurese CAD Hypertensive heart ds Obesity- 1/2 portion sizes BMI 35- as above Transaminitis- due to congestion of liver; diurese Physical deconditioning- PT Movement d/o- PT consult; primidone; Prop: AC; pepcid dispo: ORTEGA PERDUE MD, PHD.
[2020-05-27] MEDS ORDERED: TRAMADOL HCL 50 MG TAB PO PRN (19:00)
[2020-05-27 21:00] VITALS: BP 112/60
--- NOTE | 2020-05-27 21:40 | NUR ---
PATIENT RESTING COMFORTABLY IN BED, NO SIGNS OF DISTRESS NOTED. PATIENT VOICES NO RESPIRATORY DISTRESS AND NO PAIN AT THIS TIME. BED IS IN LOWEST POSITION, BOTH SIDE RAILS ARE UP, CALL LIGHT IS WITHIN EASY REACH, WILL CONTINUE TO MONITOR.
[2020-05-27] MEDS: PRIMIDONE 50 MG TAB PO SCH (23:00)
[2020-05-28] VITALS (9 sets, daily range): BP systolic 97–114; BP diastolic 46–80
[2020-05-28] MEDS: LEVOTHYROXINE SODIUM 50 MCG TAB PO SCH (05:58)
[2020-05-28 06:18] LABS: BASOPHILS % 0.5 % (0.0-1.0); EOSINOPHILS # (AUTO) 0.3 (0.0-0.4); EOSINOPHILS % 3.7 % (0.0-6.0); HEMATOCRIT 39.6 % (34.2-44.1); HEMOGLOBIN 12.9 g/dL (12.0-16.0); LYMPHOCYTES # (AUTO) 1.5 (1.0-3.2); LYMPHOCYTES % 20.4 % (18.0-39.1); MEAN CORPUSCULAR HEMOGLOBIN 31.8 pg (28-32); MEAN CORPUSCULAR HGB CONC 32.6 g/dL (31-35); MEAN CORPUSCULAR VOLUME 97.5 fL (81-99); MONOCYTES # (AUTO) 0.6 (0.2-0.8); PLATELET COUNT 266 x10e3/uL (140-360); RED BLOOD COUNT 4.06 x10e6/uL (3.6-5.1); RED CELL DISTRIBUTION WIDTH 14.4 % (11.7-14.4)
--- NOTE | 2020-05-28 06:33 | NUR ---
IM- progress note O/N see below ROS; no f/c/s/N/V/D/CABRALES/cp/skin rash/confusion/focal limb weakness/dizziness/vision changes. v/s; revd PE tired appearing anicteric ns1s2 REDUCED BS soft nt nd TRACE LEG EDEMA skin dry flat affect a&ox3; huber Labs/meds revd A/P: AECHF- systolic- has AICD; diuresis Pulmonary edema- diuresis Right pleurla effusion- diurese CAD Hypertensive heart ds Obesity- 1/2 portion sizes BMI 35- as above Transaminitis- due to congestion of liver; diurese Physical deconditioning- PT Movement d/o- PT consult; primidone; Prop: AC; pepcid dispo: 05-28 continue diuresis; follow I/O; Cardiac arrhythmia?- on amio. ORTEGA PERDUE MD, PHD.
[2020-05-28] MEDS ORDERED: ACETAMINOPHEN 325 MG TAB PO PRN (06:45)
[2020-05-28] MEDS ORDERED: ZOLPIDEM TARTRATE 5 MG TAB PO PRN (06:45)
[2020-05-28 06:50] LABS: ALBUMIN 4.1 g/dL (3.5-5.0); ALBUMIN/GLOBULIN RATIO 1.6 (0.8-2.0); ANION GAP 15.4 mmol/L (8-16); CALCIUM 8.7 mg/dL (8.4-10.2); CHOL/HDL RATIO 4.9 (3.0-3.6); CREATININE, SERUM 0.97 mg/dL (0.57-1.11); POTASSIUM 3.4 mmol/L (3.5-5.1)
--- NOTE | 2020-05-28 07:05 | NUR ---
SB[facility] BEDSIDE REPORT RECEIVED FROM ABDOUL DANGELO, PM SHIFT NURSE. PT WAS FOUND LYING IN BED IN NO ACUTE DISTRESS WATCHING TELEVISION. PATIENT DENIES PAIN AND ANY FURTHER NEEDS AT THIS TIME. PATIENT WAS EDUCATED ON FALL RISK PRECAUTIONS AND VERBALIZED UNDERSTANDING. CALL LIGHT AND BELONGINGS WERE PLACED NEARBY. WILL CONTINUE TO MONITOR.
[2020-05-28 07:08] LABS: CREATINE KINASE MB 1.5 ng/mL (0-5.0)
[2020-05-28] MEDS: METOPROLOL SUCCINATE 25 MG TAB XL PO SCH (09:01)
[2020-05-28] MEDS: VENLAFAXINE HCL 75 MG TAB PO SCH ×2 (09:01→18:06)
[2020-05-28] MEDS: FUROSEMIDE INJ 10 MG/ML 4 ML VIAL IV SCH ×3 (09:41→20:40)
[2020-05-28] MEDS: FAMOTIDINE 20 MG/2 ML VIAL IV SCH ×2 (09:41→20:40)
[2020-05-28] MEDS: AMIODARONE HCL 200 MG TAB PO SCH (10:26)
[2020-05-28] MEDS: VALSARTAN/SACUBITRIL 24MG/26MG 1 EA TAB PO SCH ×2 (10:26→18:06)
[2020-05-28] MEDS: SENNOSIDES 8.6 MG TAB PO SCH (11:34)
[2020-05-28] MEDS: DOCUSATE SODIUM 100 MG CAP PO SCH (11:34)
--- NOTE | 2020-05-28 13:15 | NUR ---
Discontinuing PT services since patient is Mod I in functional mobility. Thank you Addendum: 05/28/20 at 1316 by Bentley duarte PT Amended: Links added.
--- NOTE | 2020-05-28 17:39 | Progress Note ---
DATE: 05/28/2020 Cardiology Progress Note SUBJECTIVE: The patient denies chest pain or shortness of breath. OBJECTIVE: VITAL SIGNS: Temperature 99 degrees, pulse 61, respiratory rate 20, blood pressure 107/65, oxygen saturation 96% on room air. GENERAL: Awake, alert, in no acute distress. LUNGS: Clear to auscultation bilaterally. No wheezes or crackles. CARDIOVASCULAR: Normal rate. Regular rhythm. No murmur. Normal S1 and S2. ABDOMEN: Soft and nontender. EXTREMITIES: No edema. CARDIAC MEDICATIONS: Lasix 40 mg IV t.i.d., Entresto 24/26 mg p.o. b.i.d., amiodarone 200 mg p.o. daily, metoprolol succinate 25 mg p.o. daily, levothyroxine 50 mcg p.o. daily. LABORATORY DATA: WBC 7.39, hemoglobin 12.9, hematocrit 39.6, platelets 266. Sodium 140, potassium 3.4, chloride 99, CO2 29, BUN 17, and creatinine 0.97. TELEMETRY: Telemetry was personally reviewed and interpreted, revealing normal sinus rhythm with demand atrial pacing. IMPRESSION: 1. Gbewk-at-gdozhtx systolic heart failure. 2. Nonischemic cardiomyopathy. 3. History of ventricular fibrillation. 4. Status post AICD. 5. Hypertension. 6. Hyperlipidemia. 7. History of pulmonary embolism. 8. History of myocardial infarction. RECOMMENDATIONS: Continue IV diuretics. The patient has improved clinically and LFTs are improving suggestive of congestive hepatopathy. Monitor creatinine. Replete electrolytes. Monitor the patient closely on telemetry. She is ruled out for myocardial infarction. No further cardiac evaluation is indicated at this time. Continue current cardiac medications. Likely will be ready to go home tomorrow if she is not hypoxic with ambulation. Thank you for this consult. We will continue to follow. Jody Hood MD ABS/MODL /[id number]
[2020-05-28] MEDS: PRIMIDONE 50 MG TAB PO SCH (20:42)
[2020-05-29] VITALS: BP 110/67
[2020-05-29 04:00] VITALS: BP 100/51
--- NOTE | 2020-05-29 04:56 | NUR ---
IM- progress note O/N see below ROS; no f/c/s/N/V/D/CABRALES/cp/skin rash/confusion/focal limb weakness/dizziness/vision changes. v/s; revd PE tired appearing anicteric ns1s2 REDUCED BS soft nt nd TRACE LEG EDEMA skin dry flat affect a&ox3; huber Labs/meds revd A/P: AECHF- systolic- has AICD; diuresis Pulmonary edema- diuresis Right pleurla effusion- diurese CAD Hypertensive heart ds Obesity- 1/2 portion sizes BMI 35- as above Transaminitis- due to congestion of liver; diurese Physical deconditioning- PT Movement d/o- PT consult; primidone; Prop: AC; pepcid dispo: 05-28 continue diuresis; follow I/O; Cardiac arrhythmia?- on amio. 05-29 strict I/O; f/u labs; ORTEGA PERDUE MD, PHD.
[2020-05-29] MEDS: LEVOTHYROXINE SODIUM 50 MCG TAB PO SCH (05:05)
[2020-05-29 06:41] LABS: ANION GAP 15.5 mmol/L (8-16); CALCIUM 9.3 mg/dL (8.4-10.2); POTASSIUM 3.5 mmol/L (3.5-5.1)
--- NOTE | 2020-05-29 06:59 | NUR ---
REPORT GIVEN TO DAYSHIFT NURSE. ALERT AND ORIENTED. RESTING IN BED. NO SIGNS IV INFILTRATION. BED LOCKED AND IN LOW POSITION. CALL LIGHT WITHIN REACH.
--- NOTE | 2020-05-29 07:00 | NUR ---
SBAR BEDSIDE REPORT RECEIVED FROM ZAINA RN, PM SHIFT. PT FOUND LYING IN BED IN NO ACUTE DISTRESS. PATIENT IS ABLE TO MAKE NEEDS KNOWN AND DENIES ANY FURTHER NEEDS. PATIENT WAS EDUCATED ON FALL RISK PRECAUTIONS AND VERBALIZED UNDERSTANDING. CALL LIGHT AND BELONGINGS PLACED NEARBY. I WILL CONTINUE TO MONITOR.
[2020-05-29 08:00] VITALS: BP_SYST 115; BP_SYST 99; BP_DIAS 68; BP_DIAS 74
[2020-05-29 09:00] VITALS: BP 99/74
[2020-05-29] MEDS: SENNOSIDES 8.6 MG TAB PO SCH (09:01)
[2020-05-29] MEDS: AMIODARONE HCL 200 MG TAB PO SCH (09:01)
[2020-05-29] MEDS: FAMOTIDINE 20 MG/2 ML VIAL IV SCH (09:01)
[2020-05-29] MEDS: FUROSEMIDE INJ 10 MG/ML 4 ML VIAL IV SCH (09:01)
[2020-05-29] MEDS: VALSARTAN/SACUBITRIL 24MG/26MG 1 EA TAB PO SCH (09:01)
[2020-05-29] MEDS: VENLAFAXINE HCL 75 MG TAB PO SCH (09:01)
[2020-05-29] MEDS: DOCUSATE SODIUM 100 MG CAP PO SCH (09:01)
[2020-05-29] MEDS: METOPROLOL SUCCINATE 25 MG TAB XL PO SCH (09:01)
[2020-05-29 10:06] LABS: ALBUMIN 4.1 g/dL (3.5-5.0); BILIRUBIN,DIRECT 0.4 mg/dL (0.0-0.5)
--- NOTE | 2020-05-29 11:15 | Progress Note ---
DATE: 05/29/2020 Cardiology Progress Note. SUBJECTIVE: The patient denies chest pain or shortness of breath. OBJECTIVE: VITAL SIGNS: Temperature 98.1 degrees, pulse 59, respiratory rate 18, blood pressure 99/74, and oxygen saturation 95% on room air. GENERAL: Awake, alert, in no acute distress. LUNGS: Clear to auscultation bilaterally. No wheezes or crackles. CARDIOVASCULAR: Normal rate, regular rhythm. No murmur. Normal S1, S2. ABDOMEN: Soft and nontender. EXTREMITIES: No edema. CARDIAC MEDICATIONS: 1. Entresto 24/26 mg p.o. b.i.d. 2. Metoprolol succinate 25 mg p.o. daily. 3. Amiodarone 200 mg p.o. daily. 4. Lasix 40 mg IV t.i.d. 5. Levothyroxine 50 mcg p.o. daily. LABORATORY DATA: Sodium 139, potassium 3.5, chloride 96, CO2 of 31, BUN 23, creatinine 1, AST 25, ALT 51. TELEMETRY: Personally reviewed revealing normal sinus rhythm. IMPRESSION: 1. Helpn-le-pxverbs systolic heart failure. 2. Nonischemic cardiomyopathy. 3. History of ventricular fibrillation. 4. Status post AICD. 5. Hypertension. 6. Hyperlipidemia. 7. History of pulmonary embolism. 8. History of myocardial infarction. RECOMMENDATIONS: The patient is clinically improved and LFTs have normalized, suggesting elevation was due to congestive hepatopathy, creatinine has been stable, replete electrolytes. Recommend discharge home on Bumex 1 mg p.o. b.i.d. The patient is ruled out for myocardial infarction. No further cardiac evaluation is indicated at this time. Continue current cardiac medications. Thank you for this consult. We will continue to follow. Jody Hood MD ABS/MODL /[id number]
[2020-05-29 12:00] VITALS: BP 94/54
[2020-05-29] MEDS ORDERED: SENOKOT8.6 MG PO (15:54)
[2020-05-29] MEDS ORDERED: FUROSEMIDE40 MG PO ×2 (15:54→16:20)
[2020-05-29] MEDS ORDERED: COLACE100 MG PO (15:54)
--- NOTE | 2020-05-29 15:56 | NUR ---
D/C summary Principal Dx: AECHF- systolic- has AICD; diuresis Pulmonary edema- diuresis Right pleurla effusion- diurese Secondary Dx: CAD Hypertensive heart ds Obesity- 1/2 portion sizes BMI 35- as above Transaminitis- due to congestion of liver; diurese Physical deconditioning- PT Movement d/o- PT consult; primidone; Prop: AC; pepcid dispo: 05-28 continue diuresis; follow I/O; Cardiac arrhythmia?- on amio. 05-29 strict I/O; f/u labs; d/c home stable d/c>35mins f/u pcp 2 days and 1 week ORTEGA PERDUE MD, PHD.
[2020-05-29 16:00] VITALS: BP 107/58
--- NOTE | 2020-05-29 17:30 | NUR ---
PATIENT DISCHARGED HOME VIA PRIVATE VEHICLE. TELEMETRY BOX REMOVED AND SENT BACK TO MONITOR ROOM. CLOCK MAKER MADE AWARE. PERIPHERAL IV WAS DISCONTINUED; CATHETER TIP INTACT WITHOUT RESISTANCE. DRY DRESSING APPLIED. PATIENT RECEIVED TRANSITION OF CARE FOLDER TO INCLUDE DISCHARGE SUMMARY, WRITTEN PRESCRIPTIONS, AND APPOINTMENTS. PATIENT VERBALIZED UNDERSTANDING.
== END 2020-05-29 17:30 | disposition home or self-care (01) | DRG 292 ==
LOC: ER 07:24 → ERHOLD 09:55 → MED/SURG2 11:25
PROVIDERS: ADMIT Internal Medicine; ATTEND Internal Medicine
DX: I11.0 Hypertensive heart disease with heart failure (principal); G40.919 Epilepsy, unspecified, intractable, without status epilepticus; E66.9 Obesity, unspecified; I50.23 Acute on chronic systolic (congestive) heart failure; Z95.810 Presence of automatic (implantable) cardiac defibrillator; E03.9 Hypothyroidism, unspecified; F41.9 Anxiety disorder, unspecified; F32.9 Major depressive disorder, single episode, unspecified; E78.5 Hyperlipidemia, unspecified; Z86.74 Personal history of sudden cardiac arrest; Z86.73 Personal history of transient ischemic attack (TIA), and cerebral infarction without residual deficits; I42.9 Cardiomyopathy, unspecified; Z86.711 Personal history of pulmonary embolism; I25.2 Old myocardial infarction; Z11.59 Encounter for screening for other viral diseases
CPT/HCPCS: 36415; 71045; 74177; 80048; 80053; 80061; 80076; 81001; 82550; 82553; 83690; 83880; 84484; 85025; 85610; 85730; 87086; 93005; 99284; J1940; J2270; J2405; Q9967; U0002

== ENCOUNTER → 2020-12-04 | Outpatient (CLI) | payer OTHER, MEDICARE ==
[~2020-12-04] MED LIST changes: +COLACE100 MG PO; +DIATRIZOATE MEGL/DIATRIZOA SOD 30 ML BTL PO ONE; +ENTRESTO 24 MG1 EACH PO; +FUROSEMIDE40 MG PO; +IOPAMIDOL 370 MG/ML 200 ML INFUS..BTL INJ ONE; +SENOKOT8.6 MG PO; +SODIUM CHLORIDE 0.9% 500ML 500 ML ONE; +SODIUM CHLORIDE 0.9% 50ML 50 ML ONE
[2020-12-04 08:12] LABS: CREATININE, SERUM 0.99 mg/dL (0.57-1.11)
== END ==
LOC: CT 07:23
PROVIDERS: ATTEND Internal Medicine
DX: K57.00 Diverticulitis of small intestine with perforation and abscess without bleeding (principal)
CPT/HCPCS: 36415; 74177; 82565; 84520; J7040; Q9967

== ENCOUNTER → 2021-05-11 | Day surgery (SDC) | payer MEDICARE ==
[2021-05-06 13:19] LABS: BASOPHILS % 0.5 % (0.0-1.0); EOSINOPHILS # (AUTO) 0.3 (0.0-0.4); HEMATOCRIT 41.9 % (34.2-44.1); LYMPHOCYTES # (AUTO) 2.2 (1.0-3.2); LYMPHOCYTES % 25.6 % (18.0-39.1); MEAN CORPUSCULAR HEMOGLOBIN 31.9 pg (28-32); MEAN CORPUSCULAR VOLUME 102.9 fL (81-99); MONOCYTES # (AUTO) 0.7 (0.2-0.8); MONOCYTES % 8.5 % (4.4-11.3); NEUTROPHILS # (AUTO) 5.3 (2.1-6.9); NEUTROPHILS % 62.2 % (38.7-80.0); PLATELET COUNT 303 x10e3/uL (140-360); RED BLOOD COUNT 4.07 x10e6/uL (3.6-5.1); RED CELL DISTRIBUTION WIDTH 14.3 % (11.7-14.4)
[2021-05-06 13:37] LABS: ALBUMIN 3.9 g/dL (3.5-5.0); ALBUMIN/GLOBULIN RATIO 1.4 (0.8-2.0); ANION GAP 19.5 mmol/L (8-16); CALCIUM 9.5 mg/dL (8.4-10.2); CREATININE, SERUM 0.83 mg/dL (0.57-1.11); POTASSIUM 4.5 mmol/L (3.5-5.1)
[2021-05-11] VITALS (7 sets, daily range): BP systolic 106–118; BP diastolic 64–83
[~2021-05-11] VITALS: Ht 157.5 cm; Wt 88.9 kg
[~2021-05-11] MED LIST changes: +ALPRAZOLAM 0.5 MG TAB ONE; -DIATRIZOATE MEGL/DIATRIZOA SOD 30 ML BTL PO ONE; +DIPHENHYDRAMINE HCL 25 MG CAP ONE; +ENTRESTO 49 MG1 EACH PO; +FAMOTIDINE 20 MG/2 ML VIAL IV ONE; +FENTANYL CITRATE/PF 100MCG/2 ML INJ ONE; +HEPARIN SOD (PORCINE) 1000 UNIT/ML 30ML ONE; +HEPARIN SOD/SOD CHLORIDE 2,000 ML ONE; +LIDOCAINE HCL 2% LOCAL 20 ML VIAL ONE; +MIDAZOLAM HCL 2 MG/2 ML VIAL ONE; +NITROGLYCERIN/D5W 200 MCG/ML 250 ML ONE; +PREDNISONE 20 MG TAB ONE; +REPATHA SU140 MG/1 M; +SODIUM CHLORIDE 0.9% 1000ML 1,000 ML ONE; -SODIUM CHLORIDE 0.9% 500ML 500 ML ONE; -SODIUM CHLORIDE 0.9% 50ML 50 ML ONE; +VERAPAMIL HCL 2.5 MG/ML 2 ML VIAL ONE; +VITAMIN D350 MCG PO
== END | disposition home or self-care (01) ==
LOC: CATH LAB 10:55
PROVIDERS: ATTEND Internal Medicine Interventional Cardiology
DX: I25.118 Atherosclerotic heart disease of native coronary artery with other forms of angina pectoris (principal); R94.39 Abnormal result of other cardiovascular function study; I11.0 Hypertensive heart disease with heart failure; I50.20 Unspecified systolic (congestive) heart failure; I25.2 Old myocardial infarction; E78.5 Hyperlipidemia, unspecified; Z01.812 Encounter for preprocedural laboratory examination; Z20.822 Contact with and (suspected) exposure to COVID-19; Z68.37 Body mass index [BMI] 37.0-37.9, adult; Z95.810 Presence of automatic (implantable) cardiac defibrillator; Z82.49 Family history of ischemic heart disease and other diseases of the circulatory system
CPT/HCPCS: 36415; 76937; 80053; 85025; 93454; C1887; J1644; J2001; J2250; J3010; J7030; J7512; Q9967; U0002; 99152

== ENCOUNTER → 2021-07-23 | Day surgery (SDC) | payer MEDICARE ==
[2021-07-22 08:53] LABS: BASOPHILS # (AUTO) 0.1 (0.0-0.1); BASOPHILS % 0.7 % (0.0-1.0); EOSINOPHILS # (AUTO) 0.3 (0.0-0.4); EOSINOPHILS % 3.4 % (0.0-6.0); HEMATOCRIT 39.5 % (34.2-44.1); HEMOGLOBIN 12.3 g/dL (12.0-16.0); LYMPHOCYTES # (AUTO) 2.3 (1.0-3.2); LYMPHOCYTES % 25.3 % (18.0-39.1); MEAN CORPUSCULAR HEMOGLOBIN 32.1 pg (28-32); MEAN CORPUSCULAR HGB CONC 31.1 g/dL (31-35); MEAN CORPUSCULAR VOLUME 103.1 fL (81-99); MONOCYTES # (AUTO) 0.7 (0.2-0.8); MONOCYTES % 8.1 % (4.4-11.3); NEUTROPHILS # (AUTO) 5.6 (2.1-6.9); NEUTROPHILS % 62.1 % (38.7-80.0); PLATELET COUNT 339 x10e3/uL (140-360); RED BLOOD COUNT 3.83 x10e6/uL (3.6-5.1)
[~2021-07-23] MED LIST changes: -ALPRAZOLAM 0.5 MG TAB ONE; -DIPHENHYDRAMINE HCL 25 MG CAP ONE; -FAMOTIDINE 20 MG/2 ML VIAL IV ONE; +GLUCAGON FOR INJ 1 MG VIAL ONE; -HEPARIN SOD (PORCINE) 1000 UNIT/ML 30ML ONE; -HEPARIN SOD/SOD CHLORIDE 2,000 ML ONE; +HYOSCYAMINE SULFATE 0.5 MG/ML INJ ONE; -IOPAMIDOL 370 MG/ML 200 ML INFUS..BTL INJ ONE; -LIDOCAINE HCL 2% LOCAL 20 ML VIAL ONE; +LIDOCAINE HCL 2% LOCAL INJ 5 ML SDV VIAL INJ ONE; -NITROGLYCERIN/D5W 200 MCG/ML 250 ML ONE; -PREDNISONE 20 MG TAB ONE; +PROPOFOL IV EMULSION 10 MG/ML 20 ML VIAL ONE; -REPATHA SU140 MG/1 M; +REPATHA SU140 MG/1 M SQ; -SODIUM CHLORIDE 0.9% 1000ML 1,000 ML ONE; +STOOL SOFTENER50 MG PO; -VERAPAMIL HCL 2.5 MG/ML 2 ML VIAL ONE
[2021-07-23 15:42] VITALS: BP 125/79
== END | disposition home or self-care (01) ==
LOC: OR 12:06
PROVIDERS: ATTEND Internal Medicine Gastroenterology
DX: K62.5 Hemorrhage of anus and rectum (principal); K63.5 Polyp of colon; K56.609 Unspecified intestinal obstruction, unspecified as to partial versus complete obstruction; K57.30 Diverticulosis of large intestine without perforation or abscess without bleeding; K64.8 Other hemorrhoids; R13.10 Dysphagia, unspecified; G47.33 Obstructive sleep apnea (adult) (pediatric); I10 Essential (primary) hypertension; I25.10 Atherosclerotic heart disease of native coronary artery without angina pectoris; I25.2 Old myocardial infarction; E03.9 Hypothyroidism, unspecified; F41.9 Anxiety disorder, unspecified; Z88.0 Allergy status to penicillin; Z88.8 Allergy status to other drugs, medicaments and biological substances; Z91.040 Latex allergy status; Z01.810 Encounter for preprocedural cardiovascular examination; Z01.812 Encounter for preprocedural laboratory examination; Z79.899 Other long term (current) drug therapy; Z68.36 Body mass index [BMI] 36.0-36.9, adult; Z86.73 Personal history of transient ischemic attack (TIA), and cerebral infarction without residual deficits; Z95.810 Presence of automatic (implantable) cardiac defibrillator
CPT/HCPCS: 36415; 45380; 85025; 93005; J1610; J1980; J2001; J2250; J2704; J3010; 45378

== ENCOUNTER 2022-01-14 16:20 | Inpatient (IN) | payer MEDICARE ==
[~2022-01-14] VITALS: Ht 157.5 cm; Wt 82.1 kg
[~2022-01-14 16:20] MED LIST changes: -FENTANYL CITRATE/PF 100MCG/2 ML INJ ONE; -GLUCAGON FOR INJ 1 MG VIAL ONE; -HYOSCYAMINE SULFATE 0.5 MG/ML INJ ONE; -LIDOCAINE HCL 2% LOCAL INJ 5 ML SDV VIAL INJ ONE; -MIDAZOLAM HCL 2 MG/2 ML VIAL ONE; -PROPOFOL IV EMULSION 10 MG/ML 20 ML VIAL ONE
[2022-01-14 17:07] LABS: BASOPHILS % 0.2 % (0.0-1.0); EOSINOPHILS % 0.2 % (0.0-6.0); HEMATOCRIT 46.2 % (34.2-44.1); HEMOGLOBIN 15.1 g/dL (12.0-16.0); LYMPHOCYTES # (AUTO) 0.7 (1.0-3.2); LYMPHOCYTES % 4.3 % (18.0-39.1); MEAN CORPUSCULAR HEMOGLOBIN 33.1 pg (28-32); MEAN CORPUSCULAR HGB CONC 32.7 g/dL (31-35); MEAN CORPUSCULAR VOLUME 101.3 fL (81-99); MONOCYTES # (AUTO) 1.5 (0.2-0.8); MONOCYTES % 8.5 % (4.4-11.3); NEUTROPHILS # (AUTO) 14.7 (2.1-6.9); NEUTROPHILS % 85.9 % (38.7-80.0); PLATELET COUNT 210 x10e3/uL (140-360); RED BLOOD COUNT 4.56 x10e6/uL (3.6-5.1); RED CELL DISTRIBUTION WIDTH 18.7 % (11.7-14.4)
[2022-01-14 17:18] LABS: INR 1.21; PROTHROMBIN TIME 16.4 seconds (11.9-14.5)
[2022-01-14 17:19] LABS: PARTIAL THROMBOPLASTIN TIME 27.7 seconds (23.8-35.5)
[2022-01-14 17:28] LABS: ALBUMIN 2.5 g/dL (3.5-5.0); ALBUMIN/GLOBULIN RATIO 0.7 (0.8-2.0); ANION GAP 16.9 mmol/L (8-16); CALCIUM 8.7 mg/dL (8.4-10.2); CREATININE, SERUM 0.87 mg/dL (0.57-1.11); POTASSIUM 3.9 mmol/L (3.5-5.1)
[2022-01-14 17:34] LABS: CREATINE KINASE MB 1.8 ng/mL (0-5.0)
[2022-01-14] MEDS ORDERED: FUROSEMIDE INJ 10 MG/ML 4 ML VIAL IV STA ×2 (18:29→18:32)
[2022-01-14 20:00] VITALS: BP 122/81
[2022-01-14] MEDS ORDERED: SODIUM CHLORIDE 0.9% 250ML 250 ML ONE (20:21)
[2022-01-14 20:29] LABS: CLARITY,URINE CLEAR (CLEAR); COLOR,URINE YELLOW (YELLOW)
[2022-01-14 20:30] LABS: KETONES,URINE NEGATIVE (NEGATIVE); LEUKOCYTE ESTERASE ,URINE NEGATIVE (NEGATIVE); NITRITE,URINE NEGATIVE (NEGATIVE); PROTEIN,URINE DIPSTICK NEGATIVE (NEGATIVE); URINE UROBILINOGEN 0.2 mg/dL (0.2 - 1)
[2022-01-14 20:40] VITALS: BP 122/81
[2022-01-14 20:42] LABS: BACTERIA,URINE MANY /HPF; EPITHELIAL CELLS,URINE FEW /LPF; WBC,URINE (MAN) 0-5 /HPF (0-5)
[2022-01-14 21:00] VITALS: BP 122/81
[2022-01-14] MEDS: FUROSEMIDE INJ 10 MG/ML 4 ML VIAL IV SCH (22:43)
[2022-01-15] VITALS (8 sets, daily range): BP systolic 96–118; BP diastolic 56–75
[2022-01-15] MEDS: FUROSEMIDE INJ 10 MG/ML 4 ML VIAL IV SCH ×3 (05:53→22:08)
[2022-01-15] MEDS: LEVOTHYROXINE SODIUM 50 MCG TAB PO SCH (05:53)
[2022-01-15] MEDS ORDERED: LEVOTHYROXINE SODIUM 50 MCG TAB PO SCH (06:00)
[2022-01-15 06:12] LABS: BASOPHILS % 0.2 % (0.0-1.0); EOSINOPHILS # (AUTO) 0.1 (0.0-0.4); EOSINOPHILS % 0.3 % (0.0-6.0); HEMATOCRIT 44.5 % (34.2-44.1); HEMOGLOBIN 14.4 g/dL (12.0-16.0); LYMPHOCYTES % 6.3 % (18.0-39.1); MEAN CORPUSCULAR HGB CONC 32.4 g/dL (31-35); MEAN CORPUSCULAR VOLUME 102.1 fL (81-99); MONOCYTES # (AUTO) 1.5 (0.2-0.8); MONOCYTES % 9.3 % (4.4-11.3); NEUTROPHILS # (AUTO) 13.8 (2.1-6.9); NEUTROPHILS % 83.1 % (38.7-80.0); PLATELET COUNT 208 x10e3/uL (140-360); RED BLOOD COUNT 4.36 x10e6/uL (3.6-5.1); RED CELL DISTRIBUTION WIDTH 18.3 % (11.7-14.4)
[2022-01-15 06:26] LABS: ALBUMIN 2.3 g/dL (3.5-5.0); ALBUMIN/GLOBULIN RATIO 0.7 (0.8-2.0); ANION GAP 16.1 mmol/L (8-16); CALCIUM 8.1 mg/dL (8.4-10.2); CREATININE, SERUM 0.78 mg/dL (0.57-1.11); POTASSIUM 4.1 mmol/L (3.5-5.1)
[2022-01-15 06:38] LABS: CREATINE KINASE MB 1.7 ng/mL (0-5.0)
[2022-01-15] MEDS: AMIODARONE HCL 200 MG TAB PO SCH (09:20)
[2022-01-15] MEDS: VENLAFAXINE HCL 75 MG TAB PO SCH ×2 (09:20→16:52)
[2022-01-15] MEDS: SACUBITRIL/VALSARTAN 1 EACH TABLET PO SCH ×2 (09:20→16:52)
[2022-01-15 14:45] LABS: CREATINE KINASE MB 1.6 ng/mL (0-5.0)
[2022-01-15] MEDS: Vancomycin IV 1 GM in SODIUM CHLORIDE 0.9% 250ML 250 ML IV SCH ×2 (14:47→21:00)
[2022-01-15] MEDS: METOPROLOL SUCCINATE 25 MG TAB XL PO SCH (16:57)
[2022-01-15] MEDS: LEVALBUTEROL HCL SOLN NEBU 0.63 MG/3 ML NEB INH SCH (19:00)
[2022-01-16] VITALS (7 sets, daily range): BP systolic 87–102; BP diastolic 54–74
[2022-01-16] MEDS: FUROSEMIDE INJ 10 MG/ML 4 ML VIAL IV SCH ×3 (06:16→22:00)
[2022-01-16] MEDS: LEVOTHYROXINE SODIUM 50 MCG TAB PO SCH (06:16)
[2022-01-16 06:32] LABS: BASOPHILS % 0.2 % (0.0-1.0); EOSINOPHILS # (AUTO) 0.2 (0.0-0.4); HEMATOCRIT 43.1 % (34.2-44.1); HEMOGLOBIN 13.8 g/dL (12.0-16.0); LYMPHOCYTES # (AUTO) 0.9 (1.0-3.2); LYMPHOCYTES % 6.1 % (18.0-39.1); MEAN CORPUSCULAR HEMOGLOBIN 32.9 pg (28-32); MEAN CORPUSCULAR VOLUME 102.9 fL (81-99); MONOCYTES # (AUTO) 1.8 (0.2-0.8); MONOCYTES % 11.5 % (4.4-11.3); NEUTROPHILS # (AUTO) 12.3 (2.1-6.9); NEUTROPHILS % 80.5 % (38.7-80.0); PLATELET COUNT 198 x10e3/uL (140-360); RED BLOOD COUNT 4.19 x10e6/uL (3.6-5.1); RED CELL DISTRIBUTION WIDTH 18.3 % (11.7-14.4)
[2022-01-16 06:50] LABS: ALBUMIN 2.2 g/dL (3.5-5.0); ALBUMIN/GLOBULIN RATIO 0.8 (0.8-2.0); ANION GAP 13.3 mmol/L (8-16); CREATININE, SERUM 0.68 mg/dL (0.57-1.11); POTASSIUM 3.3 mmol/L (3.5-5.1)
[2022-01-16] MEDS: METOPROLOL SUCCINATE 25 MG TAB XL PO SCH (08:45)
[2022-01-16] MEDS: Vancomycin IV 1 GM in SODIUM CHLORIDE 0.9% 250ML 250 ML IV SCH (09:00)
[2022-01-16] MEDS: VENLAFAXINE HCL 75 MG TAB PO SCH ×2 (09:00→17:00)
[2022-01-16] MEDS: VALSARTAN/SACUBITRIL 24MG/26MG 1 EA TAB PO SCH ×2 (09:00→16:57)
[2022-01-16] MEDS ORDERED: POTASSIUM CHLORIDE 10MEQ EA PO ONE (11:30)
[2022-01-16] MEDS: AMIODARONE HCL 200 MG TAB PO SCH (11:30)
[2022-01-16] MEDS ORDERED: ENOXAPARIN SOD INJ 40 MG/0.4 ML SYR SC STA (11:57)
[2022-01-16] MEDS ORDERED: POTASSIUM CHLORIDE 20 MEQ TAB CR PO ONE (14:00)
[2022-01-17] VITALS (8 sets, daily range): BP systolic 94–113; BP diastolic 65–93
[2022-01-17] MEDS: Vancomycin IV 1 GM in SODIUM CHLORIDE 0.9% 250ML 250 ML IV SCH ×2 (00:04→09:49)
[2022-01-17] MEDS: TRAMADOL HCL 50 MG TAB PO PRN ×2 (02:47→17:04)
[2022-01-17] MEDS: LEVALBUTEROL HCL SOLN NEBU 0.63 MG/3 ML NEB INH SCH ×4 (02:55→19:42)
[2022-01-17] MEDS: LEVOTHYROXINE SODIUM 50 MCG TAB PO SCH (05:23)
[2022-01-17] MEDS: FUROSEMIDE INJ 10 MG/ML 4 ML VIAL IV SCH ×3 (05:23→21:38)
[2022-01-17 06:45] LABS: BASOPHILS % 0.2 % (0.0-1.0); EOSINOPHILS # (AUTO) 0.1 (0.0-0.4); EOSINOPHILS % 0.4 % (0.0-6.0); HEMATOCRIT 43.8 % (34.2-44.1); HEMOGLOBIN 13.8 g/dL (12.0-16.0); LYMPHOCYTES # (AUTO) 0.8 (1.0-3.2); LYMPHOCYTES % 5.1 % (18.0-39.1); MEAN CORPUSCULAR HEMOGLOBIN 32.9 pg (28-32); MEAN CORPUSCULAR HGB CONC 31.5 g/dL (31-35); MEAN CORPUSCULAR VOLUME 104.3 fL (81-99); MONOCYTES # (AUTO) 1.6 (0.2-0.8); MONOCYTES % 9.5 % (4.4-11.3); NEUTROPHILS # (AUTO) 13.8 (2.1-6.9); NEUTROPHILS % 84.1 % (38.7-80.0); PLATELET COUNT 230 x10e3/uL (140-360); RED CELL DISTRIBUTION WIDTH 18.4 % (11.7-14.4)
[2022-01-17 07:20] LABS: ANION GAP 15.6 mmol/L (8-16); CALCIUM 8.2 mg/dL (8.4-10.2); CREATININE, SERUM 0.77 mg/dL (0.57-1.11); POTASSIUM 4.6 mmol/L (3.5-5.1)
[2022-01-17] MEDS: VALSARTAN/SACUBITRIL 24MG/26MG 1 EA TAB PO SCH ×3 (08:36→16:02)
[2022-01-17] MEDS: AMIODARONE HCL 200 MG TAB PO SCH (08:36)
[2022-01-17] MEDS: METOPROLOL SUCCINATE 25 MG TAB XL PO SCH (08:37)
[2022-01-17] MEDS: VENLAFAXINE HCL 75 MG TAB PO SCH ×2 (08:37→16:51)
[2022-01-17] MEDS: LEVOFLOXACIN 750MG/D5W 150ML 150 ML IV SCH (12:07)
[2022-01-17] MEDS: ENOXAPARIN SOD INJ 40 MG/0.4 ML SYR SC SCH (16:51)
[2022-01-18] VITALS (8 sets, daily range): BP systolic 88–115; BP diastolic 54–79
[2022-01-18] MEDS: LEVALBUTEROL HCL SOLN NEBU 0.63 MG/3 ML NEB INH SCH ×4 (00:21→18:40)
[2022-01-18 05:38] LABS: BASOPHILS # (AUTO) 0.1 (0.0-0.1); BASOPHILS % 0.4 % (0.0-1.0); EOSINOPHILS # (AUTO) 0.2 (0.0-0.4); EOSINOPHILS % 1.5 % (0.0-6.0); HEMATOCRIT 42.2 % (34.2-44.1); HEMOGLOBIN 13.2 g/dL (12.0-16.0); LYMPHOCYTES # (AUTO) 0.9 (1.0-3.2); LYMPHOCYTES % 7.4 % (18.0-39.1); MEAN CORPUSCULAR HEMOGLOBIN 32.4 pg (28-32); MEAN CORPUSCULAR HGB CONC 31.3 g/dL (31-35); MEAN CORPUSCULAR VOLUME 103.7 fL (81-99); MONOCYTES # (AUTO) 1.4 (0.2-0.8); MONOCYTES % 11.3 % (4.4-11.3); NEUTROPHILS # (AUTO) 9.7 (2.1-6.9); NEUTROPHILS % 78.3 % (38.7-80.0); PLATELET COUNT 225 x10e3/uL (140-360); RED BLOOD COUNT 4.07 x10e6/uL (3.6-5.1); RED CELL DISTRIBUTION WIDTH 17.9 % (11.7-14.4)
[2022-01-18] MEDS: LEVOTHYROXINE SODIUM 50 MCG TAB PO SCH (06:00)
[2022-01-18] MEDS: FUROSEMIDE INJ 10 MG/ML 4 ML VIAL IV SCH ×3 (06:00→21:55)
[2022-01-18 06:06] LABS: ALBUMIN 2.3 g/dL (3.5-5.0); ALBUMIN/GLOBULIN RATIO 0.7 (0.8-2.0); CALCIUM 8.6 mg/dL (8.4-10.2); CREATININE, SERUM 0.79 mg/dL (0.57-1.11)
[2022-01-18] MEDS: VALSARTAN/SACUBITRIL 24MG/26MG 1 EA TAB PO SCH ×2 (09:00→17:00)
[2022-01-18] MEDS: METOPROLOL SUCCINATE 25 MG TAB XL PO SCH (09:00)
[2022-01-18] MEDS: AMIODARONE HCL 200 MG TAB PO SCH (09:22)
[2022-01-18] MEDS: VENLAFAXINE HCL 75 MG TAB PO SCH ×2 (09:22→17:19)
[2022-01-18] MEDS: LEVOFLOXACIN 750MG/D5W 150ML 150 ML IV SCH (11:45)
[2022-01-18] MEDS: ENOXAPARIN SOD INJ 40 MG/0.4 ML SYR SC SCH (17:19)
[2022-01-19] VITALS (8 sets, daily range): BP systolic 89–112; BP diastolic 60–82
[2022-01-19] MEDS: LEVALBUTEROL HCL SOLN NEBU 0.63 MG/3 ML NEB INH SCH ×4 (01:01→19:45)
[2022-01-19 06:09] LABS: BASOPHILS # (AUTO) 0.1 (0.0-0.1); BASOPHILS % 0.5 % (0.0-1.0); EOSINOPHILS # (AUTO) 0.2 (0.0-0.4); EOSINOPHILS % 1.5 % (0.0-6.0); HEMATOCRIT 40.6 % (34.2-44.1); HEMOGLOBIN 13.1 g/dL (12.0-16.0); LYMPHOCYTES # (AUTO) 0.8 (1.0-3.2); LYMPHOCYTES % 7.9 % (18.0-39.1); MEAN CORPUSCULAR HEMOGLOBIN 33.7 pg (28-32); MEAN CORPUSCULAR HGB CONC 32.3 g/dL (31-35); MEAN CORPUSCULAR VOLUME 104.4 fL (81-99); MONOCYTES # (AUTO) 1.2 (0.2-0.8); MONOCYTES % 11.8 % (4.4-11.3); PLATELET COUNT 277 x10e3/uL (140-360); RED BLOOD COUNT 3.89 x10e6/uL (3.6-5.1); RED CELL DISTRIBUTION WIDTH 17.8 % (11.7-14.4)
[2022-01-19 06:24] LABS: ALBUMIN 2.3 g/dL (3.5-5.0); ALBUMIN/GLOBULIN RATIO 0.7 (0.8-2.0); ANION GAP 15.7 mmol/L (8-16); CALCIUM 8.9 mg/dL (8.4-10.2); CREATININE, SERUM 0.87 mg/dL (0.57-1.11); POTASSIUM 3.7 mmol/L (3.5-5.1)
[2022-01-19] MEDS: FUROSEMIDE INJ 10 MG/ML 4 ML VIAL IV SCH ×3 (07:02→22:18)
[2022-01-19] MEDS: LEVOTHYROXINE SODIUM 50 MCG TAB PO SCH (07:02)
[2022-01-19] MEDS: VALSARTAN/SACUBITRIL 24MG/26MG 1 EA TAB PO SCH ×2 (08:39→17:00)
[2022-01-19] MEDS: AMIODARONE HCL 200 MG TAB PO SCH (08:39)
[2022-01-19] MEDS: VENLAFAXINE HCL 75 MG TAB PO SCH ×4 (08:39→20:09)
[2022-01-19] MEDS: METOPROLOL SUCCINATE 25 MG TAB XL PO SCH (08:40)
[2022-01-19] MEDS: LEVOFLOXACIN 750MG/D5W 150ML 150 ML IV SCH (11:45)
[2022-01-19] MEDS: ENOXAPARIN SOD INJ 40 MG/0.4 ML SYR SC SCH (17:05)
[2022-01-20] VITALS: BP 102/63
[2022-01-20] MEDS: LEVALBUTEROL HCL SOLN NEBU 0.63 MG/3 ML NEB INH SCH ×2 (01:30→07:10)
[2022-01-20 04:00] VITALS: BP 116/72
[2022-01-20 04:57] LABS: BASOPHILS # (AUTO) 0.1 (0.0-0.1); BASOPHILS % 0.8 % (0.0-1.0); EOSINOPHILS # (AUTO) 0.2 (0.0-0.4); EOSINOPHILS % 1.7 % (0.0-6.0); HEMOGLOBIN 13.5 g/dL (12.0-16.0); LYMPHOCYTES % 8.8 % (18.0-39.1); MEAN CORPUSCULAR HEMOGLOBIN 33.3 pg (28-32); MEAN CORPUSCULAR HGB CONC 30.7 g/dL (31-35); MEAN CORPUSCULAR VOLUME 108.6 fL (81-99); MONOCYTES # (AUTO) 1.9 (0.2-0.8); MONOCYTES % 15.9 % (4.4-11.3); NEUTROPHILS # (AUTO) 8.5 (2.1-6.9); NEUTROPHILS % 71.7 % (38.7-80.0); PLATELET COUNT 249 x10e3/uL (140-360); RED BLOOD COUNT 4.05 x10e6/uL (3.6-5.1); RED CELL DISTRIBUTION WIDTH 17.6 % (11.7-14.4)
[2022-01-20] MEDS: LEVOTHYROXINE SODIUM 50 MCG TAB PO SCH (06:05)
[2022-01-20] MEDS: FUROSEMIDE INJ 10 MG/ML 4 ML VIAL IV SCH (06:05)
[2022-01-20 06:47] LABS: ALBUMIN 2.3 g/dL (3.5-5.0); ALBUMIN/GLOBULIN RATIO 0.7 (0.8-2.0); ANION GAP 13.7 mmol/L (8-16); CALCIUM 8.7 mg/dL (8.4-10.2); CREATININE, SERUM 0.95 mg/dL (0.57-1.11); POTASSIUM 3.7 mmol/L (3.5-5.1)
[2022-01-20 08:01] VITALS: BP 94/71
[2022-01-20 08:17] VITALS: BP 94/71
[2022-01-20] MEDS: AMIODARONE HCL 200 MG TAB PO SCH (09:33)
[2022-01-20] MEDS: METOPROLOL SUCCINATE 25 MG TAB XL PO SCH (09:34)
[2022-01-20] MEDS ORDERED: METOPROLOL SUCC25 MG PO (11:33)
[2022-01-20] MEDS ORDERED: LEVOFLOXACIN250 MG PO (11:33)
[2022-01-20] MEDS ORDERED: LEVOTHYROXINE100 MC1 IV (11:35)
[2022-01-20] MEDS ORDERED: ENTRESTO 24 MG1 EACH PO (11:37)
[2022-01-20] MEDS ORDERED: LEVOFLOXACIN 250 MG TAB PO SCH (11:45)
[2022-01-20] MEDS ORDERED: FUROSEMIDE 40 MG TAB PO SCH (14:00)
== END 2022-01-20 12:26 | disposition home or self-care (01) | DRG 291 ==
LOC: ER 16:35 → ERHOLD 18:06 → MED/SURG3 18:49
PROVIDERS: ADMIT Internal Medicine; ATTEND Internal Medicine
DX: I11.0 Hypertensive heart disease with heart failure (principal); I50.43 Acute on chronic combined systolic (congestive) and diastolic (congestive) heart failure; J15.6 Pneumonia due to other Gram-negative bacteria; E44.0 Moderate protein-calorie malnutrition; I42.8 Other cardiomyopathies; E78.5 Hyperlipidemia, unspecified; Z86.711 Personal history of pulmonary embolism; Z79.01 Long term (current) use of anticoagulants; Z96.641 Presence of right artificial hip joint; Z95.810 Presence of automatic (implantable) cardiac defibrillator; E03.9 Hypothyroidism, unspecified; Z79.899 Other long term (current) drug therapy; E66.9 Obesity, unspecified; Z68.33 Body mass index [BMI] 33.0-33.9, adult; F32.A Depression, unspecified; F41.9 Anxiety disorder, unspecified; Z20.822 Contact with and (suspected) exposure to COVID-19; E87.6 Hypokalemia
CPT/HCPCS: 36415; 70450; 71045; 80048; 80053; 80202; 81001; 82550; 82553; 83605; 83735; 83880; 84443; 84484; 85025; 85610; 85730; 87040; 87086; 87186; 93005; 93306; 94640; 94799; 97139; 99285; J0692; J1650; J1940; J3370; J7050; U0002

== ENCOUNTER 2022-01-29 16:16 | Inpatient (IN) | payer MEDICARE ==
[~2022-01-29] VITALS: Ht 157.5 cm; Wt 77.6 kg
[~2022-01-29 16:16] MED LIST changes: +LEVOFLOXACIN250 MG PO; +LEVOTHYROXINE100 MC1 IV
[2022-01-29 16:59] LABS: BASOPHILS # (AUTO) 0.1 (0.0-0.1); BASOPHILS % 0.7 % (0.0-1.0); EOSINOPHILS # (AUTO) 0.1 (0.0-0.4); EOSINOPHILS % 1.1 % (0.0-6.0); HEMATOCRIT 42.8 % (34.2-44.1); HEMOGLOBIN 13.5 g/dL (12.0-16.0); LYMPHOCYTES # (AUTO) 1.3 (1.0-3.2); LYMPHOCYTES % 14.8 % (18.0-39.1); MEAN CORPUSCULAR HEMOGLOBIN 32.8 pg (28-32); MEAN CORPUSCULAR HGB CONC 31.5 g/dL (31-35); MEAN CORPUSCULAR VOLUME 104.1 fL (81-99); MONOCYTES # (AUTO) 0.9 (0.2-0.8); MONOCYTES % 9.7 % (4.4-11.3); NEUTROPHILS # (AUTO) 6.6 (2.1-6.9); PLATELET COUNT 307 x10e3/uL (140-360); RED BLOOD COUNT 4.11 x10e6/uL (3.6-5.1); RED CELL DISTRIBUTION WIDTH 16.9 % (11.7-14.4)
[2022-01-29] MEDS ORDERED: ACETAMINOPHEN 325 MG TAB PO ONE (18:45)
[2022-01-29 18:54] LABS: INR 0.94; PROTHROMBIN TIME 13.4 seconds (11.9-14.5)
[2022-01-29 18:55] LABS: PARTIAL THROMBOPLASTIN TIME 31.2 seconds (23.8-35.5)
[2022-01-29 19:01] LABS: ALBUMIN 2.8 g/dL (3.5-5.0); ALBUMIN/GLOBULIN RATIO 0.8 (0.8-2.0); ANION GAP 15.9 mmol/L (8-16); CALCIUM 9.3 mg/dL (8.4-10.2); CREATININE, SERUM 0.97 mg/dL (0.57-1.11); POTASSIUM 3.9 mmol/L (3.5-5.1)
[2022-01-29] MEDS ORDERED: ONDANSETRON HCL INJ 2MG/ML 2ML 2 MG/ML VIAL IV STA (19:44)
[2022-01-29] MEDS ORDERED: Morphine 4mg Syringe 4 MG/ML INJ IV ONE (19:45)
[2022-01-29] MEDS ORDERED: FUROSEMIDE INJ 10 MG/ML 4 ML VIAL IV SCH (20:15)
[2022-01-29] MEDS ORDERED: SODIUM CHLORIDE FLUSH 10 ML SYR INJ PRN (20:15)
[2022-01-29] MEDS: ALBUTEROL SULF 0.083% NEB SOLN 3 ML NEB NEB SCH (22:15)
[2022-01-29] MEDS: FUROSEMIDE INJ 10 MG/ML 4 ML VIAL IV SCH (23:19)
[2022-01-30] VITALS (7 sets, daily range): BP systolic 88–120; BP diastolic 53–72
[2022-01-30] MEDS: ALBUTEROL SULF 0.083% NEB SOLN 3 ML NEB NEB SCH ×6 (03:07→22:15)
[2022-01-30] MEDS: IPRATROPIUM BROMIDE 0.02% 2.5 ML NEB NEB SCH ×3 (03:07→19:15)
[2022-01-30] MEDS: FUROSEMIDE INJ 10 MG/ML 4 ML VIAL IV SCH ×2 (07:00→15:00)
[2022-01-30 07:48] LABS: BASOPHILS # (AUTO) 0.1 (0.0-0.1); BASOPHILS % 0.7 % (0.0-1.0); EOSINOPHILS % 0.3 % (0.0-6.0); HEMATOCRIT 40.5 % (34.2-44.1); HEMOGLOBIN 12.4 g/dL (12.0-16.0); LYMPHOCYTES # (AUTO) 1.2 (1.0-3.2); LYMPHOCYTES % 11.9 % (18.0-39.1); MEAN CORPUSCULAR HEMOGLOBIN 32.6 pg (28-32); MEAN CORPUSCULAR HGB CONC 30.6 g/dL (31-35); MEAN CORPUSCULAR VOLUME 106.6 fL (81-99); MONOCYTES # (AUTO) 1.6 (0.2-0.8); MONOCYTES % 14.9 % (4.4-11.3); NEUTROPHILS # (AUTO) 7.5 (2.1-6.9); NEUTROPHILS % 71.7 % (38.7-80.0); PLATELET COUNT 283 x10e3/uL (140-360); RED CELL DISTRIBUTION WIDTH 16.9 % (11.7-14.4)
[2022-01-30 08:17] LABS: ALBUMIN 2.9 g/dL (3.5-5.0); ALBUMIN/GLOBULIN RATIO 0.9 (0.8-2.0); CALCIUM 9.3 mg/dL (8.4-10.2); CREATININE, SERUM 0.86 mg/dL (0.57-1.11)
[2022-01-30] MEDS ORDERED: ONDANSETRON ODT8 MG PO (09:46)
[2022-01-30] MEDS ORDERED: SODIUM CHLORIDE 0.9% 250ML 250 ML ONE (10:20)
[2022-01-30 10:34] LABS: CREATINE KINASE 21 IU/L (29-168)
[2022-01-30] MEDS ORDERED: TRAMADOL HCL 50 MG TAB PO PRN (14:15)
[2022-01-30 14:35] LABS: CREATINE KINASE MB 1.5 ng/mL (0-5.0)
[2022-01-30] MEDS ORDERED: ONDANSETRON HCL 4 MG ORAL DISINTEGRATING TAB PO SCH (15:00)
[2022-01-30] MEDS: VENLAFAXINE HCL 75 MG TAB PO SCH (16:06)
[2022-01-30] MEDS: ACETAMINOPHEN 325 MG TAB PO PRN (16:11)
[2022-01-30] MEDS: VALSARTAN/SACUBITRIL 24MG/26MG 1 EA TAB PO SCH (17:00)
[2022-01-30] MEDS: PRIMIDONE 50 MG TAB PO SCH (20:44)
[2022-01-31] VITALS (7 sets, daily range): BP systolic 97–135; BP diastolic 61–82
[2022-01-31] MEDS: ALBUTEROL SULF 0.083% NEB SOLN 3 ML NEB NEB SCH ×5 (03:45→19:35)
[2022-01-31] MEDS: IPRATROPIUM BROMIDE 0.02% 2.5 ML NEB NEB SCH ×4 (03:45→19:35)
[2022-01-31] MEDS: LEVOTHYROXINE SODIUM 100 MCG TAB PO SCH (05:19)
[2022-01-31] MEDS: VENLAFAXINE HCL 75 MG TAB PO SCH ×2 (08:43→16:20)
[2022-01-31] MEDS: METOPROLOL SUCCINATE 25 MG TAB XL PO SCH (08:43)
[2022-01-31] MEDS: AMIODARONE HCL 200 MG TAB PO SCH (08:43)
[2022-01-31] MEDS: CHOLECALCIFEROL 1,000 UNIT TAB PO SCH (08:47)
[2022-01-31] MEDS: VALSARTAN/SACUBITRIL 24MG/26MG 1 EA TAB PO SCH ×2 (09:00→16:20)
[2022-01-31] MEDS ORDERED: LEVOTHYROXINE SODIUM 100 MCG/VIAL IV SCH ×2 (09:00)
[2022-01-31 18:00] LABS: ANION GAP 15.6 mmol/L (8-16); CALCIUM 9.1 mg/dL (8.4-10.2); CREATININE, SERUM 0.92 mg/dL (0.57-1.11); MAGNESIUM 1.9 MG/DL (1.3-2.1); POTASSIUM 4.6 mmol/L (3.5-5.1)
[2022-01-31] MEDS: PRIMIDONE 50 MG TAB PO SCH (20:40)
[2022-02-01] VITALS (9 sets, daily range): BP systolic 100–141; BP diastolic 67–89
[2022-02-01] MEDS: IPRATROPIUM BROMIDE 0.02% 2.5 ML NEB NEB SCH ×4 (00:02→19:45)
[2022-02-01] MEDS: ALBUTEROL SULF 0.083% NEB SOLN 3 ML NEB NEB SCH ×7 (00:02→22:50)
[2022-02-01] MEDS: LEVOTHYROXINE SODIUM 100 MCG TAB PO SCH (06:17)
[2022-02-01] MEDS: CEFTRIAXONE 2 GM in SODIUM CHLORIDE 0.9% 100 ML IV SCH (08:42)
[2022-02-01] MEDS: FUROSEMIDE 40 MG TAB PO SCH (08:43)
[2022-02-01] MEDS: VALSARTAN/SACUBITRIL 24MG/26MG 1 EA TAB PO SCH ×2 (08:43→17:00)
[2022-02-01] MEDS: VENLAFAXINE HCL 75 MG TAB PO SCH ×2 (08:43→17:27)
[2022-02-01] MEDS: CHOLECALCIFEROL 1,000 UNIT TAB PO SCH (08:43)
[2022-02-01] MEDS: METOPROLOL SUCCINATE 25 MG TAB XL PO SCH (08:43)
[2022-02-01] MEDS: AMIODARONE HCL 200 MG TAB PO SCH (08:43)
[2022-02-01] MEDS ORDERED: AZITHROMYCIN 250 MG TAB PO SCH (19:15)
[2022-02-01] MEDS: PRIMIDONE 50 MG TAB PO SCH (20:30)
[2022-02-02 01:32] VITALS: BP 112/88
[2022-02-02] MEDS: IPRATROPIUM BROMIDE 0.02% 2.5 ML NEB NEB SCH ×3 (01:57→13:00)
[2022-02-02] MEDS: ALBUTEROL SULF 0.083% NEB SOLN 3 ML NEB NEB SCH ×4 (01:57→15:00)
[2022-02-02 05:13] VITALS: BP 96/60
[2022-02-02] MEDS: LEVOTHYROXINE SODIUM 100 MCG TAB PO SCH (06:33)
[2022-02-02 06:49] LABS: BASOPHILS # (AUTO) 0.1 (0.0-0.1); BASOPHILS % 0.8 % (0.0-1.0); EOSINOPHILS # (AUTO) 0.2 (0.0-0.4); EOSINOPHILS % 2.5 % (0.0-6.0); HEMATOCRIT 39.9 % (34.2-44.1); HEMOGLOBIN 12.4 g/dL (12.0-16.0); LYMPHOCYTES # (AUTO) 1.3 (1.0-3.2); LYMPHOCYTES % 13.6 % (18.0-39.1); MEAN CORPUSCULAR HEMOGLOBIN 32.8 pg (28-32); MEAN CORPUSCULAR HGB CONC 31.1 g/dL (31-35); MEAN CORPUSCULAR VOLUME 105.6 fL (81-99); MONOCYTES # (AUTO) 1.4 (0.2-0.8); MONOCYTES % 14.6 % (4.4-11.3); NEUTROPHILS # (AUTO) 6.4 (2.1-6.9); NEUTROPHILS % 68.1 % (38.7-80.0); PLATELET COUNT 280 x10e3/uL (140-360); RED BLOOD COUNT 3.78 x10e6/uL (3.6-5.1); RED CELL DISTRIBUTION WIDTH 16.8 % (11.7-14.4)
[2022-02-02 07:19] LABS: ALBUMIN 2.8 g/dL (3.5-5.0); CALCIUM 9.2 mg/dL (8.4-10.2); CREATININE, SERUM 1.09 mg/dL (0.57-1.11); MAGNESIUM 1.9 MG/DL (1.3-2.1)
[2022-02-02] MEDS: VALSARTAN/SACUBITRIL 24MG/26MG 1 EA TAB PO SCH (09:00)
[2022-02-02] MEDS: VENLAFAXINE HCL 75 MG TAB PO SCH (09:00)
[2022-02-02] MEDS: FUROSEMIDE 40 MG TAB PO SCH (09:00)
[2022-02-02] MEDS: CHOLECALCIFEROL 1,000 UNIT TAB PO SCH (09:00)
[2022-02-02] MEDS: AMIODARONE HCL 200 MG TAB PO SCH (09:00)
[2022-02-02] MEDS: CEFTRIAXONE 2 GM in SODIUM CHLORIDE 0.9% 100 ML IV SCH (09:00)
[2022-02-02] MEDS: ACETAMINOPHEN 325 MG TAB PO PRN (10:20)
[2022-02-02 10:36] VITALS: BP 98/74
[2022-02-02 12:17] VITALS: BP 101/81
== END 2022-02-02 16:05 | disposition home or self-care (01) | DRG 291 ==
LOC: ER 17:25 → ERHOLD 20:10 → MED/SURG2 01-30 09:27
PROVIDERS: ADMIT Internal Medicine; ATTEND Internal Medicine
DX: I11.0 Hypertensive heart disease with heart failure (principal); I50.43 Acute on chronic combined systolic (congestive) and diastolic (congestive) heart failure; J15.6 Pneumonia due to other Gram-negative bacteria; J96.01 Acute respiratory failure with hypoxia; I25.10 Atherosclerotic heart disease of native coronary artery without angina pectoris; E03.9 Hypothyroidism, unspecified; G40.909 Epilepsy, unspecified, not intractable, without status epilepticus; Z88.0 Allergy status to penicillin; Z91.041 Radiographic dye allergy status; Z91.011 Allergy to milk products; E78.5 Hyperlipidemia, unspecified; F41.9 Anxiety disorder, unspecified; Z20.822 Contact with and (suspected) exposure to COVID-19; Z95.810 Presence of automatic (implantable) cardiac defibrillator; F32.A Depression, unspecified; Z79.51 Long term (current) use of inhaled steroids; Z79.52 Long term (current) use of systemic steroids; Z79.899 Other long term (current) drug therapy; E66.9 Obesity, unspecified; Z68.31 Body mass index [BMI] 31.0-31.9, adult
CPT/HCPCS: 36415; 71045; 80048; 80053; 82550; 82553; 83605; 83735; 83880; 84484; 85025; 85610; 85730; 87040; 93005; 94640; 94799; 99285; J0456; J0696; J1940; J2270; J2405; J7050; U0002